=== PATIENT | male | born 1935 | race Caucasian/White ===

== ENCOUNTER → 2018-05-09 | Outpatient (CLI) | payer MEDICARE ==
--- NOTE | 2018-05-24 12:28 | P.ARTDOP ---
Arterial Doppler LOWER EXTREMITY ARTERIAL DOPPLER: DATE OF SERVICE: 05/09/2018 Reason for study: Assess previous bypass graft. Doppler waveforms: Multiphasic throughout on the right. Atypical throughout on the left.. Pulse volume recording: Mild blunting throughout bilaterally. More on the left than the right.. Pressure gradients: Below the knee on the right and above the thigh on the left.. Ankle-brachial indices: 0.86 on the right and 0.57 on the left.. Toe pressures: [] on the right, [] on the left Impression: Mild right fem-pop disease. Moderate left iliofemoral disease. Duplex of bypass graft needed to assess patency of fem-fem bypass.
== END | disposition home or self-care (01) ==
LOC: RADUSWWP 07:51
PROVIDERS: ATTEND Podiatrist Foot & Ankle Surgery
DX: I73.9 Peripheral vascular disease, unspecified (principal)
CPT/HCPCS: 93923

== ENCOUNTER → 2018-05-12 | Outpatient (CLI) | payer MEDICARE ==
--- NOTE | 2018-05-12 11:31 | CT ---
EXAMINATION TYPE: CT chest w con DATE OF EXAM: 05/12/2018 COMPARISON: NONE HISTORY: Cough and congestion per patient, acute bronchitis and COPD with acute exacerbation per orde r. CT DLP: 494.9 mGycm. Automated Exposure Control for Dose Reduction was Utilized. TECHNIQUE: CT scan of the thorax is performed following with IV Contrast, patient injected with 80 m L of Isovue 300. FINDINGS: LUNGS: There is patchy left basilar linear scarring and/or atelectasis seen best paracoronal image 43 . There is no suspicious parenchymal nodule or mass. No pleural effusion or pneumothorax is seen bila terally. Tracheobronchial tree is patent. No suspicious consolidation or groundglass opacity is evide nt. MEDIASTINUM: There are no greater than 1 cm hilar or mediastinal lymph nodes. No cardiomegaly or pe ricardial effusion is seen. There is fairly moderate to severe coronary artery calcification and/or stents. Correlate clinically. OTHER: Small hiatal hernia is present. Small dependent gallstones are seen in gallbladder. There is p artial visualization of renal cysts bilaterally, largest right kidney was inferior axial images. Ther e is partial visualization of surgical change of the infrarenal abdominal aorta. There is some cortic al atrophy anteriorly mid pole level left kidney. Bilateral gynecomastia is partially imaged. IMPRESSION: No significant acute or chronic pulmonary process.
== END | disposition home or self-care (01) ==
LOC: RADCTMAIN 10:12
PROVIDERS: ATTEND Physician Assistant Medical
DX: J44.1 Chronic obstructive pulmonary disease with (acute) exacerbation (principal)
CPT/HCPCS: 82565; 84520; 71260; 36415; Q9967

== ENCOUNTER 2018-06-08 19:51 | Inpatient (IN) | payer MEDICARE ==
[2018-06-08] MEDS ORDERED: IPRATROPIUM-ALBUTEROL 3 ML NEB INHALATION STA ×2 (20:17→23:23)
[2018-06-08] MEDS ORDERED: FUROSEMIDE 10 MG/ML 4 ML VIAL IV STA (20:20)
--- NOTE | 2018-06-08 20:20 | ED ---
SOB HPI - General Chief Complaint: Shortness of Breath Stated Complaint: SOB Time Seen by Provider: 06/08/18 20:05 Source: patient, RN notes reviewed Mode of arrival: ambulatory Limitations: no limitations - History of Present Illness Initial Comments: This 83-year-old male presents with complaints of cough since March of this year he's had increasing shortness breath and increasing peripheral edema he's had several various workups for this. Eating worse he states he's had cough with sometimes clear sometimes yellow phlegm he denies currently any fevers chills or sweats however. Some chest tightness because of the shortness of breath he states. He is having history of peripheral vascular disease with stents to his lower extremities. MD Complaint: shortness of breath, cough - Related Data Home Medications Medication Instructions Recorded Confirmed Atorvastatin [Lipitor] 40 mg PO HS 12/10/15 06/08/18 Cholecalciferol [Vitamin D3] 2,000 unit PO DAILY 12/10/15 06/08/18 Ranitidine HCl 150 mg PO BID 12/10/15 06/08/18 Sennosides [Senokot] 8.6 mg PO HS 12/10/15 06/08/18 Albuterol Inhaler [Ventolin Hfa 1 - 2 puff INHALATION RT-Q4H PRN 06/08/18 Inhaler] Cilostazol [Pletal] 100 mg PO PC-BID 06/08/18 06/08/18 Lactobacillus Acidophilus 1 tab PO DAILY 06/08/18 06/08/18 [Acidophilus] Nystatin 100,000Unit/gm Cream 1 applic TOPICAL BID 06/08/18 06/08/18 [Mycostatin Cream] Sildenafil Citrate [Viagra] 100 mg PO ONCE PRN 06/08/18 06/08/18 Allergies Allergy/AdvReac Type Severity Reaction Status Date / Time fluticasone propionate Allergy Unknown Verified 06/08/18 20:01 [From Advair Diskus] heparin Allergy "made Verified 06/08/18 20:01 blood too thin" Penicillins Allergy Anaphylaxis Verified 06/08/18 20:01 salmeterol xinafoate Allergy Unknown Verified 06/08/18 20:01 [From Advair Diskus] Tetanus Vaccines and Toxoid Allergy Unknown Verified 06/08/18 20:01 [Tetanus Vaccines & Toxoid] Childhood levetiracetam [From [facility]] AdvReac Hallucinati Verified 06/08/18 21:11 ons Review of Systems ROS Statement: Those systems with pertinent positive or pertinent negative responses have been documented in the HPI. ROS Other: All systems not noted in ROS Statement are negative. Past Medical History Past Medical History: Coronary Artery Disease (CAD), COPD, Hyperlipidemia History of Any Multi-Drug Resistant Organisms: MRSA Date of last positivie culture/infection: 2013 MDRO Source:: blood Additional Past Surgical History / Comment(s): Aortic triple femoral bypass, neck repair, stent in the right leg Past Psychological History: No Psychological Hx Reported Smoking Status: Former smoker Past Alcohol Use History: None Reported Past Drug Use History: None Reported General Exam - General Exam Comments Initial Comments: Is a well-developed well-nourished awake alert oriented 3 male Limitations: no limitations General appearance: alert, anxious Head exam: Present: atraumatic, normocephalic, normal inspection Eye exam: Present: normal appearance, PERRL, EOMI. Absent: scleral icterus, conjunctival injection, periorbital swelling ENT exam: Present: normal exam, mucous membranes moist Neck exam: Present: normal inspection. Absent: tenderness, meningismus, lymphadenopathy Respiratory exam: Present: wheezes, decreased breath sounds. Absent: respiratory distress, rales, rhonchi, stridor Cardiovascular Exam: Present: regular rate, normal rhythm, normal heart sounds. Absent: systolic murmur, diastolic murmur, rubs, gallop, clicks GI/Abdominal exam: Present: soft, normal bowel sounds. Absent: distended, tenderness, guarding, rebound, rigid Extremities exam: Present: normal inspection, full ROM, normal capillary refill , pedal edema. Absent: tenderness, joint swelling, calf tenderness Back exam: Present: normal inspection Neurological exam: Present: alert, oriented X3, CN II-XII intact Psychiatric exam: Present: normal affect, normal mood Skin exam: Present: warm, dry, intact, normal color. Absent: rash Course Vital Signs 06/08/18 06/08/18 06/08/18 19:54 20:23 20:25 Temperature 98.4 F Pulse Rate 80 92 Respiratory 28 H 24 Rate Blood Pressure 163/88 O2 Sat by Pulse 89 L Oximetry 06/08/18 06/08/18 06/08/18 20:39 22:05 23:28 Temperature Pulse Rate 95 94 96 Respiratory 24 Rate Blood Pressure 163/80 O2 Sat by Pulse 93 L Oximetry 06/08/18 06/08/18 23:36 23:45 Temperature Pulse Rate 96 103 H Respiratory 22 Rate Blood Pressure 141/80 O2 Sat by Pulse 95 Oximetry - Reevaluation(s) Reevaluation #1: 06/09/18 00:13 Reevaluation after initial treatment revealed the patient had minimal improvement. Medical Decision Making - Medical Decision Making I did discuss findings with the patient the presentation appears be consistent with a COPD exacerbation with hypoxemia. Patient will be admitted. I did reevaluate patient several occasions. Some relief after initial treatment. He states that treatments do not seem to last for a long however. - Lab Data Result diagrams: 06/08/18 20:18 06/08/18 20:18 Lab Results 06/08/18 06/08/18 06/08/18 Range/Units 20:18 20:18 20:18 WBC 8.0 (3.8-10.6) k/uL RBC 5.24 (4.30-5.90) m/uL Hgb 15.1 (13.0-17.5) gm/dL Hct 46.5 (39.0-53.0) % MCV 88.6 (80.0-100.0) fL MCH 28.7 (25.0-35.0) pg MCHC 32.4 (31.0-37.0) g/dL RDW 14.9 (11.5-15.5) % Plt Count 183 (150-450) k/uL Neutrophils % 67 % Lymphocytes % 16 % Monocytes % 8 % Eosinophils % 5 % Basophils % 1 % Neutrophils # 5.3 (1.3-7.7) k/uL Lymphocytes # 1.3 (1.0-4.8) k/uL Monocytes # 0.6 (0-1.0) k/uL Eosinophils # 0.4 (0-0.7) k/uL Basophils # 0.1 (0-0.2) k/uL PT (9.0-12.0) sec INR (<1.2) APTT (22.0-30.0) sec D-Dimer (<0.60) mg/L FEU Sodium 140 (137-145) mmol/L Potassium 5.0 (3.5-5.1) mmol/L Chloride 107 (98-107) mmol/L Carbon Dioxide 26 (22-30) mmol/L Anion Gap 7 mmol/L BUN 14 (9-20) mg/dL Creatinine 1.07 (0.66-1.25) mg/dL Est GFR (CKD-EPI)AfAm 74 (>60 ml/min/1.73 sqM) Est GFR (CKD-EPI)NonAf 64 (>60 ml/min/1.73 sqM) Glucose 78 (74-99) mg/dL Calcium 9.1 (8.4-10.2) mg/dL Magnesium 2.2 (1.6-2.3) mg/dL Total Bilirubin 0.8 (0.2-1.3) mg/dL AST 38 (17-59) U/L ALT 26 (21-72) U/L Alkaline Phosphatase 77 (38-126) U/L Total Creatine Kinase 118 (55-170) U/L CK-MB (CK-2) 2.1 (0.0-2.4) ng/mL CK-MB (CK-2) Rel Index 1.8 Troponin I 0.014 (0.000-0.034) ng/mL NT-Pro-B Natriuret Pep pg/mL Total Protein 6.8 (6.3-8.2) g/dL Albumin 4.1 (3.5-5.0) g/dL 06/08/18 06/08/18 Range/Units 20:18 21:19 WBC (3.8-10.6) k/uL RBC (4.30-5.90) m/uL Hgb (13.0-17.5) gm/dL Hct (39.0-53.0) % MCV (80.0-100.0) fL MCH (25.0-35.0) pg MCHC (31.0-37.0) g/dL RDW (11.5-15.5) % Plt Count (150-450) k/uL Neutrophils % % Lymphocytes % % Monocytes % % Eosinophils % % Basophils % % Neutrophils # (1.3-7.7) k/uL Lymphocytes # (1.0-4.8) k/uL Monocytes # (0-1.0) k/uL Eosinophils # (0-0.7) k/uL Basophils # (0-0.2) k/uL PT 10.4 (9.0-12.0) sec INR 1.1 (<1.2) APTT 20.2 L (22.0-30.0) sec D-Dimer 3.39 H (<0.60) mg/L FEU Sodium (137-145) mmol/L Potassium (3.5-5.1) mmol/L Chloride (98-107) mmol/L Carbon Dioxide (22-30) mmol/L Anion Gap mmol/L BUN (9-20) mg/dL Creatinine (0.66-1.25) mg/dL Est GFR (CKD-EPI)AfAm (>60 ml/min/1.73 sqM) Est GFR (CKD-EPI)NonAf (>60 ml/min/1.73 sqM) Glucose (74-99) mg/dL Calcium (8.4-10.2) mg/dL Magnesium (1.6-2.3) mg/dL Total Bilirubin (0.2-1.3) mg/dL AST (17-59) U/L ALT (21-72) U/L Alkaline Phosphatase (38-126) U/L Total Creatine Kinase (55-170) U/L CK-MB (CK-2) (0.0-2.4) ng/mL CK-MB (CK-2) Rel Index Troponin I (0.000-0.034) ng/mL NT-Pro-B Natriuret Pep 169 pg/mL Total Protein (6.3-8.2) g/dL Albumin (3.5-5.0) g/dL - EKG Data -: EKG Interpreted by Tn EKG shows normal: sinus rhythm (Sinus rhythm rate 94 WV interval 114 QRS 90 QT since QTC 358/[address] configuration artifact is present) - Radiology Data Radiology results: report reviewed (Review the imaging shows no definite acute findings. CAT scan was done showing no evidence of pulmonary embolism.), image reviewed Critical Care Time Critical Care Time: Yes Critical Care Time: 37 minutes of critical care time which includes monitoring the patient history physical labs x-rays multiple re-evaluations patient discussion the patient family regarding the findings review of old charting that was available documentation the above admission orders. Discussed with the admitting service. Disposition Clinical Impression: Acute exacerbation of chronic obstructive airways disease, Adult respiratory distress syndrome, Hypoxemia, Peripheral edema Disposition: ADMITTED IP TO THIS HOSP Condition: Stable Referrals: Junaid Helms III, MD [Primary Care Provider] - 1-2 days
[2018-06-08 20:35] LABS: Basophils # (A) 0.1 k/uL (0-0.2); Basophils % (A) 1 %; Eosinophils # (A) 0.4 k/uL (0-0.7); Eosinophils % (A) 5 %; HCT 46.5 % (39.0-53.0); HGB 15.1 gm/dL (13.0-17.5); Lymphocytes # (A) 1.3 k/uL (1.0-4.8); Lymphocytes % (A) 16 %; MCH 28.7 pg (25.0-35.0); MCHC 32.4 g/dL (31.0-37.0); MCV 88.6 fL (80.0-100.0); Mean Platelet Volume 7.2; Monocytes # (A) 0.6 k/uL (0-1.0); Monocytes % (A) 8 %; Neutrophils # (A) 5.3 k/uL (1.3-7.7); Neutrophils % (A) 67 %; Platelet Count 183 k/uL (150-450); RBC 5.24 m/uL (4.30-5.90); RDW 14.9 % (11.5-15.5)
[2018-06-08 20:41] LABS: Albumin 4.1 g/dL (3.5-5.0); Calcium 9.1 mg/dL (8.4-10.2); Magnesium 2.2 mg/dL (1.6-2.3); Total Bilirubin 0.8 mg/dL (0.2-1.3); Total Protein 6.8 g/dL (6.3-8.2)
[2018-06-08 20:54] LABS: Creatine Kinase MB 2.1 ng/mL (0.0-2.4)
[2018-06-08 20:55] LABS: Troponin I 0.014 ng/mL (0.000-0.034)
--- NOTE | 2018-06-08 21:37 | XR ---
EXAMINATION TYPE: XR chest 2V DATE OF EXAM: 06/08/2018 COMPARISON: NONE HISTORY: Short of breath TECHNIQUE: Frontal and lateral views of the chest are obtained. FINDINGS: Heart and mediastinum are normal. Lungs are clear. Diaphragm is normal. Bony thorax is int act. There are chest leads. IMPRESSION: Normal chest
[2018-06-08 21:48] LABS: INR 1.1 (<1.2); Prothrombin Time 10.4 sec (9.0-12.0)
[2018-06-08 22:12] LABS: D-Dimer 3.39 mg/L FEU (<0.60); Partial Thromboplastin Time 20.2 sec (22.0-30.0)
--- NOTE | 2018-06-08 23:07 | CT ---
EXAMINATION TYPE: CT angio chest DATE OF EXAM: 06/08/2018 11:00 PM COMPARISON: None HISTORY: sob CT DLP: 478.8 mGycm Automated exposure control for dose reduction was used. CONTRAST: CTA scan of the thorax is performed with IV Contrast, patient injected with 100 mL of Isovue 370, pul monary embolism protocol. There are 3-D post processed images.. FINDINGS: The lungs are clear of consolidation. There is no heart failure. Heart size is normal. There is no pe ricardial effusion. Thoracic aorta is atheromatous. There is no mediastinal adenopathy. There is no e vidence of aortic aneurysm or dissection. There is normal contrast opacification of the pulmonary arteries. There are no filling defects. There are small hiatal hernia. The bony thorax is intact. IMPRESSION: ATHEROMATOUS AORTA. NO ACTIVE CARDIOPULMONARY DISEASE. NO EVIDENCE OF PULMONARY EMBOLISM.
[2018-06-08] MEDS ORDERED: MAGNESIUM SULFATE-D5W PMX 1 GM in DEXTROSE/WATER 1 100ML.BAG IVPB ONE (23:23)
[2018-06-09] MEDS ORDERED: FUROSEMIDE 10 MG/ML 4 ML VIAL IV STA (00:20)
[2018-06-09] MEDS: SODIUM CHLORIDE 0.9% 1,000 ML IV SCH (00:44)
[2018-06-09 01:58] VITALS: BMI 31.6
[2018-06-09] MEDS: IPRATROPIUM-ALBUTEROL 3 ML NEB INHALATION SCH ×5 (03:33→20:13)
[2018-06-09] MEDS: methylPREDNISolone SOD SUCCI 125 MG/2 ML VIAL IV SCH ×4 (05:13→23:57)
[2018-06-09 06:30] LABS: Glucose,Whole Blood 102 mg/dL (75-99)
[2018-06-09] MEDS ORDERED: HEPARIN SODIUM,PORCINE 5,000 UNIT/ML 1 ML VIAL SQ SCH (09:00)
[2018-06-09] MEDS: CHOLECALCIFEROL 1,000 UNIT TAB PO SCH (09:13)
[2018-06-09] MEDS: FAMOTIDINE 20 MG TAB PO SCH ×2 (09:13→23:58)
[2018-06-09] MEDS: NYSTATIN 100,000UNIT/GM CREAM 30 GM TUBE TOPICAL SCH ×3 (09:14→21:07)
[2018-06-09] MEDS: LEVOFLOXACIN 500 MG TAB PO SCH (09:14)
[2018-06-09] MEDS: CILOSTAZOL 100 MG TAB PO SCH ×2 (09:14→17:30)
--- NOTE | 2018-06-09 11:51 | P.CNPUL ---
History of Present Illness Consult date: 06/09/18 Reason for consult: dyspnea, cough, COPD Chief complaint: Shortness of breath History of present illness: Pulmonary consult dated 06/09/2018 This is an 83-year-old male with a history of probable COPD. The patient comes into the emergency room complaining of shortness of breath or coughing. The patient also developed peripheral edema. He states that he's been having shortness of breath for some time. He apparently scheduled to see me in the office on June 15. He hasn't been seen by a lung doctor in the past. He does cough up some clear phlegm from time to time. Also chest tightness and wheezing. The shortness of breath breath has been present for sometime getting worse for the last couple months. The lower extremity edema is a relatively new symptom. The lower extremity edema could be secondary to chronic lung disease and/or chronic heart disease or both. The patient does have a history of coronary artery disease. The patient also has a history of hyperlipidemia. He has a previous history of MRSA infection. The patient is also a known heavy smoker in the past. Has not smoked recently. Review of Systems 12 point review of systems is positive for shortness of breath chest congestion tightness wheezing cough and some phlegm production. The symptoms have been present for a number of months getting worse over the last couple weeks or so. Past Medical History Past Medical History: Coronary Artery Disease (CAD), COPD, GERD/Reflux, Hyperlipidemia Additional Past Medical History / Comment(s): chronic kidney disease stage 3, erectile dysfunction History of Any Multi-Drug Resistant Organisms: MRSA Date of last positivie culture/infection: 2013 MDRO Source:: blood Additional Past Surgical History / Comment(s): Aortic triple femoral bypass, neck repair, stent in the right leg Past Psychological History: No Psychological Hx Reported Smoking Status: Former smoker Past Alcohol Use History: None Reported Past Drug Use History: None Reported - Past Family History Mother Family Medical History: Cancer, COPD Additional Family Medical History / Comment(s): lung cancer Father Family Medical History: Dementia Additional Family Medical History / Comment(s): heart disease Sister(s) Family Medical History: Cancer Additional Family Medical History / Comment(s): Breast Cancer Brother(s) Family Medical History: Diabetes Mellitus Additional Family Medical History / Comment(s): heart disease Medications and Allergies Home Medications Medication Instructions Recorded Confirmed Type Atorvastatin [Lipitor] 40 mg PO HS 12/10/15 06/08/18 History Cholecalciferol [Vitamin D3] 2,000 unit PO DAILY 12/10/15 06/08/18 History Ranitidine HCl 150 mg PO BID 12/10/15 06/08/18 History Sennosides [Senokot] 8.6 mg PO HS 12/10/15 06/08/18 History Albuterol Inhaler [Ventolin Hfa 1 - 2 puff INHALATION RT-Q4H PRN 06/08/18 History Inhaler] Cilostazol [Pletal] 100 mg PO PC-BID 06/08/18 06/08/18 History Lactobacillus Acidophilus 1 tab PO DAILY 06/08/18 06/08/18 History [Acidophilus] Nystatin 100,000Unit/gm Cream 1 applic TOPICAL BID 06/08/18 06/08/18 History [Mycostatin Cream] Sildenafil Citrate [Viagra] 100 mg PO ONCE PRN 06/08/18 06/08/18 History Allergies Allergy/AdvReac Type Severity Reaction Status Date / Time fluticasone propionate Allergy Unknown Verified 06/08/18 20:01 [From Advair Diskus] heparin Allergy "made Verified 06/08/18 20:01 blood too thin" Penicillins Allergy Anaphylaxis Verified 06/08/18 20:01 salmeterol xinafoate Allergy Unknown Verified 06/08/18 20:01 [From Advair Diskus] Tetanus Vaccines and Toxoid Allergy Unknown Verified 06/08/18 20:01 [Tetanus Vaccines & Toxoid] Childhood levetiracetam [From [facility]] AdvReac Hallucinati Verified 06/08/18 21:11 ons Physical Exam Osteopathic Statement: *. No significant issues noted on an osteopathic structural exam other than those noted in the History and Physical/Consult. Vitals: Vital Signs Temp Pulse Pulse Pulse Resp BP BP 06/09/18 09:45 98.8 F 88 97 20 122/59 06/09/18 09:21 20 06/09/18 09:10 86 16 06/09/18 09:00 85 16 06/09/18 03:45 88 06/09/18 03:36 84 06/09/18 01:22 97.6 F 72 28 H 06/09/18 00:44 97.8 F 98 24 163/70 06/08/18 23:45 103 H 22 141/80 06/08/18 23:36 96 06/08/18 23:28 96 06/08/18 22:05 94 24 163/80 06/08/18 20:39 95 06/08/18 20:25 24 06/08/18 20:23 92 06/08/18 19:54 98.4 F 80 28 H 163/88 Pulse Ox 06/09/18 09:45 06/09/18 09:21 06/09/18 09:10 06/09/18 09:00 95 06/09/18 03:45 06/09/18 03:36 06/09/18 01:22 92 L 06/09/18 00:44 94 L 06/08/18 23:45 95 06/08/18 23:36 06/08/18 23:28 06/08/18 22:05 93 L 06/08/18 20:39 06/08/18 20:25 06/08/18 20:23 06/08/18 19:54 89 L Intake and Output 06/08/18 06/09/18 06/09/18 22:59 06:59 14:59 Output Total 2295 200 Balance -2295 -200 Output: Urine 2295 200 Other: Weight 94.347 kg 91.989 kg No acute distress, oriented 3. HEENT examination is grossly unremarkable. Mucous membranes are moist. No oral lesions. Neck supple. Full range of motion. No adenopathy thyromegaly or neck vein distention. Cardiovascular examination reveals regular rhythm rate. S1-S2 normal. No S3 or S4. No discernible murmur noted. Lungs reveal some inspiratory and expiratory rhonchi and wheezes. Breath sounds are diminished. There is prolongation. Abdomen soft bowel sounds are heard. No masses or tenderness. Extremities reveal 1-2+ pitting edema. No cyanosis or clubbing. Skin is without rash or lesion. Neurologic examination is brief but nonfocal. Results - Laboratory Findings CBC and BMP: 06/08/18 20:18 06/08/18 20:18 PT/INR, D-dimer PT 10.4 sec (9.0-12.0) 06/08/18 21:19 INR 1.1 (<1.2) 06/08/18 21:19 D-Dimer 3.39 mg/L FEU (<0.60) H 06/08/18 21:19 Abnormal lab findings: Abnormal Labs 06/08/18 06/09/18 21:19 06:27 APTT 20.2 L D-Dimer 3.39 H POC Glucose (mg/dL) 102 H - Diagnostic Findings Chest x-ray: report reviewed, image reviewed CT scan - chest: report reviewed, image reviewed (Chest x-ray labs and medications are reviewed.) Assessment and Plan Assessment: Assessment COPD exacerbation complicated by tracheobronchitis History of hyperlipidemia History of vitamin D deficiency History of peripheral artery disease History of CAD History of heavy tobacco use Plan: Plan dated 06/09/2018 The patient should keep his appointment with me on June 15. On that visit, we' ll do a 6 minute walk distance and a complete pulmonary function test. This will tell us the physiology of his lung disease and also the severity of his lung disease. In addition, I'll review the labs x-rays and medications. We'll make sure he is on appropriate medications the current time which will include short acting beta agonist, I short acting muscarinic antagonist, a long-acting beta agonist, and a inhaled corticosteroid. We also recommend a systemic corticosteroids and a short course of oral antibiotics. Additional recommendations and suggestions are forthcoming. Time with Patient: Greater than 30
[2018-06-09 12:02] LABS: Glucose,Whole Blood 121 mg/dL (75-99)
[2018-06-09 12:14] LABS: Hemoglobin A1C 5.6 % (4.0-6.0)
--- NOTE | 2018-06-09 15:22 | HP ---
HISTORY AND PHYSICAL DATE OF SERVICE: 06/09/2018 CHIEF COMPLAINT: Shortness of breath. HISTORY OF PRESENT ILLNESS: This 83-year-old gentleman with a past history of CAD, COPD, GERD, hypertension, hyperlipidemia, history of MRSA being followed by Dr. Helms in the outpatient setting is complaining of shortness with cough for the last several weeks. Because of increased shortness of breath and peripheral leg edema, the patient came to [facility] and was admitted for further evaluation. Patient also had some near syncopal episode also previously. There is no history of fever, rigors. No headache, loss of consciousness, seizures. Patient also had history of peripheral vascular disease and stents in the lower leg. PAST MEDICAL HISTORY: CAD, COPD, GERD, hyperlipidemia, chronic kidney stage III, history of MRSA, history of aortic bypass and stent in the leg. MEDICATIONS: Prior to admission include home medications are: 1. Lactobacillus acidophilus 1 tab p.o. daily. 2. Pletal 100 mg p.o. b.i.d. 3. Viagra 100 mg p.r.n. 4. Mycostatin 1 p.o. b.i.d. 5. Ventolin HFA 1-2 puffs q.4h p.r.n. 6. Senokot 8.6 mg q.h.s. 7. Ranitidine 150 mg p.o. b.i.d. 8. Vitamin D3 2000 daily. 9. Lipitor 40 mg q.h.s. ALLERGIES: Are FLUTICASONE, HEPARIN, PENICILLIN, SALMETEROL, TETANUS TOXOID, KEPPRA. FAMILY HISTORY: History of COPD, lung cancer in the family. SOCIAL HISTORY: Previous history of smoking. No history of current smoking or alcohol intake. REVIEW OF SYSTEMS: ENT: No diminished hearing or vision. CARDIOVASCULAR: No angina. RESPIRATORY: As mentioned. GI: No nausea. : No dysuria. NERVOUS SYSTEM: No numbness or weakness. ALLERGY/IMMUNOLOGY: No history of asthma or hay fever. MUSCULOSKELETAL: As mentioned earlier. HEMATOLOGY/ONCOLOGY: No history of anemia. ENDOCRINE: No history of diabetes or hypothyroidism. CONSTITUTIONAL: As mentioned earlier. DERMATOLOGY: Negative. RHEUMATOLOGY: Negative. PSYCHIATRY: As mentioned earlier. PHYSICAL EXAMINATION: Alert and oriented x2. Pulse 88, blood pressure 120/59, respiration 20, temperature 98.8, pulse ox is 95% on 3 L. HEENT: Conjunctivae normal. Oral mucosa moist. NECK: No jugular venous distention. No carotid bruit. No lymph node enlargement. CARDIOVASCULAR: S1, S2. RESPIRATORY: Breath sounds diminished in the bases. Chest is emphysematous. Bilateral scattered rhonchi, expiratory wheezing and accessory muscles of respirations are acting. Otherwise the breathing efforts are markedly increased. Bilateral crackles also heard. ABDOMEN: Soft, nontender. No mass palpable. LEGS: Bilateral leg edema present. Pulses diminished bilaterally. NERVOUS SYSTEM: Higher functions as mentioned. Moves all four limbs. No focal motor deficits. LYMPHATICS: No lymphadenopathy in the neck, axillae, groin. SKIN: No ulcer, rash or bleeding. LABS: CBC within normal limits and D-dimer is 3.39. Glucose 102. ASSESSMENT: 1. Chronic obstructive pulmonary disease exacerbation with acute purulent tracheobronchitis. 2. Bilateral leg edema. 3. Elevated D-dimer. 4. Coronary artery disease. 5. Chronic obstructive pulmonary disease. 6. Gastroesophageal reflux disease. 7. Hyperlipidemia. 8. Chronic kidney disease stage III. 9. History of MRSA. 10.Aortic, bifemoral bypass. 11.Remote history of nicotine dependence. RECOMMENDATIONS AND DISCUSSION: This 83-year-old gentleman who presented with multiple complex medical issues, at this time I recommend to continue current management and symptomatic treatment. Otherwise at this time will optimize the bronchodilator treatment. Consult Dr. Estrada. Other than that, continue the rest of the medications. Lower extremity ultrasound Doppler was done last month. We will repeat the ultrasound. Further recommendations to follow. MMODL / IJN: [id number] /
--- NOTE | 2018-06-09 16:16 | US ---
EXAMINATION TYPE: US venous doppler duplex LE DATE OF EXAM: 06/09/2018 3:49 PM COMPARISON: None CLINICAL HISTORY: dvt. Patient states no pain. Not on blood thinners. Patient states having 2 tripl e aortic bypasses. SIDE PERFORMED: Bilateral TECHNIQUE: The lower extremity deep venous system is examined utilizing real time linear array sonog bart with graded compression, doppler sonography and color-flow sonography. VESSELS IMAGED: External Iliac Vein (EIV) Common Femoral Vein Deep Femoral Vein Greater Saphenous Vein * Femoral Vein Popliteal Vein Small Saphenous Vein * Proximal Calf Veins (* superficial vessels) Grayscale, color doppler, spectral doppler imaging performed of the deep veins of the lower extremiti es. There is normal flow, compressibility, vascular waveforms. Extremely limited visualization of both femoral veins and deep femoral veins due to arterial shad ow and previous surgery scaring. Portions not visualized due to above. Right Leg: Negative for acute DVT Left Leg: Appears POSITIVE for DVT in mid popliteal vein to proximal calf veins. Internal echoes se en. Thready flow visualized. IMPRESSION: 1. Positive deep venous thrombosis within the mid left popliteal vein extending into the proximal agustín f veins. Findings discussed with nurse Ailyn at 1614 on June 09, 2018. 2. No evidence of deep venous arthrosis within the right lower extremity.
[2018-06-09 16:39] LABS: Glucose,Whole Blood 136 mg/dL (75-99)
[2018-06-09] MEDS ORDERED: HEPARIN SODIUM,PORCINE 5,000 UNIT/ML 1 ML VIAL IV PRN (16:46)
--- NOTE | 2018-06-09 17:20 | ECHOF ---
Referral Reason:chf MEASUREMENTS -------- HEIGHT: 172.7 cm WEIGHT: 91.6 kg BP: RVIDd: 3.6 cm (< 3.3) IVSd: 1.2 cm (0.6 - 1.1) LVIDd: 3.5 cm (3.9 - 5.3) LVPWd: 1.4 cm (0.6 - 1.1) IVSs: 1.6 cm LVIDs: 2.5 cm LVPWs: 1.8 cm Ao Diam: 3.3 cm (2.0 - 3.7) LA Diam: 3.6 cm (2.7 - 3.8) MV E Bentley: 0.87 m/s MV DecT: 123 ms MV A Bentley: 0.19 m/s MV E/A Ratio: 4.70 FINDINGS -------- Undetermined rhythm. This was a techncally difficult study with suboptimal views, , Lumason utilized for enhancement of im ages. The left ventricular size is normal. There is mild concentric left ventricular hypertrophy. Overa ll left ventricular systolic function is low-normal with, an EF between 50 - 55 %. The right ventricle is mild to moderately enlarged. The left atrial size is normal. The right atrial size is normal. 5.0mg OF Lumason UTLIZED: 2 OR MORE WALL SEGMENTS NOT VISUALIZED. The aortic valve was not well visualized. Mild mitral regurgitation is present. Mild tricuspid regurgitation present. There is no evidence of pulmonary hypertension. The right v entricular systolic pressure, as measured by Doppler, is {RVSP}. The pulmonic valve was not well visualized. There is no pericardial effusion. CONCLUSIONS -------- 1. This was a techncally difficult study with suboptimal views, , Lumason utilized for enhancement of images. 2. The left ventricular size is normal. 3. There is mild concentric left ventricular hypertrophy. 4. Overall left ventricular systolic function is low-normal with, an EF between 50 - 55 %. 5. The right ventricle is mild to moderately enlarged. 6. The left atrial size is normal. 7. The right atrial size is normal. 8. 5.0mg OF Lumason UTLIZED: 2 OR MORE WALL SEGMENTS NOT VISUALIZED. 9. The aortic valve was not well visualized. 10. Mild mitral regurgitation is present. 11. Mild tricuspid regurgitation present. 12. There is no evidence of pulmonary hypertension. 13. T 14. The pulmonic valve was not well visualized. 15. There is no pericardial effusion. [facility] GUIDE: Ryann Stone RDCS
[2018-06-09] MEDS: INSULIN ASPART 100 UNIT/ML 1 ML 10 ML VIAL SQ SCH ×2 (17:25→21:05)
[2018-06-09 17:38] LABS: Basophils % (A) 0 %; Eosinophils % (A) 0 %; HCT 45.8 % (39.0-53.0); HGB 14.1 gm/dL (13.0-17.5); Lymphocytes # (A) 0.6 k/uL (1.0-4.8); Lymphocytes % (A) 6 %; MCH 27.3 pg (25.0-35.0); MCHC 30.8 g/dL (31.0-37.0); MCV 88.9 fL (80.0-100.0); Mean Platelet Volume 6.8; Monocytes # (A) 0.2 k/uL (0-1.0); Monocytes % (A) 2 %; Neutrophils # (A) 9.5 k/uL (1.3-7.7); Neutrophils % (A) 92 %; Platelet Count 256 k/uL (150-450); RBC 5.15 m/uL (4.30-5.90); RDW 14.7 % (11.5-15.5); WBC 10.4 k/uL (3.8-10.6)
[2018-06-09 17:47] LABS: INR 1.2 (<1.2); Partial Thromboplastin Time 22.8 sec (22.0-30.0); Prothrombin Time 11.4 sec (9.0-12.0)
[2018-06-09] MEDS: HEPARIN SOD,PORK IN 0.45% NACL 25,000 UNIT in 0.45% NACL 1 500ML.BAG IV SCH (18:19)
[2018-06-09 19:32] LABS: Glucose,Whole Blood 169 mg/dL (75-99)
[2018-06-09] MEDS: SYMBICORT 160-4.5 MCG INHALER INHALATION SCH ×2 (20:13→20:26)
[2018-06-09] MEDS: SENNOSIDES 8.6 MG TAB PO SCH (21:05)
[2018-06-09] MEDS: ATORVASTATIN 40 MG TAB PO SCH (21:05)
[2018-06-10] MEDS: IPRATROPIUM-ALBUTEROL 3 ML NEB INHALATION SCH ×6 (00:06→20:21)
[2018-06-10] MEDS: methylPREDNISolone SOD SUCCI 125 MG/2 ML VIAL IV SCH ×3 (05:57→17:37)
[2018-06-10 06:49] LABS: Glucose,Whole Blood 142 mg/dL (75-99)
[2018-06-10] MEDS: INSULIN ASPART 100 UNIT/ML 1 ML 10 ML VIAL SQ SCH ×4 (07:43→22:07)
[2018-06-10] MEDS: CILOSTAZOL 100 MG TAB PO SCH ×2 (07:44→17:39)
[2018-06-10 08:38] LABS: Basophils % (A) 0 %; Eosinophils % (A) 0 %; HCT 41.5 % (39.0-53.0); HGB 13.8 gm/dL (13.0-17.5); Lymphocytes # (A) 0.8 k/uL (1.0-4.8); Lymphocytes % (A) 5 %; MCH 29.2 pg (25.0-35.0); MCHC 33.2 g/dL (31.0-37.0); MCV 87.7 fL (80.0-100.0); Mean Platelet Volume 7.8; Monocytes # (A) 0.5 k/uL (0-1.0); Monocytes % (A) 3 %; Neutrophils % (A) 92 %; Platelet Count 251 k/uL (150-450); RBC 4.73 m/uL (4.30-5.90); WBC 17.5 k/uL (3.8-10.6)
[2018-06-10] MEDS: LACTOBACILLUS ACIDOPH & BULGAR 1 EACH PACKET PO SCH (09:14)
[2018-06-10] MEDS: FAMOTIDINE 20 MG TAB PO SCH ×2 (09:16→22:07)
[2018-06-10] MEDS: NYSTATIN 100,000UNIT/GM CREAM 30 GM TUBE TOPICAL SCH ×2 (09:16→22:07)
[2018-06-10] MEDS: CHOLECALCIFEROL 1,000 UNIT TAB PO SCH (09:16)
[2018-06-10] MEDS: LEVOFLOXACIN 500 MG TAB PO SCH (09:16)
[2018-06-10] MEDS: SYMBICORT 160-4.5 MCG INHALER INHALATION SCH ×2 (09:40→20:21)
[2018-06-10 10:04] LABS: Calcium 9.7 mg/dL (8.4-10.2); Potassium 4.2 mmol/L (3.5-5.1)
--- NOTE | 2018-06-10 11:25 | P.PN ---
Subjective Progress Note Date: 06/10/18 Principal diagnosis: Shortness of breath/COPD exacerbation Progress note dated 06/10/2018 83-year-old male who I saw yesterday in consultation. He was admitted with a diagnosis of COPD exacerbation, complicated by tracheobronchitis. He also was discovered to have a left popliteal DVT. He has a history of hyperlipidemia and vitamin D deficiency peripheral artery disease CAD and history of heavy tobacco use. The patient is scheduled to see me in the office on June 15. From the pulmonary standpoint, the patient is doing much better. Much less short of breath. He still has some swelling and edema of the left lower extremity. He is coughing a bit. Not producing much phlegm. No fever or chills. Not coughing up any blood. No nausea vomiting or diarrhea. No chest pain or chest discomfort. Objective - Vital Signs Vital signs: Vital Signs Temp 97.6 F 06/10/18 07:40 Pulse 112 H 06/10/18 07:40 Resp 20 06/10/18 07:40 BP 109/65 06/10/18 07:40 Pulse Ox 94 L 06/10/18 07:40 Intake & Output 06/09/18 06/10/18 06/10/18 18:59 06:59 18:59 Intake Total 120 1778.667 Output Total 400 Balance -280 1778.667 Weight 95.708 kg Intake: Intake, IV Titration 120 418.667 Amount Heparin Sod,Pork in 0.45% 98.667 NaCl 25,000 unit In 0.45 % NaCl 1 500ml.bag @ 10.9 UNITS/KG/HR 20.05 mls/hr IV .Q24H [facility] Rx#: [id number] Sodium Chloride 0.9% 1, 120 320 000 ml @ 20 mls/hr IV . Q24H [facility] Rx#:[id number] Oral 1360 Output: Urine 400 Other: Voiding Method Urinal # Voids 1 - Exam No acute distress, oriented 3. Nasal O2 in place. HEENT examination is grossly unremarkable. Mucous membranes are moist. No oral lesions. Neck supple. Full range of motion. No adenopathy thyromegaly or neck vein distention. Cardiovascular examination reveals regular rhythm rate. S1-S2 normal. No S3 or S4. No discernible murmur noted. Heart sounds are distant. Lungs reveal coarse expiratory rhonchi and wheezes. Breath sounds are diminished. There is prolongation on forced maneuver. Adventitious lung sounds are more prominent on forced maneuver. Abdomen soft bowel sounds are heard. No masses or tenderness. Extremities reveal 1+2+ pitting edema. It's noted bilaterally worse on the left than on the right. No cyanosis or clubbing noted. Skin is without rash or lesion. Neurologic examination is brief but nonfocal. - Labs CBC & Chem 7: 06/10/18 08:20 06/10/18 08:50 Labs: Abnormal Lab Results - Last 24 Hours (Table) 06/09/18 06/09/18 06/09/18 Range/Units 11:43 16:33 17:10 WBC (3.8-10.6) k/uL MCHC 30.8 L (31.0-37.0) g/dL Neutrophils # 9.5 H (1.3-7.7) k/uL Lymphocytes # 0.6 L (1.0-4.8) k/uL INR (<1.2) APTT (22.0-30.0) sec BUN (9-20) mg/dL Creatinine (0.66-1.25) mg/dL Glucose (74-99) mg/dL POC Glucose (mg/dL) 121 H 136 H (75-99) mg/dL 06/09/18 06/09/18 06/09/18 Range/Units 17:10 19:30 22:35 WBC (3.8-10.6) k/uL MCHC (31.0-37.0) g/dL Neutrophils # (1.3-7.7) k/uL Lymphocytes # (1.0-4.8) k/uL INR 1.2 H (<1.2) APTT 31.8 H (22.0-30.0) sec BUN (9-20) mg/dL Creatinine (0.66-1.25) mg/dL Glucose (74-99) mg/dL POC Glucose (mg/dL) 169 H (75-99) mg/dL 06/10/18 06/10/18 06/10/18 Range/Units 06:47 08:20 08:50 WBC 17.5 H (3.8-10.6) k/uL MCHC (31.0-37.0) g/dL Neutrophils # 16.0 H (1.3-7.7) k/uL Lymphocytes # 0.8 L (1.0-4.8) k/uL INR (<1.2) APTT (22.0-30.0) sec BUN 29 H (9-20) mg/dL Creatinine 1.39 H (0.66-1.25) mg/dL Glucose 129 H (74-99) mg/dL POC Glucose (mg/dL) 142 H (75-99) mg/dL Microbiology - Last 24 Hours (Table) 06/08/18 20:18 Blood Culture - Preliminary Blood No Growth after 24 hours Assessment and Plan Assessment: Assessment COPD exacerbation complicated by tracheobronchitis Left popliteal deep venous thrombosis No evidence of pulmonary embolism History of hyperlipidemia History of vitamin D deficiency History of peripheral artery disease History of CAD History of heavy tobacco use Plan: Plan dated 06/09/2018 The patient should keep his appointment with me on June 15. On that visit, we' ll do a 6 minute walk distance and a complete pulmonary function test. This will tell us the physiology of his lung disease and also the severity of his lung disease. In addition, I'll review the labs x-rays and medications. We'll make sure he is on appropriate medications the current time which will include short acting beta agonist, I short acting muscarinic antagonist, a long-acting beta agonist, and a inhaled corticosteroid. We also recommend a systemic corticosteroids and a short course of oral antibiotics. Additional recommendations and suggestions are forthcoming. Plan dated 06/10/2018 The patient was started on IV heparin for the left popliteal DVT. He could be transitioned over to a factor X a inhibitor. From the pulmonary standpoint, his breathing is improved. His medications are appropriate including Symbicort 160/4.5, 2 puffs twice a day, solumedrol 60 mg every 6 hours duo nebs 4 times a day and when necessary and an oral antibiotic. We will continue to follow this patient. Additional recommendations and suggestions are forthcoming. Time with Patient: Less than 30
[2018-06-10 11:31] LABS: Glucose,Whole Blood 120 mg/dL (75-99)
[2018-06-10] MEDS: SODIUM CHLORIDE 0.9% 1,000 ML IV SCH (12:33)
[2018-06-10] MEDS: HEPARIN SOD,PORK IN 0.45% NACL 25,000 UNIT in 0.45% NACL 1 500ML.BAG IV SCH (14:11)
--- NOTE | 2018-06-10 14:20 | PN ---
PROGRESS NOTE DATE OF SERVICE: 06/10/2018 This 83-year-old gentleman who was admitted with COPD acute exacerbation also had bilateral leg edema. Venous ultrasound showed positive DVT on the left mid left popliteal vein extending to the proximal calf veins. The patient is on IV heparin. Hematology-Oncology evaluated the patient. A 2D echo showed ejection fraction 50-55%. No chest pain. No palpitations. Patient is still short of breath. Dr. Estrada is following the patient closely also. Leg edema is improving at this time. PAST MEDICAL HISTORY: Reviewed. REVIEW OF SYSTEMS: CARDIOVASCULAR: No angina. RESPIRATORY: As mentioned earlier. GI: As mentioned earlier. : As mentioned earlier. MUSCULOSKELETAL: As mentioned earlier. HEMATOLOGY/ONCOLOGY: As mentioned earlier. CURRENT MEDICATIONS: 1. DuoNeb q.i.d. p.r.n. 2. Lipitor 40 mg q.h.s. 3. Symbicort 160/4.5 two puffs b.i.d. 4. Vitamin D3 2000 daily. 5. Pletal 100 mg b.i.d. 6. Pepcid 20 mg b.i.d. 7. Heparin drip. 8. NovoLog scale. 9. Lactinex 1 p.o. daily. 10.Levaquin 500 mg p.o. daily. 11.Solu-Medrol 60 IV q.6. 12.Mycostatin. 13.Senokot. PHYSICAL EXAM: Patient is alert, oriented x3. Pulse is 112, regular. Blood pressure is 109/65, respiratory 20, temperature 97.6, pulse ox 97% on 3 L. HEENT: Conjunctivae normal. NECK: No jugular venous distention. CARDIOVASCULAR: S1, S2 muffled. RESPIRATORY: Breath sounds diminished in the bases. A few scattered rhonchi and crackles. Expiratory wheezing also. ABDOMEN: Soft, nontender. LEGS: Bilateral leg edema improving. NERVOUS SYSTEM: No focal deficits. LABS: WBC 17.2, hemoglobin 13.2, sodium 139, potassium 4.2, creatinine 1.39. ASSESSMENT: 1. Chronic obstructive pulmonary disease acute exacerbation with acute purulent tracheobronchitis. 2. Bilateral leg edema. 3. Acute DVT of the left popliteal leg area, popliteal vein. 4. Elevated D-dimer. 5. Coronary artery disease. 6. Chronic obstructive pulmonary disease. 7. Gastroesophageal reflux disease. 8. Hyperlipidemia. 9. History of chronic kidney stage III. 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 12.Remote history of nicotine dependence. RECOMMENDATIONS AND DISCUSSION: I recommend to continue current management and symptomatic treatment. Continue with bronchodilators. Continue with antibiotics and steroids. Continue with IV heparin. Discussed with Dr. Ordonez. Will require long-term anticoagulation at least 3 months and if the patient has persistent findings probably more. Prognosis guarded. Further recommendations to follow. MMODL / IJN: [id number] /
[2018-06-10 16:56] LABS: Glucose,Whole Blood 138 mg/dL (75-99)
[2018-06-10 20:33] LABS: Glucose,Whole Blood 131 mg/dL (75-99)
--- NOTE | 2018-06-10 21:42 | P.CONS ---
History of Present Illness - Reason for Consult Consult date: 06/10/18 Left lower extremity DVT - History of Present Illness The patient is an 83-year-old gentleman with multiple medical problems, including long-standing history of COPD, as well as peripheral vascular disease. Since 03/31, the patient had been having increased shortness of breath. He was initially treated with steroids, inhalers and antibiotics with temporary improvement followed by worsening of symptoms. He was therefore evaluated by pulmonary medicine, and then sent in to the emergency room because of increasing shortness of breath, as well as some neck swelling. He had a CTA done which was negative for pulmonary embolus. He was admitted with a diagnosis of COPD exacerbation and CHF. Due to lower extremity swelling, bilateral venous Dopplers were performed which showed evidence of a popliteal DVT on the left. Femoral veins could not be imaged accurately because of prior vascular surgery. The patient was started on IV heparin. He denied any prior personal, or family history of venous thrombosis. There is no history of any surgery, hospitalization, or prolonged travel in the last 3-4 months. He has been on systemic steroids for a short course and 03/31, but not chronically. However he has been very sedentary, due to his COPD, claudication symptoms as well as other musculo skeletal problems. Review of Systems Constitutional: Reports fatigue, Reports weakness Eyes: denies blurred vision, denies pain Ears: deny: decreased hearing, ear discharge, earache, tinnitus Ears, nose, mouth and throat: Denies headache, Denies sore throat Cardiovascular: Reports claudication, Reports leg edema, Reports shortness of breath Respiratory: Reports dyspnea Gastrointestinal: Denies abdominal pain, Denies diarrhea, Denies nausea, Denies vomiting Genitourinary: Reports urinary frequency Musculoskeletal: Reports low back pain, Reports muscle weakness Musculoskeletal: left: knee pain Integumentary: Denies pruritus, Denies rash Neurological: Denies numbness, Denies weakness Psychiatric: Denies anxiety, Denies depression Endocrine: Reports fatigue, Denies weight change Hematologic/Lymphatic: Reports as per HPI, Reports easy bruising (Due to thin skin, and aspirin use) Past Medical History Past Medical History: Coronary Artery Disease (CAD), COPD, GERD/Reflux, Hyperlipidemia Additional Past Medical History / Comment(s): chronic kidney disease stage 3, erectile dysfunction History of Any Multi-Drug Resistant Organisms: MRSA Year Discovered:: 2013 MDRO Source:: blood Additional Past Surgical History / Comment(s): Aortic triple femoral bypass, neck repair, stent in the right leg Past Psychological History: No Psychological Hx Reported Smoking Status: Former smoker Past Alcohol Use History: None Reported Past Drug Use History: None Reported - Past Family History Mother Family Medical History: Cancer, COPD Additional Family Medical History / Comment(s): lung cancer Father Family Medical History: Dementia Additional Family Medical History / Comment(s): heart disease Sister(s) Family Medical History: Cancer Additional Family Medical History / Comment(s): Breast Cancer Brother(s) Family Medical History: Diabetes Mellitus Additional Family Medical History / Comment(s): heart disease Medications and Allergies Home Medications Medication Instructions Recorded Confirmed Type Atorvastatin [Lipitor] 40 mg PO HS 12/10/15 06/08/18 History Cholecalciferol [Vitamin D3] 2,000 unit PO DAILY 12/10/15 06/08/18 History Ranitidine HCl 150 mg PO BID 12/10/15 06/08/18 History Sennosides [Senokot] 8.6 mg PO HS 12/10/15 06/08/18 History Albuterol Inhaler [Ventolin Hfa 1 - 2 puff INHALATION RT-Q4H PRN 06/08/18 History Inhaler] Cilostazol [Pletal] 100 mg PO PC-BID 06/08/18 06/08/18 History Lactobacillus Acidophilus 1 tab PO DAILY 06/08/18 06/08/18 History [Acidophilus] Nystatin 100,000Unit/gm Cream 1 applic TOPICAL BID 06/08/18 06/08/18 History [Mycostatin Cream] Sildenafil Citrate [Viagra] 100 mg PO ONCE PRN 06/08/18 06/08/18 History Allergies Allergy/AdvReac Type Severity Reaction Status Date / Time fluticasone propionate Allergy Unknown Verified 06/08/18 20:01 [From Advair Diskus] heparin Allergy "made Verified 06/08/18 20:01 blood too thin" Penicillins Allergy Anaphylaxis Verified 06/08/18 20:01 salmeterol xinafoate Allergy Unknown Verified 06/08/18 20:01 [From Advair Diskus] Tetanus Vaccines and Toxoid Allergy Unknown Verified 06/08/18 20:01 [Tetanus Vaccines & Toxoid] Childhood levetiracetam [From [facility]] AdvReac Hallucinati Verified 06/08/18 21:11 ons Physical Exam Vitals: Vital Signs Temp Pulse Pulse Pulse Resp BP Pulse Ox 06/10/18 04:40 92 06/10/18 04:29 96 06/10/18 00:50 18 06/10/18 00:16 92 06/10/18 00:06 88 06/09/18 23:00 97.9 F 105 H 18 118/68 96 06/09/18 20:50 104 H 18 06/09/18 20:26 95 06/09/18 20:16 95 06/09/18 20:00 98.0 F 104 H 15 105/55 94 L 06/09/18 17:07 20 06/09/18 16:43 95 06/09/18 16:16 92 06/09/18 15:00 97.9 F 111 H 14 135/69 96 06/09/18 12:24 85 16 06/09/18 12:14 88 16 Intake and Output 06/09/18 06/10/18 06/10/18 22:59 06:59 14:59 Intake Total 1120 658.667 Output Total 200 Balance 920 658.667 Intake: Intake, IV Titration 160 258.667 Amount Heparin Sod,Pork in 0.45% 98.667 NaCl 25,000 unit In 0.45 % NaCl 1 500ml.bag @ 10.9 UNITS/KG/HR 20.05 mls/hr IV .Q24H [facility] Rx#: [id number] Sodium Chloride 0.9% 1, 160 160 000 ml @ 20 mls/hr IV . Q24H [facility] Rx#:[id number] Oral 960 400 Output: Urine 200 Other: # Voids 1 Weight 95.708 kg - Constitutional General appearance: mild distress - EENT Eyes: EOMI, PERRLA ENT: hearing grossly normal, normal oropharynx - Neck Neck: lymphadenopathy Thyroid: bilateral: normal size - Respiratory Respiratory: bilateral: diminished, prolonged expiration - Cardiovascular Rhythm: regular Heart sounds: normal: S1, S2 - Gastrointestinal General gastrointestinal: normal bowel sounds, soft - Integumentary Scattered, small bruises on upper extremities distally - Neurologic Neurologic: CNII-XII intact - Musculoskeletal Musculoskeletal: generalized weakness, strength equal bilaterally - Psychiatric Psychiatric: A&O x's 3, appropriate affect Results CBC & Chem 7: 06/10/18 08:20 06/10/18 08:50 Labs: Abnormal Lab Results - Last 24 Hours (Table) 06/09/18 06/09/18 06/09/18 Range/Units 11:43 16:33 17:10 WBC (3.8-10.6) k/uL MCHC 30.8 L (31.0-37.0) g/dL Neutrophils # 9.5 H (1.3-7.7) k/uL Lymphocytes # 0.6 L (1.0-4.8) k/uL INR (<1.2) APTT (22.0-30.0) sec POC Glucose (mg/dL) 121 H 136 H (75-99) mg/dL 06/09/18 06/09/18 06/09/18 Range/Units 17:10 19:30 22:35 WBC (3.8-10.6) k/uL MCHC (31.0-37.0) g/dL Neutrophils # (1.3-7.7) k/uL Lymphocytes # (1.0-4.8) k/uL INR 1.2 H (<1.2) APTT 31.8 H (22.0-30.0) sec POC Glucose (mg/dL) 169 H (75-99) mg/dL 06/10/18 06/10/18 Range/Units 06:47 08:20 WBC 17.5 H (3.8-10.6) k/uL MCHC (31.0-37.0) g/dL Neutrophils # 16.0 H (1.3-7.7) k/uL Lymphocytes # 0.8 L (1.0-4.8) k/uL INR (<1.2) APTT (22.0-30.0) sec POC Glucose (mg/dL) 142 H (75-99) mg/dL Microbiology - Last 24 Hours (Table) 06/08/18 20:18 Blood Culture - Preliminary Blood No Growth after 24 hours Comments: Report of echocardiogram reviewed Chest x-ray: report reviewed CT scan - chest: report reviewed Venous US: report reviewed Assessment and Plan (1) Deep vein thrombosis of popliteal vein of left lower extremity Narrative/Plan: The pt is being seen for this new diagnosis. The clot may be more proximal also , as the femoral vein could not be optimally imaged. His risk factors include significant inactivity and chronic venous insufficiency. - He was appropriately started on IV heparin. He can be transitioned to orals, either warfarin or one of the DFAs, depending on coverage. One of the DFAs would be quite appropriate, if covered. - Case d/w the admitting service. At least 3 mths of treatment was recommended, with f/u in the office at that time for risk assessment to see if treatment can be stopped, or more prolonged treatment is needed - As provoking factors are present, with no prior personal or family history, a hypercoagulable w/u was not indicated - He stated that he has had a colonoscopy within the last 10 yrs, and gets regular PSAs. CTA did not reveal any abnormal mass or adenopathy. He has no other suspicious s/s. Current Visit: Yes Status: Acute Code(s): I82.432 - ACUTE EMBOLISM AND THROMBOSIS OF LEFT POPLITEAL VEIN SNOMED Code(s): 928606823 Plan: Defer to the admitting service and other consultants for management of his other medical problems.
[2018-06-10] MEDS: ATORVASTATIN 40 MG TAB PO SCH (22:06)
[2018-06-10] MEDS: SENNOSIDES 8.6 MG TAB PO SCH (22:06)
[2018-06-11] MEDS: IPRATROPIUM-ALBUTEROL 3 ML NEB INHALATION SCH ×6 (01:00→20:30)
[2018-06-11] MEDS: methylPREDNISolone SOD SUCCI 125 MG/2 ML VIAL IV SCH ×2 (01:09→06:20)
[2018-06-11 06:56] LABS: Glucose,Whole Blood 128 mg/dL (75-99)
[2018-06-11] MEDS: INSULIN ASPART 100 UNIT/ML 1 ML 10 ML VIAL SQ SCH ×4 (07:25→21:21)
[2018-06-11 07:28] LABS: Basophils % (A) 0 %; Eosinophils % (A) 0 %; HCT 41.8 % (39.0-53.0); HGB 13.1 gm/dL (13.0-17.5); Lymphocytes # (A) 0.7 k/uL (1.0-4.8); Lymphocytes % (A) 3 %; MCH 28.1 pg (25.0-35.0); MCHC 31.4 g/dL (31.0-37.0); MCV 89.7 fL (80.0-100.0); Mean Platelet Volume 7.7; Monocytes # (A) 0.8 k/uL (0-1.0); Monocytes % (A) 4 %; Neutrophils # (A) 19.6 k/uL (1.3-7.7); Neutrophils % (A) 92 %; Platelet Count 267 k/uL (150-450); RBC 4.66 m/uL (4.30-5.90); RDW 14.8 % (11.5-15.5); WBC 21.4 k/uL (3.8-10.6)
[2018-06-11] MEDS: SODIUM CHLORIDE 0.9% 1,000 ML IV SCH (07:43)
[2018-06-11] MEDS: CILOSTAZOL 100 MG TAB PO SCH ×2 (07:44→17:52)
[2018-06-11 07:46] LABS: Calcium 9.5 mg/dL (8.4-10.2); Potassium 4.4 mmol/L (3.5-5.1)
[2018-06-11 08:05] LABS: Appearance,Urine Clear (Clear); Bilirubin,Urine Negative (Negative); Blood,Urine Negative (Negative); Color,Urine Light Yellow; Glucose,Urine (UA) Negative (Negative); Ketones,Urine Negative (Negative); Leukocyte Esterase,Urine Negative (Negative); Nitrite,Urine Negative (Negative); Protein,Urine Negative (Negative); Urobilinogen,Urine <2.0 mg/dL (<2.0)
[2018-06-11] MEDS: SYMBICORT 160-4.5 MCG INHALER INHALATION SCH ×2 (08:07→20:31)
[2018-06-11] MEDS: LEVOFLOXACIN 500 MG TAB PO SCH (09:26)
[2018-06-11] MEDS: FAMOTIDINE 20 MG TAB PO SCH ×2 (09:26→21:20)
[2018-06-11] MEDS: LACTOBACILLUS ACIDOPH & BULGAR 1 EACH PACKET PO SCH (09:26)
[2018-06-11] MEDS: CHOLECALCIFEROL 1,000 UNIT TAB PO SCH (09:26)
[2018-06-11] MEDS: NYSTATIN 100,000UNIT/GM CREAM 30 GM TUBE TOPICAL SCH ×2 (09:27→21:21)
[2018-06-11] MEDS: HEPARIN SOD,PORK IN 0.45% NACL 25,000 UNIT in 0.45% NACL 1 500ML.BAG IV SCH (09:43)
--- NOTE | 2018-06-11 10:48 | P.PN ---
Subjective Progress Note Date: 06/11/18 Principal diagnosis: Shortness of breath/COPD exacerbation Progress note dated 06/10/2018 83-year-old male who I saw yesterday in consultation. He was admitted with a diagnosis of COPD exacerbation, complicated by tracheobronchitis. He also was discovered to have a left popliteal DVT. He has a history of hyperlipidemia and vitamin D deficiency peripheral artery disease CAD and history of heavy tobacco use. The patient is scheduled to see me in the office on June 15. From the pulmonary standpoint, the patient is doing much better. Much less short of breath. He still has some swelling and edema of the left lower extremity. He is coughing a bit. Not producing much phlegm. No fever or chills. Not coughing up any blood. No nausea vomiting or diarrhea. No chest pain or chest discomfort. Progress note dated 06/11/2018 83-year-old male with a history of COPD exacerbation. His COPD exacerbation was complicated by tracheobronchitis. The patient is feeling a bit better. The patient feels like his shortness of breath has improved. He is still coughing. Still wheezing a bit. He was also found to have a left popliteal DVT. He has a history of hyperlipidemia vitamin D deficiency peripheral artery disease CAD history of heavy tobacco use. He does have an appointment to see me in the office a week from this upcoming Tuesday. At that time, the patient will have a 6 minute walk distance and a PFT. Objective - Vital Signs Vital signs: Vital Signs Temp 97.8 F 06/11/18 07:53 Pulse 102 H 06/11/18 08:22 Resp 20 06/11/18 08:35 BP 139/86 06/11/18 07:53 Pulse Ox 92 L 06/11/18 07:53 Intake & Output 06/10/18 06/11/18 06/11/18 18:59 06:59 18:59 Intake Total 580.040 6395 498.295 Output Total 350 Balance 437.304 4857 498.295 Intake: Intake, IV Titration 600.949 320 498.295 Amount Heparin Sod,Pork in 0.45% 380.949 498.295 NaCl 25,000 unit In 0.45 % NaCl 1 500ml.bag @ 10.9 UNITS/KG/HR 20.05 mls/hr IV .Q24H [facility] Rx#: [id number] Sodium Chloride 0.9% 1, 220 320 000 ml @ 20 mls/hr IV . Q24H [facility] Rx#:[id number] Oral 850 Output: Urine 350 Other: Voiding Method Urinal Urinal # Voids 4 - Exam No acute distress, oriented 3. Nasal O2 in place. HEENT examination is grossly unremarkable. Mucous membranes are moist. No oral lesions. Neck supple. Full range of motion. No adenopathy thyromegaly or neck vein distention. Cardiovascular examination reveals regular rhythm rate. S1-S2 normal. No S3 or S4. No discernible murmur noted. Heart sounds are distant. Lungs reveal coarse expiratory rhonchi and wheezes. Breath sounds are diminished. There is prolongation on forced maneuver. Adventitious lung sounds are more prominent on forced maneuver. Breath sounds as described are still present but improved. Adventitious lung sounds are more significant on forced maneuver. Abdomen soft bowel sounds are heard. No masses or tenderness. Extremities reveal 1+2+ pitting edema. It's noted bilaterally worse on the left than on the right. No cyanosis or clubbing noted. Skin is without rash or lesion. Neurologic examination is brief but nonfocal. - Labs CBC & Chem 7: 06/11/18 06:41 06/11/18 07:09 Labs: Abnormal Lab Results - Last 24 Hours (Table) 06/10/18 06/10/18 06/10/18 Range/Units 11:29 11:37 16:53 WBC (3.8-10.6) k/uL Neutrophils # (1.3-7.7) k/uL Lymphocytes # (1.0-4.8) k/uL APTT 53.6 H (22.0-30.0) sec BUN (9-20) mg/dL Creatinine (0.66-1.25) mg/dL Glucose (74-99) mg/dL POC Glucose (mg/dL) 120 H 138 H (75-99) mg/dL 06/10/18 06/11/18 06/11/18 Range/Units 20:30 06:41 06:53 WBC 21.4 H (3.8-10.6) k/uL Neutrophils # 19.6 H (1.3-7.7) k/uL Lymphocytes # 0.7 L (1.0-4.8) k/uL APTT (22.0-30.0) sec BUN (9-20) mg/dL Creatinine (0.66-1.25) mg/dL Glucose (74-99) mg/dL POC Glucose (mg/dL) 131 H 128 H (75-99) mg/dL 06/11/18 06/11/18 Range/Units 07:09 07:09 WBC (3.8-10.6) k/uL Neutrophils # (1.3-7.7) k/uL Lymphocytes # (1.0-4.8) k/uL APTT 73.0 H (22.0-30.0) sec BUN 33 H (9-20) mg/dL Creatinine 1.40 H (0.66-1.25) mg/dL Glucose 130 H (74-99) mg/dL POC Glucose (mg/dL) (75-99) mg/dL Microbiology - Last 24 Hours (Table) 06/08/18 20:18 Blood Culture - Preliminary Blood No Growth after 48 hours Assessment and Plan Assessment: Assessment COPD exacerbation complicated by tracheobronchitis Left popliteal deep venous thrombosis No evidence of pulmonary embolism History of hyperlipidemia History of vitamin D deficiency History of peripheral artery disease History of CAD History of heavy tobacco use Plan: Plan dated 06/09/2018 The patient should keep his appointment with me on June 15. On that visit, we' ll do a 6 minute walk distance and a complete pulmonary function test. This will tell us the physiology of his lung disease and also the severity of his lung disease. In addition, I'll review the labs x-rays and medications. We'll make sure he is on appropriate medications the current time which will include short acting beta agonist, I short acting muscarinic antagonist, a long-acting beta agonist, and a inhaled corticosteroid. We also recommend a systemic corticosteroids and a short course of oral antibiotics. Additional recommendations and suggestions are forthcoming. Plan dated 06/10/2018 The patient was started on IV heparin for the left popliteal DVT. He could be transitioned over to a factor X a inhibitor. From the pulmonary standpoint, his breathing is improved. His medications are appropriate including Symbicort 160/4.5, 2 puffs twice a day, solumedrol 60 mg every 6 hours duo nebs 4 times a day and when necessary and an oral antibiotic. We will continue to follow this patient. Additional recommendations and suggestions are forthcoming. Plan dated 06/11/2018 The patient is improving albeit slowly. He still very short of breath particularly with exertion. He is coughing still. Not producing much or any phlegm. Lots of chest tightness and wheezing. The patient's on appropriate medications. We'll let the primary decide about discharge. He should be transitioned over to a factor X a inhibitor for his left popliteal DVT. I'll look forward to evaluating him in the office. Additional recommendations and suggestions are forthcoming. Time with Patient: Less than 30
[2018-06-11 11:37] LABS: Glucose,Whole Blood 138 mg/dL (75-99)
--- NOTE | 2018-06-11 16:36 | PN ---
PROGRESS NOTE DATE OF SERVICE: 06/11/2018 This 83-year-old gentleman who was admitted with COPD exacerbation also had bilateral leg edema. Patient also had DVT also. No chest pain. No palpitations. The patient is on IV heparin. EXAM: Alert and oriented x3. Pulse is 102, blood pressure 130/88, respirations 16, temperature 97.8, pulse ox 90% on 3 L. HEENT: Conjunctivae normal. NECK: No jugular venous distention. CARDIOVASCULAR: S1, S2. RESPIRATORY: Breath sounds diminished in the bases. Bilateral scattered rhonchi and crackles. ABDOMEN: Soft, nontender. NERVOUS SYSTEM: No focal deficits. LABS: APTT 73 and WBC 21.4. Creatinine is 1.4. ASSESSMENT: 1. Chronic obstructive pulmonary disease exacerbation with acute purulent tracheobronchitis. 2. Bilateral leg edema. 3. Acute DVT of the left popliteal area with popliteal vein DVT. 4. Elevated D-dimer. 5. Coronary artery disease. 6. Chronic obstructive pulmonary disease. 7. Gastroesophageal reflux disease. 8. Hyperlipidemia. 9. History of chronic kidney stage III. 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 12.Remote history of nicotine dependence. RECOMMENDATIONS AND DISCUSSION: I recommend to continue current management, and monitoring, and symptomatic treatment. Continue with IV heparin. The patient may be candidate for Eliquis and Case Management to check for Eliquis coverage. Otherwise monitor creatinine closely. Further recommendations to follow. MMODL / IJN: [id number] /
[2018-06-11 17:04] LABS: Glucose,Whole Blood 128 mg/dL (75-99)
[2018-06-11] MEDS: methylPREDNISolone SOD SUCCI 40 MG/ML 1 ML VIAL IV SCH ×2 (17:06→23:11)
[2018-06-11 19:56] LABS: Glucose,Whole Blood 138 mg/dL (75-99)
[2018-06-11] MEDS: SENNOSIDES 8.6 MG TAB PO SCH (21:20)
[2018-06-11] MEDS: ATORVASTATIN 40 MG TAB PO SCH (21:21)
[2018-06-12] MEDS: IPRATROPIUM-ALBUTEROL 3 ML NEB INHALATION SCH ×6 (00:04→19:13)
[2018-06-12] MEDS: HEPARIN SOD,PORK IN 0.45% NACL 25,000 UNIT in 0.45% NACL 1 500ML.BAG IV SCH (04:51)
[2018-06-12 07:01] LABS: Glucose,Whole Blood 132 mg/dL (75-99)
[2018-06-12] MEDS: INSULIN ASPART 100 UNIT/ML 1 ML 10 ML VIAL SQ SCH ×4 (07:22→21:59)
[2018-06-12] MEDS: methylPREDNISolone SOD SUCCI 40 MG/ML 1 ML VIAL IV SCH ×2 (07:37→16:46)
[2018-06-12] MEDS: CILOSTAZOL 100 MG TAB PO SCH ×2 (07:37→18:04)
[2018-06-12] MEDS: SODIUM CHLORIDE 0.9% 1,000 ML IV SCH (07:39)
[2018-06-12] MEDS: SYMBICORT 160-4.5 MCG INHALER INHALATION SCH ×2 (08:13→19:13)
[2018-06-12] MEDS: LACTOBACILLUS ACIDOPH & BULGAR 1 EACH PACKET PO SCH (08:57)
[2018-06-12] MEDS: CHOLECALCIFEROL 1,000 UNIT TAB PO SCH (08:57)
[2018-06-12] MEDS: FAMOTIDINE 20 MG TAB PO SCH (08:57)
[2018-06-12] MEDS: LEVOFLOXACIN 500 MG TAB PO SCH (08:58)
[2018-06-12] MEDS: NYSTATIN 100,000UNIT/GM CREAM 30 GM TUBE TOPICAL SCH ×2 (08:58→21:59)
[2018-06-12 09:30] LABS: Basophils % (A) 0 %; Eosinophils # (A) 0.1 k/uL (0-0.7); Eosinophils % (A) 0 %; Lymphocytes # (A) 0.5 k/uL (1.0-4.8); Lymphocytes % (A) 2 %; MCH 28.2 pg (25.0-35.0); MCHC 31.6 g/dL (31.0-37.0); MCV 89.3 fL (80.0-100.0); Mean Platelet Volume 7.1; Monocytes # (A) 0.6 k/uL (0-1.0); Monocytes % (A) 3 %; Neutrophils # (A) 19.1 k/uL (1.3-7.7); Neutrophils % (A) 94 %; Platelet Count 269 k/uL (150-450); RBC 4.59 m/uL (4.30-5.90); RDW 14.9 % (11.5-15.5); WBC 20.3 k/uL (3.8-10.6)
[2018-06-12 11:41] LABS: Glucose,Whole Blood 119 mg/dL (75-99)
[2018-06-12 11:47] LABS: Calcium 9.4 mg/dL (8.4-10.2); Potassium 4.3 mmol/L (3.5-5.1)
--- NOTE | 2018-06-12 12:42 | P.PN ---
Subjective Progress Note Date: 06/12/18 Principal diagnosis: COPD exacerbation, and tracheobronchitis. Left popliteal DVT. Progress note dated 06/10/2018 83-year-old male who I saw yesterday in consultation. He was admitted with a diagnosis of COPD exacerbation, complicated by tracheobronchitis. He also was discovered to have a left popliteal DVT. He has a history of hyperlipidemia and vitamin D deficiency peripheral artery disease CAD and history of heavy tobacco use. The patient is scheduled to see me in the office on June 15. From the pulmonary standpoint, the patient is doing much better. Much less short of breath. He still has some swelling and edema of the left lower extremity. He is coughing a bit. Not producing much phlegm. No fever or chills. Not coughing up any blood. No nausea vomiting or diarrhea. No chest pain or chest discomfort. Progress note dated 06/11/2018 83-year-old male with a history of COPD exacerbation. His COPD exacerbation was complicated by tracheobronchitis. The patient is feeling a bit better. The patient feels like his shortness of breath has improved. He is still coughing. Still wheezing a bit. He was also found to have a left popliteal DVT. He has a history of hyperlipidemia vitamin D deficiency peripheral artery disease CAD history of heavy tobacco use. He does have an appointment to see me in the office a week from this upcoming Tuesday. At that time, the patient will have a 6 minute walk distance and a PFT. On 06/12/2018 patient seen again in follow-up on the surgical floor. Still quite dyspneic with exertion, overall is feeling better compared to admission. Occasional cough. Lung sounds are diminished, with scattered wheezes. Remains on heparin drip for evidence left popliteal DVT. CT angios did not show evidence of pulmonary was a. Pulse ox on 3 L per nasal cannula is 93%, he is afebrile, slightly tachycardic with a heart rate up to 116 BPM. Blood cultures show no growth, remains on IV Solu-Medrol, nebulized bronchodilators, Symbicort , patient's insurance coverage was checked, will be covered for [email or web address], with $ 40 a month co-pay, first month free. We will go ahead and switch IV heparin to Eliquis. Objective - Vital Signs Vital signs: Vital Signs Temp 97.5 F L 06/12/18 07:47 Pulse 104 H 06/12/18 11:17 Resp 18 06/12/18 07:49 BP 139/61 06/12/18 07:47 Pulse Ox 93 L 06/12/18 07:47 Intake & Output 06/11/18 06/12/18 06/12/18 18:59 06:59 18:59 Intake Total 527.761 9505.091 Output Total 300 100 Balance 728.841 2981.091 -100 Intake: Intake, IV Titration 718.295 648.091 Amount Heparin Sod,Pork in 0.45% 498.295 488.091 NaCl 25,000 unit In 0.45 % NaCl 1 500ml.bag @ 10.9 UNITS/KG/HR 20.05 mls/hr IV .Q24H [facility] Rx#: [id number] Sodium Chloride 0.9% 1, 220 160 000 ml @ 20 mls/hr IV . Q24H [facility] Rx#:[id number] Oral 1250 Output: Urine 300 100 Other: Voiding Method Urinal # Voids 3 1 # Bowel Movements 1 - Exam No acute distress, oriented 3. Nasal O2 in place. HEENT examination is grossly unremarkable. Mucous membranes are moist. No oral lesions. Neck supple. Full range of motion. No adenopathy thyromegaly or neck vein distention. Cardiovascular examination reveals regular rhythm rate. S1-S2 normal. No S3 or S4. No discernible murmur noted. Heart sounds are distant. Lungs reveal coarse expiratory wheezes. Breath sounds are diminished. There is prolongation on forced maneuver. Adventitious lung sounds are more prominent on forced maneuver. Breath sounds as described are still present but improved. Adventitious lung sounds are more significant on forced maneuver. Abdomen soft bowel sounds are heard. No masses or tenderness. Extremities reveal 1+2+ pitting edema. It's noted bilaterally worse on the left than on the right. No cyanosis or clubbing noted. Skin is without rash or lesion. Neurologic examination is brief but nonfocal. - Labs CBC & Chem 7: 06/12/18 09:08 06/12/18 09:08 Labs: Abnormal Lab Results - Last 24 Hours (Table) 06/11/18 06/11/18 06/12/18 Range/Units 17:03 19:55 06:59 WBC (3.8-10.6) k/uL Neutrophils # (1.3-7.7) k/uL Lymphocytes # (1.0-4.8) k/uL APTT (22.0-30.0) sec BUN (9-20) mg/dL Creatinine (0.66-1.25) mg/dL Glucose (74-99) mg/dL POC Glucose (mg/dL) 128 H 138 H 132 H (75-99) mg/dL 06/12/18 06/12/18 06/12/18 Range/Units 09:08 09:08 09:08 WBC 20.3 H (3.8-10.6) k/uL Neutrophils # 19.1 H (1.3-7.7) k/uL Lymphocytes # 0.5 L (1.0-4.8) k/uL APTT 70.2 H (22.0-30.0) sec BUN 32 H (9-20) mg/dL Creatinine 1.32 H (0.66-1.25) mg/dL Glucose 178 H (74-99) mg/dL POC Glucose (mg/dL) (75-99) mg/dL 06/12/18 Range/Units 11:38 WBC (3.8-10.6) k/uL Neutrophils # (1.3-7.7) k/uL Lymphocytes # (1.0-4.8) k/uL APTT (22.0-30.0) sec BUN (9-20) mg/dL Creatinine (0.66-1.25) mg/dL Glucose (74-99) mg/dL POC Glucose (mg/dL) 119 H (75-99) mg/dL Microbiology - Last 24 Hours (Table) 06/08/18 20:18 Blood Culture - Preliminary Blood No Growth after 72 hours Assessment and Plan Plan: Assessment: COPD exacerbation complicated by tracheobronchitis Left popliteal deep venous thrombosis No evidence of pulmonary embolism History of hyperlipidemia History of vitamin D deficiency History of peripheral artery disease History of CAD History of heavy tobacco use Plan: Start Eliquis 10 mg twice a day for 7 days, then 5 mg twice a day thereafter, stop IV heparin. Continue with current Solu-Medrol dose, continue nebulized bronchodilators, Symbicort. Patient will need another 24 hours of inpatient treatment. Still remains dyspneic, and wheezy. I performed a history & physical examination of the patient and discussed their management with my nurse practitioner, rAeli Goldberg. I reviewed the nurse practitioner's note and agree with the documented findings and plan of care. Lung sounds are positive for scattered wheezes. The findings and the impression was discussed with the patient. I attest to the documentation by the nurse practitioner. Time with Patient: Less than 30
[2018-06-12] MEDS: APIXABAN 5 MG TAB PO SCH ×2 (15:53→21:57)
[2018-06-12 16:35] LABS: Glucose,Whole Blood 168 mg/dL (75-99)
--- NOTE | 2018-06-12 18:13 | DS ---
DISCHARGE SUMMARY DATE OF SERVICE: 06/12/2018 FINAL DIAGNOSES: 1. Chronic obstructive pulmonary disease acute exacerbation with acute purulent tracheobronchitis. 2. Bilateral leg edema. 3. Acute deep vein thrombosis of the left popliteal vein deep vein thrombosis. 4. Elevated D-dimer. 5. Coronary artery disease. 6. Chronic obstructive pulmonary disease. 7. Gastroesophageal reflux disease. 8. Hyperlipidemia. 9. History of chronic kidney disease stage 3. 10.History of MRSA. 11.Aortobifemoral artery bypass history. 12.Remote history of nicotine dependence. DISCHARGE DISPOSITION: The patient will be discharged in stable condition with guarded prognosis. HISTORY OF PRESENT ILLNESS: This 83-year-old gentleman with past medical history of multiple medical problems admitted with COPD exacerbation, bilateral leg edema. Patient also had a DVT of the legs. On exam, vital signs are stable. Cardio system: S1, S2. Abdomen soft. Nervous system: No focal deficits. DISCHARGE ADVICE AND MEDICATIONS: 1. Diet is cardiac diet. 2. Activity limited until follow up. 3. Follow up with Dr. Helms in 2-3 days. 4. Follow up with Dr. Ordonez as advised. 5. Follow up with Dr. Estrada as advised. MEDICATIONS ARE: 1. Ventolin HFA 1-2 puffs p.r.n. 2. Lipitor 40 mg q.h.s. 3. Vitamin D3 2000 daily. 4. Pletal 100 mg daily. 5. Lactobacillus acidophilus 1 tab p.o. daily. 6. Nystatin 1 application daily. 7. Ranitidine 150 mg p.o. b.i.d. 8. Senokot 8.6 mg q.h.s. 9. Viagra p.r.n. 10.Symbicort 160/4.5 two puffs b.i.d. 11.DuoNeb q.i.d. and p.r.n. 12.Levaquin 500 mg p.o. daily for 5 days. 13.Prednisone taper 40 mg daily for 3 days, 30 for 3 days, 20 for 3 days, 10 for 3 days. MMODL / IJN: [id number] /
[2018-06-12 20:02] LABS: Glucose,Whole Blood 134 mg/dL (75-99)
[2018-06-12] MEDS: ATORVASTATIN 40 MG TAB PO SCH (21:57)
[2018-06-12] MEDS: SENNOSIDES 8.6 MG TAB PO SCH (21:58)
[2018-06-13] MEDS: methylPREDNISolone SOD SUCCI 40 MG/ML 1 ML VIAL IV SCH ×2 (00:30→09:37)
[2018-06-13] MEDS: IPRATROPIUM-ALBUTEROL 3 ML NEB INHALATION SCH ×4 (00:35→10:42)
[2018-06-13] MEDS: SODIUM CHLORIDE 0.9% 1,000 ML IV SCH (02:11)
[2018-06-13 06:58] LABS: Glucose,Whole Blood 152 mg/dL (75-99)
[2018-06-13] MEDS: SYMBICORT 160-4.5 MCG INHALER INHALATION SCH (07:18)
[2018-06-13 07:43] VITALS: BP 143/75; RESP 20; TEMP 97.8
[2018-06-13] MEDS: INSULIN ASPART 100 UNIT/ML 1 ML 10 ML VIAL SQ SCH (07:52)
[2018-06-13 08:17] LABS: Basophils % (A) 0 %; Eosinophils % (A) 0 %; HCT 40.4 % (39.0-53.0); HGB 12.8 gm/dL (13.0-17.5); Lymphocytes # (A) 0.6 k/uL (1.0-4.8); Lymphocytes % (A) 3 %; MCHC 31.6 g/dL (31.0-37.0); MCV 88.5 fL (80.0-100.0); Mean Platelet Volume 6.7; Monocytes # (A) 0.7 k/uL (0-1.0); Monocytes % (A) 4 %; Neutrophils # (A) 17.9 k/uL (1.3-7.7); Neutrophils % (A) 92 %; Platelet Count 273 k/uL (150-450); RBC 4.56 m/uL (4.30-5.90); RDW 14.7 % (11.5-15.5); WBC 19.4 k/uL (3.8-10.6)
[2018-06-13 08:37] LABS: Calcium 9.4 mg/dL (8.4-10.2); Potassium 4.4 mmol/L (3.5-5.1)
[2018-06-13] MEDS ORDERED: FAMOTIDINE 20 MG TAB PO SCH (09:00)
[2018-06-13] MEDS: LEVOFLOXACIN 500 MG TAB PO SCH (09:37)
[2018-06-13] MEDS: APIXABAN 5 MG TAB PO SCH (09:38)
[2018-06-13] MEDS: CILOSTAZOL 100 MG TAB PO SCH (09:38)
[2018-06-13] MEDS: CHOLECALCIFEROL 1,000 UNIT TAB PO SCH (09:38)
[2018-06-13] MEDS: LACTOBACILLUS ACIDOPH & BULGAR 1 EACH PACKET PO SCH (09:40)
[2018-06-13] MEDS: NYSTATIN 100,000UNIT/GM CREAM 30 GM TUBE TOPICAL SCH (09:49)
[2018-06-13 10:57] VITALS: PULSE 108
--- NOTE | 2018-06-13 11:00 | P.PN ---
Subjective Progress Note Date: 06/13/18 Principal diagnosis: COPD exacerbation, and tracheobronchitis. Left popliteal DVT. Progress note dated 06/10/2018 83-year-old male who I saw yesterday in consultation. He was admitted with a diagnosis of COPD exacerbation, complicated by tracheobronchitis. He also was discovered to have a left popliteal DVT. He has a history of hyperlipidemia and vitamin D deficiency peripheral artery disease CAD and history of heavy tobacco use. The patient is scheduled to see me in the office on June 15. From the pulmonary standpoint, the patient is doing much better. Much less short of breath. He still has some swelling and edema of the left lower extremity. He is coughing a bit. Not producing much phlegm. No fever or chills. Not coughing up any blood. No nausea vomiting or diarrhea. No chest pain or chest discomfort. Progress note dated 06/11/2018 83-year-old male with a history of COPD exacerbation. His COPD exacerbation was complicated by tracheobronchitis. The patient is feeling a bit better. The patient feels like his shortness of breath has improved. He is still coughing. Still wheezing a bit. He was also found to have a left popliteal DVT. He has a history of hyperlipidemia vitamin D deficiency peripheral artery disease CAD history of heavy tobacco use. He does have an appointment to see me in the office a week from this upcoming Tuesday. At that time, the patient will have a 6 minute walk distance and a PFT. On 06/12/2018 patient seen again in follow-up on the surgical floor. Still quite dyspneic with exertion, overall is feeling better compared to admission. Occasional cough. Lung sounds are diminished, with scattered wheezes. Remains on heparin drip for evidence left popliteal DVT. CT angios did not show evidence of pulmonary was a. Pulse ox on 3 L per nasal cannula is 93%, he is afebrile, slightly tachycardic with a heart rate up to 116 BPM. Blood cultures show no growth, remains on IV Solu-Medrol, nebulized bronchodilators, Symbicort , patient's insurance coverage was checked, will be covered for [employer], with $ 40 a month co-pay, first month free. We will go ahead and switch IV heparin to Eliquis. On 06/13/2018 seen in follow-up on surgical floor. He denies any worsening dyspnea, remains on 3 L per nasal cannula pulse ox is 94%. Afebrile, vital signs are stable. Patient does desaturate with ambulation, room air pulse ox was 84% last night, patient does qualify for home oxygen. Occasional cough, with production of yellow sputum. Lung sounds positive for a few faint wheezes. Overall patient is improved. He was started on Eliquis for the DVT in the left popliteal vein. Objective - Vital Signs Vital signs: Vital Signs Temp 97.8 F 06/13/18 07:41 Pulse 96 06/13/18 07:41 Resp 20 06/13/18 07:55 BP 143/75 06/13/18 07:41 Pulse Ox 94 L 06/13/18 00:11 Intake & Output 06/12/18 06/13/18 06/13/18 18:59 06:59 18:59 Intake Total 175 Output Total 100 600 Balance -100 -600 175 Weight 97.3 kg Intake: Oral 175 Output: Urine 100 600 Other: # Voids 3 - Exam No acute distress, oriented 3. Nasal O2 in place. HEENT examination is grossly unremarkable. Mucous membranes are moist. No oral lesions. Neck supple. Full range of motion. No adenopathy thyromegaly or neck vein distention. Cardiovascular examination reveals regular rhythm rate. S1-S2 normal. No S3 or S4. No discernible murmur noted. Heart sounds are distant. Lungs reveal coarse expiratory wheezes. Breath sounds are diminished. There is prolongation on forced maneuver. Adventitious lung sounds are more prominent on forced maneuver. Breath sounds as described are still present but improved. Adventitious lung sounds are more significant on forced maneuver. Abdomen soft bowel sounds are heard. No masses or tenderness. Extremities reveal 1+2+ pitting edema. It's noted bilaterally worse on the left than on the right. No cyanosis or clubbing noted. Skin is without rash or lesion. Neurologic examination is brief but nonfocal. - Labs CBC & Chem 7: 06/13/18 07:41 06/13/18 07:41 Labs: Abnormal Lab Results - Last 24 Hours (Table) 06/12/18 06/12/18 06/12/18 Range/Units 09:08 11:38 16:26 WBC (3.8-10.6) k/uL Hgb (13.0-17.5) gm/dL Neutrophils # (1.3-7.7) k/uL Lymphocytes # (1.0-4.8) k/uL BUN 32 H (9-20) mg/dL Creatinine 1.32 H (0.66-1.25) mg/dL Glucose 178 H (74-99) mg/dL POC Glucose (mg/dL) 119 H 168 H (75-99) mg/dL 06/12/18 06/13/18 06/13/18 Range/Units 20:01 06:50 07:41 WBC 19.4 H (3.8-10.6) k/uL Hgb 12.8 L (13.0-17.5) gm/dL Neutrophils # 17.9 H (1.3-7.7) k/uL Lymphocytes # 0.6 L (1.0-4.8) k/uL BUN (9-20) mg/dL Creatinine (0.66-1.25) mg/dL Glucose (74-99) mg/dL POC Glucose (mg/dL) 134 H 152 H (75-99) mg/dL 06/13/18 Range/Units 07:41 WBC (3.8-10.6) k/uL Hgb (13.0-17.5) gm/dL Neutrophils # (1.3-7.7) k/uL Lymphocytes # (1.0-4.8) k/uL BUN 29 H (9-20) mg/dL Creatinine (0.66-1.25) mg/dL Glucose 136 H (74-99) mg/dL POC Glucose (mg/dL) (75-99) mg/dL Microbiology - Last 24 Hours (Table) 06/08/18 20:18 Blood Culture - Preliminary Blood No Growth after 96 hours Assessment and Plan Plan: Assessment: COPD exacerbation complicated by tracheobronchitis Left popliteal deep venous thrombosis No evidence of pulmonary embolism History of hyperlipidemia History of vitamin D deficiency History of peripheral artery disease History of CAD History of heavy tobacco use Plan: Patient continues to improve, no acute complaints, vital signs are stable. From pulmonary standpoint patient is stable for discharge home today on outpatient course of antibiotics, prednisone taper, he has a nebulizer machine at home, and home oxygen has been arranged. Follow-up with Dr. Estrada in the office in 7- 10 days. I performed a history & physical examination of the patient and discussed their management with my nurse practitioner, Areli Goldberg. I reviewed the nurse practitioner's note and agree with the documented findings and plan of care. Lung sounds are positive for faint scattered wheezes. The findings and the impression was discussed with the patient. I attest to the documentation by the nurse practitioner. Time with Patient: Less than 30
--- NOTE | 2018-06-13 14:20 | PN ---
PROGRESS NOTE DATE OF SERVICE: 06/12/2018 This 83-year-old gentleman was admitted with COPD acute exacerbation, is being closely monitored. Patient also had severe hypoxia. The patient has bilateral leg edema, which is improving. No chest pain. No palpitations. No fever. PHYSICAL EXAM: Alert and oriented x3. The pulse is 124, blood pressure 145/76, respirations 18, temperature 98.4, pulse ox 94% on room air. HEENT: Conjunctivae normal. Oral mucosa moist. Neck is no jugular venous distention. No lymph node enlargement. CARDIOVASCULAR SYSTEM: S1, S2, muffled. RESPIRATORY: Breath sounds diminished at the bases, bilateral scattered rhonchi, no crackles. ABDOMEN: Soft, nontender. NERVOUS SYSTEM: No focal deficits. LABS: WBC is 20.3 and sodium 140, potassium 4.3. ASSESSMENT: 1. Chronic obstructive pulmonary disease exacerbation with acute purulent tracheobronchitis. 2. Bilateral leg edema, improved. 3. Acute deep venous thrombosis of the left popliteal vein DVT. 4. Elevated D-dimer. 5. Coronary artery disease. 6. Chronic obstructive pulmonary disease. 7. Gastroesophageal reflux disease. 8. Hyperlipidemia. 9. History of chronic kidney disease stage III. 10.History of Methicillin-resistant Staphylococcus aureus. 11.Aortobifemoral bypasses. 12.Remote history of nicotine dependence. RECOMMENDATION: Recommend to continue current management and symptomatic treatment. Eliquis is an outpatient option. Case Management to work toward the same. Otherwise, continue with the current medications and closely follow with Pulmonary. Further recommendations to follow. MMODL / IJN: [id number] /
--- NOTE | 2018-06-13 16:20 | DS ---
DISCHARGE SUMMARY ADDENDUM: DATE OF SERVICE: 06/13/2018 This 83-year-old gentleman was admitted with COPD acute exacerbation also had bilateral leg edema. The patient has improved significantly and the patient will be discharged in stable condition with guarded prognosis. Home O2 has been arranged. Please refer to my previous dictation for details of the discharge diagnosis as above as the discharge medications. Recommend close follow up with Dr. Helms in the outpatient setting. On exam, vitals are stable. Cardiovascular: S1, S2 Respiratory: Breath sounds diminished in the bases. A few scattered rhonchi. Abdomen: Soft. Nervous System: No focal deficit. MMODL / IJN: [id number] /
== END 2018-06-13 11:43 | disposition home or self-care (01) | DRG 191 ==
LOC: EC 19:51 → 3SUR 06-09 00:16
PROVIDERS: ADMIT Hospitalist; ATTEND Hospitalist
DX: J44.0 Chronic obstructive pulmonary disease with (acute) lower respiratory infection (principal); I13.0 Hypertensive heart and chronic kidney disease with heart failure and stage 1 through stage 4 chronic kidney disease, or unspecified chronic kidney disease; I82.432 Acute embolism and thrombosis of left popliteal vein; E78.5 Hyperlipidemia, unspecified; I25.10 Atherosclerotic heart disease of native coronary artery without angina pectoris; J44.1 Chronic obstructive pulmonary disease with (acute) exacerbation; I73.9 Peripheral vascular disease, unspecified; K21.9 Gastro-esophageal reflux disease without esophagitis; N18.3 Chronic kidney disease, stage 3 (moderate); R09.02 Hypoxemia; R79.1 Abnormal coagulation profile; Z79.899 Other long term (current) drug therapy; Z80.1 Family history of malignant neoplasm of trachea, bronchus and lung; Z80.3 Family history of malignant neoplasm of breast; Z82.5 Family history of asthma and other chronic lower respiratory diseases; Z83.3 Family history of diabetes mellitus; Z86.14 Personal history of Methicillin resistant Staphylococcus aureus infection; Z87.891 Personal history of nicotine dependence; Z95.820 Peripheral vascular angioplasty status with implants and grafts; Z88.0 Allergy status to penicillin; Z88.7 Allergy status to serum and vaccine; Z88.8 Allergy status to other drugs, medicaments and biological substances; J20.9 Acute bronchitis, unspecified
CPT/HCPCS: 36415; 71046; 71275; 80048; 80053; 81003; 82550; 82553; 83036; 83735; 83880; 84484; 85025; 85379; 85610; 85730; 87040; 93005; 93306; 93970; 94640; 94760; 96365; 96375; 96376; 99291

== ENCOUNTER 2018-06-15 15:14 | Inpatient (IN) | payer MEDICARE ==
[2018-06-15] MEDS ORDERED: SODIUM CHLORIDE 0.9% 1,000 ML IV STA (15:29)
[2018-06-15 16:39] LABS: Basophils % (A) 0 %; Eosinophils % (A) 0 %; HGB 13.9 gm/dL (13.0-17.5); Lymphocytes # (A) 0.6 k/uL (1.0-4.8); Lymphocytes % (A) 4 %; MCH 27.9 pg (25.0-35.0); MCHC 32.3 g/dL (31.0-37.0); MCV 86.5 fL (80.0-100.0); Mean Platelet Volume 6.8; Monocytes # (A) 0.6 k/uL (0-1.0); Monocytes % (A) 4 %; Neutrophils # (A) 13.2 k/uL (1.3-7.7); Neutrophils % (A) 90 %; Platelet Count 220 k/uL (150-450); RBC 4.97 m/uL (4.30-5.90); RDW 14.7 % (11.5-15.5); WBC 14.7 k/uL (3.8-10.6)
[2018-06-15 16:44] LABS: INR 1.4 (<1.2); Prothrombin Time 13.4 sec (9.0-12.0)
[2018-06-15 16:48] LABS: Calcium 8.9 mg/dL (8.4-10.2); Magnesium 2.2 mg/dL (1.6-2.3); Potassium 4.5 mmol/L (3.5-5.1)
--- NOTE | 2018-06-15 17:03 | XR ---
EXAMINATION TYPE: XR chest 2V DATE OF EXAM: 06/15/2018 COMPARISON: 06/08/2018 HISTORY: Low blood pressure TECHNIQUE: Frontal and lateral views of the chest are obtained. FINDINGS: Heart and mediastinum are normal. Lungs are clear of consolidation. There is small linear density in the right upper lobe. There is mild linear density at the left lung base. There is subopti mal inspiration. IMPRESSION: New minimal bilateral subsegmental atelectasis. Normal heart.
--- NOTE | 2018-06-15 17:26 | ED ---
General Adult HPI - General Chief complaint: Recheck/Abnormal Lab/Rx Stated complaint: Low BP Source: patient Mode of arrival: wheelchair Limitations: physical limitation - History of Present Illness Initial comments: Dictation was produced using [employer] dictation software. please excuse any grammatical, word or spelling errors. Chief Complaint: 83-year-old male who was recently diagnosed with popliteal DVT presents with low blood pressure. History of Present Illness: Patient is 83-year-old male who was recently diagnosed with popliteal DVT presents for low blood pressure. 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 He did go to his primary care physician's office were blood pressure was measured and found to be low. Patient was recently admitted and discharged from this severely. He was admitted for COPD exacerbation however it was found later that patient had a deep venous thrombosis of his left lower extremity. Patient was started on eliquis. Patient has no complaints at this time. The ROS documented in this emergency department record has been reviewed and confirmed by me. Those systems with pertinent positive or negative responses have been documented in the HPI. All other systems are other negative and/or noncontributory. - Related Data Home Medications Medication Instructions Recorded Confirmed Atorvastatin [Lipitor] 40 mg PO HS 12/10/15 06/15/18 Cholecalciferol [Vitamin D3] 2,000 unit PO DAILY 12/10/15 06/15/18 Ranitidine HCl 150 mg PO BID 12/10/15 06/15/18 Sennosides [Senokot] 8.6 mg PO HS 12/10/15 06/15/18 Albuterol Inhaler [Ventolin Hfa 1 - 2 puff INHALATION RT-Q4H PRN 06/08/18 Inhaler] Cilostazol [Pletal] 100 mg PO PC-BID 06/08/18 06/15/18 Nystatin 100,000Unit/gm Cream 1 applic TOPICAL BID 06/08/18 06/15/18 [Mycostatin Cream] Apixaban [Eliquis] See Taper PO DIRECTED 06/15/18 06/15/18 Fluticasone Nasal [place] [Flonase 1 spray EA NOSTRIL DAILY 06/15/18 06/15/18 Nasal [place]] Furosemide [Lasix] 20 mg PO DAILY 06/15/18 06/15/18 Lactobacillus Acidophilus 460 mg PO DAILY 06/15/18 06/15/18 [Florajen] Montelukast [Singulair] 10 mg PO HS 06/15/18 06/15/18 predniSONE See Taper PO DIRECTED 06/15/18 06/15/18 Previous Rx's Medication Instructions Recorded Ipratropium-Albuterol Nebulize 3 ml INHALATION QID #120 ampul.neb 06/12/18 [Duoneb 0.5 mg-3 mg/3 ml Soln] Levofloxacin [Levaquin] 500 mg PO DAILY #5 tab 06/12/18 Allergies Allergy/AdvReac Type Severity Reaction Status Date / Time fluticasone propionate Allergy Unknown Verified 06/15/18 15:43 [From Advair Diskus] heparin Allergy "made Verified 06/15/18 15:43 blood too thin" Penicillins Allergy Anaphylaxis Verified 06/15/18 15:43 salmeterol xinafoate Allergy Unknown Verified 06/15/18 15:43 [From Advair Diskus] Tetanus Vaccines and Toxoid Allergy Unknown Verified 06/15/18 15:43 [Tetanus Vaccines & Toxoid] Childhood levetiracetam [From Keppra] AdvReac Hallucinati Verified 06/15/18 15:43 ons Review of Systems ROS Statement: Those systems with pertinent positive or pertinent negative responses have been documented in the HPI. ROS Other: All systems not noted in ROS Statement are negative. Past Medical History Past Medical History: Coronary Artery Disease (CAD), COPD, GERD/Reflux, Hyperlipidemia Additional Past Medical History / Comment(s): chronic kidney disease stage 3, erectile dysfunction History of Any Multi-Drug Resistant Organisms: None Reported, MRSA Date of last positivie culture/infection: 2013 MDRO Source:: blood Additional Past Surgical History / Comment(s): Aortic triple femoral bypass, neck repair, stent in the right leg Past Psychological History: No Psychological Hx Reported Smoking Status: Former smoker Past Alcohol Use History: None Reported Past Drug Use History: None Reported - Past Family History Mother Family Medical History: Cancer, COPD Additional Family Medical History / Comment(s): lung cancer Father Family Medical History: Dementia Additional Family Medical History / Comment(s): heart disease Sister(s) Family Medical History: Cancer Additional Family Medical History / Comment(s): Breast Cancer Brother(s) Family Medical History: Diabetes Mellitus Additional Family Medical History / Comment(s): heart disease General Exam - General Exam Comments Initial Comments: PHYSICAL EXAM: General Impression: Alert and oriented x3, not in acute distress HEENT: Normocephalic atraumatic, extra-ocular movements intact, pupils equal and reactive to light bilaterally, mucous membranes moist. Cardiovascular: Tachycardic Chest: Lungs clear to auscultation bilaterally, no rhonchi, no wheeze, no rales Abdomen: Bowel sounds present, abdomen soft, non-tender, non-distended, no organomegaly Musculoskeletal: Pulses present and equal in all extremities, no peripheral edema Motor: Power 5/5 bilaterally, no focal deficits noted Neurological: CN II-XII grossly intact, no focal motor or sensory deficits noted Skin: Intact with no visualized rashes Psych: Normal affect and mood Limitations: physical limitation Course Vital Signs 06/15/18 06/15/18 15:16 17:05 Temperature 97.9 F Pulse Rate 127 H 122 H Respiratory 20 20 Rate Blood Pressure 97/62 115/64 O2 Sat by Pulse 93 L 91 L Oximetry Medical Decision Making - Medical Decision Making ED course: 83-year-old male with recently diagnosed DVT presents with low blood pressure. Vital signs upon arrival shows blood pressure 97/62. Patient is mildly hypoxic 93 on room air. Tachycardic to 127. Patient is not tachypneic. He denies any pain at this time. Medications are reviewed. Patient not on any antihypertensives at this time. Laboratory evaluation obtained. Leukocytosis of 14.7 however this is much lower than when he was initially admitted. Rest of CBC is unremarkable. Coag panel shows I no 1.4, PT 13.4. Metabolic panel shows elevated renal markers which appear to above patient's baseline. Glucose is 122. Magnesium 2.2. X-ray was obtained showing no minimal bilateral subsegmental atelectasis. Patient denies any symptoms of pneumonia. Denies any cough, chest pain or constitutional symptoms. No indication for initiating antibiotics at this time. Patient given 1 L of normal saline. EKG shows sinus tachycardia. Chart review was performed. Vitals from the last 30 days were reviewed. Patient has baseline tachycardia between 110 and 130. Patient reevaluated after fluids with improvement of blood pressure.Troponin level is 0.043. [facility] bedside ultrasound was performed showing no cardiac Amount, free fluid in Morison's pouch, no splenorenal fluid or fluid in the cul-de-sac. There is reasonably that patient's DVT is now converted to a pulmonary emboli given that patient showing signs of hypoxia, low blood pressure and elevated troponin. Patient's PE is submassive at this point. He is on appropriate medication at this time. At this point there is no clear indication to repeat CT angios the chest given that he just had a CT and has documented DVT seen on venous duplex. Patient currently is hemodynamically stable status post intravenous fluids. Patient to be put on 10 mg eliquis twice a day. Discussed patient case with automobile mechanic helper was willing to accept admission. Cardiology on consult. EKG Interpretation: A 12 lead EKG was obtained. It was interpreted by myself and attending physician. There is a P wave before every QRS complex. Rate is 125. Rhythm is tachycardia, KS interval 160, QRS 84, QTC 484. QT is not prolonged. No signs to suggest right heart strain.. Overall, this EKG is unremarkable - Lab Data Result diagrams: 06/15/18 16:20 06/15/18 16:20 Lab Results 06/15/18 06/15/18 06/15/18 Range/Units 16:20 16:20 16:20 WBC 14.7 H (3.8-10.6) k/uL RBC 4.97 (4.30-5.90) m/uL Hgb 13.9 (13.0-17.5) gm/dL Hct 43.0 (39.0-53.0) % MCV 86.5 (80.0-100.0) fL MCH 27.9 (25.0-35.0) pg MCHC 32.3 (31.0-37.0) g/dL RDW 14.7 (11.5-15.5) % Plt Count 220 (150-450) k/uL Neutrophils % 90 % Lymphocytes % 4 % Monocytes % 4 % Eosinophils % 0 % Basophils % 0 % Neutrophils # 13.2 H (1.3-7.7) k/uL Lymphocytes # 0.6 L (1.0-4.8) k/uL Monocytes # 0.6 (0-1.0) k/uL Eosinophils # 0.0 (0-0.7) k/uL Basophils # 0.0 (0-0.2) k/uL PT 13.4 H (9.0-12.0) sec INR 1.4 H (<1.2) Sodium 137 (137-145) mmol/L Potassium 4.5 (3.5-5.1) mmol/L Chloride 105 (98-107) mmol/L Carbon Dioxide 26 (22-30) mmol/L Anion Gap 6 mmol/L BUN 43 H (9-20) mg/dL Creatinine 1.40 H (0.66-1.25) mg/dL Est GFR (CKD-EPI)AfAm 54 (>60 ml/min/1.73 sqM) Est GFR (CKD-EPI)NonAf 46 (>60 ml/min/1.73 sqM) Glucose 122 H (74-99) mg/dL Calcium 8.9 (8.4-10.2) mg/dL Magnesium 2.2 (1.6-2.3) mg/dL Troponin I (0.000-0.034) ng/mL 06/15/18 Range/Units 16:20 WBC (3.8-10.6) k/uL RBC (4.30-5.90) m/uL Hgb (13.0-17.5) gm/dL Hct (39.0-53.0) % MCV (80.0-100.0) fL MCH (25.0-35.0) pg MCHC (31.0-37.0) g/dL RDW (11.5-15.5) % Plt Count (150-450) k/uL Neutrophils % % Lymphocytes % % Monocytes % % Eosinophils % % Basophils % % Neutrophils # (1.3-7.7) k/uL Lymphocytes # (1.0-4.8) k/uL Monocytes # (0-1.0) k/uL Eosinophils # (0-0.7) k/uL Basophils # (0-0.2) k/uL PT (9.0-12.0) sec INR (<1.2) Sodium (137-145) mmol/L Potassium (3.5-5.1) mmol/L Chloride (98-107) mmol/L Carbon Dioxide (22-30) mmol/L Anion Gap mmol/L BUN (9-20) mg/dL Creatinine (0.66-1.25) mg/dL Est GFR (CKD-EPI)AfAm (>60 ml/min/1.73 sqM) Est GFR (CKD-EPI)NonAf (>60 ml/min/1.73 sqM) Glucose (74-99) mg/dL Calcium (8.4-10.2) mg/dL Magnesium (1.6-2.3) mg/dL Troponin I 0.043 H* (0.000-0.034) ng/mL Disposition Clinical Impression: Pulmonary embolus Disposition: ADMITTED IP TO THIS HOSP Condition: Fair Referrals: Junaid Helms III, MD [Primary Care Provider] - 1-2 days Time of Disposition: 17:50
[2018-06-15] MEDS ORDERED: NALOXONE 0.4 MG/ML 1 ML VIAL IV PRN (17:43)
[2018-06-15] MEDS ORDERED: SODIUM CHLORIDE 0.9% 1,000 ML IV ONE (18:52)
[2018-06-15] MEDS ORDERED: FAMOTIDINE 20 MG TAB PO STA (18:59)
[2018-06-15] MEDS ORDERED: SODIUM CHLORIDE 0.9% 250 ML IV ONE (19:00)
[2018-06-15] MEDS: CILOSTAZOL 100 MG TAB PO SCH (19:34)
[2018-06-15] MEDS ORDERED: LABETALOL 5 MG/ML VIAL MDV IVP STA (19:37)
[2018-06-15] MEDS: IPRATROPIUM-ALBUTEROL 3 ML NEB INHALATION SCH (20:36)
[2018-06-15] MEDS: APIXABAN 5 MG TAB PO SCH (21:11)
[2018-06-15] MEDS: ATORVASTATIN 40 MG TAB PO SCH (21:11)
[2018-06-15 22:18] VITALS: BMI 35.6
[2018-06-16] MEDS: IPRATROPIUM-ALBUTEROL 3 ML NEB INHALATION SCH ×4 (07:37→19:14)
[2018-06-16] MEDS: CILOSTAZOL 100 MG TAB PO SCH ×2 (08:24→16:46)
[2018-06-16] MEDS: FAMOTIDINE 20 MG TAB PO SCH (08:24)
[2018-06-16] MEDS: LEVOFLOXACIN 500 MG TAB PO SCH (08:25)
[2018-06-16] MEDS: APIXABAN 5 MG TAB PO SCH ×2 (08:25→21:08)
--- NOTE | 2018-06-16 12:14 | P.CRDCN ---
History of Present Illness Consult date: 06/16/18 Requesting physician: Mark Anthony Charles Consult reason: hypotension Chief complaint: Tachycardia and hypotension History of present illness: This is an 83-year-old gentleman who follows with Dr. Dick in the office. Patient has a known history of hyperlipidemia, hypertension, chronic kidney disease stage III, prior nicotine dependence, PAD and PVD with prior peripheral stenting. He was recently in the hospital on the end of May with symptoms of shortness of breath and associated cough. Patient was given the diagnosis of COPD and chronic bronchitis. Patient also had a venous duplex study performed during that admission which revealed a positive DVT within the mid left popliteal vein extending in the proximal calf veins. He was initiated on Eliquis. A CT of the chest was also performed on that admission which was negative for a pulmonary embolism. Echocardiogram with Doppler study was also performed at the end of May which revealed a normal left ventricular systolic function. Mild concentric LVH noted. Patient re-presents to the hospital on this occasion with feeling his heart racing and associated hypotension. Chest x -ray on admission shows a sinus tachycardia with nonspecific ST-T wave changes. Chest x-ray showed new minimal bilateral subsegmental atelectasis. Blood pressure on arrival 97/62, blood pressure this morning 110/60 with a heart rate in the 90s. White blood cell count 14.7, hemoglobin 13.9, platelet count 220. INR 1.4. Sodium 137, potassium 4.5, BUN 43, creatinine 1.4. Troponin 0.043. BNP level 1450. At the time of my examination this morning, patient is mildly short of breath, he is coughing up clear sputum. He does have 1-2+ bilateral peripheral edema. Past Medical History Past Medical History: Coronary Artery Disease (CAD), COPD, GERD/Reflux, Hyperlipidemia Additional Past Medical History / Comment(s): chronic kidney disease stage 3, erectile dysfunction History of Any Multi-Drug Resistant Organisms: None Reported, MRSA Date of last positivie culture/infection: 2013 MDRO Source:: blood Additional Past Surgical History / Comment(s): Aortic triple femoral bypass, neck repair, stent in the right leg Past Psychological History: No Psychological Hx Reported Smoking Status: Former smoker Past Alcohol Use History: None Reported Past Drug Use History: None Reported - Past Family History Mother Family Medical History: Cancer, COPD Additional Family Medical History / Comment(s): lung cancer Father Family Medical History: Dementia Additional Family Medical History / Comment(s): heart disease Sister(s) Family Medical History: Cancer Additional Family Medical History / Comment(s): Breast Cancer Brother(s) Family Medical History: Diabetes Mellitus Additional Family Medical History / Comment(s): heart disease Medications and Allergies Home Medications Medication Instructions Recorded Confirmed Type Atorvastatin [Lipitor] 40 mg PO HS 12/10/15 06/15/18 History Cholecalciferol [Vitamin D3] 2,000 unit PO DAILY 12/10/15 06/15/18 History Ranitidine HCl 150 mg PO BID 12/10/15 06/15/18 History Sennosides [Senokot] 8.6 mg PO HS 12/10/15 06/15/18 History Albuterol Inhaler [Ventolin Hfa 1 - 2 puff INHALATION RT-Q4H PRN 06/08/18 History Inhaler] Cilostazol [Pletal] 100 mg PO PC-BID 06/08/18 06/15/18 History Nystatin 100,000Unit/gm Cream 1 applic TOPICAL BID 06/08/18 06/15/18 History [Mycostatin Cream] Ipratropium-Albuterol Nebulize 3 ml INHALATION QID #120 ampul.neb 06/12/1806/15 Rx [Duoneb 0.5 mg-3 mg/3 ml Soln] Levofloxacin [Levaquin] 500 mg PO DAILY #5 tab 06/12/18 06/15/18 Rx Apixaban [Eliquis] See Taper PO DIRECTED 06/15/18 06/15/18 History Fluticasone Nasal [place] [Flonase 1 spray EA NOSTRIL DAILY 06/15/18 06/15/18 History Nasal [place]] Furosemide [Lasix] 20 mg PO DAILY 06/15/18 06/15/18 History Lactobacillus Acidophilus 460 mg PO DAILY 06/15/18 06/15/18 History [Florajen] Montelukast [Singulair] 10 mg PO HS 06/15/18 06/15/18 History predniSONE See Taper PO DIRECTED 06/15/18 06/15/18 History Allergies Allergy/AdvReac Type Severity Reaction Status Date / Time fluticasone propionate Allergy Unknown Verified 06/15/18 15:43 [From [employer] Diskus] heparin Allergy "made Verified 06/15/18 15:43 blood too thin" Penicillins Allergy Anaphylaxis Verified 06/15/18 15:43 salmeterol xinafoate Allergy Unknown Verified 06/15/18 15:43 [From [employer] Diskus] Tetanus Vaccines and Toxoid Allergy Unknown Verified 06/15/18 15:43 [Tetanus Vaccines & Toxoid] Childhood levetiracetam [From [facility]] AdvReac Hallucinati Verified 06/15/18 15:43 ons Physical Exam Vitals: Vital Signs Temp Pulse Pulse Resp BP BP BP 06/16/18 11:27 92 06/16/18 11:12 90 06/16/18 08:00 96.8 F L 98 14 111/67 06/16/18 07:55 86 06/16/18 07:38 84 06/16/18 04:00 97 F L 102 H 18 159/82 06/16/18 00:00 96.9 F L 98 18 150/79 06/15/18 21:44 98.4 F 95 18 144/81 06/15/18 21:11 98 22 149/75 06/15/18 20:48 102 H 06/15/18 20:37 102 H 06/15/18 19:59 102 H 22 190/86 06/15/18 18:40 20 06/15/18 18:39 112 H 18 155/79 06/15/18 17:05 122 H 20 115/64 06/15/18 15:16 97.9 F 127 H 20 97/62 Pulse Ox 06/16/18 11:27 06/16/18 11:12 06/16/18 08:00 98 06/16/18 07:55 06/16/18 07:38 06/16/18 04:00 95 06/16/18 00:00 96 06/15/18 21:44 92 L 06/15/18 21:11 93 L 06/15/18 20:48 06/15/18 20:37 06/15/18 19:59 93 L 06/15/18 18:40 06/15/18 18:39 92 L 06/15/18 17:05 91 L 06/15/18 15:16 93 L Intake and Output 06/15/18 06/16/18 06/16/18 22:59 06:59 14:59 Output Total 150 Balance -150 Output: Urine 150 Other: Voiding Method Urinal Urinal # Voids 2 # Bowel Movements 1 Weight 97.069 kg 97.3 kg PHYSICAL EXAMINATION: GENERAL: 83-year-old gentleman in no acute distress at the time of my examination HEENT: Head is atraumatic, normocephalic. Pupils equal, round. Sclera anicteric. Conjunctiva are clear. Mucous membranes of the mouth are moist. Neck is supple. There is no elevated jugular venous pressure. No carotid bruit is heard. HEART EXAMINATION: Heart S1, S2 normal. No murmur or gallop heard. CHEST EXAMINATION: Lungs reveal inspiratory and expiratory rhonchi and wheezing throughout. ABDOMEN: Soft, nontender. Bowel sounds are heard. No organomegaly noted. EXTREMITIES: 2+ peripheral pulses with 2+ evidence of peripheral edema and no calf tenderness noted. NEUROLOGIC patient is awake, alert and oriented X3. . Results 06/15/18 16:20 06/15/18 16:20 Cardiac Enzymes 06/15/18 Range/Units 16:20 Troponin I 0.043 H* (0.000-0.034) ng/mL Coagulation 06/15/18 Range/Units 16:20 PT 13.4 H (9.0-12.0) sec CBC 06/15/18 Range/Units 16:20 WBC 14.7 H (3.8-10.6) k/uL RBC 4.97 (4.30-5.90) m/uL Hgb 13.9 (13.0-17.5) gm/dL Hct 43.0 (39.0-53.0) % Plt Count 220 (150-450) k/uL Comprehensive Metabolic Panel 06/15/18 Range/Units 16:20 Sodium 137 (137-145) mmol/L Potassium 4.5 (3.5-5.1) mmol/L Chloride 105 (98-107) mmol/L Carbon Dioxide 26 (22-30) mmol/L BUN 43 H (9-20) mg/dL Creatinine 1.40 H (0.66-1.25) mg/dL Glucose 122 H (74-99) mg/dL Calcium 8.9 (8.4-10.2) mg/dL Current Medications Generic Name Dose Route Start Last Admin Trade Name Freq PRN Reason Stop Dose Admin Albuterol/Ipratropium 3 ml 06/15/18 20:00 06/16/18 11:12 Duoneb 0.5 Mg-3 Mg/3 Ml Soln INHALATION 3 ml RT-QID ALMA Administration Apixaban 10 mg 06/15/18 21:00 06/16/18 08:25 Eliquis PO 06/20/18 21:01 10 mg BID ALMA Administration Apixaban 5 mg 06/21/18 09:00 Eliquis PO 07/11/18 21:01 BID ALMA Atorvastatin Calcium 40 mg 06/15/18 21:00 06/15/18 21:11 Lipitor PO 40 mg HS ALMA Administration Cilostazol 100 mg 06/15/18 18:30 06/16/18 08:24 Pletal PO 100 mg PC-BID ALMA Administration Famotidine 20 mg 06/16/18 09:00 06/16/18 08:24 Pepcid PO 20 mg DAILY ALMA Administration Levofloxacin 500 mg 06/16/18 09:00 06/16/18 08:25 Levaquin PO 500 mg DAILY ALMA Administration Naloxone HCl 0.2 mg 06/15/18 17:43 Narcan IV Q2M PRN Opioid Reversal Intake and Output 06/15/18 06/16/18 06/16/18 22:59 06:59 14:59 Output Total 150 Balance -150 Output: Urine 150 Other: Voiding Method Urinal Urinal # Voids 2 # Bowel Movements 1 Weight 97.069 kg 97.3 kg 06/15/18 16:20 06/15/18 16:20 EKG Interpretations (text) EKG shows a sinus tachycardia with nonspecific ST-T wave changes. Assessment and Plan Plan: Assessment and plan #1 sinus tachycardia with associated hypotension, could be secondary to acute COPD exacerbation, could also be secondary to recent diagnosis of blood clot. #2 diastolic congestive heart failure acute on chronic #3 recent admission was COPD exacerbation and bronchitis #4 left leg DVT, on Eliquis #5 hyperlipidemia #6 PVD and PAD with previous aortofemoral and left fem-pop bypass #7 family history of premature coronary artery disease #8 abnormal troponin, could be secondary to oxygen supply and demand mismatch Plan Echocardiogram with Doppler study was performed at the end of May which revealed a normal left ventricular systolic function. Patient has abnormal BNP , elevated troponin, tachycardia, hypotension, CONSISTENT with possible pulmonary embolism, patient did have a CAT scan of the chest performed last month negative for pulmonary embolism, currently on Eliquis per DVT protocol. We will continue the Eliquis, we will also put the patient on some IV Lasix. Further recommendations to follow. DNP note has been reviewed, I agree with a documented findings and plan of care. Patient was seen and examined.
--- NOTE | 2018-06-16 12:28 | P.HPIM ---
History of Present Illness This is a pleasant 83 years old male with past medical history of coronary artery disease, COPD, GERD, hyperlipidemia, CKD stage III, who presents with low blood pressure. Patient was recently discharged on 05/26/2018 for acute COPD exacerbation and left popliteal DVT. He was discharged on tapered dose of steroids, and a liquids treatment for his DVT. Patient was not sure if he missed a few doses. But however he was doing follow-up with his PCP with a noticed his blood pressure on the low side as per patient 80s over 60s. With tachycardia and they sent him to the hospital. However patient denied any symptoms. As per records, she should take a liquids 10 mg twice a day for 7 day till 06/20/2017 included. And he supposed to take tapering dose of prednisone 40 mg X3 days starting on 06/14/2018, we'll continue the prednisone taper In the ED is patient was noticed to have low blood pressure of 97/62, tachycardic up to 125 and 130s. He has leukocytosis trending down from 20 K on 06/12/2018 to 14.7 K on admission at 06/15/18, also patient and his steroids and Levaquin. His creatinine is close to his baseline at 1.4 [baseline 1.2-1.4], his troponins were slightly elevated at 0.043. With EKG showing sinus tachycardia and [address]-T changes and QTC 484. Chest x-ray was unremarkable. Patient has been evaluated by addiction medicine physician for positive troponins and abnormal vitals. Patient himself said he feels fine this morning with no chest pain, dyspnea, or dizziness Review of Systems CONSTITUTIONAL: No fever, no malaise, no fatigue. HEENT: No recent visual problems or hearing problems. Denied any sore throat. CARDIOVASCULAR: No orthopnea, PND, no palpitations, no syncope. PULMONARY: No shortness of breath, no cough, no hemoptysis. GASTROINTESTINAL: No diarrhea, no nausea, no vomiting, no abdominal pain. Normoactive bowel sounds. NEUROLOGICAL: No headaches, no weakness, no numbness. HEMATOLOGICAL: Denies any bleeding or petechiae. GENITOURINARY: Denies any burning micturition, frequency, or urgency. MUSCULOSKELETAL/RHEUMATOLOGICAL: Denies any joint pain, swelling, or any muscle pain. ENDOCRINE: Denies any polyuria or polydipsia. Past Medical History Past Medical History: Coronary Artery Disease (CAD), COPD, GERD/Reflux, Hyperlipidemia Additional Past Medical History / Comment(s): chronic kidney disease stage 3, erectile dysfunction History of Any Multi-Drug Resistant Organisms: None Reported, MRSA Date of last positivie culture/infection: 2013 MDRO Source:: blood Additional Past Surgical History / Comment(s): Aortic triple femoral bypass, neck repair, stent in the right leg Past Psychological History: No Psychological Hx Reported Smoking Status: Former smoker Past Alcohol Use History: None Reported Past Drug Use History: None Reported - Past Family History Mother Family Medical History: Cancer, COPD Additional Family Medical History / Comment(s): lung cancer Father Family Medical History: Dementia Additional Family Medical History / Comment(s): heart disease Sister(s) Family Medical History: Cancer Additional Family Medical History / Comment(s): Breast Cancer Brother(s) Family Medical History: Diabetes Mellitus Additional Family Medical History / Comment(s): heart disease Medications and Allergies Home Medications Medication Instructions Recorded Confirmed Type Atorvastatin [Lipitor] 40 mg PO HS 12/10/15 06/15/18 History Cholecalciferol [Vitamin D3] 2,000 unit PO DAILY 12/10/15 06/15/18 History Ranitidine HCl 150 mg PO BID 12/10/15 06/15/18 History Sennosides [Senokot] 8.6 mg PO HS 12/10/15 06/15/18 History Albuterol Inhaler [Ventolin Hfa 1 - 2 puff INHALATION RT-Q4H PRN 06/08/18 History Inhaler] Cilostazol [Pletal] 100 mg PO PC-BID 06/08/18 06/15/18 History Nystatin 100,000Unit/gm Cream 1 applic TOPICAL BID 06/08/18 06/15/18 History [Mycostatin Cream] Ipratropium-Albuterol Nebulize 3 ml INHALATION QID #120 ampul.neb 06/12/1806/15 Rx [Duoneb 0.5 mg-3 mg/3 ml Soln] Levofloxacin [Levaquin] 500 mg PO DAILY #5 tab 06/12/18 06/15/18 Rx Apixaban [Eliquis] See Taper PO DIRECTED 06/15/18 06/15/18 History Fluticasone Nasal [place] [Flonase 1 spray EA NOSTRIL DAILY 06/15/18 06/15/18 History Nasal [place]] Furosemide [Lasix] 20 mg PO DAILY 06/15/18 06/15/18 History Lactobacillus Acidophilus 460 mg PO DAILY 06/15/18 06/15/18 History [Florajen] Montelukast [Singulair] 10 mg PO HS 06/15/18 06/15/18 History predniSONE See Taper PO DIRECTED 06/15/18 06/15/18 History Allergies Allergy/AdvReac Type Severity Reaction Status Date / Time fluticasone propionate Allergy Unknown Verified 06/15/18 15:43 [From Advair Diskus] heparin Allergy "made Verified 06/15/18 15:43 blood too thin" Penicillins Allergy Anaphylaxis Verified 06/15/18 15:43 salmeterol xinafoate Allergy Unknown Verified 06/15/18 15:43 [From Advair Diskus] Tetanus Vaccines and Toxoid Allergy Unknown Verified 06/15/18 15:43 [Tetanus Vaccines & Toxoid] Childhood levetiracetam [From [facility]] AdvReac Hallucinati Verified 06/15/18 15:43 ons Physical Exam Vitals: Vital Signs Temp Pulse Pulse Resp BP BP BP 06/16/18 11:27 92 06/16/18 11:12 90 06/16/18 08:00 96.8 F L 98 14 111/67 06/16/18 07:55 86 06/16/18 07:38 84 06/16/18 04:00 97 F L 102 H 18 159/82 06/16/18 00:00 96.9 F L 98 18 150/79 06/15/18 21:44 98.4 F 95 18 144/81 06/15/18 21:11 98 22 149/75 06/15/18 20:48 102 H 06/15/18 20:37 102 H 06/15/18 19:59 102 H 22 190/86 06/15/18 18:40 20 06/15/18 18:39 112 H 18 155/79 06/15/18 17:05 122 H 20 115/64 06/15/18 15:16 97.9 F 127 H 20 97/62 Pulse Ox 06/16/18 11:27 06/16/18 11:12 06/16/18 08:00 98 06/16/18 07:55 06/16/18 07:38 06/16/18 04:00 95 06/16/18 00:00 96 06/15/18 21:44 92 L 06/15/18 21:11 93 L 06/15/18 20:48 06/15/18 20:37 06/15/18 19:59 93 L 06/15/18 18:40 06/15/18 18:39 92 L 06/15/18 17:05 91 L 06/15/18 15:16 93 L Intake and Output 06/15/18 06/16/18 06/16/18 22:59 06:59 14:59 Output Total 150 Balance -150 Output: Urine 150 Other: Voiding Method Urinal Urinal # Voids 2 # Bowel Movements 1 Weight 97.069 kg 97.3 kg GENERAL: The patient is alert and oriented x3, not in any acute distress. Well developed, well nourished. HEENT: Pupils are round and equally reacting to light. EOMI. No scleral icterus. No conjunctival pallor. Normocephalic, atraumatic. No pharyngeal erythema. No thyromegaly. CARDIOVASCULAR: S1 and S2 present. No murmurs, rubs, or gallops. PULMONARY: Chest is clear to auscultation, no wheezing or crackles. ABDOMEN: Soft, nontender, nondistended, normoactive bowel sounds. No palpable organomegaly. MUSCULOSKELETAL: No joint swelling or deformity. EXTREMITIES: No cyanosis, clubbing, or pedal edema. NEUROLOGICAL: Gross neurological examination did not reveal any focal deficits. SKIN: No rashes. Results CBC & Chem 7: 06/15/18 16:20 06/15/18 16:20 Labs: Abnormal Lab Results - Last 24 Hours (Table) 06/15/18 06/15/18 06/15/18 Range/Units 16:20 16:20 16:20 WBC 14.7 H (3.8-10.6) k/uL Neutrophils # 13.2 H (1.3-7.7) k/uL Lymphocytes # 0.6 L (1.0-4.8) k/uL PT 13.4 H (9.0-12.0) sec INR 1.4 H (<1.2) BUN 43 H (9-20) mg/dL Creatinine 1.40 H (0.66-1.25) mg/dL Glucose 122 H (74-99) mg/dL Troponin I (0.000-0.034) ng/mL 06/15/18 Range/Units 16:20 WBC (3.8-10.6) k/uL Neutrophils # (1.3-7.7) k/uL Lymphocytes # (1.0-4.8) k/uL PT (9.0-12.0) sec INR (<1.2) BUN (9-20) mg/dL Creatinine (0.66-1.25) mg/dL Glucose (74-99) mg/dL Troponin I 0.043 H* (0.000-0.034) ng/mL Microbiology - Last 24 Hours (Table) 06/15/18 20:21 Urine Culture - Preliminary Urine,Voided Thrombosis Risk Factor Assmnt - Choose All That Apply Any of the Below Risk Factors Present?: Yes Each Factor Represents 1 point: Abnormal pulmonary function (COPD), Obesity ( BMI >25), Swollen legs (current) Other Risk Factors: Yes Each Risk Factor Represents 3 Points: Age 75 years or older Other congenital or acquired thrombophilia - If yes, enter type in comment: No Thrombosis Risk Factor Assessment Total Risk Factor Score: 6 Thrombosis Risk Factor Assessment Level: High Risk Assessment and Plan Plan: -Recent acute left DVT, continue with ELIQUIS -Positive troponins, IN THE view of hypotension and tachycardia. Cardiology is evaluating his appreciated. Keep monitoring for now -Episodic hypotension and tachycardia. Secondary to above. Blood pressure is better controlled currently. Keep monitoring. Patient is not on any blood pressure medication -History of recent COPD with exacerbation. Continue with steroid taper. Check for home oxygen: Pending -History of PVD, continue with Pletal. Not active tissue DVT prophylaxis: Already on ELIQUIS GI prophylaxis on Pepcid PT/OT: Pending Prognosis is guarded As per patient has already has an appointment with pulmonary on July 14, 2018 at 8:30. And with the Dr. Marx from cardiology on 07/31/2018. And with Dr. Ordonez from hematology on August. She wasn't sure if she has an appointment with Dr. Helms on 06/30 at 1:30 PM, instructed to call and confirm and she agrees
[2018-06-16 12:43] LABS: Calcium 8.4 mg/dL (8.4-10.2); Potassium 3.7 mmol/L (3.5-5.1)
[2018-06-16 12:46] LABS: Basophils % (A) 0 %; Eosinophils # (A) 0.3 k/uL (0-0.7); Eosinophils % (A) 3 %; HCT 39.9 % (39.0-53.0); HGB 12.8 gm/dL (13.0-17.5); Lymphocytes # (A) 1.5 k/uL (1.0-4.8); Lymphocytes % (A) 13 %; MCH 28.1 pg (25.0-35.0); MCV 87.9 fL (80.0-100.0); Mean Platelet Volume 7.4; Monocytes # (A) 0.8 k/uL (0-1.0); Monocytes % (A) 7 %; Neutrophils % (A) 76 %; Platelet Count 193 k/uL (150-450); RBC 4.54 m/uL (4.30-5.90); RDW 14.8 % (11.5-15.5); WBC 11.8 k/uL (3.8-10.6)
[2018-06-16] MEDS: FUROSEMIDE 10 MG/ML 4 ML VIAL IV SCH ×2 (16:42→21:08)
[2018-06-16] MEDS: ATORVASTATIN 40 MG TAB PO SCH (21:08)
[2018-06-17 06:45] LABS: Basophils % (A) 0 %; Eosinophils # (A) 0.7 k/uL (0-0.7); Eosinophils % (A) 5 %; HGB 14.3 gm/dL (13.0-17.5); Lymphocytes # (A) 1.8 k/uL (1.0-4.8); Lymphocytes % (A) 14 %; MCH 28.3 pg (25.0-35.0); MCHC 32.4 g/dL (31.0-37.0); MCV 87.2 fL (80.0-100.0); Mean Platelet Volume 6.7; Monocytes # (A) 0.9 k/uL (0-1.0); Monocytes % (A) 7 %; Neutrophils # (A) 9.5 k/uL (1.3-7.7); Neutrophils % (A) 72 %; Platelet Count 202 k/uL (150-450); RBC 5.05 m/uL (4.30-5.90); RDW 14.6 % (11.5-15.5); WBC 13.2 k/uL (3.8-10.6)
[2018-06-17 07:03] LABS: Calcium 8.8 mg/dL (8.4-10.2)
[2018-06-17] MEDS: IPRATROPIUM-ALBUTEROL 3 ML NEB INHALATION SCH ×4 (08:16→19:31)
[2018-06-17] MEDS: CILOSTAZOL 100 MG TAB PO SCH ×2 (10:01→18:14)
[2018-06-17] MEDS: predniSONE 10 MG TAB PO SCH (10:01)
[2018-06-17] MEDS: FUROSEMIDE 10 MG/ML 4 ML VIAL IV SCH (10:02)
[2018-06-17] MEDS: FAMOTIDINE 20 MG TAB PO SCH ×2 (10:04→10:05)
[2018-06-17] MEDS: LEVOFLOXACIN 500 MG TAB PO SCH (10:04)
[2018-06-17] MEDS: APIXABAN 5 MG TAB PO SCH ×2 (10:04→21:12)
--- NOTE | 2018-06-17 10:45 | P.PN ---
Subjective This is a pleasant 83 years old male with past medical history of coronary artery disease, COPD, GERD, hyperlipidemia, CKD stage III, who presents with low blood pressure. Patient was recently discharged on 05/26/2018 for acute COPD exacerbation and left popliteal DVT. He was discharged on tapered dose of steroids, and a liquids treatment for his DVT. Patient was not sure if he missed a few doses. But however he was doing follow-up with his PCP with a noticed his blood pressure on the low side as per patient 80s over 60s. With tachycardia and they sent him to the hospital. However patient denied any symptoms. As per records, she should take a liquids 10 mg twice a day for 7 day till 06/20/2017 included. And he supposed to take tapering dose of prednisone 40 mg X3 days starting on 06/14/2018, we'll continue the prednisone taper In the ED is patient was noticed to have low blood pressure of 97/62, tachycardic up to 125 and 130s. He has leukocytosis trending down from 20 K on 06/12/2018 to 14.7 K on admission at 06/15/18, also patient and his steroids and Levaquin. His creatinine is close to his baseline at 1.4 [baseline 1.2-1.4], his troponins were slightly elevated at 0.043. With EKG showing sinus tachycardia and [address]-T changes and QTC 484. Chest x-ray was unremarkable. Patient has been evaluated by shift supervisor melting for positive troponins and abnormal vitals. and he was placed on lasix Patient himself said he feels fine this morning with no chest pain, dyspnea, or dizziness 06/17/2018 pt feels better , . His blood pressure is improved however his total mildly tachycardic. He still liquids 10 mg twice a day and tapered dose of prednisone patient was instructed about this. He still have leukocytosis from 11 to 13 K, but he still on steroids. His creatinine still within baseline at 1.3 [ baseline 1.2-1.4]. Patient has been evaluated by cardiology team for positive troponins. Lasix 40 mg IV twice a day was started Objective - Vital Signs Vital signs: Vital Signs Temp 97 F L 06/17/18 04:00 Pulse 108 H 06/17/18 08:29 Resp 17 08/04/18 04:00 BP 123/70 06/17/18 04:00 Pulse Ox 97 06/17/18 04:00 Intake & Output 06/16/18 06/17/18 06/17/18 18:59 06:59 18:59 Intake Total 1160 100 Output Total 2825 Balance 1160 -2725 Weight 97 kg Intake: Oral 1160 100 Output: Urine 2825 Other: Voiding Method Urinal Urinal - Exam GENERAL: The patient is alert and oriented x3, not in any acute distress. Well developed, well nourished. HEENT: Pupils are round and equally reacting to light. EOMI. No scleral icterus. No conjunctival pallor. Normocephalic, atraumatic. No pharyngeal erythema. No thyromegaly. CARDIOVASCULAR: S1 and S2 present. No murmurs, rubs, or gallops. PULMONARY: Chest is clear to auscultation, no wheezing or crackles. ABDOMEN: Soft, nontender, nondistended, normoactive bowel sounds. No palpable organomegaly. MUSCULOSKELETAL: No joint swelling or deformity. EXTREMITIES: No cyanosis, clubbing, or pedal edema. NEUROLOGICAL: Gross neurological examination did not reveal any focal deficits. SKIN: No rashes. - Labs CBC & Chem 7: 06/17/18 06:31 06/17/18 06:31 Labs: Abnormal Lab Results - Last 24 Hours (Table) 06/16/18 06/16/18 06/17/18 Range/Units 12:16 12:16 06:31 WBC 11.8 H (3.8-10.6) k/uL Hgb 12.8 L (13.0-17.5) gm/dL Neutrophils # 9.0 H (1.3-7.7) k/uL Carbon Dioxide 33 H (22-30) mmol/L BUN 33 H 30 H (9-20) mg/dL Creatinine 1.35 H (0.66-1.25) mg/dL 06/17/18 Range/Units 06:31 WBC 13.2 H (3.8-10.6) k/uL Hgb (13.0-17.5) gm/dL Neutrophils # 9.5 H (1.3-7.7) k/uL Carbon Dioxide (22-30) mmol/L BUN (9-20) mg/dL Creatinine (0.66-1.25) mg/dL Microbiology - Last 24 Hours (Table) 06/15/18 20:21 Urine Culture - Final Urine,Voided 06/15/18 16:20 Blood Culture - Preliminary Blood No Growth after 24 hours Assessment and Plan Plan: -Recent acute left DVT, continue with ELIQUIS -Positive troponins, IN THE view of hypotension and tachycardia. Cardiology is evaluating his appreciated. Started on Lasix 40 mg IV twice a day -Episodic hypotension and tachycardia. Secondary to above. Blood pressure is better controlled currently. Keep monitoring. Patient is not on any blood pressure medication. Improving -History of recent COPD with exacerbation. Continue with steroid taper. Check for home oxygen: Pending -History of PVD, continue with Pletal. Not active tissue DVT prophylaxis: Already on ELIQUIS GI prophylaxis on Pepcid PT/OT: Home with home care Prognosis is guarded As per patient has already has an appointment with pulmonary on July 14, 2018 at 8:30. And with the Dr. Marx from cardiology on 07/31/2018. And with Dr. Ordonez from hematology on August. She wasn't sure if she has an appointment with Dr. Helms on 06/30 at 1:30 PM, instructed to call and confirm and she agrees
--- NOTE | 2018-06-17 20:42 | PN ---
PROGRESS NOTE Mr. Stafford is an 83-year-old gentleman who is seen for cardiac evaluation. Patient is feeling better. No respiratory distress or dizziness is noted. This patient was admitted with palpitations and the low blood pressure. Patient has been recently treated for deep vein thrombosis. Patient denies any chest pain. On admission, patient's oxygen saturation was borderline low. Patient's heart rate is still about 108. Blood pressure is 126/79 mmHg. First and second heart sounds are normal. Lungs are fairly clear to auscultation and percussion. Patient's electrolytes are normal. Creatinine is 1.3. Chest x-ray does not show any significant failure. The patient's proBNP level was 1450. Patient's initial troponin was 0.04. No repeat troponins are available. FINAL IMPRESSION: This patient who has a history of recent deep vein thrombosis presented with palpitations, sinus tachycardia and mild hypotension. Though the patient's previous CT scan was negative, a pulmonary embolism cannot be entirely excluded. We would discontinue the IV Lasix and hydrate the patient overnight and consider a CT scan of the chest as well as a repeat echocardiogram. MMODL / IJN: [id number] /
[2018-06-17] MEDS: ATORVASTATIN 40 MG TAB PO SCH (21:11)
[2018-06-17] MEDS: SODIUM CHLORIDE 0.9% 1,000 ML IV SCH (23:47)
[2018-06-18 06:42] LABS: Basophils % (A) 0 %; Eosinophils # (A) 0.3 k/uL (0-0.7); Eosinophils % (A) 2 %; HCT 42.4 % (39.0-53.0); Lymphocytes # (A) 1.7 k/uL (1.0-4.8); Lymphocytes % (A) 11 %; MCH 27.1 pg (25.0-35.0); MCHC 30.8 g/dL (31.0-37.0); Mean Platelet Volume 6.9; Monocytes % (A) 7 %; Neutrophils # (A) 12.2 k/uL (1.3-7.7); Neutrophils % (A) 78 %; Platelet Count 191 k/uL (150-450); RBC 4.82 m/uL (4.30-5.90); RDW 14.6 % (11.5-15.5); WBC 15.7 k/uL (3.8-10.6)
[2018-06-18 06:55] LABS: Calcium 8.4 mg/dL (8.4-10.2); Potassium 4.2 mmol/L (3.5-5.1)
[2018-06-18] MEDS: IPRATROPIUM-ALBUTEROL 3 ML NEB INHALATION SCH ×4 (08:10→20:52)
[2018-06-18] MEDS: CILOSTAZOL 100 MG TAB PO SCH ×2 (09:29→17:57)
[2018-06-18] MEDS: predniSONE 10 MG TAB PO SCH (09:29)
[2018-06-18] MEDS: APIXABAN 5 MG TAB PO SCH ×2 (09:29→20:00)
[2018-06-18] MEDS: LEVOFLOXACIN 500 MG TAB PO SCH (09:29)
[2018-06-18] MEDS: FUROSEMIDE 40 MG TAB PO SCH (09:30)
--- NOTE | 2018-06-18 11:13 | CT ---
EXAMINATION TYPE: CT angio chest DATE OF EXAM: 06/18/2018 11:05 AM COMPARISON: Previous study dated 06/08/2018 HISTORY: Chest pain. CT DLP: 439 mGycm Automated exposure control for dose reduction was used. CONTRAST: CTA scan of the thorax is performed with IV Contrast, patient injected with 80 mL of Isovue 370, pulm onary embolism protocol. . FINDINGS: There is mild dependent atelectasis in the dependent portions of the lungs. The lungs are o therwise clear. There is no significant axillary, mediastinal or hilar adenopathy. There is no evidence of pulmonary embolus. The aorta is normal in caliber without evidence of dissection. There is no pleural or pericardial fluid. The heart is not enlarged. Visualized portions of the upper abdomen are unremarkable. There is degenerative disc disease and mild hypertrophic spondylosis involving the dorsal spine. IMPRESSION: 1. THIS EXAMINATION IS NEGATIVE FOR PULMONARY EMBOLUS. 2. MILD DEGENERATIVE CHANGE WITHIN THE SPINE.
--- NOTE | 2018-06-18 12:02 | P.PN ---
Subjective This is a pleasant 83 years old male with past medical history of coronary artery disease, COPD, GERD, hyperlipidemia, CKD stage III, who presents with low blood pressure. Patient was recently discharged on 05/26/2018 for acute COPD exacerbation and left popliteal DVT. He was discharged on tapered dose of steroids, and a liquids treatment for his DVT. Patient was not sure if he missed a few doses. But however he was doing follow-up with his PCP with a noticed his blood pressure on the low side as per patient 80s over 60s. With tachycardia and they sent him to the hospital. However patient denied any symptoms. As per records, she should take a liquids 10 mg twice a day for 7 day till 06/20/2017 included. And he supposed to take tapering dose of prednisone 40 mg X3 days starting on 06/14/2018, we'll continue the prednisone taper In the ED is patient was noticed to have low blood pressure of 97/62, tachycardic up to 125 and 130s. He has leukocytosis trending down from 20 K on 06/12/2018 to 14.7 K on admission at 06/15/18, also patient and his steroids and Levaquin. His creatinine is close to his baseline at 1.4 [baseline 1.2-1.4], his troponins were slightly elevated at 0.043. With EKG showing sinus tachycardia and [address]-T changes and QTC 484. Chest x-ray was unremarkable. Patient has been evaluated by facility designer for positive troponins and abnormal vitals. and he was placed on lasix Patient himself said he feels fine this morning with no chest pain, dyspnea, or dizziness 06/17/2018 pt feels better , . His blood pressure is improved however his total mildly tachycardic. He still liquids 10 mg twice a day and tapered dose of prednisone patient was instructed about this. He still have leukocytosis from 11 to 13 K, but he still on steroids. His creatinine still within baseline at 1.3 [ baseline 1.2-1.4]. Patient has been evaluated by cardiology team for positive troponins. Lasix 40 mg IV twice a day was started 06/18/2018 Patient stable. No chest pain or dyspnea, he has chronic cough. His blood pressure is a stable however on the night of 8 for he has another dip in his blood pressure down to 87/51 on the left arm. He still have leukocytosis at 15.7 K, he still on steroids. Creatinine is 1.2 [baseline 1.2-1.4]. He is still on IV fluids, and Lasix. His proBNP is coming down from 1400 TO 250. Patient family are requesting pulmonary consult since they sent the patient to the hospital. Physical therapy recommended home with home health care Objective - Vital Signs Vital signs: Vital Signs Temp 97.0 F L 06/18/18 08:00 Pulse 92 06/18/18 11:54 Resp 18 06/18/18 08:00 BP 150/90 06/18/18 08:00 Pulse Ox 98 06/18/18 08:00 Intake & Output 06/17/18 06/18/18 06/18/18 18:59 06:59 18:59 Intake Total 400 240 240 Output Total 700 750 Balance -300 -510 240 Weight 92.5 kg Intake: Oral 400 240 240 Output: Urine 700 750 Other: Voiding Method Urinal Urinal - Exam GENERAL: The patient is alert and oriented x3, not in any acute distress. Well developed, well nourished. HEENT: Pupils are round and equally reacting to light. EOMI. No scleral icterus. No conjunctival pallor. Normocephalic, atraumatic. No pharyngeal erythema. No thyromegaly. CARDIOVASCULAR: S1 and S2 present. No murmurs, rubs, or gallops. PULMONARY: Chest is clear to auscultation, no wheezing or crackles. ABDOMEN: Soft, nontender, nondistended, normoactive bowel sounds. No palpable organomegaly. MUSCULOSKELETAL: No joint swelling or deformity. EXTREMITIES: No cyanosis, clubbing, or pedal edema. NEUROLOGICAL: Gross neurological examination did not reveal any focal deficits. SKIN: No rashes. - Labs CBC & Chem 7: 06/18/18 06:06 06/18/18 06:06 Labs: Abnormal Lab Results - Last 24 Hours (Table) 06/18/18 06/18/18 Range/Units 06:06 06:06 WBC 15.7 H (3.8-10.6) k/uL MCHC 30.8 L (31.0-37.0) g/dL Neutrophils # 12.2 H (1.3-7.7) k/uL BUN 27 H (9-20) mg/dL Microbiology - Last 24 Hours (Table) 06/15/18 16:20 Blood Culture - Preliminary Blood No Growth after 48 hours Assessment and Plan Plan: -Recent acute left DVT, continue with ELIQUIS -Positive troponins, IN THE view of hypotension and tachycardia. Cardiology is evaluating his appreciated. Started on Lasix 40 mg IV twice a day and then changed to by mouth -Episodic hypotension and tachycardia. Secondary to above. Blood pressure is better controlled currently. Keep monitoring. Patient is not on any blood pressure medication. Improving -History of recent COPD with exacerbation. Continue with steroid taper. Check for home oxygen: Pending -Leukocytosis, mostly reactive secondary to steroids. Keep following up -History of PVD, continue with Pletal. Not active tissue DVT prophylaxis: Already on ELIQUIS GI prophylaxis on Pepcid PT/OT: Home with home care Prognosis is guarded As per patient has already has an appointment with pulmonary on July 14, 2018 at 8:30. And with the Dr. Marx from cardiology on 07/31/2018. And with Dr. Ordonez from hematology on August. She wasn't sure if she has an appointment with Dr. Helms on 06/30 at 1:30 PM, instructed to call and confirm and she agrees
[2018-06-18] MEDS: SODIUM CHLORIDE 0.9% 1,000 ML IV SCH (12:39)
[2018-06-18] MEDS: ATORVASTATIN 40 MG TAB PO SCH (20:00)
[2018-06-19 01:45] VITALS: RESP 18
[2018-06-19] MEDS: SODIUM CHLORIDE 0.9% 1,000 ML IV SCH (05:52)
[2018-06-19 06:23] LABS: Basophils # (A) 0.1 k/uL (0-0.2); Basophils % (A) 0 %; Eosinophils # (A) 0.3 k/uL (0-0.7); Eosinophils % (A) 2 %; HCT 40.5 % (39.0-53.0); Lymphocytes # (A) 1.9 k/uL (1.0-4.8); Lymphocytes % (A) 12 %; MCH 28.1 pg (25.0-35.0); MCHC 32.1 g/dL (31.0-37.0); MCV 87.4 fL (80.0-100.0); Mean Platelet Volume 6.7; Monocytes % (A) 6 %; Neutrophils # (A) 12.4 k/uL (1.3-7.7); Neutrophils % (A) 78 %; Platelet Count 203 k/uL (150-450); RBC 4.63 m/uL (4.30-5.90); RDW 14.6 % (11.5-15.5); WBC 15.9 k/uL (3.8-10.6)
[2018-06-19 06:36] LABS: Calcium 8.6 mg/dL (8.4-10.2); Potassium 3.7 mmol/L (3.5-5.1)
[2018-06-19] MEDS: IPRATROPIUM-ALBUTEROL 3 ML NEB INHALATION SCH ×2 (08:18→11:44)
[2018-06-19] MEDS: FAMOTIDINE 20 MG TAB PO SCH (08:26)
[2018-06-19] MEDS: APIXABAN 5 MG TAB PO SCH (08:26)
[2018-06-19] MEDS: FUROSEMIDE 40 MG TAB PO SCH (08:26)
[2018-06-19] MEDS: predniSONE 10 MG TAB PO SCH (08:26)
[2018-06-19] MEDS: CILOSTAZOL 100 MG TAB PO SCH (08:26)
--- NOTE | 2018-06-19 11:16 | ECHOF ---
Referral Reason:EF MEASUREMENTS -------- HEIGHT: 165.1 cm WEIGHT: 92.1 kg BP: 138/69 RVIDd: 3.1 cm (< 3.3) IVSd: 1.3 cm (0.6 - 1.1) LVIDd: 3.8 cm (3.9 - 5.3) LVPWd: 1.4 cm (0.6 - 1.1) IVSs: 1.9 cm LVIDs: 2.1 cm LVPWs: 1.8 cm Ao Diam: 3.3 cm (2.0 - 3.7) AV Cusp: 1.4 cm (1.5 - 2.6) LA Diam: 3.4 cm (2.7 - 3.8) AV maxP.66 mmHg AV meanP.56 mmHg RAP: 5.00 mmHg RVSP: 20.31 mmHg FINDINGS -------- Sinus rhythm. Limited Study LV function There is moderate concentric left ventricular hypertrophy. Overall left ventricular systolic functi on is normal with, an EF between 65 - 70 %. The right ventricle is normal in size. Aortic valve is trileaflet and is mildly thickened. There is mild aortic stenosis present. Peak/m valerie gradient across the Aortic Valve is 17.66mmHg / 10.56mmHg. There is a trivial pericardial effusion present. CONCLUSIONS -------- 1. Sinus rhythm. 2. Limited Study for LV function 3. There is moderate concentric left ventricular hypertrophy. 4. Overall left ventricular systolic function is normal with, an EF between 65 - 70 %. 5. The right ventricle is normal in size. 6. Aortic valve is trileaflet and is mildly thickened. 7. There is mild aortic stenosis present. 8. Peak/mean gradient across the Aortic Valve is 17.66mmHg / 10.56mmHg. 9. There is a trivial pericardial effusion present. SUPERVISOR PAPER TESTING: Lyla Lau RDCS
[2018-06-19 11:50] VITALS: BP 125/77; TEMP 97.6
[2018-06-19 11:57] VITALS: PULSE 96
--- NOTE | 2018-06-19 14:12 | P.PN ---
Subjective Progress Note Date: 06/19/18 This is an 83-year-old gentleman who follows with Dr. Dick in the office. Patient has a known history of hyperlipidemia, hypertension, chronic kidney disease stage III, prior nicotine dependence, PAD and PVD with prior peripheral stenting. He was recently in the hospital on the end of May with symptoms of shortness of breath and associated cough. Patient was given the diagnosis of COPD and chronic bronchitis. Patient also had a venous duplex study performed during that admission which revealed a positive DVT within the mid left popliteal vein extending in the proximal calf veins. He was initiated on Eliquis. A CT of the chest was also performed on that admission which was negative for a pulmonary embolism. Echocardiogram with Doppler study was also performed at the end of May which revealed a normal left ventricular systolic function. Mild concentric LVH noted. Patient re-presents to the hospital on this occasion with feeling his heart racing and associated hypotension. Chest x -ray on admission shows a sinus tachycardia with nonspecific ST-T wave changes. Chest x-ray showed new minimal bilateral subsegmental atelectasis. Blood pressure on arrival 97/62, blood pressure this morning 110/60 with a heart rate in the 90s. White blood cell count 14.7, hemoglobin 13.9, platelet count 220. INR 1.4. Sodium 137, potassium 4.5, BUN 43, creatinine 1.4. Troponin 0.043. BNP level 1450. At the time of my examination this morning, patient is mildly short of breath, he is coughing up clear sputum. He does have 1-2+ bilateral peripheral edema. 06/19/2018 Patient seen and examined today, overall he is feeling much better today. Hemodynamically stable. Echocardiogram with Doppler study was performed which revealed a normal left ventricular systolic function. Objective - Vital Signs Vital signs: Vital Signs Temp 97.6 F 06/19/18 11:47 Pulse 96 06/19/18 11:56 Resp 18 06/19/18 11:47 BP 125/77 06/19/18 11:47 Pulse Ox 92 L 06/19/18 11:47 Intake & Output 06/18/18 06/19/18 06/19/18 18:59 06:59 18:59 Intake Total 960 360 560 Output Total 500 300 Balance 460 60 560 Weight 92 kg Intake: IV 360 320 Sodium Chloride 0.9% 1, 360 320 000 ml @ 75 mls/hr IV . [id number] [facility] Rx#:[id number] Intake, IV Titration 240 Amount Sodium Chloride 0.9% 1, 240 000 ml @ 75 mls/hr IV . [id number] [facility] Rx#:[id number] Oral 720 240 Output: Urine 500 300 - Exam PHYSICAL EXAMINATION: GENERAL: 83-year-old gentleman in no acute distress at the time of my examination HEENT: Head is atraumatic, normocephalic. Pupils equal, round. Sclera anicteric. Conjunctiva are clear. Mucous membranes of the mouth are moist. Neck is supple. There is no elevated jugular venous pressure. No carotid bruit is heard. HEART EXAMINATION: Heart S1, S2 normal. No murmur or gallop heard. CHEST EXAMINATION: Lungs reveal inspiratory and expiratory wheezing throughout. ABDOMEN: Soft, nontender. Bowel sounds are heard. No organomegaly noted. EXTREMITIES: 2+ peripheral pulses with 1+ evidence of peripheral edema and no calf tenderness noted. NEUROLOGIC patient is awake, alert and oriented X3. - Labs CBC & Chem 7: 06/19/18 06:05 06/19/18 06:05 Labs: Abnormal Lab Results - Last 24 Hours (Table) 06/19/18 06/19/18 Range/Units 06:05 06:05 WBC 15.9 H (3.8-10.6) k/uL Neutrophils # 12.4 H (1.3-7.7) k/uL BUN 25 H (9-20) mg/dL Microbiology - Last 24 Hours (Table) 06/15/18 16:20 Blood Culture - Preliminary Blood No Growth after 72 hours Assessment and Plan Plan: Assessment and plan #1 sinus tachycardia with associated hypotension, could be secondary to acute COPD exacerbation, could also be secondary to recent diagnosis of blood clot. #2 diastolic congestive heart failure acute on chronic #3 recent admission was COPD exacerbation and bronchitis #4 left leg DVT, on Eliquis #5 hyperlipidemia #6 PVD and PAD with previous aortofemoral and left fem-pop bypass #7 family history of premature coronary artery disease #8 abnormal troponin, could be secondary to oxygen supply and demand mismatch Plan Cardiology's perspective, patient may be able to be discharged home today. We will make him a follow-up appointment in the office post discharge. ESL TUTOR note has been reviewed, I agree with a documented findings and plan of care. Patient was seen and examined.
--- NOTE | 2018-06-20 06:55 | P.DS ---
Providers Date of admission: 06/15/18 17:43 Attending physician: Mark Anthony Charles Consults: 06/15/18 17:41 Consult Physician Routine Consulting Provider: Kateryna Castillo Consult Reason/Comments: elevated troponin Do you want consulting provider notified?: Yes Primary care physician: Junaid Bethea [facility] Course: This is a pleasant 83 years old male with past medical history of coronary artery disease, COPD, GERD, hyperlipidemia, CKD stage III, who presents with low blood pressure. Patient was recently discharged on 05/26/2018 for acute COPD exacerbation and left popliteal DVT. He was discharged on tapered dose of steroids, and Eliquis treatment for his DVT. Patient was not sure if he missed a few doses. But however he was doing follow-up with his PCP when he noticed his blood pressure on the low side as per patient 80s over 60s. With tachycardia and they sent him to the hospital. However patient denied any symptoms. As per records, she should take eliquis 10 mg twice a day for 7 day till included. And he supposed to take tapering dose of prednisone 40 mg X3 days starting on 06/14/2018,pt was continued the prednisone taper as well as eliquis , pt looked dehydrated and he was treated with iv fluid , his bp is improved and stabilized ,he underwent CTPA for suspected PE as the cause of his bp problems, however it was negative for PE. his cr improved on the day of discharged to 1.1 [baseline 1.2-1.4],his troponins were slightly elevated at 0.043. With EKG showing sinus tachycardia and [address]-T changes and QTC 484. Chest x-ray was unremarkable. Patient has been evaluated by clinic business manager for positive troponins and abnormal vitals. and he was placed on lasix , His proBNP is coming down from 1400 TO 250.pt was cleared by cardiology team for discharge. Physical therapy recommended home with home health care problem lists and management plan was discussed with pt an he verbalized understanding and acceptance pt is found stable and can be discharged home however he needs f/u as outpt i had long discussion with pt and and daughter at bed side upon pt request , prescription is provided with detail instruction how to use them especially the eliquis and predniosne. written instruction is provided for wbc f/u, pt discharge exam GENERAL: The patient is alert and oriented x3, not in any acute distress. Well developed, well nourished. HEENT: Pupils are round and equally reacting to light. EOMI. No scleral icterus. No conjunctival pallor. Normocephalic, atraumatic. No pharyngeal erythema. No thyromegaly. CARDIOVASCULAR: S1 and S2 present. No murmurs, rubs, or gallops. PULMONARY: Chest is clear to auscultation, no wheezing or crackles. ABDOMEN: Soft, nontender, nondistended, normoactive bowel sounds. No palpable organomegaly. MUSCULOSKELETAL: No joint swelling or deformity. EXTREMITIES: No cyanosis, clubbing, or pedal edema. NEUROLOGICAL: Gross neurological examination did not reveal any focal deficits. SKIN: No rashes. time spent more than 35 min Patient Condition at Discharge: Fair Plan - Discharge Summary Discharge Rx Participant: No New Discharge Prescriptions: New Apixaban [Eliquis] 10 mg PO BID 2 Days #6 tab Apixaban [Eliquis] 5 mg PO BID 30 Days #60 tab.ds.pk predniSONE See Taper PO DAILY #11 tab Continue Sennosides [Senokot] 8.6 mg PO HS Ranitidine HCl 150 mg PO BID Cholecalciferol [Vitamin D3] 2,000 unit PO DAILY Atorvastatin [Lipitor] 40 mg PO HS Cilostazol [Pletal] 100 mg PO PC-BID Albuterol Inhaler [Ventolin Hfa Inhaler] 1 - 2 puff INHALATION RT-Q4H PRN PRN Reason: Shortness Of Breath Ipratropium-Albuterol Nebulize [Duoneb 0.5 mg-3 mg/3 ml Soln] 3 ml INHALATION QID #120 ampul.neb Montelukast [Singulair] 10 mg PO HS Fluticasone Nasal [place] [Flonase Nasal [place]] 1 spray EA NOSTRIL DAILY Lactobacillus Acidophilus [Florajen] 460 mg PO DAILY Furosemide [Lasix] 20 mg PO DAILY predniSONE See Taper PO DIRECTED Discontinued Nystatin 100,000Unit/gm Cream [Mycostatin Cream] 1 applic TOPICAL BID Levofloxacin [Levaquin] 500 mg PO DAILY #5 tab Apixaban [Eliquis] See Taper PO DIRECTED Discharge Medication List Atorvastatin [Lipitor] 40 mg PO HS 12/10/15 [History] Cholecalciferol [Vitamin D3] 2,000 unit PO DAILY 12/10/15 [History] Ranitidine HCl 150 mg PO BID 12/10/15 [History] Sennosides [Senokot] 8.6 mg PO HS 12/10/15 [History] Albuterol Inhaler [Ventolin Hfa Inhaler] 1 - 2 puff INHALATION RT-Q4H PRN [History] Cilostazol [Pletal] 100 mg PO PC-BID 06/08/18 [History] Ipratropium-Albuterol Nebulize [Duoneb 0.5 mg-3 mg/3 ml Soln] 3 ml INHALATION QID #120 ampul.neb 06/12/18 [Rx] Fluticasone Nasal [place] [Flonase Nasal [place]] 1 spray EA NOSTRIL DAILY 06/15/18 [History] Furosemide [Lasix] 20 mg PO DAILY 06/15/18 [History] Lactobacillus Acidophilus [Florajen] 460 mg PO DAILY 06/15/18 [History] Montelukast [Singulair] 10 mg PO HS 06/15/18 [History] predniSONE See Taper PO DIRECTED 06/15/18 [History] Apixaban [Eliquis] 5 mg PO BID 30 Days #60 tab.ds.pk 06/19/18 [Rx] Apixaban [Eliquis] 10 mg PO BID 2 Days #6 tab 06/19/18 [Rx] predniSONE See Taper PO DAILY #11 tab 06/19/18 [Rx] Follow up Appointment(s)/Referral(s): Je Marx MD [STAFF PHYSICIAN] - 07/31/18 9:30 am ([place] -previously scheduled appointment) Junaid Helms III, MD [Primary Care Provider] - 06/23/18 1:30 pm (Tuesday with BRENDA Delarosa) Patient Instructions/Handouts: Heart Healthy Diet (DC), Safe Use of Anticoagulants (DC) Activity/Diet/Wound Care/Special Instructions: Diet: Cardiac diet Activity is limited till you see your doctor You have the appointments contact information and dates with cardiology, pulmonary, and oncology/hematology clinical offices, please follow-up with the appointments as recommended Discharge Disposition: HOME WITH HOME HEALTH SERVICES
[2018-06-21] MEDS ORDERED: APIXABAN 5 MG TAB PO SCH (09:00)
== END 2018-06-19 15:11 | disposition home or self-care (01) | DRG 314 ==
LOC: EC 15:14 → 6SEL 17:43
PROVIDERS: ADMIT Internal Medicine; ATTEND Internal Medicine
DX: I95.9 Hypotension, unspecified (principal); I50.33 Acute on chronic diastolic (congestive) heart failure; I82.432 Acute embolism and thrombosis of left popliteal vein; I13.0 Hypertensive heart and chronic kidney disease with heart failure and stage 1 through stage 4 chronic kidney disease, or unspecified chronic kidney disease; J44.1 Chronic obstructive pulmonary disease with (acute) exacerbation; E86.0 Dehydration; N18.3 Chronic kidney disease, stage 3 (moderate); I25.10 Atherosclerotic heart disease of native coronary artery without angina pectoris; K21.9 Gastro-esophageal reflux disease without esophagitis; N52.9 Male erectile dysfunction, unspecified; E78.5 Hyperlipidemia, unspecified; D72.829 Elevated white blood cell count, unspecified; T38.0X5A Adverse effect of glucocorticoids and synthetic analogues, initial encounter; R77.9 Abnormality of plasma protein, unspecified; Z79.2 Long term (current) use of antibiotics; Z79.01 Long term (current) use of anticoagulants; Z79.51 Long term (current) use of inhaled steroids; Z79.899 Other long term (current) drug therapy; Z86.14 Personal history of Methicillin resistant Staphylococcus aureus infection; Z95.828 Presence of other vascular implants and grafts; Z86.79 Personal history of other diseases of the circulatory system; Z88.0 Allergy status to penicillin; Z88.7 Allergy status to serum and vaccine; Z88.8 Allergy status to other drugs, medicaments and biological substances; Z87.891 Personal history of nicotine dependence; Z82.5 Family history of asthma and other chronic lower respiratory diseases; Z80.1 Family history of malignant neoplasm of trachea, bronchus and lung; Z82.49 Family history of ischemic heart disease and other diseases of the circulatory system; Z80.3 Family history of malignant neoplasm of breast; Z81.8 Family history of other mental and behavioral disorders; Z83.3 Family history of diabetes mellitus
CPT/HCPCS: 36415; 71046; 71275; 80048; 83735; 83880; 84443; 84484; 85025; 85610; 87040; 87086; 93005; 93308; 94640; 94760; 96361; 96374; 99285

== ENCOUNTER → 2018-07-14 | Outpatient (CLI) | payer MEDICARE ==
[2018-07-14 09:30] LABS: Potassium 4.5 mmol/L (3.5-5.1)
[2018-07-14 09:33] LABS: Calcium 9.6 mg/dL (8.4-10.2); Phosphorus 3.4 mg/dL (2.5-4.5)
== END | disposition home or self-care (01) ==
LOC: LABWHC1 09:01
PROVIDERS: ATTEND Internal Medicine Critical Care Medicine
DX: N18.9 Chronic kidney disease, unspecified (principal); J44.9 Chronic obstructive pulmonary disease, unspecified; R60.9 Edema, unspecified
CPT/HCPCS: 36415; 80048; 83735; 84100

== ENCOUNTER → 2018-08-21 | Outpatient (CLI) | payer MEDICARE ==
[2018-08-21 12:00] LABS: Calcium 9.3 mg/dL (8.4-10.2); Potassium 4.2 mmol/L (3.5-5.1)
== END | disposition home or self-care (01) ==
LOC: LABWHC1 10:15
PROVIDERS: ATTEND Nurse Practitioner Adult Health
DX: I10 Essential (primary) hypertension (principal)
CPT/HCPCS: 36415; 80048

== ENCOUNTER → 2018-09-18 | Outpatient (CLI) | payer MEDICARE ==
--- NOTE | 2018-09-18 13:13 | US ---
EXAMINATION TYPE: US venous doppler duplex LE DATE OF EXAM: 09/18/2018 12:48 PM COMPARISON: NONE CLINICAL HISTORY: I82.492 DVT'S. SIDE PERFORMED: Bilateral TECHNIQUE: The lower extremity deep venous system is examined utilizing real time linear array sonog bart with graded compression, doppler sonography and color-flow sonography. VESSELS IMAGED: External Iliac Vein (EIV) Common Femoral Vein Deep Femoral Vein Greater Saphenous Vein * Femoral Vein Popliteal Vein Small Saphenous Vein * Proximal Calf Veins (* superficial vessels) Extremely limited visualization of both femoral veins and deep femoral veins due to arterial shad ow and previous surgery scaring. Technically difficult. Right Leg: Negative for DVT Left Leg: Negative for DVT IMPRESSION: No definite DVT on this limited study.
== END | disposition home or self-care (01) ==
LOC: RADUSWWP 12:00
PROVIDERS: ATTEND Internal Medicine Hematology & Oncology
DX: I82.492 Acute embolism and thrombosis of other specified deep vein of left lower extremity (principal)
CPT/HCPCS: 93970

== ENCOUNTER 2018-12-28 08:11 | Inpatient (IN) | payer MEDICARE ==
--- NOTE | 2018-12-28 08:41 | ED ---
General Adult HPI - General Chief complaint: Dizziness Stated complaint: Dizzy Time Seen by Provider: 12/28/18 08:29 Source: patient, family, RN notes reviewed, old records reviewed Mode of arrival: ambulatory Limitations: no limitations - History of Present Illness Initial comments: 83-year-old male presents for evaluation of lightheadedness, dizziness. Symptoms have been ongoing for at least 2 years. He has been seen by his primary care physician and shipping and receiving specialist with similar complaints. He states he gets a warm feeling that progresses over his head and face. He feels lightheaded like he may pass out. He does not lose consciousness. Denies chest pain or palpitations. No history of coronary artery disease, no history of arrhythmia. Denies vomiting. Denies focal numbness or weakness. Denies headache. Denies vision changes. Denies abdominal pain, no vomiting or diarrhea. No history of fever. - Related Data Home Medications Medication Instructions Recorded Confirmed Atorvastatin [Lipitor] 40 mg PO HS 12/10/15 12/28/18 Cholecalciferol [Vitamin D3] 2,000 unit PO DAILY 12/10/15 12/28/18 Ranitidine HCl 150 mg PO BID 12/10/15 12/28/18 Sennosides [Senokot] 8.6 mg PO HS 12/10/15 12/28/18 Albuterol Inhaler [Ventolin Hfa 1 - 2 puff INHALATION RT-Q6H PRN 06/08/18 Inhaler] Cilostazol [Pletal] 100 mg PO PC-BID 06/08/18 12/28/18 Lactobacillus Acidophilus 460 mg PO DAILY 06/15/18 12/28/18 [Florajen] Aspirin EC [Ecotrin Low Dose] 81 mg PO DAILY 12/28/18 12/28/18 Ipratropium-Albuterol Nebulize 3 ml INHALATION RT-QID PRN 12/28/18 12/28/18 [Duoneb 0.5 mg-3 mg/3 ml Soln] Nystatin 100,000 Unit/gm Powd 1 applic TOPICAL BID 12/28/18 12/28/18 [Mycostatin Powder] Allergies Allergy/AdvReac Type Severity Reaction Status Date / Time fluticasone propionate Allergy Unknown Verified 12/28/18 09:04 [From Advair Diskus] heparin Allergy "made Verified 12/28/18 09:04 blood too thin" Penicillins Allergy Anaphylaxis Verified 12/28/18 09:04 salmeterol xinafoate Allergy Unknown Verified 12/28/18 09:04 [From Advair Diskus] Tetanus Vaccines and Toxoid Allergy Unknown Verified 12/28/18 09:04 [Tetanus Vaccines & Toxoid] Childhood levetiracetam [From Keppra] AdvReac Hallucinati Verified 12/28/18 09:04 ons Review of Systems ROS Statement: Those systems with pertinent positive or pertinent negative responses have been documented in the HPI. ROS Other: All systems not noted in ROS Statement are negative. Past Medical History Past Medical History: Coronary Artery Disease (CAD), COPD, GERD/Reflux, Hyperlipidemia Additional Past Medical History / Comment(s): chronic kidney disease stage 3, erectile dysfunction History of Any Multi-Drug Resistant Organisms: None Reported, MRSA Date of last positivie culture/infection: 2013 MDRO Source:: blood Additional Past Surgical History / Comment(s): Aortic triple femoral bypass, neck repair, stent in the right leg Past Psychological History: No Psychological Hx Reported Smoking Status: Former smoker Past Alcohol Use History: None Reported Past Drug Use History: None Reported - Past Family History Mother Family Medical History: Cancer, COPD Additional Family Medical History / Comment(s): lung cancer Father Family Medical History: Dementia Additional Family Medical History / Comment(s): heart disease Sister(s) Family Medical History: Cancer Additional Family Medical History / Comment(s): Breast Cancer Brother(s) Family Medical History: Diabetes Mellitus Additional Family Medical History / Comment(s): heart disease General Exam Limitations: no limitations General appearance: alert, in no apparent distress Head exam: Present: atraumatic, normocephalic Eye exam: Present: normal appearance, EOMI ENT exam: Present: mucous membranes dry Neck exam: Present: normal inspection. Absent: tenderness, meningismus Respiratory exam: Present: normal lung sounds bilaterally. Absent: respiratory distress, wheezes Cardiovascular Exam: Present: normal rhythm, tachycardia GI/Abdominal exam: Present: soft. Absent: distended, tenderness, guarding Extremities exam: Present: normal inspection. Absent: normal capillary refill ( Blood Results to bilateral hands, 2+ radial pulse), pedal edema Neurological exam: Present: alert, oriented X3, CN II-XII intact. Absent: motor sensory deficit Psychiatric exam: Present: normal affect, normal mood Skin exam: Present: warm, dry, intact. Absent: cyanosis, diaphoretic Course Vital Signs 12/28/18 12/28/18 12/28/18 08:20 08:33 08:45 Temperature 97.7 F Pulse Rate 90 108 H Respiratory 18 18 Rate Blood Pressure 55/43 159/100 124/75 O2 Sat by Pulse 90 L 98 Oximetry 12/28/18 12/28/18 12/28/18 09:00 09:15 09:25 Temperature Pulse Rate 106 H 102 H 95 Respiratory 18 18 18 Rate Blood Pressure 138/76 155/81 152/92 O2 Sat by Pulse 98 96 Oximetry - Reevaluation(s) Reevaluation #1: 12/28/18 08:40 Patient presenting with dizziness, found to be hypotensive in triage, taken immediately to resuscitation room, placed on monitor, noted to be in SVT, patient does take a deep breath and hold it, he converts without medication to sinus rhythm, this is observed on the monitor but not captured on EKG. Reevaluation #2: 12/28/18 08:47 Shortly after the patient's spontaneously converted from SVT to normal sinus rhythm, he developed some mild confusion and expressive aphasia. No dysarthria , no facial droop, no extremity weakness. He is taken immediately to CAT scan, code stroke is activated. Reevaluation #3: 12/28/18 0925 Patient's symptoms resolved, no aphasia. EKG Findings - EKG Comments: EKG Findings:: EKG: Normal sinus rhythm, possible left atrial enlargement, rate of 90, [place] interval 134, QRS duration 86, QTC [address] segment elevation Medical Decision Making - Medical Decision Making 83 -year-old male presenting with lightheadedness, dizziness. Patient is hypotensive, and SVT on initial presentation. This is not captured on EKG but visualized by myself on telemetry. He converts with one deep breath. Normal sinus rhythm with no definitive signs of ischemia on EKG after conversion. Patient's blood pressure normalizes without any additional treatment. He does have an episode in the emergency department of expressive aphasia which lasts approximately 30-40 minutes. He was evaluated as a code stroke in the emergency department after symptom onset. CT which is negative for intracranial hemorrhage or mass effect as well as CT angiography which showed significant stenosis of the bilateral internal carotid arteries, as well as chronic occlusion of the right vertebral artery. The intracranial portions of his vessels are patent with no occlusion. I discussed the case with the stroke neurologist Dr. Chen, recommend aspirin, statin, no TPA, I agree with this, completely resolved symptoms. Patient started on metoprolol. Patient remains symptomatic in the emergency department, will be kept for telemetry, cardiology consultation. Case discussed with Dr. Charles, will accept admission. - Lab Data Result diagrams: 12/28/18 08:38 12/28/18 08:38 Lab Results 12/28/18 12/28/18 12/28/18 Range/Units 08:38 08:38 08:38 WBC 7.6 (3.8-10.6) k/uL RBC 4.98 (4.30-5.90) m/uL Hgb 14.9 (13.0-17.5) gm/dL Hct 45.4 (39.0-53.0) % MCV 91.2 (80.0-100.0) fL MCH 29.9 (25.0-35.0) pg MCHC 32.8 (31.0-37.0) g/dL RDW 14.4 (11.5-15.5) % Plt Count 193 (150-450) k/uL Neutrophils % 73 % Lymphocytes % 14 % Monocytes % 7 % Eosinophils % 3 % Basophils % 0 % Neutrophils # 5.5 (1.3-7.7) k/uL Lymphocytes # 1.1 (1.0-4.8) k/uL Monocytes # 0.5 (0-1.0) k/uL Eosinophils # 0.2 (0-0.7) k/uL Basophils # 0.0 (0-0.2) k/uL PT (9.0-12.0) sec INR (<1.2) APTT (22.0-30.0) sec Sodium 138 (137-145) mmol/L Potassium 4.8 (3.5-5.1) mmol/L Chloride 105 (98-107) mmol/L Carbon Dioxide 25 (22-30) mmol/L Anion Gap 8 mmol/L BUN 15 (9-20) mg/dL Creatinine 1.26 H (0.66-1.25) mg/dL Est GFR (CKD-EPI)AfAm 61 (>60 ml/min/1.73 sqM) Est GFR (CKD-EPI)NonAf 52 (>60 ml/min/1.73 sqM) Glucose 113 H (74-99) mg/dL POC Glucose (mg/dL) (75-99) mg/dL POC Glu Can Line Operator ID Calcium 9.8 (8.4-10.2) mg/dL Magnesium 1.9 (1.6-2.3) mg/dL Total Bilirubin 1.1 (0.2-1.3) mg/dL AST 26 (17-59) U/L ALT 43 (21-72) U/L Alkaline Phosphatase 85 (38-126) U/L Total Creatine Kinase 143 (55-170) U/L CK-MB (CK-2) 2.9 H (0.0-2.4) ng/mL CK-MB (CK-2) Rel Index 2.0 Troponin I 0.027 (0.000-0.034) ng/mL NT-Pro-B Natriuret Pep pg/mL Total Protein 6.1 L (6.3-8.2) g/dL Albumin 3.9 (3.5-5.0) g/dL 12/28/18 12/28/18 12/28/18 Range/Units 08:38 08:38 09:00 WBC (3.8-10.6) k/uL RBC (4.30-5.90) m/uL Hgb (13.0-17.5) gm/dL Hct (39.0-53.0) % MCV (80.0-100.0) fL MCH (25.0-35.0) pg MCHC (31.0-37.0) g/dL RDW (11.5-15.5) % Plt Count (150-450) k/uL Neutrophils % % Lymphocytes % % Monocytes % % Eosinophils % % Basophils % % Neutrophils # (1.3-7.7) k/uL Lymphocytes # (1.0-4.8) k/uL Monocytes # (0-1.0) k/uL Eosinophils # (0-0.7) k/uL Basophils # (0-0.2) k/uL PT 10.2 (9.0-12.0) sec INR 0.9 (<1.2) APTT 21.0 L (22.0-30.0) sec Sodium (137-145) mmol/L Potassium (3.5-5.1) mmol/L Chloride (98-107) mmol/L Carbon Dioxide (22-30) mmol/L Anion Gap mmol/L BUN (9-20) mg/dL Creatinine (0.66-1.25) mg/dL Est GFR (CKD-EPI)AfAm (>60 ml/min/1.73 sqM) Est GFR (CKD-EPI)NonAf (>60 ml/min/1.73 sqM) Glucose (74-99) mg/dL POC Glucose (mg/dL) 96 (75-99) mg/dL POC Glu Can Line Operator ID Arleth Patrick Calcium (8.4-10.2) mg/dL Magnesium (1.6-2.3) mg/dL Total Bilirubin (0.2-1.3) mg/dL AST (17-59) U/L ALT (21-72) U/L Alkaline Phosphatase (38-126) U/L Total Creatine Kinase (55-170) U/L CK-MB (CK-2) (0.0-2.4) ng/mL CK-MB (CK-2) Rel Index Troponin I (0.000-0.034) ng/mL NT-Pro-B Natriuret Pep 202 pg/mL Total Protein (6.3-8.2) g/dL Albumin (3.5-5.0) g/dL Critical Care Time Critical Care Time: Yes Total Critical Care Time: 35 Disposition Clinical Impression: SVT (supraventricular tachycardia), TIA (transient ischemic attack) Disposition: ADMITTED IP TO THIS [facility] Condition: Stable Is patient prescribed a controlled substance at d/c from ED?: No Referrals: Junaid Helms III, MD [Primary Care Provider] - 1-2 days Time of Disposition: 10:42
[2018-12-28] MEDS ORDERED: SODIUM CHLORIDE 0.9% 500 ML 500 ML IV ONE (08:49)
[2018-12-28 09:02] LABS: Glucose,Whole Blood 96 mg/dL (75-99)
[2018-12-28 09:05] LABS: Basophils % (A) 0 %; Eosinophils # (A) 0.2 k/uL (0-0.7); Eosinophils % (A) 3 %; HCT 45.4 % (39.0-53.0); HGB 14.9 gm/dL (13.0-17.5); Lymphocytes # (A) 1.1 k/uL (1.0-4.8); Lymphocytes % (A) 14 %; MCH 29.9 pg (25.0-35.0); MCHC 32.8 g/dL (31.0-37.0); MCV 91.2 fL (80.0-100.0); Mean Platelet Volume 6.8; Monocytes # (A) 0.5 k/uL (0-1.0); Monocytes % (A) 7 %; Neutrophils # (A) 5.5 k/uL (1.3-7.7); Neutrophils % (A) 73 %; Platelet Count 193 k/uL (150-450); RBC 4.98 m/uL (4.30-5.90); RDW 14.4 % (11.5-15.5); WBC 7.6 k/uL (3.8-10.6)
--- NOTE | 2018-12-28 09:15 | CT ---
EXAMINATION TYPE: CT brain wo con DATE OF EXAM: 12/28/2018 COMPARISON: 12/04/2015 INDICATION: Difficulty with speech DLP: 1082.4 mGycm, Automated exposure control for dose reduction was used. CONTRAST: None CT of the brain is performed utilizing 3 mm thick sections through the posterior fossa and 3 mm thick sections through the remaining calvarium. Study is performed within 24 hours of arrival to the hosp ital. No abnormal hyperdensity is present to suggest an acute intracranial hemorrhage. No mass lesion is evident. No acute infarcts are evident. There is mild periventricular white matter hypodensity, likely on the basis of chronic white matter ischemic changes. Ventricles and sulci are appropriate for the patient age. Paranasal sinuses and mastoid air cells within the [id number] are clear. IMPRESSIONS: 1. Minimal chronic appearing periventricular white matter ischemic type changes. 2. No acute intracranial process.
[2018-12-28 09:24] LABS: Albumin 3.9 g/dL (3.5-5.0); Calcium 9.8 mg/dL (8.4-10.2); Magnesium 1.9 mg/dL (1.6-2.3); Potassium 4.8 mmol/L (3.5-5.1); Total Bilirubin 1.1 mg/dL (0.2-1.3); Total Protein 6.1 g/dL (6.3-8.2)
[2018-12-28] MEDS ORDERED: ASPIRIN 325 MG TAB PO STA (09:39)
[2018-12-28 09:45] LABS: INR 0.9 (<1.2); Prothrombin Time 10.2 sec (9.0-12.0)
[2018-12-28 09:54] LABS: Creatine Kinase MB 2.9 ng/mL (0.0-2.4); Troponin I 0.027 ng/mL (0.000-0.034)
--- NOTE | 2018-12-28 10:01 | CT ---
EXAMINATION TYPE: CT angio head neck DATE OF EXAM: 12/28/2018 HISTORY: difficulty with speech COMPARISON: NONE CT DLP: 401.3 mGycm. Automated Exposure Control for Dose Reduction was Utilized. TECHNIQUE: CTA scan of the neck is performed with IV Contrast, patient injected with 65 mL of Isovue 370, axial images are obtained, coronal and sagittal reformatted images are reviewed. Three-D recons tructed images of the vasculature of the head and neck are created on an independent workstation and reviewed. FINDINGS: Carotid/Vascular Structures: Moderate atherosclerosis is seen of the aortic arch and ostia of the lef t subclavian artery. Noncalcific eccentric plaque is seen of the right brachiocephalic artery ostia. Conventional) of the aortic arch is seen with patency of the great vessels. Common carotid arteries d emonstrate minimal noncalcific atheromatous plaquing. Within the right proximal internal carotid artery just distal to its origin from the carotid bulb the re is a focal short segment stenosis of 80% measuring a distance of 6 mm. This is seen on coronal ser ies 401 image 48 and 49. Just distal to this there is only minimal nonhemodynamically significant deven nosis of the cervical portion of the internal carotid artery. Within the intracranial portion of the right internal carotid artery there is mild atherosclerosis of the cavernous and supraclinoid portion s. Within the left carotid bulb there is approximately 75-80% stenosis secondary to both calcific and no ncalcific atheromatous plaquing measuring a distance of 1.6 cm with extent into the proximal internal carotid artery origin measuring 3 mm in length. Within the remainder of the cervical portion of the left internal carotid artery there is no hemodynamically significant stenosis. Minimal atherosclerosi s is seen of the cavernous and supraclinoid portions of the left internal carotid artery. The vertebral arteries are patent in their cervical portions, however in the foramen magnum there aung ears to be occlusion of the right vertebral artery with diminutive collaterals. Note is made of origin of the right posterior cerebral artery. Major arterial intracranial vasc ulature appears patent without hemodynamically significant stenosis, focal occlusion or aneurysmal ou tpouching other than the previously mentioned right vertebral artery occlusion. Other: Severe multilevel degenerative changes of the spine are noted. Lung apices appear well aerated . IMPRESSION: 1. Severe stenosis of approximately 80% within the right proximal internal carotid artery just distal to its origin from the carotid bulb measuring a distance of 6 mm. 2. Severe stenosis within the left carotid bulb measuring 75-80% over distance of 1.6 cm extending in to the left internal carotid artery measuring distance of 3 mm. 3. 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 4. No vascular occlusion, aneurysmal outpouching or hemodynamically significant stenosis seen in the intracranial major arterial vasculature.
--- NOTE | 2018-12-28 10:02 | XR ---
EXAMINATION TYPE: XR chest 2V DATE OF EXAM: 12/28/2018 COMPARISON: 06/15/2018 INDICATION: Chest pain TECHNIQUE: Frontal and lateral views of the chest are obtained. FINDINGS: The heart size is normal. The pulmonary vasculature is normal. The lungs are clear. IMPRESSION: 1. No acute pulmonary process.
[2018-12-28] MEDS ORDERED: NALOXONE 0.4 MG/ML 1 ML VIAL IV PRN (10:43)
[2018-12-28] MEDS: SODIUM CHLORIDE 0.9% 1,000 ML IV SCH (10:55)
[2018-12-28 11:42] LABS: Glucose,Whole Blood 61 mg/dL (75-99)
[2018-12-28 11:54] VITALS: BMI 28.0
[2018-12-28 12:15] LABS: Glucose,Whole Blood 88 mg/dL (75-99)
--- NOTE | 2018-12-28 14:26 | CONS ---
CONSULTATION Mr. Stafford is an 83-year-old male, followed on a regular basis by Dr. Marx, history of severe peripheral vascular disease, who presented with symptoms of not feeling well. According to him, he had episode when he feels a nichols in his head and feels very fatigued. He came in with those symptoms to the emergency room and according to the nursing staff, he was noted to have a rapid heart rate but subsequently did Valsalva maneuver with a resolute. He became hypotensive and he had expressive aphasia for about 30-40 minutes and subsequently it resolved. Patient denies any documented history of arrhythmia. He has a history of severe PAD, status post AAA repair and femoral bypass. He has no history of myocardial infarction. No congestive heart failure. His left ventricular systolic function by angiography in the past has been stable. He has chronic dyspnea on exertion, chronic obstructive lung disease, although he stopped smoking 10 years ago. He denies any palpitation. He has occasional peripheral edema, no clear PND nor orthopnea. He did not feel the palpitations. Those symptoms have been going on for a while, but much worse and much more frequent recently. There was no documentation of an arrhythmia. He was scheduled to see Dr. Fabian ray. His coronary risk factors include a prior history of smoking and hyperlipidemia, he is nondiabetic, no documented hypertension. MEDICATION: Include Nystatin, Ventolin, Senokot, DuoNeb, Pletal, Florajen, vitamin D, Lipitor and aspirin 81 mg daily. REVIEW OF SYSTEMS: RESPIRATORY SYSTEM: He has chronic dyspnea on exertion with chronic obstructive lung disease. GI SYSTEM: No recent GI bleed. No peptic ulcer disease. SYSTEM: No dysuria or hematuria. NERVOUS SYSTEM: No history of stroke or seizure. PHYSICAL EXAMINATION: He is an 83-year-old male, alert, oriented, in no apparent distress. Blood pressure 130/70 with a heart rate in the 70s. HEAD: Normocephalic. EYES: Sclerae nonicteric. NECK: Good upstroke with bruit noted bilaterally. LUNGS: No wheezes or rales. HEART: Regular rate and rhythm, S1, S2. No S3 with systolic ejection murmur heard at the base. No diastolic murmur, no rub. ABDOMEN: Soft, nontender, positive bowel sounds, no organomegaly. EXTREMITIES: No edema with decreased distal pulses. In the emergency room, apparently when his SVT was terminated, his blood pressure dropped to 55. Subsequently it recover back. LAB DATA: Revealed a troponin 0.027. NT proBNP 202. BUN and creatinine 15 and 1.26, potassium 4.8, hemoglobin of 14.9. EKG revealed a sinus mechanism, normal axis and intervals with nonspecific ST-T wave changes. CT angiogram off the carotid revealed severe stenosis of 80% right proximal internal carotid artery and 75%-80% in left internal carotid artery with complete occlusion of the right vertebral. His chest x-ray shows no acute infiltrate and his brain CT shows no acute bleeding. IMPRESSION: 1. Symptoms of lightheaded and dizziness with arrhythmia on presentation with tachycardia, probable SVT, although no documentation is available to me. Subsequently, when he converted to sinus mechanism, patient had an episode of hypotension with a TIA, could be related to hypoperfusion worsened by the carotid disease. It is possible that the patient is having episode of AV pratibha reentry tachycardia. 2. Transient ischemic attack, resolved. 3. History of severe peripheral vascular disease. 4. History of severe carotid disease. 5. Remote history of smoking and chronic obstructive lung disease. 6. Hyperlipidemia. RECOMMENDATION: From the cardiac standpoint, I will start the patient on beta aleksander. Will obtain echocardiogram with Doppler. He will be seen by the vascular surgeon in regard to his carotid disease. If no further documentation of the arrhythmia is available, then the patient should undergo either an event monitor or loop recorder to document the arrhythmia and if documented AV pratibha reentry tachycardia, then he may be a candidate for ablation. I have discussed those finding with the patient his family. Thank you for this consult. Will follow with you. MMODL / IJN: [id number] /
[2018-12-28] MEDS: CILOSTAZOL 100 MG TAB PO SCH (18:48)
[2018-12-28] MEDS: ATORVASTATIN 40 MG TAB PO SCH (20:44)
[2018-12-28] MEDS: FAMOTIDINE 20 MG TAB PO SCH (20:44)
[2018-12-28] MEDS: METOPROLOL TARTRATE 25 MG TAB PO SCH (20:45)
[2018-12-28] MEDS: SENNOSIDES 8.6 MG TAB PO SCH (20:45)
[2018-12-28] MEDS ORDERED: METOPROLOL TARTRATE 12.5 MG TAB PO SCH (21:00)
--- NOTE | 2018-12-28 23:31 | P.HPIM ---
History of Present Illness H&P Date: 12/28/18 Chief Complaint: Near syncope Patient is a 83-year-old male with a known history of COPD, history of smoking, GERD, hyperlipidemia and severe peripheral vascular disease with history of aortofemoral bypass surgery initially presented to ER with complaints of dizziness, lightheadedness and almost passed out. Patient also felt aphasic for about few minutes. Patient has been having symptoms for the past 1 year. Patient usually has these symptoms with funny feeling the chest and flushing of the face and also sometimes numbness in the back of the head. Usually these symptoms lasted around half an hour and resolves by itself. Patient says that he was having symptoms almost 40 minutes this time which made him to come to ER. Patient is following with Dr. Dick as an outpatient. Patient is also supposed to follow with Dr. Peralta, neurology next week. Otherwise denied any fever or chills. No chest pain. No palpitations. No nausea vomiting or abdominal pain. Patient was found to be in rapid ventricular rate when he was in the ER and had Valsalva maneuver with resolution of symptoms. Otherwise denied any numbness or tingling or focal weakness. Patient also has history of aortic abdominal aneurysm, AAA repair. CT head showed mild chronic appearing periventricular white matter ischemic changes no acute intracranial process CT angiogram of the neck showed severe stenosis approximately 80% within the right internal carotid artery distal to its origin from the carotid bulb measuring a distance of 6mm. Severe stenosis of left carotid artery 75-80%. Complete occlusion of vertebral artery No vascular occlusion or aneurysms. Chest x-ray showed no acute cardiopulmonary process EKG showed sinus rhythm Review of Systems Constitutional: Patient denies any fever or chills . No generalized weakness or weight loss. Abdomen: Patient denied nausea vomiting and diarrhea and abdominal pain. Cardiovascular: Patient denies any chest pain or short of breath no palpitations. Respiratory: patient denied any cough is from production. No shortness of breath Neurologic: Patient denied any numbness or tingling headache. Musculoskeletal: Patient denies any complaints of joint swelling or deformity. Skin: Negative Psychiatric: Negative Endocrine: No heat or cold intolerance. No recent weight gain. Genitourinary: No dysuria or hematuria. 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 History of Any Multi-Drug Resistant Organisms: None Reported, MRSA Date of last positivie culture/infection: 2013 MDRO Source:: blood Additional Past Surgical History / Comment(s): Aortic surgery with wrapping of aorta then aortobifem bypass/lysis of adhesions, R leg stent, angiograms, cervical stabilization, colonoscopy, bilateral cataract removal/lens implants Smoking Status: Former smoker - Past Family History Mother Family Medical History: Cancer, COPD Additional Family Medical History / Comment(s): lung cancer Father Family Medical History: Dementia Additional Family Medical History / Comment(s): heart disease Sister(s) Family Medical History: Cancer Additional Family Medical History / Comment(s): Breast Cancer Brother(s) Family Medical History: Diabetes Mellitus Additional Family Medical History / Comment(s): heart disease Medications and Allergies Home Medications Medication Instructions Recorded Confirmed Type Atorvastatin [Lipitor] 40 mg PO HS 12/10/15 12/28/18 History Cholecalciferol [Vitamin D3] 2,000 unit PO DAILY 12/10/15 12/28/18 History Ranitidine HCl 150 mg PO BID 12/10/15 12/28/18 History Sennosides [Senokot] 8.6 mg PO HS 12/10/15 12/28/18 History Albuterol Inhaler [Ventolin Hfa 1 - 2 puff INHALATION RT-Q6H PRN 06/08/18 History Inhaler] Cilostazol [Pletal] 100 mg PO PC-BID 06/08/18 12/28/18 History Lactobacillus Acidophilus 460 mg PO DAILY 06/15/18 12/28/18 History [Florajen] Aspirin EC [Ecotrin Low Dose] 81 mg PO DAILY 12/28/18 12/28/18 History Ipratropium-Albuterol Nebulize 3 ml INHALATION RT-QID PRN 12/28/18 12/28/18 History [Duoneb 0.5 mg-3 mg/3 ml Soln] Nystatin 100,000 Unit/gm Powd 1 applic TOPICAL BID 12/28/18 12/28/18 History [Mycostatin Powder] Allergies Allergy/AdvReac Type Severity Reaction Status Date / Time fluticasone propionate Allergy Unknown Verified 12/28/18 09:04 [From Advair Diskus] heparin Allergy "made Verified 12/28/18 09:04 blood too thin" Penicillins Allergy Anaphylaxis Verified 12/28/18 09:04 salmeterol xinafoate Allergy Unknown Verified 12/28/18 09:04 [From Advair Diskus] Tetanus Vaccines and Toxoid Allergy Unknown Verified 12/28/18 09:04 [Tetanus Vaccines & Toxoid] Childhood levetiracetam [From [facility]] AdvReac Hallucinati Verified 12/28/18 09:04 ons Physical Exam Vitals: Vital Signs Temp Pulse Resp BP Pulse Ox 12/28/18 13:00 75 16 130/72 98 12/28/18 12:50 77 16 130/72 95 12/28/18 12:40 82 22 155/78 95 12/28/18 12:30 30 H 145/73 96 12/28/18 12:20 82 18 145/73 95 12/28/18 12:10 81 19 150/84 95 12/28/18 12:00 97.8 F 85 18 157/77 96 12/28/18 11:50 84 15 157/77 98 12/28/18 11:40 96 24 121/77 96 12/28/18 11:38 97.8 F 12/28/18 11:33 92 13 12/28/18 11:10 113 H 29 H 153/102 99 12/28/18 11:00 89 13 161/86 100 12/28/18 10:50 78 13 161/86 100 12/28/18 10:45 91 18 161/86 100 12/28/18 10:40 90 11 L 137/86 100 12/28/18 10:30 91 18 126/79 99 12/28/18 10:20 90 15 126/79 100 12/28/18 10:10 85 13 139/83 99 12/28/18 10:00 10 L 141/85 99 12/28/18 09:50 141/85 99 12/28/18 09:40 149/93 12/28/18 09:30 94 17 152/92 100 12/28/18 09:25 95 18 152/92 96 12/28/18 09:20 138/76 12/28/18 09:15 102 H 18 155/81 12/28/18 09:10 138/76 12/28/18 09:00 105 H 19 138/76 98 12/28/18 08:45 108 H 18 124/75 98 12/28/18 08:33 159/100 12/28/18 08:20 97.7 F 90 18 55/43 90 L Intake and Output 12/27/18 12/28/18 12/28/18 22:59 06:59 14:59 Intake Total 150 Output Total 10 Balance 140 Intake: Intake, IV Titration 150 Amount Sodium Chloride 0.9% 1, 150 000 ml @ 75 mls/hr IV . [id number] [facility] Rx#:[id number] Output: Urine 10 Other: Voiding Method Urinal # Voids 1 Weight 76.385 kg PHYSICAL EXAMINATION: Patient is lying in the bed comfortably, no acute distress, awake alert and oriented.. HEENT: Normocephalic. Neck is supple. Pupils reactive. Nostrils clear. Oral cavity is moist. Ears reveal no drainage. Neck reveals no JVD, carotid bruits, or thyromegaly. CHEST EXAMINATION: Trachea is central. Symmetrical expansion. Lung kaminski clear to auscultation and percussion. CARDIAC: Normal S1, S2 with no gallops. No murmurs ABDOMEN: Soft. Bowel sounds normal. No organomegaly. No abdominal bruits. Extremities: reveal no edema. No clubbing or cyanosis Neurologically awake, alert, oriented x3 with well-coordinated movements. Right -sided weakness with motor 4/5. No other focal deficits noted Skin: No rash or skin lesions. Psychiatric: Coperative. Nonsuicidal Musculoskeletal: No joint swelling or deformity. Normal range of motion. Results CBC & Chem 7: 12/28/18 08:38 12/28/18 08:38 Labs: Abnormal Lab Results - Last 24 Hours (Table) 12/28/18 12/28/18 12/28/18 Range/Units 08:38 08:38 08:38 APTT 21.0 L (22.0-30.0) sec Creatinine 1.26 H (0.66-1.25) mg/dL Glucose 113 H (74-99) mg/dL POC Glucose (mg/dL) (75-99) mg/dL CK-MB (CK-2) 2.9 H (0.0-2.4) ng/mL Total Protein 6.1 L (6.3-8.2) g/dL 12/28/18 Range/Units 11:30 APTT (22.0-30.0) sec Creatinine (0.66-1.25) mg/dL Glucose (74-99) mg/dL POC Glucose (mg/dL) 61 L (75-99) mg/dL CK-MB (CK-2) (0.0-2.4) ng/mL Total Protein (6.3-8.2) g/dL Thrombosis Risk Factor Assmnt - DVT/VTE Prophylaxis DVT/VTE Prophylaxis: Pharmacologic Prophylaxis ordered - Choose All That Apply Any of the Below Risk Factors Present?: Yes Each Factor Represents 1 point: Abnormal pulmonary function (COPD), Obesity ( BMI >25) Other Risk Factors: Yes Each Risk Factor Represents 3 Points: Age 75 years or older, History of DVT/PE Other congenital or acquired thrombophilia - If yes, enter type in comment: No Thrombosis Risk Factor Assessment Total Risk Factor Score: 8 Thrombosis Risk Factor Assessment Level: High Risk Assessment and Plan Assessment: Dizziness, lightheadedness and near syncope likely secondary to SVT. Improved now Expressive dysphagia possible TIA second 2 hypertension Severe bilateral carotid artery stenosis Complete occlusion of vertebral artery Severe peripheral vascular disease with history of aortofemoral bypass History of AAA repair Hyperlipidemia GERD History of spinal cord injury at age 18 with right-sided paralysis/right foot drop Chronic kidney disease stage III COPD on home oxygen at night Previous history of smoking History of DVT DVT prophylaxis Plan: Patient be continued on telemetry monitoring. Was started on beta blockers by cardiology. Continue to follow closely and continue with aspirin and statins. Vascular surgery will be consulted. Further recommendations based on the clinical course. Causes is guarded. Time with Patient: Greater than 30
[2018-12-29] MEDS: SODIUM CHLORIDE 0.9% 1,000 ML IV SCH ×3 (00:05→20:14)
[2018-12-29] MEDS: IPRATROPIUM-ALBUTEROL 3 ML NEB INHALATION PRN ×4 (05:21→19:47)
[2018-12-29 06:30] LABS: Calcium 8.7 mg/dL (8.4-10.2); Potassium 4.4 mmol/L (3.5-5.1)
[2018-12-29] MEDS: CILOSTAZOL 100 MG TAB PO SCH ×2 (08:34→17:35)
[2018-12-29] MEDS: ASPIRIN 81 MG PO SCH (08:34)
[2018-12-29] MEDS: METOPROLOL TARTRATE 25 MG TAB PO SCH ×2 (08:34→20:13)
[2018-12-29] MEDS: FAMOTIDINE 20 MG TAB PO SCH (08:35)
[2018-12-29] MEDS ORDERED: ADENOSINE 3 MG/ML 2 ML VIAL IVP STA (08:53)
[2018-12-29] MEDS: AMIODARONE 200 MG TAB PO SCH ×2 (09:59→20:13)
--- NOTE | 2018-12-29 10:51 | P.GSCN ---
History of Present Illness Consult date: 12/29/18 Reason for Consult: Bilateral carotid stenosis Requesting physician: Nathaniel Tripathi History of present illness: Patient is a 83-year-old male with a known history of COPD, history of smoking, GERD, hyperlipidemia and severe peripheral vascular disease with history of aortofemoral bypass surgery initially presented to ER with complaints of dizziness, lightheadedness and almost passed out. Patient states he was having difficulty finding the appropriate words for a few minutes which he states completely resolved. Patient usually has these symptoms with funny feeling the chest and flushing of the face and also sometimes numbness in the back of the head. Usually these symptoms lasted around half an hour and resolves by itself. Patient says that he was having symptoms almost 40 minutes this time which made him to come to ER. Patient denies any fever or chills. No chest pain. No palpitations. No nausea vomiting or abdominal pain. Patient was found to be in rapid ventricular rate when he was in the ER and had Valsalva maneuver with resolution of symptoms. Since that time he has had one new episode this morning of flushing as well as increased heart rate. Currently he states he has no complaints of chest pain or flushing. He also denies any lateralizing symptoms such as weakness, vision changes or speech issues. Review of Systems All systems: negative (for what is mentioned in the HPI or past medical history) Past Medical History Past Medical History: COPD, Deep Vein Thrombosis (DVT), GERD/Reflux, Hyperlipidemia, Renal Disease, Vascular Disorder Additional Past Medical History / Comment(s): Spinal cord injury at age 18 yrs with R sided paralysis/R dropfoot, L leg DVT, CKD stage III, PVD, uses home oxygen at . History of Any Multi-Drug Resistant Organisms: None Reported, MRSA Year Discovered:: 2013 MDRO Source:: blood Additional Past Surgical History / Comment(s): Aortic surgery with wrapping of aorta then aortobifem bypass/lysis of adhesions, R leg stent, angiograms, cervical stabilization, colonoscopy, bilateral cataract removal/lens implants Smoking Status: Former smoker - Past Family History Mother Family Medical History: Cancer, COPD Additional Family Medical History / Comment(s): lung cancer Father Family Medical History: Dementia Additional Family Medical History / Comment(s): heart disease Sister(s) Family Medical History: Cancer Additional Family Medical History / Comment(s): Breast Cancer Brother(s) Family Medical History: Diabetes Mellitus Additional Family Medical History / Comment(s): heart disease Medications and Allergies Home Medications Medication Instructions Recorded Confirmed Type Atorvastatin [Lipitor] 40 mg PO HS 12/10/15 12/28/18 History Cholecalciferol [Vitamin D3] 2,000 unit PO DAILY 12/10/15 12/28/18 History Ranitidine HCl 150 mg PO BID 12/10/15 12/28/18 History Sennosides [Senokot] 8.6 mg PO HS 12/10/15 12/28/18 History Albuterol Inhaler [Ventolin Hfa 1 - 2 puff INHALATION RT-Q6H PRN 06/08/18 History Inhaler] Cilostazol [Pletal] 100 mg PO PC-BID 06/08/18 12/28/18 History Lactobacillus Acidophilus 460 mg PO DAILY 06/15/18 12/28/18 History [Florajen] Aspirin EC [Ecotrin Low Dose] 81 mg PO DAILY 12/28/18 12/28/18 History Ipratropium-Albuterol Nebulize 3 ml INHALATION RT-QID PRN 12/28/18 12/28/18 History [Duoneb 0.5 mg-3 mg/3 ml Soln] Nystatin 100,000 Unit/gm Powd 1 applic TOPICAL BID 12/28/18 12/28/18 History [Mycostatin Powder] Furosemide [Lasix] 20 mg PO DAILY 12/29/18 12/29/18 History Allergies Allergy/AdvReac Type Severity Reaction Status Date / Time fluticasone propionate Allergy Unknown Verified 12/28/18 09:04 [From Advair Diskus] heparin Allergy "made Verified 12/28/18 09:04 blood too thin" Penicillins Allergy Anaphylaxis Verified 12/28/18 09:04 salmeterol xinafoate Allergy Unknown Verified 12/28/18 09:04 [From Advair Diskus] Tetanus Vaccines and Toxoid Allergy Unknown Verified 12/28/18 09:04 [Tetanus Vaccines & Toxoid] Childhood levetiracetam [From [facility]] AdvReac Hallucinati Verified 12/28/18 09:04 ons Surgical - Exam Vital Signs Temp Pulse Resp BP Pulse Ox 97.7 F 90 18 55/43 90 L 12/28/18 08:20 12/28/18 08:20 12/28/18 08:20 12/28/18 08:20 12/28/18 08:20 - General well developed, well nourished, no distress - Eyes PERRL, normal ocular movement - ENT normal pinna, normal nares - Neck no masses, trachea midline - Respiratory normal expansion - Cardiovascular Rhythm: irregularly irregular - Abdomen Abdomen: soft, non tender - Integumentary no rash - Neurologic Right-sided weakness lower extremity. As well as right hand deformity and weakness. - Psychiatric oriented to time, oriented to person, oriented to place, speech is normal Results - Labs 12/28/18 08:38 12/29/18 05:57 Abnormal Lab Results - Last 24 Hours (Table) 12/28/18 12/29/18 Range/Units 11:30 05:57 Chloride 112 H (98-107) mmol/L POC Glucose (mg/dL) 61 L (75-99) mg/dL Diabetes panel 12/29/18 Range/Units 05:57 Sodium 138 (137-145) mmol/L Potassium 4.4 (3.5-5.1) mmol/L Chloride 112 H (98-107) mmol/L Carbon Dioxide 23 (22-30) mmol/L BUN 19 (9-20) mg/dL Creatinine 1.02 (0.66-1.25) mg/dL Glucose 93 (74-99) mg/dL Calcium 8.7 (8.4-10.2) mg/dL Thyroid panel 12/28/18 Range/Units 08:38 TSH 2.570 (0.465-4.680) mIU/L Calcium panel 12/29/18 Range/Units 05:57 Calcium 8.7 (8.4-10.2) mg/dL Pituitary panel 12/28/18 12/29/18 Range/Units 08:38 05:57 Sodium 138 (137-145) mmol/L Potassium 4.4 (3.5-5.1) mmol/L Chloride 112 H (98-107) mmol/L Carbon Dioxide 23 (22-30) mmol/L BUN 19 (9-20) mg/dL Creatinine 1.02 (0.66-1.25) mg/dL Glucose 93 (74-99) mg/dL Calcium 8.7 (8.4-10.2) mg/dL TSH 2.570 (0.465-4.680) mIU/L Adrenal panel 12/29/18 Range/Units 05:57 Sodium 138 (137-145) mmol/L Potassium 4.4 (3.5-5.1) mmol/L Chloride 112 H (98-107) mmol/L Carbon Dioxide 23 (22-30) mmol/L BUN 19 (9-20) mg/dL Creatinine 1.02 (0.66-1.25) mg/dL Glucose 93 (74-99) mg/dL Calcium 8.7 (8.4-10.2) mg/dL Assessment and Plan (1) Carotid stenosis, bilateral Current Visit: Yes Status: Acute Priority: High Code(s): I65.23 - OCCLUSION AND STENOSIS OF BILATERAL CAROTID ARTERIES SNOMED Code(s): 08328879 (2) TIA (transient ischemic attack) Current Visit: Yes Status: Acute Priority: High Code(s): G45.9 - TRANSIENT CEREBRAL ISCHEMIC ATTACK, UNSPECIFIED SNOMED Code(s): 961804251 (3) Acute exacerbation of chronic obstructive airways disease Current Visit: No Status: Acute Code(s): J44.1 - CHRONIC OBSTRUCTIVE PULMONARY DISEASE W (ACUTE) EXACERBATION SNOMED Code(s): 550114585 Plan: Reviewed CTA of the neck and brain with the patient and his in full detail. There is dense calcification noted throughout the bifurcation of bilateral carotid arteries which may overestimate the amount of stenosis. I do agree with obtaining a carotid Doppler to further visualize the stenosis. If there is significant narrowing and high velocities I did discuss options including open carotid endarterectomy versus TCAR procedure and stenting. Due to his multiple comorbidities and his issues with his heart at this time we did discuss ability to perform that TCAR under local anesthesia which he and his are agreeable if any procedure needs to be done. I would hold off on any surgical intervention at this time until his cardiac status and medical status is stabilized. Thank you for consultation and if there are any questions please feel free to call.
--- NOTE | 2018-12-29 10:54 | PN ---
PROGRESS NOTE Mr. Stafford is an 83-year-old male with a history of peripheral vascular disease and carotid disease who presented with palpitation and dizziness, was noted to be in SVT converted back to sinus mechanism. He had an episode of TIA. This subsequently resolved. Today, he had an episode of SVT, resolved with IV adenosine. He is feeling well otherwise. He is denying any chest pain. No dizziness. No palpitation. No nausea. He continues to be on Lopressor 25 mg twice a day, cilostazol 100 mg twice a day, Lipitor 40 mg daily, aspirin once a day. PHYSICAL EXAMINATION: Blood pressure 107/60 with the heart rate in the 80s. LUNGS: With no wheezes or rales. HEART: Regular rate and rhythm. S1, S2. No S3 with systolic murmur. No diastolic murmur. ABDOMEN: Soft, nontender. EXTREMITIES: No edema. LAB DATA: Lab data revealed a BUN and creatinine 19 and 1.02. Potassium 4.4. IMPRESSION: 1. Paroxysmal AV pratibha reentry tachycardia, symptomatic. 2. History of severe peripheral vascular disease. 3. Prior history of smoking. 4. Hyperlipidemia. RECOMMENDATION: I will add amiodarone to his regimen at this time to stabilize his rhythm. The patient will require AV pratibha reentry tachycardia ablation. I have discussed with him those findings. In the meantime, we will continue present therapy. I will review the results of his echocardiogram and depending on his progress, further recommendation will be made. MMODL / IJN: [id number] /
--- NOTE | 2018-12-29 11:42 | ECHOF ---
Referral Reason:palpitations MEASUREMENTS -------- HEIGHT: 165.1 cm WEIGHT: 76.2 kg BP: 192/88 RVIDd: 2.9 cm (< 3.3) IVSd: 1.4 cm (0.6 - 1.1) LVIDd: 3.3 cm (3.9 - 5.3) LVPWd: 1.2 cm (0.6 - 1.1) IVSs: 1.8 cm LVIDs: 2.6 cm LVPWs: 1.6 cm LA Diam: 3.2 cm (2.7 - 3.8) LAESV Index (A-L): 21.46 ml/m Ao Diam: 3.4 cm (2.0 - 3.7) AV Cusp: 1.7 cm (1.5 - 2.6) MV EXCURSION: 16.095 mm (> 18.000) MV EF SLOPE: 43 mm/s (70 - 150) EPSS: 0.5 cm MV E Bentley: 0.71 m/s MV DecT: 314 ms MV A Bentley: 1.01 m/s MV E/A Ratio: 0.71 AV maxP.77 mmHg AV meanP.77 mmHg RAP: 5.00 mmHg RVSP: 22.41 mmHg FINDINGS -------- Sinus rhythm. This was a technically adequate study. The left ventricular size is normal. There is moderate concentric left ventricular hypertrophy. O verall left ventricular systolic function is normal with, an EF between 60 - 65 %. The right ventricle is normal in size. Normal LA size by volume 22+/-6 ml/m2. The right atrium is normal in size. There is mild aortic valve sclerosis. Trace amount of aortic regurgitation. Mild mitral annular calcification present. Mild tricuspid regurgitation present. Right ventricular systolic pressure is normal at < 35 mmHg. Trace/mild (physiologic) pulmonic regurgitation. The aortic root size is normal. Normal inferior vena cava with normal inspiratory collapse consistent with estimated right atrial pre ssure of 5 mmHg. There is no pericardial effusion. CONCLUSIONS -------- 1. Sinus rhythm. 2. This was a technically adequate study. 3. The left ventricular size is normal. 4. There is moderate concentric left ventricular hypertrophy. 5. Overall left ventricular systolic function is normal with, an EF between 60 - 65 %. 6. The right ventricle is normal in size. 7. Normal LA size by volume 22+/-6 ml/m2. 8. The right atrium is normal in size. 9. There is mild aortic valve sclerosis. 10. Trace amount of aortic regurgitation. 11. Mild mitral annular calcification present. 12. Mild tricuspid regurgitation present. 13. Right ventricular systolic pressure is normal at < 35 mmHg. 14. Trace/mild (physiologic) pulmonic regurgitation. 15. The aortic root size is normal. 16. Normal inferior vena cava with normal inspiratory collapse consistent with estimated right atrial pressure of 5 mmHg. 17. There is no pericardial effusion. SOFTWARE QUALITY ASSURANCE ENGINEER: Sheryl Tariq RDCS
--- NOTE | 2018-12-29 12:49 | US ---
EXAMINATION TYPE: US carotid duplex BILAT DATE OF EXAM: 12/29/2018 COMPARISON: CT 2019 CLINICAL HISTORY: possible carotid stenosis. Stenosis EXAM MEASUREMENTS: RIGHT: Peak Systolic Velocity (PSV) cm/sec ----- Right CCA: 76.5 ----- Right ICA: 147.0 ----- Right ECA: 222.8 ICA/CCA ratio: 1.9 RIGHT: End Diastole cm/sec ----- Right CCA: 11.7 ----- Right ICA: 32.7 ----- Right ECA: 0.0 LEFT: Peak Systolic Velocity (PSV) cm/sec ----- Left CCA: 113.5 ----- Left ICA: 159.7 ----- Left ECA: 235.4 ICA/CCA ratio: 1.4 LEFT: End Diastole cm/sec ----- Left CCA: 15.3 ----- Left ICA: 31.0 ----- Left ECA: 0.0 VERTEBRALS (direction of flow): Right Vertebral: Antegrade Left Vertebral: Antegrade Rhythm: Normal Elevated velocities: proximal and mid right ICA, proximal right ECA, proximal left ICA and proximal l eft ECA. IMPRESSION: Elevated velocities are seen within the bilateral internal carotid arteries and external carotid arteries. These correspond to stenosis of 50-69% within the bilateral internal carotid arteri es and right external carotid artery and stenosis of greater than 70% within the left external caroti d artery. However these are more accurately evaluated on CTA and were measured at 70% stenosis of the bilateral internal carotid arteries on the exam of 12/28/2018. Criteria for Assigning % of Stenosis / Diameter reduction (Estimation based on the indirect measurements of the internal carotid artery velocities (ICA PSV). 1. Normal (no stenosis)=ICA PSV < 125 cm/s: ratio < 2.0: ICA EDV<40 cm/s. 2. Less than 50% stenosis=ICA PSV < 125 cm/s: ratio < 2.0: ICA EDV<40 cm/s. 3. 50 to 69% stenosis=ICA PSV of 125 to 230 cm/s: ration 2.0 ? 4.0: ICA EDV 40-100 cm/s. 4. Greater than 70% stenosis to near occlusion= ICA PSV > 230 cm/s: ratio > 4.0: ICA EDV > 100 cm/s. 5. Near occlusion= ICA PSV velocities may be low or undetectable: variable ratio and ICA EDV. 6. Total occlusion=unable to detect flow.
[2018-12-29] MEDS: ATORVASTATIN 40 MG TAB PO SCH (20:13)
[2018-12-29] MEDS: SENNOSIDES 8.6 MG TAB PO SCH (20:13)
--- NOTE | 2018-12-29 22:55 | P.PN ---
Subjective Progress Note Date: 12/29/18 Principal diagnosis: Paroxysmal AVRT TIA Severe carotid artery stenosis Patient is a 83-year-old male with a known history of COPD, history of smoking, GERD, hyperlipidemia and severe peripheral vascular disease with history of aortofemoral bypass surgery initially presented to ER with complaints of dizziness, lightheadedness and almost passed out. Patient also felt aphasic for about few minutes. Patient has been having symptoms for the past 1 year. Patient usually has these symptoms with funny feeling the chest and flushing of the face and also sometimes numbness in the back of the head. Usually these symptoms lasted around half an hour and resolves by itself. Patient says that he was having symptoms almost 40 minutes this time which made him to come to ER. Patient is following with Dr. Dick as an outpatient. Patient is also supposed to follow with Dr. Peralta, neurology next week. Otherwise denied any fever or chills. No chest pain. No palpitations. No nausea vomiting or abdominal pain. Patient was found to be in rapid ventricular rate when he was in the ER and had Valsalva maneuver with resolution of symptoms. Otherwise denied any numbness or tingling or focal weakness. Patient also has history of aortic abdominal aneurysm, AAA repair. CT head showed mild chronic appearing periventricular white matter ischemic changes no acute intracranial process CT angiogram of the neck showed severe stenosis approximately 80% within the right internal carotid artery distal to its origin from the carotid bulb measuring a distance of 6mm. Severe stenosis of left carotid artery 75-80%. Complete occlusion of vertebral artery No vascular occlusion or aneurysms. Chest x-ray showed no acute cardiopulmonary process EKG showed sinus rhythm 12/29/2018 Patient did have rapid ventricular rate this morning. Patient felt dizzy and lightheaded which happened when he came to the hospital. Was given adenosine IV 1. 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 Patient was started on amiodarone. Currently patient is asymptomatic otherwise. Patient was seen by vascular surgery. Recommends carotid endarterectomy was cardiac status is stabilized. Bilateral carotid ultrasound was done. No complaints of chest pain or shortness of breath. No fever no chills. No nausea vomiting or abdominal pain. Current medications reviewed. Objective - Vital Signs Vital signs: Vital Signs Temp 97.8 F 12/29/18 20:00 Pulse 76 12/29/18 20:00 Resp 18 12/29/18 20:00 BP 120/64 12/29/18 20:00 Pulse Ox 97 12/29/18 20:00 Intake & Output 12/29/18 12/29/18 12/30/18 06:59 18:59 06:59 Intake Total 375 150 Output Total 1600 Balance 375 -1450 Weight 77.9 kg Intake: IV 150 Invasive Line 1 150 Intake, IV Titration 375 Amount Sodium Chloride 0.9% 1, 375 000 ml @ 75 mls/hr IV . [id number] [facility] Rx#:[id number] Output: Urine 1600 Other: Voiding Method Toilet Urinal Urinal # Voids 2 1 - Exam PHYSICAL EXAMINATION: Patient is lying in the bed comfortably, no acute distress, awake alert and oriented.. HEENT: Normocephalic. Neck is supple. Pupils reactive. Nostrils clear. Oral cavity is moist. Ears reveal no drainage. Neck reveals no JVD, carotid bruits, or thyromegaly. CHEST EXAMINATION: Trachea is central. Symmetrical expansion. Lung kaminski clear to auscultation and percussion. CARDIAC: Normal S1, S2 with no gallops. No murmurs ABDOMEN: Soft. Bowel sounds normal. No organomegaly. No abdominal bruits. Extremities: reveal no edema. No clubbing or cyanosis Neurologically awake, alert, oriented x3 with well-coordinated movements. Right -sided weakness with motor 4/5. No other focal deficits noted Skin: No rash or skin lesions. Psychiatric: Coperative. Nonsuicidal Musculoskeletal: No joint swelling or deformity. Normal range of motion. - Labs CBC & Chem 7: 12/28/18 08:38 12/29/18 05:57 Labs: Abnormal Lab Results - Last 24 Hours (Table) 12/29/18 Range/Units 05:57 Chloride 112 H (98-107) mmol/L Assessment and Plan Assessment: Dizziness, lightheadedness and near syncope likely AV pratibha reentry tachycardia. Improved now Expressive dysphagia possible TIA secondary to hypoperfusion. 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 Was started on beta blockers by cardiology. Added amiodarone today. Continue to follow closely and continue with aspirin and statins. Vascular surgery is following.. Further recommendations based on the clinical course. Prognosis is guarded. Time with Patient: Greater than 30
[2018-12-30 06:58] LABS: Calcium 8.6 mg/dL (8.4-10.2)
[2018-12-30 07:20] LABS: Potassium 4.9 mmol/L (3.5-5.1)
[2018-12-30] MEDS: IPRATROPIUM-ALBUTEROL 3 ML NEB INHALATION PRN ×3 (08:14→19:24)
[2018-12-30] MEDS: ASPIRIN 81 MG PO SCH (09:05)
[2018-12-30] MEDS: CILOSTAZOL 100 MG TAB PO SCH ×2 (09:05→17:35)
[2018-12-30] MEDS: FAMOTIDINE 20 MG TAB PO SCH (09:05)
[2018-12-30] MEDS: SODIUM CHLORIDE 0.9% 1,000 ML IV SCH ×2 (09:05→20:24)
[2018-12-30] MEDS: METOPROLOL TARTRATE 25 MG TAB PO SCH ×2 (09:05→20:22)
[2018-12-30] MEDS: AMIODARONE 200 MG TAB PO SCH (09:05)
[2018-12-30] MEDS: FLECAINIDE 50 MG TAB PO SCH ×2 (10:49→20:22)
--- NOTE | 2018-12-30 13:11 | P.PN ---
Subjective Progress Note Date: 12/30/18 Is is an 83-year-old gentleman who follows with Dr. Dick in the office. He has a known history of severe peripheral vascular disease, status post triple a repair, nicotine dependence femoral bypass, hyperlipidemia, COPD, presented to the hospital with symptoms of generally not feeling well. He was noted in the emergency room to have a rapid heartbeat, also maneuver was performed he became hypotensive and had expressive aphasia for about 30-40 minutes with which spontaneously resolved. Initial rhythm strip suggested a possible AVNRT . Today the patient is remaining in a normal sinus rhythm. Blood pressure 104/60 with a heart rate in the 60s, 97% on room air. Sodium 141, potassium 4.9, BUN 17 and creatinine 1.0. Objective - Vital Signs Vital signs: Vital Signs Temp 97.7 F 12/30/18 08:30 Pulse 60 12/30/18 12:17 Resp 16 12/30/18 12:17 BP 105/63 12/30/18 12:15 Pulse Ox 97 12/30/18 12:15 Intake & Output 12/29/18 12/30/18 12/30/18 18:59 06:59 18:59 Intake Total 150 Output Total 1600 1 Balance -1450 -1 Weight 79.5 kg Intake: IV 150 Invasive Line 1 150 Output: Urine 1600 Stool 1 Other: Voiding Method Urinal Urinal Urinal # Voids 1 1 1 - Exam PHYSICAL EXAMINATION: GENERAL: 83-year-old gentleman in no acute distress at the time of my examination HEENT: Head is atraumatic, normocephalic. Pupils equal, round. Sclera anicteric. Conjunctiva are clear. Mucous membranes of the mouth are moist. Neck is supple. There is no elevated jugular venous pressure.] bruit is heard. HEART EXAMINATION: Heart S1 S2 1 systolic murmur is heard. CHEST EXAMINATION: Lungs are clear to auscultation and precussion. No chest wall tenderness is noted on palpation or with deep breathing. ABDOMEN: Soft, nontender. Bowel sounds are heard. No organomegaly noted. EXTREMITIES: 2+ peripheral pulses with no evidence of peripheral edema and no calf tenderness noted. NEUROLOGIC patient is awake, alert and oriented 3 . . - Labs CBC & Chem 7: 12/28/18 08:38 12/30/18 06:24 Labs: Abnormal Lab Results - Last 24 Hours (Table) 12/30/18 Range/Units 06:24 Chloride 114 H (98-107) mmol/L Assessment and Plan Plan: Assessment and plan #1 paroxysmal AVNRT, symptomatic #2 history of severe peripheral vascular disease #3 prior history of smoking #4 hyperlipidemia Plan We will discontinue the amiodarone and start the patient on flecainide, continue with the rest of his medications. DNP note has been reviewed, I agree with a documented findings and plan of care. Patient was seen and examined.
--- NOTE | 2018-12-30 19:03 | P.PN ---
Subjective Patient is a 83-year-old male with a known history of COPD, history of smoking, GERD, hyperlipidemia and severe peripheral vascular disease with history of aortofemoral bypass surgery initially presented to ER with complaints of dizziness, lightheadedness and almost passed out. Patient also felt aphasic for about few minutes. Patient has been having symptoms for the past 1 year. Patient usually has these symptoms with funny feeling the chest and flushing of the face and also sometimes numbness in the back of the head. Usually these symptoms lasted around half an hour and resolves by itself. Patient says that he was having symptoms almost 40 minutes this time which made him to come to ER. Patient is following with Dr. Dick as an outpatient. Patient is also supposed to follow with Dr. Peralta, neurology next week. Otherwise denied any fever or chills. No chest pain. No palpitations. No nausea vomiting or abdominal pain. Patient was found to be in rapid ventricular rate when he was in the ER and had Valsalva maneuver with resolution of symptoms. Otherwise denied any numbness or tingling or focal weakness. Patient also has history of aortic abdominal aneurysm, AAA repair. CT head showed mild chronic appearing periventricular white matter ischemic changes no acute intracranial process CT angiogram of the neck showed severe stenosis approximately 80% within the right internal carotid artery distal to its origin from the carotid bulb measuring a distance of 6mm. Severe stenosis of left carotid artery 75-80%. Complete occlusion of vertebral artery No vascular occlusion or aneurysms. Chest x-ray showed no acute cardiopulmonary process EKG showed sinus rhythm 12/29/2018 Patient did have rapid ventricular rate this morning. Patient felt dizzy and lightheaded which happened when he came to the hospital. Was given adenosine IV 1. 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 Patient was started on amiodarone. Currently patient is asymptomatic otherwise. Patient was seen by vascular surgery. Recommends carotid endarterectomy was cardiac status is stabilized. Bilateral carotid ultrasound was done. No complaints of chest pain or shortness of breath. No fever no chills. No nausea vomiting or abdominal pain. 12/30/2018 Patient was lying in bed comfortable not in distress, he presents initially because of presyncope with no headache, his symptoms improved no weakness or abnormal sensation in the extremities. No slurred speech or blurred vision. No abnormal sensation or numbness. Vitas is stable. BMP and CBC was unremarkable. He has evidence of carotid artery stenosis. Vascular Surgical team was consulted for, and did surgical repair which was held no total his cardiac status stabilizes. Cardiology team evaluated the patient for possible AV pratibha reentry tachycardia and they adjusted his medication, amiodarone was added, however later was replaced by flecainide. Objective - Vital Signs Vital signs: Vital Signs Temp 97.6 F 12/30/18 16:40 Pulse 63 12/30/18 16:40 Resp 16 12/30/18 16:40 BP 107/60 12/30/18 16:40 Pulse Ox 96 12/30/18 16:40 Intake & Output 12/29/18 12/30/18 12/30/18 18:59 06:59 18:59 Intake Total 150 780 Output Total 1600 652 Balance -1450 128 Weight 79.5 kg Intake: IV 150 Invasive Line 1 150 Intake, IV Titration 600 Amount Sodium Chloride 0.9% 1, 600 000 ml @ 75 mls/hr IV . [id number] [facility] Rx#:[id number] Oral 180 Output: Urine 1600 650 Stool 2 Other: Voiding Method Urinal Urinal Urinal # Voids 1 1 1 - Exam Patient is lying in the bed comfortably, no acute distress, awake alert and oriented.. HEENT: Normocephalic. Neck is supple. Pupils reactive. Nostrils clear. Oral cavity is moist. Ears reveal no drainage. Neck reveals no JVD, carotid bruits, or thyromegaly. CHEST EXAMINATION: Trachea is central. Symmetrical expansion. Lung kaminski clear to auscultation and percussion. CARDIAC: Normal S1, S2 with no gallops. No murmurs ABDOMEN: Soft. Bowel sounds normal. No organomegaly. No abdominal bruits. Extremities: reveal no edema. No clubbing or cyanosis Neurologically awake, alert, oriented x3 with well-coordinated movements. Right -sided weakness with motor 4/5. No other focal deficits noted Skin: No rash or skin lesions. Psychiatric: Coperative. Nonsuicidal Musculoskeletal: No joint swelling or deformity. Normal range of motion. 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 Improved now Expressive dysphagia possible TIA secondary to hypoperfusion. 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 Was started on beta blockers by cardiology. Added amiodarone today. Continue to follow closely and continue with aspirin and statins. Vascular surgery is following.. Further recommendations based on the clinical course. Prognosis is guarded.
[2018-12-30] MEDS: SYMBICORT 80-4.5 MCG INHALER INHALATION SCH (19:24)
[2018-12-30] MEDS: ATORVASTATIN 40 MG TAB PO SCH (20:22)
[2018-12-30] MEDS: SENNOSIDES 8.6 MG TAB PO SCH (20:22)
[2018-12-31] MEDS ORDERED: SYMBICORT 80-4.5 MCG INHALER INHALATION ONE (05:11)
[2018-12-31] MEDS: SYMBICORT 80-4.5 MCG INHALER INHALATION SCH (05:21)
[2018-12-31] MEDS: IPRATROPIUM-ALBUTEROL 3 ML NEB INHALATION PRN ×2 (05:21→10:26)
--- NOTE | 2018-12-31 07:42 | P.PN ---
Progress Note - Text Progress Note Date: 12/31/18 Reviewed carotid doppler. Velocities on doppler signify less than 70% stenosis. At this time there is no urgent need for surgical intervention. Will see in the office in 1-2 weeks and discuss further management.
[2018-12-31 08:59] VITALS: RESP 16; TEMP 96.4
[2018-12-31] MEDS: FLECAINIDE 50 MG TAB PO SCH (09:00)
[2018-12-31] MEDS: METOPROLOL TARTRATE 25 MG TAB PO SCH (09:00)
[2018-12-31] MEDS: CILOSTAZOL 100 MG TAB PO SCH (09:00)
[2018-12-31] MEDS: ASPIRIN 81 MG PO SCH (09:00)
[2018-12-31] MEDS: FAMOTIDINE 20 MG TAB PO SCH (09:00)
[2018-12-31 11:22] VITALS: BP 124/76; PULSE 76
--- NOTE | 2018-12-31 14:39 | P.PN ---
Subjective Progress Note Date: 12/31/18 Is is an 83-year-old gentleman who follows with Dr. Dick in the office. He has a known history of severe peripheral vascular disease, status post triple a repair, nicotine dependence femoral bypass, hyperlipidemia, COPD, presented to the hospital with symptoms of generally not feeling well. He was noted in the emergency room to have a rapid heartbeat, also maneuver was performed he became hypotensive and had expressive aphasia for about 30-40 minutes with which spontaneously resolved. Initial rhythm strip suggested a possible AVNRT . Today the patient is remaining in a normal sinus rhythm. Blood pressure 104/60 with a heart rate in the 60s, 97% on room air. Sodium 141, potassium 4.9, BUN 17 and creatinine 1.0. 12/31/2018 Patient was seen and examined this morning, overall doing significantly better. He's been up ambulating in the hallway with his most of the day, breathing is stable, no further arrhythmias have been noted on the monitor. Anticipating discharge home today. Objective - Vital Signs Vital signs: Vital Signs Temp 96.4 F L 12/31/18 08:05 Pulse 76 12/31/18 11:10 Resp 16 12/31/18 11:10 BP 124/76 12/31/18 11:10 Pulse Ox 95 12/31/18 11:10 Intake & Output 12/30/18 12/31/18 12/31/18 18:59 06:59 18:59 Intake Total 780 Output Total 652 3 Balance 128 -3 Weight 80 kg Intake: Intake, IV Titration 600 Amount Sodium Chloride 0.9% 1, 600 000 ml @ 75 mls/hr IV . [id number] [facility] Rx#:[id number] Oral 180 Output: Urine 650 Stool 2 3 Other: Voiding Method Urinal Urinal Urinal # Voids 1 1 1 - Exam PHYSICAL EXAMINATION: GENERAL: 83-year-old gentleman in no acute distress at the time of my examination HEENT: Head is atraumatic, normocephalic. Pupils equal, round. Sclera anicteric. Conjunctiva are clear. Mucous membranes of the mouth are moist. Neck is supple. There is no elevated jugular venous pressure.] bruit is heard. HEART EXAMINATION: Heart S1 S2 1 systolic murmur is heard. CHEST EXAMINATION: Lungs are clear to auscultation and precussion. No chest wall tenderness is noted on palpation or with deep breathing. ABDOMEN: Soft, nontender. Bowel sounds are heard. No organomegaly noted. EXTREMITIES: 2+ peripheral pulses with no evidence of peripheral edema and no calf tenderness noted. NEUROLOGIC patient is awake, alert and oriented 3 . . - Labs CBC & Chem 7: 12/28/18 08:38 12/30/18 06:24 Assessment and Plan Plan: Assessment and plan #1 paroxysmal AVNRT, symptomatic #2 history of severe peripheral vascular disease #3 prior history of smoking #4 hyperlipidemia Plan Cardiology's perspective, patient may be able to be discharged home today. We will make him a follow-up appointment in the office with Dr. Dick post discharge. Continue flecainide. DNP note has been reviewed, I agree with a documented findings and plan of care. Patient was seen and examined.
== END 2018-12-31 15:57 | disposition home or self-care (01) | DRG 309 ==
LOC: EC 08:11 → 2SICU 10:43 → 3SCARD 16:09
PROVIDERS: ADMIT Internal Medicine; ATTEND Internal Medicine
DX: I47.1 Supraventricular tachycardia (principal); G81.91 Hemiplegia, unspecified affecting right dominant side; J44.1 Chronic obstructive pulmonary disease with (acute) exacerbation; R47.01 Aphasia; E78.5 Hyperlipidemia, unspecified; I25.10 Atherosclerotic heart disease of native coronary artery without angina pectoris; I65.01 Occlusion and stenosis of right vertebral artery; Z87.891 Personal history of nicotine dependence; I65.23 Occlusion and stenosis of bilateral carotid arteries; I73.9 Peripheral vascular disease, unspecified; K21.9 Gastro-esophageal reflux disease without esophagitis; N18.3 Chronic kidney disease, stage 3 (moderate); R13.10 Dysphagia, unspecified; Z79.82 Long term (current) use of aspirin; Z79.899 Other long term (current) drug therapy; Z80.1 Family history of malignant neoplasm of trachea, bronchus and lung; Z80.3 Family history of malignant neoplasm of breast; Z82.5 Family history of asthma and other chronic lower respiratory diseases; Z83.3 Family history of diabetes mellitus; Z86.718 Personal history of other venous thrombosis and embolism; Z86.79 Personal history of other diseases of the circulatory system; Z98.42 Cataract extraction status, left eye; Z98.41 Cataract extraction status, right eye; Z96.1 Presence of intraocular lens; Z99.81 Dependence on supplemental oxygen; M21.371 Foot drop, right foot; T14.90XS Injury, unspecified, sequela; Z88.0 Allergy status to penicillin; Z88.7 Allergy status to serum and vaccine; Z88.8 Allergy status to other drugs, medicaments and biological substances; Z86.14 Personal history of Methicillin resistant Staphylococcus aureus infection
CPT/HCPCS: 36415; 70450; 70496; 70498; 71046; 80048; 80053; 82550; 82553; 83735; 83880; 84443; 84484; 85025; 85610; 85730; 93005; 93306; 93880; 94640; 94760; 96360; 99291

== ENCOUNTER 2019-01-03 11:21 | Inpatient (IN) | payer MEDICARE ==
[2019-01-03] MEDS ORDERED: SODIUM CHLORIDE 0.9% 1,000 ML IV STA (12:22)
--- NOTE | 2019-01-03 12:45 | ED ---
Arrhythmia/Palpitations HPI - General Chief Complaint: Arrhythmia/Palpitations Stated Complaint: cardiac issues Time Seen by Provider: 01/03/19 11:38 Source: patient, RN notes reviewed Mode of arrival: wheelchair Limitations: no limitations - History of Present Illness Initial Comments: This is a 83-year-old male with a Holter monitor on at this time who presents with complaints of feeling tired and a heart rate in the 40s. States was 49 and down the 45. Normally he states in the low 80s about 81. Has some shortness of breath with this. No fevers chills nausea vomiting sweats or other symptoms at this time no chest pain reported. - Related Data Home Medications Medication Instructions Recorded Confirmed Atorvastatin [Lipitor] 40 mg PO HS 12/10/15 01/03/19 Cholecalciferol [Vitamin D3] 2,000 unit PO DAILY 12/10/15 01/03/19 Ranitidine HCl 150 mg PO BID 12/10/15 01/03/19 Sennosides [Senokot] 8.6 mg PO HS 12/10/15 01/03/19 Albuterol Inhaler [Ventolin Hfa 1 - 2 puff INHALATION RT-Q6H PRN 06/08/18 Inhaler] Lactobacillus Acidophilus 460 mg PO DAILY 06/15/18 01/03/19 [Florajen] Aspirin EC [Ecotrin Low Dose] 81 mg PO DAILY 12/28/18 01/03/19 Ipratropium-Albuterol Nebulize 3 ml INHALATION RT-QID PRN 12/28/18 01/03/19 [Duoneb 0.5 mg-3 mg/3 ml Soln] Nystatin 100,000 Unit/gm Powd 1 applic TOPICAL BID 12/28/18 01/03/19 [Mycostatin Powder] Furosemide [Lasix] 20 mg PO DAILY 12/29/18 01/03/19 Previous Rx's Medication Instructions Recorded Flecainide [Tambocor] 50 mg PO Q12HR #60 tab 12/31/18 Metoprolol Tartrate [Lopressor] 25 mg PO BID #60 tab 12/31/18 Allergies Allergy/AdvReac Type Severity Reaction Status Date / Time fluticasone propionate Allergy Unknown Verified 01/03/19 11:46 [From Advair Diskus] heparin Allergy "made Verified 01/03/19 11:46 blood too thin" Penicillins Allergy Anaphylaxis Verified 01/03/19 11:46 salmeterol xinafoate Allergy Unknown Verified 01/03/19 11:46 [From Advair Diskus] Tetanus Vaccines and Toxoid Allergy Unknown Verified 01/03/19 11:46 [Tetanus Vaccines & Toxoid] Childhood levetiracetam [From Keppra] AdvReac Hallucinati Verified 01/03/19 11:46 ons Review of Systems ROS Statement: Those systems with pertinent positive or pertinent negative responses have been documented in the HPI. ROS Other: All systems not noted in ROS Statement are negative. Past Medical History Past Medical History: COPD, Deep Vein Thrombosis (DVT), GERD/Reflux, Hyperlipidemia, Renal Disease, Vascular Disorder Additional Past Medical History / Comment(s): Spinal cord injury at age 18 yrs with R sided paralysis/R dropfoot, L leg DVT, CKD stage III, PVD, uses home oxygen at HS. History of Any Multi-Drug Resistant Organisms: None Reported, MRSA Date of last positivie culture/infection: 2013 MDRO Source:: blood Additional Past Surgical History / Comment(s): Aortic surgery with wrapping of aorta then aortobifem bypass/lysis of adhesions, R leg stent, angiograms, cervical stabilization, colonoscopy, bilateral cataract removal/lens implants Past Psychological History: No Psychological Hx Reported Smoking Status: Former smoker Past Alcohol Use History: None Reported Past Drug Use History: None Reported - Past Family History Mother Family Medical History: Cancer, COPD Additional Family Medical History / Comment(s): lung cancer Father Family Medical History: Dementia Additional Family Medical History / Comment(s): heart disease Sister(s) Family Medical History: Cancer Additional Family Medical History / Comment(s): Breast Cancer Brother(s) Family Medical History: Diabetes Mellitus Additional Family Medical History / Comment(s): heart disease General Exam - General Exam Comments Initial Comments: Is a well-developed well-nourished awake alert oriented 3 male Limitations: no limitations General appearance: alert, in no apparent distress Head exam: Present: atraumatic, normocephalic, normal inspection Eye exam: Present: normal appearance, PERRL, EOMI. Absent: scleral icterus, conjunctival injection, periorbital swelling ENT exam: Present: mucous membranes dry Neck exam: Present: normal inspection. Absent: tenderness, meningismus, lymphadenopathy Respiratory exam: Present: normal lung sounds bilaterally. Absent: respiratory distress, wheezes, rales, rhonchi, stridor Cardiovascular Exam: Present: normal rhythm, bradycardia, normal heart sounds. Absent: systolic murmur, diastolic murmur, rubs, gallop, clicks GI/Abdominal exam: Present: soft, normal bowel sounds. Absent: distended, tenderness, guarding, rebound, rigid Extremities exam: Present: normal inspection, full ROM, normal capillary refill. Absent: tenderness, pedal edema, joint swelling, calf tenderness Back exam: Present: normal inspection Neurological exam: Present: alert, oriented X3, CN II-XII intact Psychiatric exam: Present: normal affect, normal mood Skin exam: Present: warm, dry, intact, normal color. Absent: rash Course Vital Signs 01/03/19 01/03/19 01/03/19 11:33 13:09 13:10 Temperature 97.5 F L Pulse Rate 45 L Respiratory 18 16 Rate Blood Pressure 150/87 142/70 O2 Sat by Pulse 100 99 100 Oximetry 01/03/19 01/03/19 01/03/19 13:20 13:30 13:40 Temperature Pulse Rate 56 L 58 L Respiratory 13 16 Rate Blood Pressure 142/70 142/70 146/63 O2 Sat by Pulse 98 100 Oximetry 01/03/19 01/03/19 01/03/19 13:50 14:00 14:20 Temperature Pulse Rate 58 L 61 66 Respiratory 12 21 22 Rate Blood Pressure 146/63 146/63 157/71 O2 Sat by Pulse 100 99 Oximetry 01/03/19 01/03/19 01/03/19 14:30 15:00 15:20 Temperature Pulse Rate 60 63 Respiratory 9 L 14 Rate Blood Pressure 157/71 149/77 184/87 O2 Sat by Pulse 99 Oximetry EKG Findings - EKG Results: EKG: interpreted by ERMD, sinus rhythm [place] [address] QRS duration 90 QT since QTC 44/418 st-t wave changes) Medical Decision Making - Medical Decision Making I did reevaluate patient several occasions heart rate has come up somewhat. I did discuss the case with patient family members as well as with Dr. Dick. The patient will be admitted for further evaluation and possible pacemaker placement. He is demonstrating symptomatic bradycardia. Additionally I did discuss the case with Dr. Hernandez. - Lab Data Result diagrams: 01/03/19 14:14 01/03/19 14:14 Lab Results 01/03/19 01/03/19 01/03/19 Range/Units 13:50 14:14 14:14 WBC 7.5 (3.8-10.6) k/uL RBC 5.00 (4.30-5.90) m/uL Hgb 15.0 (13.0-17.5) gm/dL Hct 46.7 (39.0-53.0) % MCV 93.4 (80.0-100.0) fL MCH 30.0 (25.0-35.0) pg MCHC 32.1 (31.0-37.0) g/dL RDW 14.4 (11.5-15.5) % Plt Count 225 (150-450) k/uL Neutrophils % 80 % Lymphocytes % 11 % Monocytes % 4 % Eosinophils % 2 % Basophils % 1 % Neutrophils # 6.0 (1.3-7.7) k/uL Lymphocytes # 0.8 L (1.0-4.8) k/uL Monocytes # 0.3 (0-1.0) k/uL Eosinophils # 0.2 (0-0.7) k/uL Basophils # 0.1 (0-0.2) k/uL PT 10.9 (9.0-12.0) sec INR 1.0 (<1.2) APTT 22.6 (22.0-30.0) sec Sodium (137-145) mmol/L Potassium (3.5-5.1) mmol/L Chloride (98-107) mmol/L Carbon Dioxide (22-30) mmol/L Anion Gap mmol/L BUN (9-20) mg/dL Creatinine (0.66-1.25) mg/dL Est GFR (CKD-EPI)AfAm (>60 ml/min/1.73 sqM) Est GFR (CKD-EPI)NonAf (>60 ml/min/1.73 sqM) Glucose (74-99) mg/dL Calcium (8.4-10.2) mg/dL Magnesium (1.6-2.3) mg/dL Total Bilirubin (0.2-1.3) mg/dL AST (17-59) U/L ALT (21-72) U/L Alkaline Phosphatase (38-126) U/L Total Creatine Kinase 80 (55-170) U/L CK-MB (CK-2) 2.7 H (0.0-2.4) ng/mL CK-MB (CK-2) Rel Index 3.4 Troponin I 0.012 (0.000-0.034) ng/mL Total Protein (6.3-8.2) g/dL Albumin (3.5-5.0) g/dL 01/03/19 Range/Units 14:14 WBC (3.8-10.6) k/uL RBC (4.30-5.90) m/uL Hgb (13.0-17.5) gm/dL Hct (39.0-53.0) % MCV (80.0-100.0) fL MCH (25.0-35.0) pg MCHC (31.0-37.0) g/dL RDW (11.5-15.5) % Plt Count (150-450) k/uL Neutrophils % % Lymphocytes % % Monocytes % % Eosinophils % % Basophils % % Neutrophils # (1.3-7.7) k/uL Lymphocytes # (1.0-4.8) k/uL Monocytes # (0-1.0) k/uL Eosinophils # (0-0.7) k/uL Basophils # (0-0.2) k/uL PT (9.0-12.0) sec INR (<1.2) APTT (22.0-30.0) sec Sodium 139 (137-145) mmol/L Potassium 4.8 (3.5-5.1) mmol/L Chloride 105 (98-107) mmol/L Carbon Dioxide 25 (22-30) mmol/L Anion Gap 9 mmol/L BUN 18 (9-20) mg/dL Creatinine 1.09 (0.66-1.25) mg/dL Est GFR (CKD-EPI)AfAm 72 (>60 ml/min/1.73 sqM) Est GFR (CKD-EPI)NonAf 63 (>60 ml/min/1.73 sqM) Glucose 79 (74-99) mg/dL Calcium 9.6 (8.4-10.2) mg/dL Magnesium 2.0 (1.6-2.3) mg/dL Total Bilirubin 1.0 (0.2-1.3) mg/dL AST 28 (17-59) U/L ALT 51 (21-72) U/L Alkaline Phosphatase 79 (38-126) U/L Total Creatine Kinase (55-170) U/L CK-MB (CK-2) (0.0-2.4) ng/mL CK-MB (CK-2) Rel Index Troponin I (0.000-0.034) ng/mL Total Protein 6.2 L (6.3-8.2) g/dL Albumin 3.9 (3.5-5.0) g/dL - Radiology Data Radiology results: report reviewed (Imaging reveals no acute findings), image reviewed Disposition Clinical Impression: Symptomatic bradycardia, Dyspnea, Tired Disposition: ADMITTED IP TO THIS [facility] Condition: Stable Referrals: Junaid Helms III, MD [Primary Care Provider] - 1-2 days
--- NOTE | 2019-01-03 13:53 | XR ---
EXAMINATION TYPE: XR chest 2V DATE OF EXAM: 01/03/2019 COMPARISON: 12/28/2018 INDICATION: Dysrhythmia fatigue bradycardia TECHNIQUE: Frontal and lateral views of the chest are obtained. Patient is rotated towards the right . FINDINGS: The heart size is normal. The pulmonary vasculature is normal. The lungs are clear. IMPRESSION: 1. No acute pulmonary process.
[2019-01-03 14:26] LABS: Basophils # (A) 0.1 k/uL (0-0.2); Basophils % (A) 1 %; Eosinophils # (A) 0.2 k/uL (0-0.7); Eosinophils % (A) 2 %; HCT 46.7 % (39.0-53.0); Lymphocytes # (A) 0.8 k/uL (1.0-4.8); Lymphocytes % (A) 11 %; MCHC 32.1 g/dL (31.0-37.0); MCV 93.4 fL (80.0-100.0); Mean Platelet Volume 7.1; Monocytes # (A) 0.3 k/uL (0-1.0); Monocytes % (A) 4 %; Neutrophils % (A) 80 %; Platelet Count 225 k/uL (150-450); RDW 14.4 % (11.5-15.5); WBC 7.5 k/uL (3.8-10.6)
[2019-01-03 14:36] LABS: Partial Thromboplastin Time 22.6 sec (22.0-30.0); Prothrombin Time 10.9 sec (9.0-12.0)
[2019-01-03 14:39] LABS: Albumin 3.9 g/dL (3.5-5.0); Calcium 9.6 mg/dL (8.4-10.2); Total Protein 6.2 g/dL (6.3-8.2)
[2019-01-03 14:49] LABS: Potassium 4.8 mmol/L (3.5-5.1)
[2019-01-03 14:57] LABS: Creatine Kinase MB 2.7 ng/mL (0.0-2.4); Troponin I 0.012 ng/mL (0.000-0.034)
[2019-01-03] MEDS ORDERED: NALOXONE 0.4 MG/ML 1 ML VIAL IV PRN (16:23)
[2019-01-03 18:24] VITALS: BMI 28.1
[2019-01-03] MEDS: SODIUM CHLORIDE 0.9% 1,000 ML IV SCH (19:01)
[2019-01-03] MEDS: FAMOTIDINE 20 MG TAB PO SCH (19:52)
[2019-01-03] MEDS: SENNOSIDES 8.6 MG TAB PO SCH (19:52)
[2019-01-03] MEDS: ATORVASTATIN 40 MG TAB PO SCH (19:52)
[2019-01-03] MEDS: NYSTATIN 100,000 UNIT/GM POWD 15 GM TOPICAL SCH (19:52)
[2019-01-03] MEDS: IPRATROPIUM-ALBUTEROL 3 ML NEB INHALATION PRN (20:20)
[2019-01-03] MEDS ORDERED: FLECAINIDE 50 MG TAB PO SCH (21:00)
[2019-01-03] MEDS ORDERED: METOPROLOL TARTRATE 25 MG TAB PO SCH (21:00)
[2019-01-03] MEDS ORDERED: ACETAMINOPHEN TAB 500 MG TAB PO PRN (22:01)
[2019-01-03] MEDS ORDERED: ALPRAZolam 0.25 MG TAB PO PRN (22:01)
[2019-01-04 06:09] LABS: Basophils % (A) 1 %; Eosinophils # (A) 0.2 k/uL (0-0.7); Eosinophils % (A) 3 %; HCT 41.9 % (39.0-53.0); HGB 12.9 gm/dL (13.0-17.5); Lymphocytes # (A) 1.1 k/uL (1.0-4.8); Lymphocytes % (A) 17 %; MCH 28.5 pg (25.0-35.0); MCHC 30.8 g/dL (31.0-37.0); MCV 92.5 fL (80.0-100.0); Mean Platelet Volume 6.5; Monocytes # (A) 0.4 k/uL (0-1.0); Monocytes % (A) 6 %; Neutrophils # (A) 4.5 k/uL (1.3-7.7); Neutrophils % (A) 69 %; Platelet Count 269 k/uL (150-450); RBC 4.53 m/uL (4.30-5.90); RDW 14.5 % (11.5-15.5); WBC 6.5 k/uL (3.8-10.6)
[2019-01-04 06:14] LABS: Calcium 8.8 mg/dL (8.4-10.2); Potassium 4.2 mmol/L (3.5-5.1)
[2019-01-04] MEDS: PANTOPRAZOLE 40 MG TABLET PO SCH (06:23)
--- NOTE | 2019-01-04 07:06 | HP ---
HISTORY AND PHYSICAL DATE OF SERVICE: 01/03/2019 CHIEF COMPLAINTS: Presyncope and weakness. HISTORY OF PRESENT ILLNESS: This 83-year-old gentleman with a past medical history of multiple medical problems including history of COPD, history of DVT, GERD, hyperlipidemia, history of vascular disease, spinal cord injury, history of MRSA being followed by Dr. Helms in the outpatient setting, was recently admitted to [facility] with dizziness and lightheadedness. Patient had paroxysmal supraventricular tachycardia with AV pratibha reentrant tachycardia. The patient was started on beta blockers. The patient also had Holter monitoring. Apparently the patient is complaining of weakness and tiredness and patient was shopping in [place] and almost passed out, but was able to support himself with a shopping cart and the patient taken to [facility]. Heart rate was found to be 45 in the EKG. The patient admitted for further evaluation and treatment. Sinus rhythm was noted. There is no history of any fever or rigors. No history of headache, loss of consciousness, seizures. PAST MEDICAL HISTORY: History of COPD, DVT, GERD, hyperlipidemia, history of recent supraventricular tachycardia, spinal cord injury, history of aortic surgery. MEDICATIONS: Medication prior home medications include: 1. Senokot 8.6 q.h.s. 2. Ranitidine 150 mg p.o. b.i.d. 3. Mycostatin 1 application b.i.d. 4. Lopressor 25 mg b.i.d. 5. Florajen 460 mg p.o. daily. 6. DuoNeb q.i.d. and p.r.n. 7. Lasix 20 mg daily. 8. Tambocor 50 mg p.o. b.i.d. 9. Vitamin D3, 2000. 10.Lipitor 40 mg q.h.s. 11.Ecotrin 81 mg p.o. daily. 12.Ventolin HFA 1 to 2 puffs q.6 p.r.n. ALLERGIES: FLUTICASONE, HEPARIN, PENICILLIN, SALMETEROL, TETANUS and KEPPRA. FAMILY HISTORY: History of cancer, COPD, lung cancer. SOCIAL HISTORY: Previous history of smoking. No history of current smoking or alcohol intake. REVIEW OF SYSTEMS: ENT: Diminished hearing and diminished vision. CARDIOVASCULAR SYSTEM: As mentioned earlier. RESPIRATORY SYSTEM: As mentioned earlier. GI: No nausea. : No dysuria. NERVOUS SYSTEM: No numbness or weakness. ALLERGY/IMMUNOLOGY: No asthma. MUSCULOSKELETAL: As mentioned earlier. HEMATOLOGY/ONCOLOGY: No history of anemia. ENDOCRINE: No history of diabetes or hypothyroidism. CONSTITUTIONAL: As mentioned earlier. DERMATOLOGY: Negative. RHEUMATOLOGY: Negative. PSYCHIATRY: As mentioned earlier. PHYSICAL EXAMINATION: The patient is alert and oriented x3. Pulse 61 blood pressure 116/55, respiration 18, temperature 98 degrees pulse ox 100% on room air. HEENT: Conjunctivae normal. NECK: No jugular venous distention. CARDIOVASCULAR: S1, S2 muffled. No S3, no S4. RESPIRATORY: Breath sounds diminished at the bases. No rhonchi. No crackles. ABDOMEN: Soft, nontender. No mass palpable. LEGS: No edema, no swelling. NERVOUS SYSTEM: Higher function as mentioned. Moves all 4 limbs. No focal deficits. LYMPHATICS: No lymphadenopathy of the neck, axillae or groin. SKIN: No ulcer, rash or bleeding. LABS: EKG noted. Chest x-ray no acute abnormality. ASSESSMENT: 1. Symptomatic bradycardia with history of recent supraventricular tachycardia, possible sick sinus syndrome. 2. History of chronic obstructive pulmonary disease. 3. History of deep vein thrombosis. 4. Hyperlipidemia. 5. History of spinal cord injury. 6. History of peripheral vascular disease. 7. History of methicillin-resistant Staphylococcus aureus. 8. History of aortic surgery. 9. Remote history of nicotine dependence. RECOMMENDATIONS AND DISCUSSION: In this 83-year-old gentleman who presented with multiple complex medical issues, we will monitor the patient closely. Continue the current medication and symptomatic treatment. Telemetry, possible pacemaker. We will check the Holter monitoring per Cardiology. Otherwise hold beta blockers and further recommendation to follow. The patient is also on Tambocor at this time and beta blockers as well. The heart rate is maintained around 60 at this time. Hold the beta blockers when heart rate is less than 60. Otherwise resume the rest of the medications. DVT prophylaxis. Prognosis guarded because of multiple complex medical issues. Further recommendations to follow. A copy of dictation forwarded to Dr. Helms who is the primary physician. MMKRYSTIN / LISSN: [id number] /
[2019-01-04 07:57] VITALS: RESP 16
[2019-01-04] MEDS: IPRATROPIUM-ALBUTEROL 3 ML NEB INHALATION PRN ×3 (09:34→19:44)
[2019-01-04 10:58] LABS: Appearance,Urine Clear (Clear); Bilirubin,Urine Negative (Negative); Blood,Urine Negative (Negative); Color,Urine Light Yellow; Glucose,Urine (UA) Negative (Negative); Ketones,Urine Negative (Negative); Leukocyte Esterase,Urine Negative (Negative); Nitrite,Urine Negative (Negative); PH, Urine 6.5 (5.0-8.0); Protein,Urine Negative (Negative); Specific Gravity,Urine 1.008 (1.001-1.035); Urobilinogen,Urine <2.0 mg/dL (<2.0)
--- NOTE | 2019-01-04 10:59 | P.CRDCN ---
History of Present Illness Consult date: 01/04/19 Requesting physician: Jerry E Sheet Reason for Consult (text): Bradycardia Chief complaint: Weakness and lightheadedness History of present illness: This is a pleasant 83-year-old gentleman who follows regularly with Dr. Dick in the office. He has a history of severe peripheral vascular disease , status post triple a repair, prior film oral bypass, COPD, hypertension, hyperlipidemia, prior history of smoking. He was just recently in the hospital earlier this month with symptoms of lightheadedness and dizziness, he was found to be in a supraventricular tachycardia which was felt to be possible AVNRT. Patient was discharged from the hospital on beta aleksander and initiated on flecainide. He read presented to the hospital on this occasion with symptoms of dizziness and lightheadedness. According to the patient of feeling comes over him, where he just doesn't feel right, he becomes lightheaded and feels as though he may pass out. Patient gets the sensation several times, according to him at the same feeling he got prior to coming to the hospital this last time when he was admitted with AVNRT. On admission here, the patient's heart rate was noted to be in the 40s, so cardiology was actually consulted because of bradycardia. The patient does have a 24-hour Holter monitor in place. EKG on admission showed a sinus bradycardia with a heart rate in the 40s, no acute changes noted. Chest x-ray did not reveal any acute pulmonary process. Blood pressure 162/70 with a heart rate in the 60s this morning. White blood cell count 6.5, hemoglobin 12.9, platelet count 269. Sodium 141, potassium 4.2, BUN 18 and creatinine 1.0. Troponin 0.012. 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 History of Any Multi-Drug Resistant Organisms: None Reported, MRSA Date of last positivie culture/infection: 2013 MDRO Source:: blood Additional Past Surgical History / Comment(s): Aortic surgery with wrapping of aorta then aortobifem bypass/lysis of adhesions, R leg stent, angiograms, cervical stabilization, colonoscopy, bilateral cataract removal/lens implants Smoking Status: Former smoker - Past Family History Mother Family Medical History: Cancer, COPD Additional Family Medical History / Comment(s): lung cancer Father Family Medical History: Dementia Additional Family Medical History / Comment(s): heart disease Sister(s) Family Medical History: Cancer Additional Family Medical History / Comment(s): Breast Cancer Brother(s) Family Medical History: Diabetes Mellitus Additional Family Medical History / Comment(s): heart disease Medications and Allergies Home Medications Medication Instructions Recorded Confirmed Type Atorvastatin [Lipitor] 40 mg PO HS 12/10/15 01/03/19 History Cholecalciferol [Vitamin D3] 2,000 unit PO DAILY 12/10/15 01/03/19 History Ranitidine HCl 150 mg PO BID 12/10/15 01/03/19 History Sennosides [Senokot] 8.6 mg PO HS 12/10/15 01/03/19 History Albuterol Inhaler [Ventolin Hfa 1 - 2 puff INHALATION RT-Q6H PRN 06/08/18 History Inhaler] Lactobacillus Acidophilus 460 mg PO DAILY 06/15/18 01/03/19 History [Florajen] Aspirin EC [Ecotrin Low Dose] 81 mg PO DAILY 12/28/18 01/03/19 History Ipratropium-Albuterol Nebulize 3 ml INHALATION RT-QID PRN 12/28/18 01/03/19 History [Duoneb 0.5 mg-3 mg/3 ml Soln] Nystatin 100,000 Unit/gm Powd 1 applic TOPICAL BID 12/28/18 01/03/19 History [Mycostatin Powder] Furosemide [Lasix] 20 mg PO DAILY 12/29/18 01/03/19 History Flecainide [Tambocor] 50 mg PO Q12HR #60 tab 12/31/18 01/03/19 Rx Metoprolol Tartrate [Lopressor] 25 mg PO BID #60 tab 12/31/18 01/03/19 Rx Allergies Allergy/AdvReac Type Severity Reaction Status Date / Time fluticasone propionate Allergy Unknown Verified 01/03/19 11:46 [From Advair Diskus] heparin Allergy "made Verified 01/03/19 11:46 blood too thin" Penicillins Allergy Anaphylaxis Verified 01/03/19 11:46 salmeterol xinafoate Allergy Unknown Verified 01/03/19 11:46 [From Advair Diskus] Tetanus Vaccines and Toxoid Allergy Unknown Verified 01/03/19 11:46 [Tetanus Vaccines & Toxoid] Childhood levetiracetam [From Kera] AdvReac Hallucinati Verified 01/03/19 11:46 ons Physical Exam Vitals: Vital Signs Temp Pulse Pulse Resp BP BP BP 01/04/19 09:43 68 01/04/19 09:35 68 01/04/19 07:54 97 F L 59 L 16 01/04/19 03:13 97.9 F 61 18 113/57 01/03/19 23:20 57 L 18 111/55 01/03/19 20:30 64 01/03/19 20:22 64 01/03/19 20:00 98 F 61 18 116/55 01/03/19 18:05 66 18 129/55 115/58 01/03/19 17:51 97.5 F L 62 18 108/55 01/03/19 16:30 63 18 145/75 01/03/19 16:00 62 14 117/69 01/03/19 15:40 61 16 117/69 01/03/19 15:30 61 13 184/87 01/03/19 15:20 184/87 01/03/19 15:00 63 14 149/77 01/03/19 14:30 60 9 L 157/71 01/03/19 14:20 66 22 157/71 01/03/19 14:00 61 21 146/63 01/03/19 13:50 58 L 12 146/63 01/03/19 13:40 58 L 16 146/63 01/03/19 13:30 142/70 01/03/19 13:20 56 L 13 142/70 01/03/19 13:10 16 142/70 01/03/19 13:09 01/03/19 11:33 97.5 F L 45 L 18 150/87 BP Pulse Ox 01/04/19 09:43 01/04/19 09:35 01/04/19 07:54 162/72 99 01/04/19 03:13 97 01/03/19 23:20 98 01/03/19 20:30 01/03/19 20:22 01/03/19 20:00 100 01/03/19 18:05 96 01/03/19 17:51 100 01/03/19 16:30 97 01/03/19 16:00 96 01/03/19 15:40 99 01/03/19 15:30 98 01/03/19 15:20 01/03/19 15:00 99 01/03/19 14:30 01/03/19 14:20 01/03/19 14:00 99 01/03/19 13:50 100 01/03/19 13:40 100 01/03/19 13:30 01/03/19 13:20 98 01/03/19 13:10 100 01/03/19 13:09 99 01/03/19 11:33 100 Intake and Output 01/03/19 01/04/19 01/04/19 22:59 06:59 14:59 Intake Total 180 480 Balance 180 480 Intake: Oral 180 480 Other: # Voids 1 Weight 77.3 kg PHYSICAL EXAMINATION: GENERAL: 83-year-old gentleman in no acute distress at the time of my examination HEENT: Head is atraumatic, normocephalic. Pupils equal, round. Sclera anicteric. Conjunctiva are clear. Mucous membranes of the mouth are moist. Neck is supple. There is no elevated jugular venous pressure.] bruit is heard. HEART EXAMINATION: Heart S1 S2 1 systolic murmur is heard. CHEST EXAMINATION: Lungs are clear to auscultation and precussion. No chest wall tenderness is noted on palpation or with deep breathing. ABDOMEN: Soft, nontender. Bowel sounds are heard. No organomegaly noted. EXTREMITIES: 2+ peripheral pulses with no evidence of peripheral edema and no calf tenderness noted. NEUROLOGIC patient is awake, alert and oriented 3 . Results 01/04/19 05:49 01/04/19 05:49 Cardiac Enzymes 01/03/19 01/03/19 Range/Units 13:50 14:14 AST 28 (17-59) U/L CK-MB (CK-2) 2.7 H (0.0-2.4) ng/mL Troponin I 0.012 (0.000-0.034) ng/mL Coagulation 01/03/19 Range/Units 14:14 PT 10.9 (9.0-12.0) sec APTT 22.6 (22.0-30.0) sec CBC 01/03/19 01/04/19 Range/Units 14:14 05:49 WBC 7.5 6.5 (3.8-10.6) k/uL RBC 5.00 4.53 (4.30-5.90) m/uL Hgb 15.0 12.9 L (13.0-17.5) gm/dL Hct 46.7 41.9 (39.0-53.0) % Plt Count 225 269 (150-450) k/uL Comprehensive Metabolic Panel 01/03/19 01/04/19 Range/Units 14:14 05:49 Sodium 139 141 (137-145) mmol/L Potassium 4.8 4.2 (3.5-5.1) mmol/L Chloride 105 109 H (98-107) mmol/L Carbon Dioxide 25 28 (22-30) mmol/L BUN 18 18 (9-20) mg/dL Creatinine 1.09 1.03 (0.66-1.25) mg/dL Glucose 79 89 (74-99) mg/dL Calcium 9.6 8.8 (8.4-10.2) mg/dL AST 28 (17-59) U/L ALT 51 (21-72) U/L Alkaline Phosphatase 79 (38-126) U/L Total Protein 6.2 L (6.3-8.2) g/dL Albumin 3.9 (3.5-5.0) g/dL Current Medications Generic Name Dose Route Start Last Admin Trade Name Freq PRN Reason Stop Dose Admin Acetaminophen 500 mg 01/03/19 22:01 Tylenol Tab PO Q6HR PRN Fever and/ or Pain Albuterol Sulfate 2.5 mg 01/03/19 22:01 Ventolin Nebulized INHALATION RT-Q6H PRN Shortness Of Breath Albuterol/Ipratropium 3 ml 01/03/19 16:25 01/04/19 09:34 Duoneb 0.5 Mg-3 Mg/3 Ml Soln INHALATION 3 ml RT-QID PRN Administration Shortness Of Breath Alprazolam 0.25 mg 01/03/19 22:01 Xanax PO TID PRN Anxiety Aspirin 81 mg 01/04/19 09:00 Aspirin PO DAILY ALMA Atorvastatin Calcium 40 mg 01/03/19 21:00 01/03/19 19:52 Lipitor PO 40 mg HS ALMA Administration Cholecalciferol 2,000 unit 01/04/19 12:00 Vitamin D3 PO 1200 ALMA Famotidine 20 mg 01/03/19 21:00 01/03/19 19:52 Pepcid PO 20 mg BID ALMA Administration Furosemide 20 mg 01/04/19 09:00 Lasix PO DAILY ALMA Sodium Chloride 1,000 mls @ 20 mls/hr 01/03/19 16:30 01/03/19 19:01 Saline 0.9% IV 20 mls/hr .Q24H ALMA Administration Lactobacillus Acidoph/Bulgaricus 1 each 01/04/19 09:00 Lactinex PO DAILY ALMA Naloxone HCl 0.2 mg 01/03/19 16:23 Narcan IV Q2M PRN Opioid Reversal Nystatin 1 applic 01/03/19 21:00 01/03/19 19:52 Mycostatin Powder TOPICAL 1 applic BID ALMA Administration Pantoprazole Sodium 40 mg 01/04/19 07:30 01/04/19 06:23 Protonix PO 40 mg [id number] ALMA Administration Senna 8.6 mg 01/03/19 21:00 01/03/19 19:52 Senokot PO 8.6 mg HS ALMA Administration Intake and Output 01/03/19 01/04/19 01/04/19 22:59 06:59 14:59 Intake Total 180 480 Balance 180 480 Intake: Oral 180 480 Other: # Voids 1 Weight 77.3 kg 01/04/19 05:49 01/04/19 05:49 EKG Interpretations (text) EKG shows a sinus bradycardia with no acute changes. Assessment and Plan Plan: Assessment and plan #1 Symptoms of lightheadedness and near syncopal feeling. 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 EKG on admission here showed a sinus bradycardia with a heart rate in the 40s. #2 severe peripheral vascular disease #3 prior history of smoking #4 hyperlipidemia #5 COPD Plan Patient had an echocardiogram with Doppler study performed on the of this month, revealed an ejection fraction of 60-65%. We will not repeat an echo. We will hold the beta aleksander, review the tracings on the 24-hour DCG. Continue with flecainide at this time. If the patient has noted episodes of AVNRT, he may require an ablation. This was explained to the patient and his in detail. DNP note has been reviewed, I agree with a documented findings and plan of care. Patient was seen and examined.
[2019-01-04] MEDS: FLECAINIDE 50 MG TAB PO SCH ×2 (11:23→20:02)
[2019-01-04] MEDS: NYSTATIN 100,000 UNIT/GM POWD 15 GM TOPICAL SCH ×2 (11:24→20:02)
[2019-01-04] MEDS: ASPIRIN 81 MG PO SCH (14:44)
[2019-01-04] MEDS: FUROSEMIDE 20 MG TAB PO SCH (14:44)
[2019-01-04] MEDS: LACTOBACILLUS ACIDOPH & BULGAR 1 EACH PACKET PO SCH (14:44)
[2019-01-04] MEDS: FAMOTIDINE 20 MG TAB PO SCH (14:44)
[2019-01-04] MEDS: CHOLECALCIFEROL 1,000 UNIT TAB PO SCH (14:45)
[2019-01-04] MEDS: ATORVASTATIN 40 MG TAB PO SCH (20:02)
[2019-01-04] MEDS: SENNOSIDES 8.6 MG TAB PO SCH (20:02)
[2019-01-04] MEDS: SODIUM CHLORIDE 0.9% 1,000 ML IV SCH (20:03)
--- NOTE | 2019-01-04 20:57 | PN ---
PROGRESS NOTE DATE OF SERVICE: 01/04/2018 This 83-year-old gentleman who was admitted with presyncope, also had previous cardiac arrhythmias also. The patient has bradycardia, weakness, lightheadedness. The patient recently admitted to the hospital with proximal AVNRT and was admitted on flecainide and beta blockers. Beta-blockers have been held at this time. No chest pain. No palpitations. No fever. EXAM: Alert and oriented x3. Pulse 64, blood pressure 107/50, respirations 16, temperature 98.1, pulse ox 98% on room air. HEENT: Conjunctivae normal. NECK: No jugular venous distention. CARDIOVASCULAR: S1, S2 muffled. RESPIRATORY: Breath sounds diminished in the bases. No rhonchi, no crackles. ABDOMEN: Soft, nontender. LEGS: No edema, no swelling. NERVOUS SYSTEM: No focal deficits. LAB STUDIES: WBC 6.2, hemoglobin 12.9. ASSESSMENT: 1. Presyncope, weakness, possible symptomatic bradycardia. 2. History of supraventricular, proximal AV pratibha reentrant tachycardia. 3. Possible sick sinus syndrome. 4. History of chronic obstructive pulmonary disease. 5. History of deep vein thrombosis. 6. Hyperlipidemia. 7. History of spinal cord injury. 8. History of peripheral vascular disease. 9. History of MRSA. 10.History of surgery. 11.Remote history of nicotine dependence. RECOMMENDATIONS AND DISCUSSION: I recommend to continue current management, monitoring and symptomatic treatment. Repeat labs. Otherwise, closely follow. Patient had a Holter monitoring done at home. Results are not available. Cardiology following the patient closely. Further recommendations to follow. MMODL / IJN: [id number] / MTDD
[2019-01-05 07:58] LABS: Basophils # (A) 0.1 k/uL (0-0.2); Basophils % (A) 1 %; Eosinophils # (A) 0.2 k/uL (0-0.7); Eosinophils % (A) 3 %; HCT 45.1 % (39.0-53.0); HGB 13.8 gm/dL (13.0-17.5); Hypochromasia Slight; Lymphocytes % (A) 16 %; MCH 29.1 pg (25.0-35.0); MCHC 30.6 g/dL (31.0-37.0); MCV 95.1 fL (80.0-100.0); Mean Platelet Volume 7.2; Monocytes # (A) 0.4 k/uL (0-1.0); Monocytes % (A) 6 %; Neutrophils # (A) 4.4 k/uL (1.3-7.7); Neutrophils % (A) 72 %; Platelet Count 242 k/uL (150-450); RBC 4.75 m/uL (4.30-5.90); RDW 14.5 % (11.5-15.5); WBC 6.2 k/uL (3.8-10.6)
[2019-01-05 08:11] LABS: Calcium 9.4 mg/dL (8.4-10.2); Potassium 4.3 mmol/L (3.5-5.1)
[2019-01-05] MEDS: PANTOPRAZOLE 40 MG TABLET PO SCH (08:24)
[2019-01-05] MEDS: FLECAINIDE 50 MG TAB PO SCH (08:24)
[2019-01-05] MEDS: ASPIRIN 81 MG PO SCH (08:24)
[2019-01-05] MEDS: LACTOBACILLUS ACIDOPH & BULGAR 1 EACH PACKET PO SCH (08:24)
[2019-01-05] MEDS: FUROSEMIDE 20 MG TAB PO SCH (08:25)
[2019-01-05] MEDS: ALBUTEROL NEBULIZED 2.5 MG/3 ML INHALATION PRN ×2 (08:58→13:39)
[2019-01-05] MEDS ORDERED: SYMBICORT 160-4.5 MCG INHALER INHALATION SCH (09:00)
[2019-01-05] MEDS ORDERED: FAMOTIDINE 20 MG TAB PO SCH (09:00)
[2019-01-05] MEDS: NYSTATIN 100,000 UNIT/GM POWD 15 GM TOPICAL SCH (10:07)
[2019-01-05 11:06] VITALS: BP 130/60; TEMP 98.2
[2019-01-05] MEDS: CHOLECALCIFEROL 1,000 UNIT TAB PO SCH (12:17)
--- NOTE | 2019-01-05 13:39 | P.PN ---
Subjective Progress Note Date: 01/05/19 This is a pleasant 83-year-old gentleman who follows regularly with Dr. Dick in the office. He has a history of severe peripheral vascular disease , status post triple a repair, prior film oral bypass, COPD, hypertension, hyperlipidemia, prior history of smoking. He was just recently in the hospital earlier this month with symptoms of lightheadedness and dizziness, he was found to be in a supraventricular tachycardia which was felt to be possible AVNRT. Patient was discharged from the hospital on beta aleksander and initiated on flecainide. He read presented to the hospital on this occasion with symptoms of dizziness and lightheadedness. According to the patient of feeling comes over him, where he just doesn't feel right, he becomes lightheaded and feels as though he may pass out. Patient gets the sensation several times, according to him at the same feeling he got prior to coming to the hospital this last time when he was admitted with AVNRT. On admission here, the patient's heart rate was noted to be in the 40s, so cardiology was actually consulted because of bradycardia. The patient does have a 24-hour Holter monitor in place. EKG on admission showed a sinus bradycardia with a heart rate in the 40s, no acute changes noted. Chest x-ray did not reveal any acute pulmonary process. Blood pressure 162/70 with a heart rate in the 60s this morning. White blood cell count 6.5, hemoglobin 12.9, platelet count 269. Sodium 141, potassium 4.2, BUN 18 and creatinine 1.0. Troponin 0.012. 01/05/2019 Patient seen and examined this morning, no arrhythmias noted on the monitor. Heart rate in the 70s. Blood pressure 130/60 with a 97% saturation on room air. Patient feels well, he has had no further spells of near syncope. His 24- hour Holter was reviewed, which did not reveal any further episodes of AVNRT. Cardiology's recommendation is that the patient be discharged home today, we will make him a follow-up appointment to see Dr. Ayala in the office regarding his AVNRT and then to continue with following with Dr. Marx. Objective - Vital Signs Vital signs: Vital Signs Temp 98.2 F 01/05/19 11:04 Pulse 70 01/05/19 11:04 Resp 16 01/05/19 11:04 BP 130/60 01/05/19 11:04 Pulse Ox 97 01/05/19 11:04 Intake & Output 01/04/19 01/05/19 01/05/19 18:59 06:59 18:59 Intake Total 880 360 Balance 880 360 Weight 77.2 kg Intake: Intake, IV Titration 160 Amount Sodium Chloride 0.9% 1, 160 000 ml @ 20 mls/hr IV . Q24H ALMA Rx#:[id number] Oral 720 360 Other: # Voids 1 2 2 - Exam PHYSICAL EXAMINATION: GENERAL: 83-year-old gentleman in no acute distress at the time of my examination HEENT: Head is atraumatic, normocephalic. Pupils equal, round. Sclera anicteric. Conjunctiva are clear. Mucous membranes of the mouth are moist. Neck is supple. There is no elevated jugular venous pressure.] bruit is heard. HEART EXAMINATION: Heart S1 S2 1 systolic murmur is heard. CHEST EXAMINATION: Lungs are clear to auscultation and precussion. No chest wall tenderness is noted on palpation or with deep breathing. ABDOMEN: Soft, nontender. Bowel sounds are heard. No organomegaly noted. EXTREMITIES: 2+ peripheral pulses with no evidence of peripheral edema and no calf tenderness noted. NEUROLOGIC patient is awake, alert and oriented 3 . - Labs CBC & Chem 7: 01/05/19 07:22 01/05/19 07:22 Labs: Abnormal Lab Results - Last 24 Hours (Table) 01/05/19 01/05/19 Range/Units 07:22 07:22 MCHC 30.6 L (31.0-37.0) g/dL Chloride 109 H (98-107) mmol/L Assessment and Plan Plan: Assessment and plan #1 Symptoms of lightheadedness and near syncopal feeling. 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 EKG on admission here showed a sinus bradycardia with a heart rate in the 40s. #2 severe peripheral vascular disease #3 prior history of smoking #4 hyperlipidemia #5 COPD Plan Patient had an echocardiogram with Doppler study performed on the of this month, revealed an ejection fraction of 60-65%. We will not repeat an echo. From cardiology's perspective, patient may be able to be discharged home today. We would recommend he have an office visit with Dr. Ayala regarding his AVNRT for possible EPS and ablation. Follow-up with Dr. Dick who is his primary spare person. Continue to hold the beta aleksander, continue to give the patient flecainide. DNP note has been reviewed, I agree with a documented findings and plan of care. Patient was seen and examined.
[2019-01-05 13:42] VITALS: PULSE 80
--- NOTE | 2019-01-06 07:02 | DS ---
DISCHARGE SUMMARY FINAL DIAGNOSES: 1. Presyncope, weakness, possible symptomatic bradycardia. 2. 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 3. Possible sick sinus syndrome. 4. History of chronic obstructive pulmonary disease. 5. Deep vein thrombosis. 6. Hyperlipidemia. 7. History of spinal cord injury. 8. History of peripheral vascular disease. 9. History of MRSA. 10.Remote history of nicotine dependence. The patient is being discharged in stable condition with guarded prognosis. HISTORY OF PRESENT ILLNESS: This 83-year-old gentleman with a past medical history of multiple medical problems was admitted with presyncope. Patient also had previous cardiac arrhythmia. The previous admission was for AV pratibha reentrant tachycardia. The patient was treated symptomatically. Bradycardia was noted and Cardiology recommended outpatient followup evaluation and EP evaluation outpatient. Cardiology recommended to stop the metoprolol, but however continue with flecainide. The patient is followed by Dr. Helms in the outpatient setting. On exam, vital signs stable. Cardiovascular: S1, S2. Abdomen soft. Central nervous system: No focal deficits. DISCHARGE ADVICE AND MEDICATIONS: 1. Discharge diet is cardiac diet. 2. Activity limited until followup. MEDICATIONS ARE: 1. Albuterol p.r.n. 2. Ecotrin 81 mg daily. 3. Lipitor 40 mg q.h.s. 4. Vitamin D3 2000 daily. 5. Lasix 20 mg daily. 6. DuoNeb q.i.d. p.r.n. 7. Florajen 460 mg p.o. daily. 8. Mycostatin 1 application b.i.d. 9. Ranitidine 150 mg b.i.d. 10.Senokot 8.6 q.h.s. 11.Tambocor 50 mg p.o. b.i.d. Follow up with Dr. Helms in 2-3 days, follow up with Dr. Marx and Dr. Ramirez as recommended. The patient will be discharged in stable condition with guarded prognosis. MMODL / IJN: [id number] /
== END 2019-01-05 15:56 | disposition home or self-care (01) | DRG 309 ==
LOC: EC 11:21 → 3SCARD 16:23
PROVIDERS: ADMIT Hospitalist; ATTEND Hospitalist
DX: R00.1 Bradycardia, unspecified (principal); G81.91 Hemiplegia, unspecified affecting right dominant side; J44.9 Chronic obstructive pulmonary disease, unspecified; M21.371 Foot drop, right foot; N18.3 Chronic kidney disease, stage 3 (moderate); I12.9 Hypertensive chronic kidney disease with stage 1 through stage 4 chronic kidney disease, or unspecified chronic kidney disease; K21.9 Gastro-esophageal reflux disease without esophagitis; T14.90XS Injury, unspecified, sequela; E78.5 Hyperlipidemia, unspecified; Z99.81 Dependence on supplemental oxygen; Z86.14 Personal history of Methicillin resistant Staphylococcus aureus infection; Z87.891 Personal history of nicotine dependence; Z86.718 Personal history of other venous thrombosis and embolism; Z79.82 Long term (current) use of aspirin; Z79.899 Other long term (current) drug therapy; Z86.79 Personal history of other diseases of the circulatory system; Z95.828 Presence of other vascular implants and grafts; Z98.42 Cataract extraction status, left eye; Z98.41 Cataract extraction status, right eye; Z96.1 Presence of intraocular lens; Z88.0 Allergy status to penicillin; Z88.7 Allergy status to serum and vaccine; Z88.8 Allergy status to other drugs, medicaments and biological substances; Z80.1 Family history of malignant neoplasm of trachea, bronchus and lung; Z80.3 Family history of malignant neoplasm of breast; Z82.49 Family history of ischemic heart disease and other diseases of the circulatory system; Z82.5 Family history of asthma and other chronic lower respiratory diseases; Z83.3 Family history of diabetes mellitus; Z81.8 Family history of other mental and behavioral disorders
CPT/HCPCS: 36415; 71046; 80048; 80053; 81003; 82550; 82553; 83735; 84484; 85025; 85379; 85610; 85730; 93005; 94640; 94760; 96360; 96361; 99285

== ENCOUNTER 2019-01-16 10:46 | Day surgery (SDC) | payer MEDICARE ==
[~2019-01-16 10:46] MED LIST: CLINDAMYCIN 900 MG in DEXTROSE 5% IN WATER 50 ML IVPB ONE; SODIUM CHLORIDE 0.9% 1,000 ML IV SCH
[2019-01-16 12:19] VITALS: BP 125/78; PULSE 75; RESP 14; TEMP 97.6
[2019-01-16] MEDS ORDERED: IV FLUID CONTINUATION 450 ML IV ONE (12:21)
[2019-01-16] MEDS ORDERED: LIDOCAINE 1% INJ 10MG/ML (20 ML MDV) ONE (12:25)
--- NOTE | 2019-01-16 12:52 | P.PCN ---
Preoperative Diagnosis: Loop monitor implant Primary physicians: Nikkie Colon M.D. Patient Case Coordinator: Dr. Dick Indication: Recurrent syncope, sick sinus syndrome, SVT, on medical treatment Patient was brought to the EP lab in a fasting state. Written informed consent was obtained prior to the procedure. The left pectoral area was prepped and draped per protocol. Intravenous antibiotic was administered preoperatively. A subcutaneous Loop monitor was implanted successfully and the wound was closed per protocol. The device was programmed to detect significant jamaal- arrhythmic and tachy-arrhythmic events, per protocol. Device and programming details: Syncope protocol Patient has a tendency for bradycardia. He was on metoprolol at that time. He has documented SVT which was thought to be AV pratibha reentry He's had recurrent syncopal spells He is currently on flecainide 50 mg twice daily He has severe peripheral vascular disease and has had fem-pop bypass surgery bilaterally with significant scarring bilaterally in both groins, right greater than left The plan is to watch for 1. Sudden / significant bradycardia 2. Breakthrough SVT Venous Dopplers were performed in the EP lab to check both his groins and both his femoral veins are well visualized and therefore should be accessible. In the future if an EP study is planned, venous access will be obtained in the left axillary and possibly in the right internal jugular as well as single sheaths in both groins. If we find any significant bradycardia that is symptomatic then permanent pacemaker implantation will be advised Condition: stable
[2019-01-16] MEDS ORDERED: IV FLUID CONTINUATION 1,000 ML IV ONE (12:57)
--- NOTE | 2019-01-16 12:58 | P.PRLE ---
RE: Chapincito Stafford Dear Nikkie I saw Chapincito in left of his ALLERGY follow-up. Chapincito has had recurrent episodes of syncope and we have 1 documentation of an SVT when he was recently admitted to the hospital. However he also has a tendency for sick sinus syndrome and therefore metoprolol was discontinued. Currently is on low-dose flecainide that was prescribed upon discharge I did recommend a diagnostic EP study and likely SVT ablation but the patient was concerned about access from both groins, since he is has significant scarring on both groins secondary to peripheral arterial bypass surgery. He requested that an attempt be made to try medical treatment first. Hence I recommended that I would pursue an observation strategy only if he had a loop monitor implanted. I would like to see if his syncope is due to Sick Sinus Syndrome or due to SVT or perhaps even both. Today he underwent implantation of a loop monitor but I also took the liberty of performing a venous Doppler off his groins groins Although he has significant scarring , the femoral veins are well visualized and access can be obtained from his groins, in the future, for an SVT ablation If he has any breakthrough episodes or has an episode of near syncope I will proceed with the appropriate procedure without hesitation. I conveyed this to the patient too. Thank you for entrusting me with the care of the patient Warm regards Sincerely Len Ayala
== END 2019-01-16 13:31 | disposition home or self-care (01) ==
LOC: CATHEP 10:46
PROVIDERS: ATTEND Internal Medicine Clinical Cardiac Electrophysiology
DX: I47.1 Supraventricular tachycardia (principal); I49.5 Sick sinus syndrome; I73.9 Peripheral vascular disease, unspecified; I10 Essential (primary) hypertension; E78.5 Hyperlipidemia, unspecified; Z79.899 Other long term (current) drug therapy; Z82.49 Family history of ischemic heart disease and other diseases of the circulatory system; Z72.0 Tobacco use; Z79.82 Long term (current) use of aspirin; Z88.8 Allergy status to other drugs, medicaments and biological substances; Z86.718 Personal history of other venous thrombosis and embolism; Z88.0 Allergy status to penicillin; Z88.7 Allergy status to serum and vaccine
CPT/HCPCS: 33285; C1764; J2001

== ENCOUNTER → 2020-12-15 | Outpatient (CLI) | payer MEDICARE | END | disposition home or self-care (01) | LOC: LABWHC1 09:49 | PROVIDERS: ATTEND Urology | DX: R97.20 Elevated prostate specific antigen [PSA] (principal) | CPT/HCPCS: 36415; 84153 ==

== ENCOUNTER → 2020-12-16 | Outpatient (CLI) | payer MEDICARE | END | disposition home or self-care (01) | LOC: CPPFTMAIN 15:48 | PROVIDERS: ATTEND Internal Medicine Critical Care Medicine | DX: J45.909 Unspecified asthma, uncomplicated (principal) | CPT/HCPCS: 94060; 94726; 94729 ==

== ENCOUNTER 2020-12-24 11:58 | Day surgery (SDC) | payer MEDICARE ==
[2020-12-23 08:29] VITALS: BMI 29.1
[~2020-12-24 11:58] MED LIST changes: +ALBUTEROL NEB (CONC) 2.5 MG/0.5 ML INHALATION ONE; +ATROPINE SULFATE 0.4 MG/ML 1 ML VIAL IM ONE; -CLINDAMYCIN 900 MG in DEXTROSE 5% IN WATER 50 ML IVPB ONE; +LACTATED RINGERS 1,000 ML IV SCH; +LIDOCAINE 2% (PF) 20 MG/ML 5 ML VIAL INHALATION ONE; +LIDOCAINE VISCOUS 300 MG/15 ML CUP MUCOUS MEM ONE
[2020-12-24 12:45] VITALS: TEMP 96.8
[2020-12-24] MEDS ORDERED: PROPOFOL 10 MG/ML 20 ML VIAL IV ONE (12:55)
[2020-12-24] MEDS ORDERED: LIDOCAINE 2% INJ 20 MG/ML INTRATRACH ONE (13:03)
[2020-12-24 14:10] VITALS: BP 144/73; PULSE 80; RESP 20
--- NOTE | 2020-12-24 18:23 | PCN ---
PROCEDURE NOTE PROCEDURE: Bronchoscopy, airway examination, therapeutic lavage, BAL, right middle lobe. PREOPERATIVE DIAGNOSIS: Chronic obstructive pulmonary disease and retained secretions. POSTOPERATIVE DIAGNOSIS: Chronic obstructive pulmonary disease and retained secretions. There was informed consent and universal timeout. The patient's procedure took place in room #1. ANESTHESIA PROVIDED: General anesthesia. PROCEDURE DESCRIPTION: After the patient was adequately sedated and being fully monitored, the bronchoscope was inserted through the right nostril. It passed through the right nasopharynx into the oropharynx. The hypopharynx was identified and topicalized. The glottic structures appeared normal, including the anterior commissure, true cords, false cords, arytenoids, piriform sinuses, right and left valleculae and epiglottis. After topicalization, the bronchoscope was pushed through the glottic opening into the trachea. 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 Tracheal ralph was sharp. The right mainstem and left mainstem were topicalized. The right upper lobe and its 3 segments, right middle lobe and its 2 segments, right lower lobe and its 5 segments, the left upper lobe proper and its 2 segments, the lingula and its 2 segments, and the left lower lobe and its 4 segments all had similar findings of moderate bronchitis. There was moderate hyperemia and erythema of the airways. There was some mucosal vascular engorgement. There was no dominant mass or tumor. There was a fair amount of secretions noted throughout. They were purulent. They were suctioned with the aid of saline lavage. Next the bronchoscope was wedged into the right middle lobe. We did a formal BAL. Thirty mL was recovered. The patient tolerated the procedure well. There was no immediate complication. The fluid was sent to the laboratory for analysis. MMODL / IJN: [id number] /
[2020-12-24 19:52] LABS: Appearance,BF Hazy; Color,BF Colorless; Nucleated Cells, Body Fluid 6 /uL; RBC, Body Fluid 983 /uL
== END 2020-12-24 14:18 | disposition home or self-care (01) ==
LOC: ORWHC2ENDO 11:58
PROVIDERS: ATTEND Internal Medicine Critical Care Medicine
DX: J44.9 Chronic obstructive pulmonary disease, unspecified (principal); I27.81 Cor pulmonale (chronic); I73.9 Peripheral vascular disease, unspecified; I25.10 Atherosclerotic heart disease of native coronary artery without angina pectoris; N18.30 Chronic kidney disease, stage 3 unspecified; E78.5 Hyperlipidemia, unspecified; E55.9 Vitamin D deficiency, unspecified; G43.909 Migraine, unspecified, not intractable, without status migrainosus; I48.91 Unspecified atrial fibrillation; K21.9 Gastro-esophageal reflux disease without esophagitis; Z99.81 Dependence on supplemental oxygen; Z87.891 Personal history of nicotine dependence; Z98.1 Arthrodesis status; Z79.01 Long term (current) use of anticoagulants; Z79.51 Long term (current) use of inhaled steroids; Z79.899 Other long term (current) drug therapy; Z88.0 Allergy status to penicillin; Z88.7 Allergy status to serum and vaccine; Z88.8 Allergy status to other drugs, medicaments and biological substances; Z80.1 Family history of malignant neoplasm of trachea, bronchus and lung; Z81.8 Family history of other mental and behavioral disorders; Z82.49 Family history of ischemic heart disease and other diseases of the circulatory system; Z90.89 Acquired absence of other organs; Z98.890 Other specified postprocedural states
CPT/HCPCS: 88108; 88305; 89050; 87252; 87070; 87205; 87116; 87102; 87206; 31624; J2001; J0461; J2704

== ENCOUNTER 2021-01-15 08:40 | Emergency (ER) | payer MEDICARE ==
[2021-01-15 08:51] VITALS: TEMP 97.8
[2021-01-15] MEDS ORDERED: methylPREDNISolone SOD SUCCI 125 MG/2 ML VIAL IV STA (09:03)
[2021-01-15] MEDS ORDERED: SODIUM CHLORIDE 0.9% 1,000 ML IV STA (09:03)
[2021-01-15] MEDS ORDERED: IPRATROPIUM-ALBUTEROL 3 ML NEB INHALATION STA ×2 (09:03→10:53)
--- NOTE | 2021-01-15 09:10 | ED ---
SOB HPI - General Chief Complaint: Shortness of Breath Stated Complaint: SOB Time Seen by Provider: 01/15/21 08:48 Source: patient, RN notes reviewed, old records reviewed Mode of arrival: ambulatory Limitations: no limitations - History of Present Illness Initial Comments: This is a 85-year-old male with a history of COPD and bronchitis who presents to day with complaints of worsening shortness of breath. He states he does have a cough with yellow type phlegm sometimes in chunks. No fevers chills or sweats no overt chest pain he does have exertional dyspnea. He states he's only beginning about an hour sleep at night she is asleep in a chair. He has orthopnea. No other complaints or modifying factors at this time. He did take a breathing treatment just prior to coming in this morning without much relief MD Complaint: shortness of breath, cough - Related Data Home Medications Medication Instructions Recorded Confirmed Atorvastatin [Lipitor] 40 mg PO HS 12/10/15 01/15/21 Cholecalciferol [Vitamin D3 (25 50 mcg PO DAILY 12/10/15 01/15/21 Mcg = 1000 Iu)] Sennosides [Senokot] 8.6 mg PO HS 12/10/15 01/15/21 Lactobacillus Acidophilus 460 mg PO DAILY 06/15/18 01/15/21 [Florajen] Albuterol Nebulized [Ventolin 2.5 mg INHALATION RT-QID 12/23/20 01/15/21 Nebulized] Apixaban [Eliquis] 2.5 mg PO BID 12/23/20 01/15/21 Famotidine [Pepcid] 40 mg PO HS 12/23/20 01/15/21 Furosemide [Lasix] 40 mg PO DAILY 12/23/20 01/15/21 Albuterol Inhaler [Ventolin Hfa 2 puff INHALATION RT-QID PRN 01/15/21 01/15/21 Inhaler] Budesonide/Formoterol Fumarate 2 puff INHALATION RT-BID 01/15/21 01/15/21 [Symbicort 160-4.5 Mcg Inhaler] Flecainide [Tambocor] 50 mg PO Q12H 01/15/21 01/15/21 Ketoconazole [Ketoconazole 2% 1 applic TOPICAL DAILY 01/15/21 01/15/21 Shampoo] Potassium Chloride ER [K-Dur 10] 10 meq PO DAILY 01/15/21 01/15/21 Previous Rx's Medication Instructions Recorded predniSONE [Deltasone] 20 mg PO BID #10 tab 01/15/21 Allergies Allergy/AdvReac Type Severity Reaction Status Date / Time fluticasone propionate Allergy Unknown Verified 01/15/21 11:00 [From Advair Diskus] heparin Allergy "made Verified 01/15/21 11:00 blood too thin" Penicillins Allergy Anaphylaxis Verified 01/15/21 11:00 salmeterol xinafoate Allergy Unknown Verified 01/15/21 11:00 [From Advair Diskus] Tetanus Vaccines and Toxoid Allergy Unknown Verified 01/15/21 11:00 [Tetanus Vaccines & Toxoid] Childhood levetiracetam [From Keppra] AdvReac Hallucinati Verified 01/15/21 11:00 ons Review of Systems ROS Statement: Those systems with pertinent positive or pertinent negative responses have been documented in the HPI. ROS Other: All systems not noted in ROS Statement are negative. 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 loop monitor-2019 Past Anesthesia/Blood Transfusion Reactions: No Reported Reaction Type of Cardiac Device: Loop Past Psychological History: Depression Smoking Status: Former smoker Past Alcohol Use History: None Reported Past Drug Use History: None Reported - Past Family History Mother Family Medical History: Cancer Additional Family Medical History / Comment(s): lung cancer Father Family Medical History: Dementia Additional Family Medical History / Comment(s): heart disease Sister(s) Family Medical History: Cancer Additional Family Medical History / Comment(s): Breast Cancer Brother(s) Family Medical History: Diabetes Mellitus Additional Family Medical History / Comment(s): heart disease General Exam - General Exam Comments Initial Comments: This is a well-developed well-nourished awake alert oriented times 3 male Limitations: no limitations General appearance: alert, anxious Head exam: Present: atraumatic, normocephalic, normal inspection Eye exam: Present: normal appearance, PERRL, EOMI. Absent: scleral icterus, conjunctival injection, periorbital swelling ENT exam: Present: mucous membranes dry Neck exam: Present: normal inspection, full ROM, other (No stridor JVD or bruits). Absent: tenderness, meningismus, lymphadenopathy Respiratory exam: Present: wheezes, accessory muscle use, decreased breath sounds. Absent: respiratory distress, rales, rhonchi, stridor Cardiovascular Exam: Present: regular rate, normal rhythm, normal heart sounds. Absent: systolic murmur, diastolic murmur, rubs, gallop, clicks GI/Abdominal exam: Present: soft, normal bowel sounds. Absent: distended, tenderness, guarding, rebound, rigid Extremities exam: Present: full ROM, normal capillary refill, other (Brace on the patient's right foot). Absent: tenderness, pedal edema, joint swelling, calf tenderness Back exam: Present: normal inspection Neurological exam: Present: alert, oriented X3, CN II-XII intact Psychiatric exam: Present: normal affect, normal mood Skin exam: Present: warm, dry, intact, normal color. Absent: rash Course Vital Signs 01/15/21 01/15/21 01/15/21 08:47 10:00 10:09 Temperature 97.8 F Pulse Rate 85 76 79 Respiratory 16 18 18 Rate Blood Pressure 121/58 O2 Sat by Pulse 97 Oximetry 01/15/21 01/15/21 01/15/21 11:44 11:54 12:00 Temperature Pulse Rate 79 82 Respiratory 18 18 Rate Blood Pressure O2 Sat by Pulse 92 L Oximetry Medical Decision Making - Medical Decision Making Patient is feeling much improved he did require second treatment is able ambulate without difficulty or desaturation he'll be discharged he will be placed on oral steroids she is follow-up with his doctor and return when necessary - Lab Data Result diagrams: 01/15/21 09:25 01/15/21 09:25 Lab Results 01/15/21 01/15/21 01/15/21 Range/Units 09:25 09:25 09:25 WBC 9.9 (3.8-10.6) k/uL RBC 5.13 (4.30-5.90) m/uL Hgb 14.9 (13.0-17.5) gm/dL Hct 45.6 (39.0-53.0) % MCV 88.9 (80.0-100.0) fL MCH 29.0 (25.0-35.0) pg MCHC 32.6 (31.0-37.0) g/dL RDW 13.1 (11.5-15.5) % Plt Count 205 (150-450) k/uL MPV 8.0 Neutrophils % 66 % Lymphocytes % 12 % Monocytes % 5 % Eosinophils % 14 % Basophils % 1 % Neutrophils # 6.5 (1.3-7.7) k/uL Lymphocytes # 1.2 (1.0-4.8) k/uL Monocytes # 0.5 (0-1.0) k/uL Eosinophils # 1.4 H (0-0.7) k/uL Basophils # 0.1 (0-0.2) k/uL PT 11.6 (9.0-12.0) sec INR 1.1 (<1.2) APTT 22.3 (22.0-30.0) sec D-Dimer 0.47 (<0.60) mg/L FEU Sodium 140 (137-145) mmol/L Potassium 4.5 (3.5-5.1) mmol/L Chloride 103 (98-107) mmol/L Carbon Dioxide 27 (22-30) mmol/L Anion Gap 10 mmol/L BUN 19 (9-20) mg/dL Creatinine 1.23 (0.66-1.25) mg/dL Est GFR (CKD-EPI)AfAm 62 (>60 ml/min/1.73 sqM) Est GFR (CKD-EPI)NonAf 54 (>60 ml/min/1.73 sqM) Glucose 83 (74-99) mg/dL Plasma Lactic Acid Favio (0.7-2.0) mmol/L Calcium 9.6 (8.4-10.2) mg/dL Magnesium 2.1 (1.6-2.3) mg/dL Total Bilirubin 1.0 (0.2-1.3) mg/dL AST 27 (17-59) U/L ALT 19 (4-49) U/L Alkaline Phosphatase 74 (38-126) U/L Creatine Kinase 212 H (55-170) U/L Troponin I (0.000-0.034) ng/mL NT-Pro-B Natriuret Pep pg/mL Total Protein 6.3 (6.3-8.2) g/dL Albumin 4.1 (3.5-5.0) g/dL 01/15/21 01/15/21 01/15/21 Range/Units 09:25 09:25 09:25 WBC (3.8-10.6) k/uL RBC (4.30-5.90) m/uL Hgb (13.0-17.5) gm/dL Hct (39.0-53.0) % MCV (80.0-100.0) fL MCH (25.0-35.0) pg MCHC (31.0-37.0) g/dL RDW (11.5-15.5) % Plt Count (150-450) k/uL MPV Neutrophils % % Lymphocytes % % Monocytes % % Eosinophils % % Basophils % % Neutrophils # (1.3-7.7) k/uL Lymphocytes # (1.0-4.8) k/uL Monocytes # (0-1.0) k/uL Eosinophils # (0-0.7) k/uL Basophils # (0-0.2) k/uL PT (9.0-12.0) sec INR (<1.2) APTT (22.0-30.0) sec D-Dimer (<0.60) mg/L FEU Sodium (137-145) mmol/L Potassium (3.5-5.1) mmol/L Chloride (98-107) mmol/L Carbon Dioxide (22-30) mmol/L Anion Gap mmol/L BUN (9-20) mg/dL Creatinine (0.66-1.25) mg/dL Est GFR (CKD-EPI)AfAm (>60 ml/min/1.73 sqM) Est GFR (CKD-EPI)NonAf (>60 ml/min/1.73 sqM) Glucose (74-99) mg/dL Plasma Lactic Acid Favio 1.8 (0.7-2.0) mmol/L Calcium (8.4-10.2) mg/dL Magnesium (1.6-2.3) mg/dL Total Bilirubin (0.2-1.3) mg/dL AST (17-59) U/L ALT (4-49) U/L Alkaline Phosphatase (38-126) U/L Creatine Kinase (55-170) U/L Troponin I <0.012 (0.000-0.034) ng/mL NT-Pro-B Natriuret Pep 161 pg/mL Total Protein (6.3-8.2) g/dL Albumin (3.5-5.0) g/dL - Radiology Data Radiology results: report reviewed (Review the imaging and report no acute findings.), image reviewed Disposition Clinical Impression: Acute exacerbation of chronic obstructive pulmonary disease Disposition: HOME SELF-CARE Condition: Good Instructions (If sedation given, give patient instructions): COPD (Chronic Obstructive Pulmonary Disease) (ED) Prescriptions: predniSONE [Deltasone] 20 mg PO BID #10 tab Is patient prescribed a controlled substance at d/c from ED?: No Referrals: Nikkie Colon MD [Primary Care Provider] - 1-2 days
[2021-01-15 09:48] LABS: Basophils # (A) 0.1 k/uL (0-0.2); Basophils % (A) 1 %; Eosinophils # (A) 1.4 k/uL (0-0.7); Eosinophils % (A) 14 %; HCT 45.6 % (39.0-53.0); HGB 14.9 gm/dL (13.0-17.5); Lymphocytes # (A) 1.2 k/uL (1.0-4.8); Lymphocytes % (A) 12 %; MCHC 32.6 g/dL (31.0-37.0); MCV 88.9 fL (80.0-100.0); Monocytes # (A) 0.5 k/uL (0-1.0); Monocytes % (A) 5 %; Neutrophils # (A) 6.5 k/uL (1.3-7.7); Neutrophils % (A) 66 %; Platelet Count 205 k/uL (150-450); RBC 5.13 m/uL (4.30-5.90); RDW 13.1 % (11.5-15.5); WBC 9.9 k/uL (3.8-10.6)
[2021-01-15 09:58] LABS: Albumin 4.1 g/dL (3.5-5.0); Calcium 9.6 mg/dL (8.4-10.2); Total Protein 6.3 g/dL (6.3-8.2)
[2021-01-15 10:02] VITALS: RESP 18
--- NOTE | 2021-01-15 10:06 | XR ---
EXAMINATION TYPE: XR chest 2V DATE OF EXAM: 01/15/2021 COMPARISON: Chest x-ray January 03, 2019 HISTORY: Chest pain and persistent cough. TECHNIQUE: Frontal and lateral views of the chest are obtained. FINDINGS: Overlying EKG leads. Somewhat low lung volumes redemonstrated. There is no new suspicious focal air space opacity, pleural effusion, or pneumothorax seen. The cardiac silhouette size is stab le and upper limits of normal with overlying loop recorder seen on current study. The osseous struc tures are intact. IMPRESSION: No acute cardiopulmonary process. No significant change from prior.
[2021-01-15 10:13] LABS: D-Dimer 0.47 mg/L FEU (<0.60); INR 1.1 (<1.2); Partial Thromboplastin Time 22.3 sec (22.0-30.0); Prothrombin Time 11.6 sec (9.0-12.0)
[2021-01-15 10:14] LABS: Magnesium 2.1 mg/dL (1.6-2.3); Potassium 4.5 mmol/L (3.5-5.1)
[2021-01-15 11:56] VITALS: PULSE 82
[2021-01-15 12:32] VITALS: BP 107/70
== END 2021-01-15 12:32 | disposition home or self-care (01) ==
LOC: EC 08:40
DX: J44.1 Chronic obstructive pulmonary disease with (acute) exacerbation (principal); E78.5 Hyperlipidemia, unspecified; I25.10 Atherosclerotic heart disease of native coronary artery without angina pectoris; K21.9 Gastro-esophageal reflux disease without esophagitis; F32.9 Major depressive disorder, single episode, unspecified; Z79.51 Long term (current) use of inhaled steroids; Z79.52 Long term (current) use of systemic steroids; Z79.899 Other long term (current) drug therapy
CPT/HCPCS: 36415; 94640 ×2; 93005; 85379; 83880; 80053; 82550; 83605; 83735; 84484; 85025; 85610; 85730; 87040; 71046; 99285; 96374; 96361; J2930

== ENCOUNTER 2021-02-16 15:31 | Emergency (ER) | payer MEDICARE ==
[2021-02-16 16:32] VITALS: BP 96/49; PULSE 71; RESP 18; TEMP 99.4
--- NOTE | 2021-02-16 16:33 | ED ---
General Adult HPI - General Stated complaint: Fall - History of Present Illness Initial comments: Medical screening note: 85-year-old male presents to the emergency department for the chief complaint of increased falls. The son states the patient has been falling more frequently than usual over the last week. Patient states there was no loss of consciousness but a questionable head injury. Patient states his "whole body hurts". He denies any chest pain, shortness of breath, eadaches or blurred vision. - Related Data Home Medications Medication Instructions Recorded Confirmed Atorvastatin [Lipitor] 40 mg PO HS 12/10/15 01/15/21 Cholecalciferol [Vitamin D3 (25 50 mcg PO DAILY 12/10/15 01/15/21 Mcg = 1000 Iu)] Sennosides [Senokot] 8.6 mg PO HS 12/10/15 01/15/21 Lactobacillus Acidophilus 460 mg PO DAILY 06/15/18 01/15/21 [Florajen Acidophilus] Albuterol Nebulized [Ventolin 2.5 mg INHALATION RT-QID 12/23/20 01/15/21 Nebulized] Apixaban [Eliquis] 2.5 mg PO BID 12/23/20 01/15/21 Famotidine [Pepcid] 40 mg PO HS 12/23/20 01/15/21 Furosemide [Lasix] 40 mg PO DAILY 12/23/20 01/15/21 Albuterol Inhaler [Ventolin Hfa 2 puff INHALATION RT-QID PRN 01/15/21 01/15/21 Inhaler] Budesonide/Formoterol Fumarate 2 puff INHALATION RT-BID 01/15/21 01/15/21 [Symbicort 160-4.5 Mcg Inhaler] Flecainide [Tambocor] 50 mg PO Q12H 01/15/21 01/15/21 Ketoconazole [Ketoconazole 2% 1 applic TOPICAL DAILY 01/15/21 01/15/21 Shampoo] Potassium Chloride ER [K-Dur 10] 10 meq PO DAILY 01/15/21 01/15/21 Previous Rx's Medication Instructions Recorded predniSONE [Deltasone] 20 mg PO BID #10 tab 01/15/21 Allergies Allergy/AdvReac Type Severity Reaction Status Date / Time fluticasone propionate Allergy Unknown Verified 02/16/21 16:32 [From Advair Diskus] heparin Allergy "made Verified 02/16/21 16:32 blood too thin" Penicillins Allergy Anaphylaxis Verified 02/16/21 16:32 salmeterol xinafoate Allergy Unknown Verified 02/16/21 16:32 [From Advair Diskus] Tetanus Vaccines and Toxoid Allergy Unknown Verified 02/16/21 16:32 [Tetanus Vaccines & Toxoid] Childhood levetiracetam [From [facility]] AdvReac Hallucinati Verified 02/16/21 16:32 ons Review of Systems ROS Statement: Those systems with pertinent positive or pertinent negative responses have been documented in the HPI. ROS Other: All systems not noted in ROS Statement are negative. 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 loop monitor-2019 Past Anesthesia/Blood Transfusion Reactions: No Reported Reaction Type of Cardiac Device: Loop Past Psychological History: Depression Smoking Status: Former smoker Past Alcohol Use History: None Reported Past Drug Use History: None Reported - Past Family History Mother Family Medical History: Cancer Additional Family Medical History / Comment(s): lung cancer Father Family Medical History: Dementia Additional Family Medical History / Comment(s): heart disease Sister(s) Family Medical History: Cancer Additional Family Medical History / Comment(s): Breast Cancer Brother(s) Family Medical History: Diabetes Mellitus Additional Family Medical History / Comment(s): heart disease Course Vital Signs 02/16/21 16:26 Temperature 99.4 F Pulse Rate 71 Respiratory 18 Rate Blood Pressure 96/49 O2 Sat by Pulse 91 L Oximetry Medical Decision Making - Lab Data Result diagrams: 02/16/21 17:52 02/16/21 17:52 Lab Results 02/16/21 02/16/21 02/16/21 Range/Units 17:52 17:52 17:52 WBC 4.3 (3.8-10.6) k/uL RBC 4.85 (4.30-5.90) m/uL Hgb 14.4 (13.0-17.5) gm/dL Hct 41.2 (39.0-53.0) % MCV 85.1 (80.0-100.0) fL MCH 29.7 (25.0-35.0) pg MCHC 34.9 (31.0-37.0) g/dL RDW 13.0 (11.5-15.5) % Plt Count 184 (150-450) k/uL MPV 9.2 Neutrophils % 79 % Lymphocytes % 13 % Monocytes % 7 % Eosinophils % 0 % Basophils % 0 % Neutrophils # 3.4 (1.3-7.7) k/uL Lymphocytes # 0.5 L (1.0-4.8) k/uL Monocytes # 0.3 (0-1.0) k/uL Eosinophils # 0.0 (0-0.7) k/uL Basophils # 0.0 (0-0.2) k/uL PT 11.8 (9.0-12.0) sec INR 1.1 (<1.2) APTT 28.1 (22.0-30.0) sec Sodium 135 L (137-145) mmol/L Potassium 4.4 (3.5-5.1) mmol/L Chloride 100 (98-107) mmol/L Carbon Dioxide 25 (22-30) mmol/L Anion Gap 10 mmol/L BUN 37 H (9-20) mg/dL Creatinine 1.68 H (0.66-1.25) mg/dL Est GFR (CKD-EPI)AfAm 42 (>60 ml/min/1.73 sqM) Est GFR (CKD-EPI)NonAf 37 (>60 ml/min/1.73 sqM) Glucose 95 (74-99) mg/dL Calcium 8.7 (8.4-10.2) mg/dL Total Bilirubin 1.0 (0.2-1.3) mg/dL AST 84 H (17-59) U/L ALT 38 (4-49) U/L Alkaline Phosphatase 67 (38-126) U/L Total Protein 6.0 L (6.3-8.2) g/dL Albumin 3.6 (3.5-5.0) g/dL Disposition Clinical Impression: Fall Disposition: Left Against Medical Advice Condition: Undetermined Is patient prescribed a controlled substance at d/c from ED?: No Referrals: Nikkie Colon MD [Primary Care Provider] - 1-2 days Time of Disposition: 16:35
--- NOTE | 2021-02-16 17:16 | CT ---
EXAMINATION TYPE: CT brain nickolas robles con DATE OF EXAM: 02/16/2021 COMPARISON: 12/28/2018. HISTORY: repeated recent falls CT DLP: 1333.9 mGycm Automated exposure control for dose reduction was used. TECHNIQUE: CT scan of the head and cervical spine are performed without contrast. FINDINGS: There is no acute intracranial hemorrhage, mass effect, or midline shift identified. The ventricles and sulci are within normal limits in size. The globes are intact and the visualized sin uses are clear. There is mild parenchymal volume loss. Otherwise the white matter is grossly preserve d. Cervical spine is visualized in its entirety from C1 through upper thoracic levels and demonstrates s atisfactory alignment without evidence of acute fracture or dislocation. Prevertebral soft tissue ap pears within normal limits. The C1-C2 articulation is unremarkable. There is multilevel moderate to severe cervical spondylosis with bridging syndesmophytes at C3-C6 IMPRESSION:. 1. There is no acute fracture or dislocation evident in the cervical spine. 2. No acute intracranial hemorrhage, mass effect, or midline shift is seen.
[2021-02-16 18:20] LABS: Basophils % (A) 0 %; Eosinophils % (A) 0 %; HCT 41.2 % (39.0-53.0); HGB 14.4 gm/dL (13.0-17.5); Lymphocytes # (A) 0.5 k/uL (1.0-4.8); Lymphocytes % (A) 13 %; MCH 29.7 pg (25.0-35.0); MCHC 34.9 g/dL (31.0-37.0); MCV 85.1 fL (80.0-100.0); Mean Platelet Volume 9.2; Monocytes # (A) 0.3 k/uL (0-1.0); Monocytes % (A) 7 %; Neutrophils # (A) 3.4 k/uL (1.3-7.7); Neutrophils % (A) 79 %; Platelet Count 184 k/uL (150-450); RBC 4.85 m/uL (4.30-5.90); WBC 4.3 k/uL (3.8-10.6)
[2021-02-16 18:29] LABS: Albumin 3.6 g/dL (3.5-5.0); Calcium 8.7 mg/dL (8.4-10.2); INR 1.1 (<1.2); Partial Thromboplastin Time 28.1 sec (22.0-30.0); Potassium 4.4 mmol/L (3.5-5.1); Prothrombin Time 11.8 sec (9.0-12.0)
== END 2021-02-16 20:03 | disposition left against medical advice (07) ==
LOC: EC 15:31
DX: R29.6 Repeated falls (principal); J44.9 Chronic obstructive pulmonary disease, unspecified; K21.9 Gastro-esophageal reflux disease without esophagitis; F32.9 Major depressive disorder, single episode, unspecified; E78.5 Hyperlipidemia, unspecified; I25.10 Atherosclerotic heart disease of native coronary artery without angina pectoris; Z86.718 Personal history of other venous thrombosis and embolism; Z87.891 Personal history of nicotine dependence
CPT/HCPCS: 36415; 70450; 72125; 80053; 85025; 85610; 85730; 99284

== ENCOUNTER → 2021-12-24 | Outpatient (CLI) | payer MEDICARE | END | disposition home or self-care (01) | LOC: LABWHC1 14:41 | PROVIDERS: ATTEND Urology | DX: R97.20 Elevated prostate specific antigen [PSA] (principal) | CPT/HCPCS: 36415; 84153 ==

== ENCOUNTER → 2022-01-07 | Outpatient (CLI) | payer MEDICARE ==
--- NOTE | 2022-01-07 13:01 | CT ---
EXAMINATION TYPE: CT brain wo con, CT angio head neck DATE OF EXAM: 01/07/2022 HISTORY: CHOWDHURY, hears noises in his head COMPARISON: CT dated 02/16/2021 CT DLP: 1047.1 (accession [id number]), 338.5 (accession [id number]) mGy.cm. Automated Exposure Control f or Dose Reduction was Utilized. TECHNIQUE: Multiplanar nonenhanced CT scan of the brain followed by CTA scan of the head and neck wit h IV Contrast, patient injected with 65 mL of Isovue 370, axial images are obtained, coronal and sagi ttal reformatted images are reviewed. 3D/MIP reconstructed images are created and reviewed. FINDINGS: Generalized brain volume loss changes, likely age-related. Scattered arterial atherosclerotic calcifi cations. Partial empty sella. Bilateral cerebral white matter hypodensities likely representing chron ic microvascular ischemic changes. No acute intracranial hemorrhage or gross acute cortical infarct. No midline shift or herniation. Unr emarkable basal cisterns, and CP angles. No gross space-occupying lesion, vasogenic edema or mass eff ect. No area of abnormal enhancement, meningeal thickening or hyperenhancement. Extensive arterial atherosclerotic calcifications and tortuosity. Small yet well-opacified right vert ebral artery. Partially calcified atheromatous plaque is seen at the origin of the left internal k[place] artery causing about 60% stenosis and extending for about 13 mm yet patent distally. Thick densel y calcified atheromatous plaque is seen at the origin of the right internal carotid artery causing ab out 90% stenosis and extending for about 8mm yet patent distally. Otherwise normal caliber and enhancement of the remainder of the major neck and intracranial arteries without other significant stenosis, occlusion, dissection, aneurysm or AV malformation. Patent major intracranial venous sinuses. No gross orbital abnormality. Mild mucosal thickening of the maxillary sinuses and sphenoid sinus. Hypopneumatized right mastoid air cells. Osteopenia. Postoperative change s are seen in the cervical spine with anterolisthesis of C6 over C7 and fused C3 down to C6 vertebrae . IMPRESSION: 1. No acute intracranial abnormality or gross space-occupying lesion. 2. Brain volume loss changes and chronic microvascular ischemic changes as described above. 3. 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 Other incidental findings a s described above.
== END | disposition home or self-care (01) ==
LOC: RADCTMAIN 10:23
PROVIDERS: ATTEND Psychiatry & Neurology Neurology
DX: Z51.81 Encounter for therapeutic drug level monitoring (principal); I67.82 Cerebral ischemia; I65.23 Occlusion and stenosis of bilateral carotid arteries
CPT/HCPCS: 82565; 84520; 70496; 70450; 70498; 36415; Q9967

== ENCOUNTER 2022-10-12 10:02 | Emergency (ER) | payer MEDICARE ==
[2022-10-12 10:09] VITALS: BP 100/46; PULSE 74; RESP 18; TEMP 97.2
[2022-10-12] MEDS ORDERED: SODIUM CHLORIDE 0.9% 500 ML 500 ML IV ONE (10:31)
--- NOTE | 2022-10-12 10:36 | ED ---
General Adult HPI - General Chief complaint: Dizziness Stated complaint: syncope, double vision, hypotension Time Seen by Provider: 10/12/22 10:15 Source: patient, family, RN notes reviewed, old records reviewed Mode of arrival: ambulatory Limitations: no limitations - History of Present Illness Initial comments: This is an 87-year-old male presents emergency department stating that this morning he got up and a double vision everything was double in his vision with all objects being on top of the other object. Patient denies headache patient denies numbness or weakness. Patient states this has never happened before. Patient states it lasts about 10 minutes and then went away. Patient states the last couple days he's been having vertigo symptoms but today he did not have any feeling that things were moving and the last couple episodes of vertigo he never had double vision. Patient states currently has no symptoms. Nursing notes mention syncope he absolutely denies any syncopal episode. Patient denies chest pain or difficulty breathing shortness of breath per patient denies any fever chills or cough per patient denies abdominal pain patient denies nausea vomiting diarrhea. - Related Data Home Medications Medication Instructions Recorded Confirmed Atorvastatin [Lipitor] 40 mg PO DAILY 12/10/15 10/12/22 Cholecalciferol [Vitamin D3 (25 50 mcg PO HS 12/10/15 10/12/22 Mcg = 1000 Iu)] Sennosides [Senokot] 8.6 mg PO HS 12/10/15 10/12/22 Albuterol Nebulized [Ventolin 2.5 mg INHALATION RT-QID PRN 12/23/20 10/12/22 Nebulized] Famotidine [Pepcid] 40 mg PO HS 12/23/20 10/12/22 Furosemide [Lasix] 40 mg PO DAILY 12/23/20 10/12/22 Albuterol Inhaler [Ventolin Hfa 2 puff INHALATION RT-QID PRN 01/15/21 10/12/22 Inhaler] Budesonide/Formoterol Fumarate 2 puff INHALATION RT-BID 01/15/21 10/12/22 [Symbicort 160-4.5 Mcg Inhaler] Flecainide [Tambocor] 50 mg PO Q12H 01/15/21 10/12/22 Potassium Chloride ER [K-Dur 10] 10 meq PO DAILY 01/15/21 10/12/22 Apixaban [Eliquis] 5 mg PO BID 10/12/22 10/12/22 Nystatin 100,000Unit/gm Cream 1 gm TOPICAL BID PRN 10/12/22 10/12/22 [Mycostatin Cream] Tamsulosin [Flomax] 0.4 mg PO HS 10/12/22 10/12/22 Allergies Allergy/AdvReac Type Severity Reaction Status Date / Time fluticasone propionate Allergy Unknown Verified 10/12/22 12:37 [From Advair Diskus] heparin Allergy "made Verified 10/12/22 12:37 blood too thin" Penicillins Allergy Anaphylaxis Verified 10/12/22 12:37 salmeterol xinafoate Allergy Unknown Verified 10/12/22 12:37 [From Advair Diskus] Tetanus Vaccines and Toxoid Allergy Unknown Verified 10/12/22 12:37 [Tetanus Vaccines & Toxoid] Childhood levetiracetam [From Keppra] AdvReac Hallucinati Verified 10/12/22 12:37 ons Review of Systems ROS Statement: Those systems with pertinent positive or pertinent negative responses have been documented in the HPI. ROS Other: All systems not noted in ROS Statement are negative. 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 loop monitor-2019 Past Anesthesia/Blood Transfusion Reactions: No Reported Reaction Type of Cardiac Device: Loop Past Psychological History: Depression Smoking Status: Former smoker Past Alcohol Use History: None Reported Past Drug Use History: None Reported - Past Family History Mother Family Medical History: Cancer Additional Family Medical History / Comment(s): lung cancer Father Family Medical History: Dementia Additional Family Medical History / Comment(s): heart disease Sister(s) Family Medical History: Cancer Additional Family Medical History / Comment(s): Breast Cancer Brother(s) Family Medical History: Diabetes Mellitus Additional Family Medical History / Comment(s): heart disease General Exam - General Exam Comments Initial Comments: GENERAL: Patient is well-developed and well-nourished. Patient is nontoxic and well- hydrated and is in no acute distress. ENT: Neck is soft and supple. No significant lymphadenopathy is noted. Oropharynx is clear. Moist mucous membranes. Neck has full range of motion without eliciting any pain. There is no thyroid enlargement and no masses were felt. EYES: The sclera were anicteric and conjunctiva were pink and moist. Extraocular movements were intact and pupils were equal round and reactive to light. E yelids were unremarkable. Patient has some very mild nystagmus looking to the right horizontally PULMONARY: Unlabored respirations. Good breath sounds bilaterally. No audible rales rhonchi or wheezing was noted. CARDIOVASCULAR: There is a regular rate and rhythm without any murmurs gallops or rubs. ABDOMEN: Soft and nontender with normal bowel sounds. SKIN: Skin is clear with no lesions or rashes and otherwise unremarkable. NEUROLOGIC: Patient is alert and oriented x3. Cranial nerves II through XII are grossly intact. Motor and sensory are also intact. Normal speech, volume and content. Symmetrical smile. MUSCULOSKELETAL: Normal extremities with adequate strength and full range of motion. LYMPHATICS: No significant lymphadenopathy is noted PSYCHIATRIC: Normal psychiatric evaluation. Limitations: no limitations Course Vital Signs 10/12/22 10:06 Temperature 97.2 F L Pulse Rate 74 Respiratory 18 Rate Blood Pressure 100/46 O2 Sat by Pulse 97 Oximetry Medical Decision Making - Medical Decision Making I interpret EKG EKG shows sinus rhythm at 67 bpm TX interval 188 QRSs 102 QT interval 414 QTC is 429. Patient's EKG shows no ST segment elevation or depression I interpret the CT of the brain. CT of the brain shows no acute abnormalities. 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 Patient states he started followed up with the vascular surgeon viscus surgeon thinks it's about 70% and therefore does not want to intervene. Patient has been a symptomatically since he arrived. Patient was offered admission patient refused he stated he has neurologist on-call today in follow- up and he states that he'll be back to the emergency department if symptoms return. Patient states he's had vertigo-like symptoms twice earlier in the week and he thinks this is an extension of that possibly but he didn't keep his eyes open long enough to get the spinning sensation because in the past keep his eye shut his made him feel better and this time when he opened up after about 10 minutes the symptoms had resolved. - Lab Data Result diagrams: 10/12/22 10:50 10/12/22 10:50 Lab Results 10/12/22 10/12/22 10/12/22 Range/Units 10:50 10:50 10:50 WBC 7.1 (3.8-10.6) k/uL RBC 4.78 (4.30-5.90) m/uL Hgb 14.0 (13.0-17.5) gm/dL Hct 42.4 (39.0-53.0) % MCV 88.7 (80.0-100.0) fL MCH 29.3 (25.0-35.0) pg MCHC 33.1 (31.0-37.0) g/dL RDW 13.3 (11.5-15.5) % Plt Count 153 (150-450) k/uL MPV 8.7 Neutrophils % 78 % Lymphocytes % 12 % Monocytes % 5 % Eosinophils % 2 % Basophils % 1 % Neutrophils # 5.5 (1.3-7.7) k/uL Lymphocytes # 0.9 L (1.0-4.8) k/uL Monocytes # 0.4 (0-1.0) k/uL Eosinophils # 0.2 (0-0.7) k/uL Basophils # 0.0 (0-0.2) k/uL PT 11.9 (9.0-12.0) sec INR 1.2 H (<1.2) APTT 27.1 (22.0-30.0) sec Sodium 140 (137-145) mmol/L Potassium 4.6 (3.5-5.1) mmol/L Chloride 105 (98-107) mmol/L Carbon Dioxide 29 (22-30) mmol/L Anion Gap 6 mmol/L BUN 25 H (9-20) mg/dL Creatinine 1.36 H (0.66-1.25) mg/dL Est GFR (CKD-EPI)AfAm 54 (>60 ml/min/1.73 sqM) Est GFR (CKD-EPI)NonAf 46 (>60 ml/min/1.73 sqM) Glucose 92 (74-99) mg/dL Calcium 9.0 (8.4-10.2) mg/dL Total Bilirubin 1.0 (0.2-1.3) mg/dL AST 28 (17-59) U/L ALT 30 (4-49) U/L Alkaline Phosphatase 191 H (38-126) U/L Troponin I (0.000-0.034) ng/mL Total Protein 5.9 L (6.3-8.2) g/dL Albumin 3.9 (3.5-5.0) g/dL 10/12/22 Range/Units 10:50 WBC (3.8-10.6) k/uL RBC (4.30-5.90) m/uL Hgb (13.0-17.5) gm/dL Hct (39.0-53.0) % MCV (80.0-100.0) fL MCH (25.0-35.0) pg MCHC (31.0-37.0) g/dL RDW (11.5-15.5) % Plt Count (150-450) k/uL MPV Neutrophils % % Lymphocytes % % Monocytes % % Eosinophils % % Basophils % % Neutrophils # (1.3-7.7) k/uL Lymphocytes # (1.0-4.8) k/uL Monocytes # (0-1.0) k/uL Eosinophils # (0-0.7) k/uL Basophils # (0-0.2) k/uL PT (9.0-12.0) sec INR (<1.2) APTT (22.0-30.0) sec Sodium (137-145) mmol/L Potassium (3.5-5.1) mmol/L Chloride (98-107) mmol/L Carbon Dioxide (22-30) mmol/L Anion Gap mmol/L BUN (9-20) mg/dL Creatinine (0.66-1.25) mg/dL Est GFR (CKD-EPI)AfAm (>60 ml/min/1.73 sqM) Est GFR (CKD-EPI)NonAf (>60 ml/min/1.73 sqM) Glucose (74-99) mg/dL Calcium (8.4-10.2) mg/dL Total Bilirubin (0.2-1.3) mg/dL AST (17-59) U/L ALT (4-49) U/L Alkaline Phosphatase (38-126) U/L Troponin I <0.012 (0.000-0.034) ng/mL Total Protein (6.3-8.2) g/dL Albumin (3.5-5.0) g/dL Disposition Clinical Impression: Diplopia, Vertigo Disposition: HOME SELF-CARE Condition: Good Instructions (If sedation given, give patient instructions): Vertigo (ED), Diplopia (ED) Is patient prescribed a controlled substance at d/c from ED?: No Referrals: Nikkie Colon MD [Primary Care Provider] - 1-2 days Time of Disposition: 13:47
[2022-10-12 11:01] LABS: Basophils % (A) 1 %; Eosinophils # (A) 0.2 k/uL (0-0.7); Eosinophils % (A) 2 %; HCT 42.4 % (39.0-53.0); Lymphocytes # (A) 0.9 k/uL (1.0-4.8); Lymphocytes % (A) 12 %; MCH 29.3 pg (25.0-35.0); MCHC 33.1 g/dL (31.0-37.0); MCV 88.7 fL (80.0-100.0); Mean Platelet Volume 8.7; Monocytes # (A) 0.4 k/uL (0-1.0); Monocytes % (A) 5 %; Neutrophils # (A) 5.5 k/uL (1.3-7.7); Neutrophils % (A) 78 %; Platelet Count 153 k/uL (150-450); RBC 4.78 m/uL (4.30-5.90); RDW 13.3 % (11.5-15.5); WBC 7.1 k/uL (3.8-10.6)
[2022-10-12 11:18] LABS: Albumin 3.9 g/dL (3.5-5.0); INR 1.2 (<1.2); Partial Thromboplastin Time 27.1 sec (22.0-30.0); Potassium 4.6 mmol/L (3.5-5.1); Prothrombin Time 11.9 sec (9.0-12.0); Total Protein 5.9 g/dL (6.3-8.2)
--- NOTE | 2022-10-12 11:58 | XR ---
EXAMINATION TYPE: XR chest 2V DATE OF EXAM: 10/12/2022 COMPARISON: Chest x-ray January 15, 2021 HISTORY: History of COPD with weakness. TECHNIQUE: Frontal and lateral views of the chest are obtained. FINDINGS: Background chronic emphysematous change with some right midlung parenchymal scarring. Ther e is no suspicious new focal air space opacity, pleural effusion, or pneumothorax seen. The cardiac silhouette size is more prominent and enlarged with overlying loop recorder. The osseous structures are demineralized with underlying scoliosis. IMPRESSION: Cardiomegaly and chronic changes without new suspicious acute pulmonary process.
--- NOTE | 2022-10-12 12:21 | CT ---
EXAMINATION TYPE: CT brain wo con DATE OF EXAM: 10/12/2022 HISTORY: Dizziness, double vision. Acute onset neuro deficit. CT DLP: 1084.6 mGycm. Automated Exposure Control for Dose Reduction was Utilized. TECHNIQUE: CT scan of the head is performed without contrast. COMPARISON: CT brain January 07, 2022. FINDINGS: There is no acute intracranial hemorrhage or midline shift identified. There is mild to m oderate diffuse ventricular and sulcal prominence consistent with diffuse age-related cerebral atroph y. There is mild low-attenuation in the periventricular white matter consistent with chronic small v essel ischemic change. The globes are intact and the visualized sinuses are clear. IMPRESSION: No acute intracranial hemorrhage or midline shift. There is [id number] diffuse ag e-related cerebral atrophy and mild chronic small vessel ischemic change redemonstrated. No signific ant change from prior.
--- NOTE | 2022-10-12 12:39 | CT ---
EXAMINATION TYPE: CT angio head neck DATE OF EXAM: 10/12/2022 HISTORY: Dizziness, double vision COMPARISON: CTA head and neck January 07, [address] DLP: 524.5 mGycm. Automated Exposure Control for Dose Reduction was Utilized. TECHNIQUE: CTA scan of the head and neck is performed with IV Contrast, patient injected with 65 mL of Isovue 370, axial images are obtained, coronal and sagittal reformatted images are reviewed. 3D re constructed images are created on an independent workstation and reviewed. FINDINGS: Carotid/Vascular Structures: Bovine-type aortic arch redemonstrated moderate peripheral calcified mitch que in the arch extends into the vessels without significant stenosis similar to prior. Mild calcifie d plaque along the course of common carotid arteries redemonstrated without significant stenosis. Per sistent moderate calcified plaque right carotid bulb with more severe calcified plaque extending into proximal internal carotid artery causing significant stenosis difficult to actually measure due to p rominent calcified plaque but estimated at greater than 90% similar to prior. Moderate to severe mixe d plaque left carotid bulb extends into proximal internal carotid artery causing stenosis measuring a round 60% unchanged from prior. Patent external carotid arteries bilaterally without significant sten osis. Slightly dominant left vertebral artery. Vertebral arteries are patent to basilar junction. Pat ent bilateral posterior communicating arteries. No significant focal stenosis or aneurysm in the post erior circulation. Mild calcified plaque distal internal carotid arteries without significant stenosi s. Patent anterior to indicating artery redemonstrated. No new significant focal stenosis or aneurysm in the anterior circulation. Other: Mild to moderate multilevel disc space narrowing the cervical spine. Grade 1 retrolisthesis C6 on C7 is redemonstrated. Anterior bridging osteophytes C3-C6 level redemonstrated. Hypopneumatized p artially opacified right mastoid air cells again seen. 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 NASCET criteria was used in interpretation of this exam?
== END 2022-10-12 14:30 | disposition home or self-care (01) ==
LOC: EC 10:02
DX: H53.2 Diplopia (principal); R42 Dizziness and giddiness; I25.10 Atherosclerotic heart disease of native coronary artery without angina pectoris; J44.9 Chronic obstructive pulmonary disease, unspecified; K21.9 Gastro-esophageal reflux disease without esophagitis; E78.5 Hyperlipidemia, unspecified; N18.30 Chronic kidney disease, stage 3 unspecified; F32.A Depression, unspecified; Z88.0 Allergy status to penicillin; Z88.8 Allergy status to other drugs, medicaments and biological substances; Z86.718 Personal history of other venous thrombosis and embolism; Z87.891 Personal history of nicotine dependence; Z88.7 Allergy status to serum and vaccine; Z88.1 Allergy status to other antibiotic agents; Z79.899 Other long term (current) drug therapy; Z79.01 Long term (current) use of anticoagulants
CPT/HCPCS: 36415; 93005; 80053; 84484; 85025; 85610; 85730; 71046; 70496; 70450; 70498; 99284; Q9967

== ENCOUNTER → 2023-02-14 | Outpatient (CLI) | payer MEDICARE ==
--- NOTE | 2023-02-14 13:13 | US ---
EXAMINATION TYPE: US kidneys/renal and bladder DATE OF EXAM: 02/14/2023 COMPARISON: NONE CLINICAL HISTORY: N18.32 CKD STAGE 3. CKD EXAM MEASUREMENTS: Right Kidney: 9.1 x 4.9 x 5.4 cm Left Kidney: 9.2 x 5.7 x 5.0 cm Post Void Residual Volume: 47.8 mL Right Kidney: Multicystic, largest cyst upper pole= 5.7 x 6.2 x 7.2 cm Left Kidney: Multicystic, largest cyst mid= 4.3 x 2.9 x 3.5 cm Bladder: wnl Bilateral Jets seen: No Normal Post Void Residual: Yes IMPRESSION: 1. Bilateral renal cysts
== END | disposition home or self-care (01) ==
LOC: RADUSWWP 11:42
PROVIDERS: ATTEND Internal Medicine Nephrology
DX: N18.32 Chronic kidney disease, stage 3b (principal); N28.1 Cyst of kidney, acquired
CPT/HCPCS: 76770

== ENCOUNTER 2023-08-24 15:09 | Emergency (ER) | payer MEDICARE ==
[2023-08-24 15:29] VITALS: TEMP 97.8
--- NOTE | 2023-08-24 16:03 | XR ---
EXAMINATION TYPE: XR chest 2V DATE OF EXAM: 08/24/2023 COMPARISON: 10/12/2022 HISTORY: 88 year-old male shortness of breath, difficulty breathing TECHNIQUE: AP and lateral views FINDINGS: Low lung volumes and cardiovascular markings. Patient rotation ultrasonography mediastinal contours. Heart is enlarged. Interstitial density. No pleural effusion. Loop recorder device projects over the left side of the heart. IMPRESSION: Prominent hypoventilatory changes. There is underlying cardiomegaly. Correlate to exclude mild pulmon greg vascular congestion.
--- NOTE | 2023-08-24 16:08 | ED ---
General Adult HPI - General Chief complaint: Shortness of Breath Stated complaint: PLEON Time Seen by Provider: 08/24/23 15:26 Source: patient, EMS, RN notes reviewed, old records reviewed Mode of arrival: EMS Limitations: no limitations - History of Present Illness Initial comments: 88-year-old male with 2 weeks of worsening dyspnea. Patient denies significant cough. Denies chest pain. Denies fever. He is currently on Eliquis. He was found to be hypoxic at home at 78. He does wear oxygen but states he typically only wears 3 L at night. - Related Data Home Medications Medication Instructions Recorded Confirmed Atorvastatin [Lipitor] 40 mg PO DAILY 12/10/15 08/24/23 Sennosides [Senokot] 8.6 mg PO HS 12/10/15 08/24/23 Albuterol Nebulized [Ventolin 2.5 mg INHALATION RT-QID PRN 12/23/20 08/24/23 Nebulized] Famotidine [Pepcid] 40 mg PO HS 12/23/20 08/24/23 Furosemide [Lasix] 40 mg PO DAILY 12/23/20 08/24/23 Albuterol Inhaler [Ventolin Hfa 2 puff INHALATION RT-QID PRN 01/15/21 08/24/23 Inhaler] Budesonide/Formoterol Fumarate 2 puff INHALATION RT-DAILY 01/15/21 08/24/23 [Symbicort 160-4.5 Mcg Inhaler] Flecainide [Tambocor] 50 mg PO BID 01/15/21 08/24/23 Potassium Chloride ER [K-Dur 10] 10 meq PO DAILY 01/15/21 08/24/23 Apixaban [Eliquis] 2.5 mg PO BID 10/12/22 08/24/23 Tamsulosin [Flomax] 0.4 mg PO HS 10/12/22 08/24/23 Cholecalciferol (Vitamin D3) 100 mcg PO DAILY 08/24/23 08/24/23 [Vitamin D3 (50 Mcg = 2000 Iu) Chew Tab] Allergies Allergy/AdvReac Type Severity Reaction Status Date / Time fluticasone propionate Allergy Unknown Verified 08/24/23 16:47 [From Advair Diskus] Penicillins Allergy Anaphylaxis Verified 08/24/23 16:47 salmeterol xinafoate Allergy Unknown Verified 08/24/23 16:47 [From Advair Diskus] Tetanus Vaccines and Toxoid Allergy Unknown Verified 08/24/23 16:47 [Tetanus Vaccines & Toxoid] Childhood heparin AdvReac "made Verified 08/24/23 16:47 blood too thin" levetiracetam [From Keppra] AdvReac Hallucinati Verified 08/24/23 16:47 ons Review of Systems ROS Statement: Those systems with pertinent positive or pertinent negative responses have been documented in the HPI. ROS Other: All systems not noted in ROS Statement are negative. 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 loop monitor-2019 Past Anesthesia/Blood Transfusion Reactions: No Reported Reaction Type of Cardiac Device: Loop Past Psychological History: Depression Smoking Status: Former smoker Past Alcohol Use History: None Reported Past Drug Use History: None Reported - Past Family History Mother Family Medical History: Cancer Additional Family Medical History / Comment(s): lung cancer Father Family Medical History: Dementia Additional Family Medical History / Comment(s): heart disease Sister(s) Family Medical History: Cancer Additional Family Medical History / Comment(s): Breast Cancer Brother(s) Family Medical History: Diabetes Mellitus Additional Family Medical History / Comment(s): heart disease General Exam Limitations: no limitations General appearance: alert, in no apparent distress Head exam: Present: atraumatic, normocephalic Eye exam: Present: normal appearance, PERRL ENT exam: Present: normal exam Neck exam: Present: normal inspection. Absent: tenderness, meningismus Respiratory exam: Present: rhonchi, decreased breath sounds. Absent: respira tory distress Cardiovascular Exam: Present: regular rate, normal rhythm GI/Abdominal exam: Present: soft. Absent: distended, tenderness, guarding Extremities exam: Present: normal inspection, normal capillary refill. Absent: pedal edema Neurological exam: Present: alert, oriented X3, CN II-XII intact. Absent: motor sensory deficit Psychiatric exam: Present: normal affect, normal mood Skin exam: Present: warm, dry, intact. Absent: cyanosis, diaphoretic Course Vital Signs 08/24/23 08/24/23 08/24/23 15:16 15:24 15:31 Temperature 97.8 F Pulse Rate 70 70 Respiratory 22 20 18 Rate Blood Pressure 162/75 141/68 O2 Sat by Pulse 100 99 Oximetry 08/24/23 08/24/23 16:07 17:02 Temperature Pulse Rate 73 75 Respiratory 18 19 Rate Blood Pressure 156/88 173/82 O2 Sat by Pulse 97 97 Oximetry Medical Decision Making - Medical Decision Making Was pt. sent in by a medical professional or institution (TRUONG Cazares, SHOPPER INSIGHTS MANAGER, urgent care, hospital, or custodial...) When possible be specific @ -[No] Did you speak to anyone other than the patient for history (EMS, parent, family, police, friend...)? What history was obtained from this source @ -[No] Did you review nursing and triage notes (agree or disagree)? Why? @ -[I reviewed and agree with nursing and triage notes] Were old charts reviewed (outside hosp., previous admission, EMS record, old EKG, old radiological studies, urgent care reports/EKG's, custodial records)? Report findings @ -[No old charts were reviewed] Differential Diagnosis (chest pain, altered mental status, abdominal pain women, abdominal pain men, vaginal bleeding, weakness, fever, dyspnea, syncope, headache, dizziness, GI bleed, back pain, seizure, CVA, palpatations, mental health, musculoskeletal)? @ -Differential Dyspnea: Coronary syndrome, arrhythmia, tamponade, asthma, COPD, pulmonary embolism, pneumonia, pneumothorax, pulmonary effusion, anaphylaxis, diabetic ketoacidosis, flailed chest, pulmonary contusion, diaphragmatic rupture, anemia, neuromuscular, this is not meant to be an all-inclusive list. EKG interpreted by me (3pts min.). @ -Sinus rhythm rate of 69, FL interval 183, QRS duration 113, QTC 421, no ST segment elevation. X-rays interpreted by me (1pt min.). @Chest x-ray negative for focal pneumonia, no pneumothorax, no acute findings. CT interpreted by me (1pt min.). @ -[None done] U/S interpreted by me (1pt. min.). @ -[None done] What testing was considered but not performed or refused? (CT, X-rays, U/S, labs)? Why? @ -[None] What meds were considered but not given or refused? Why? @ -[None] Did you discuss the management of the patient with other professionals (professionals i.e. , PA, SHOPPER INSIGHTS MANAGER, lab, RT, psych nurse, social worker masters, staff assistant, teacher, chief creative officer, employment evaluator/case manager)? Give summary @ -[No] Was smoking cessation discussed for >3mins.? @ -[No] Was critical care preformed (if so, how long)? @ -[No] Were there social determinants of health that impacted care today? How? (H omelessness, low income, unemployed, alcoholism, drug addiction, transportation, low edu. Level, literacy, decrease access to med. care, [facility], rehab)? @ -[No] Was there de-escalation of care discussed even if they declined (Discuss DNR or withdrawal of care, Hospice)? DNR status @ -[No] What co-morbidities impacted this encounter? (DM, HTN, Smoking, COPD, CAD, Cancer, CVA, ARF, Chemo, Hep., AIDS, mental health diagnosis, sleep apnea, morbid obesity)? @ -History of COPD, wears oxygen at night.] Was patient admitted / discharged? Hospital course, mention meds given and route, prescriptions, significant lab abnormalities, going to OR and other pertinent info. @88-year-old male with an episode of dyspnea and reported hypoxia. His symptoms are resolved at the time of arrival. His chest x-ray is clear. He has a normal CBC, normal CMP, negative troponin, negative BNP. He is on our requests reducing the risk of PE.. He has good air entry. He's taken off oxygen while in the emergency department and does not desaturate. He remains at 98 on room air without respiratory issues. He is eager for discharge. I did offer observation for further evaluation and treatment. Patient declines. He is instructed to return with any worsening or changing symptoms. He states he has an appointment with his aboriginal education worker coordinator on Tuesday which is 2 days from now. Undiagnosed new problem with uncertain prognosis? @ -[No] Drug Therapy requiring intensive monitoring for toxicity (Heparin, Nitro, Insulin, Cardizem)? @ -[No] Were any procedures done? @ -[No] Diagnosis/symptom? @Dyspnea, resolved Acute, or Chronic, or Acute on Chronic? @ -[Acute Uncomplicated (without systemic symptoms) or Complicated (systemic symptoms)? @ -[default] Side effects of treatment? @ -[No] Exacerbation, Progression, or Severe Exacerbation? @ -[No] Poses a threat to life or bodily function? How? (Chest pain, USA, [place], pneumonia, PE, COPD, DKA, ARF, appy, cholecystitis, CVA, Diverticulitis, Homicidal, Suicidal, threat to staff... and all critical care pts) @ -[Moderate risk. - Lab Data Result diagrams: 08/24/23 15:43 08/24/23 15:43 Lab Results 08/24/23 08/24/23 08/24/23 Range/Units 15:43 15:43 15:43 WBC 9.0 (3.8-10.6) k/uL RBC 5.14 (4.30-5.90) m/uL Hgb 15.3 (13.0-17.5) gm/dL Hct 45.8 (39.0-53.0) % MCV 89.1 (80.0-100.0) fL MCH 29.8 (25.0-35.0) pg MCHC 33.5 (31.0-37.0) g/dL RDW 13.3 (11.5-15.5) % Plt Count 188 (150-450) k/uL MPV 7.9 Neutrophils % 74 % Lymphocytes % 15 % Monocytes % 6 % Eosinophils % 2 % Basophils % 0 % Neutrophils # 6.7 (1.3-7.7) k/uL Lymphocytes # 1.3 (1.0-4.8) k/uL Monocytes # 0.5 (0-1.0) k/uL Eosinophils # 0.2 (0-0.7) k/uL Basophils # 0.0 (0-0.2) k/uL PT 11.0 (9.0-12.0) sec INR 1.0 (<1.2) APTT 24.2 (22.0-30.0) sec Sodium 140 (137-145) mmol/L Potassium 4.4 (3.5-5.1) mmol/L Chloride 104 (98-107) mmol/L Carbon Dioxide 25 (22-30) mmol/L Anion Gap 11 mmol/L BUN 26 H (9-20) mg/dL Creatinine 1.34 H (0.66-1.25) mg/dL Est GFR (CKD-EPI)AfAm 55 (>60 ml/min/1.73 sqM) Est GFR (CKD-EPI)NonAf 47 (>60 ml/min/1.73 sqM) Glucose 105 H (74-99) mg/dL Plasma Lactic Acid Favio (0.7-2.0) mmol/L Calcium 9.6 (8.4-10.2) mg/dL Magnesium 2.2 (1.6-2.3) mg/dL Total Bilirubin 0.8 (0.2-1.3) mg/dL AST 37 (17-59) U/L ALT 46 (4-49) U/L Alkaline Phosphatase 183 H (38-126) U/L Troponin I (0.000-0.034) ng/mL NT-Pro-B Natriuret Pep 264 pg/mL Total Protein 7.0 (6.3-8.2) g/dL Albumin 4.3 (3.5-5.0) g/dL 08/24/23 08/24/23 Range/Units 15:43 15:43 WBC (3.8-10.6) k/uL RBC (4.30-5.90) m/uL Hgb (13.0-17.5) gm/dL Hct (39.0-53.0) % MCV (80.0-100.0) fL MCH (25.0-35.0) pg MCHC (31.0-37.0) g/dL RDW (11.5-15.5) % Plt Count (150-450) k/uL MPV Neutrophils % % Lymphocytes % % Monocytes % % Eosinophils % % Basophils % % Neutrophils # (1.3-7.7) k/uL Lymphocytes # (1.0-4.8) k/uL Monocytes # (0-1.0) k/uL Eosinophils # (0-0.7) k/uL Basophils # (0-0.2) k/uL PT (9.0-12.0) sec INR (<1.2) APTT (22.0-30.0) sec Sodium (137-145) mmol/L Potassium (3.5-5.1) mmol/L Chloride (98-107) mmol/L Carbon Dioxide (22-30) mmol/L Anion Gap mmol/L BUN (9-20) mg/dL Creatinine (0.66-1.25) mg/dL Est GFR (CKD-EPI)AfAm (>60 ml/min/1.73 sqM) Est GFR (CKD-EPI)NonAf (>60 ml/min/1.73 sqM) Glucose (74-99) mg/dL Plasma Lactic Acid Favio 1.8 (0.7-2.0) mmol/L Calcium (8.4-10.2) mg/dL Magnesium (1.6-2.3) mg/dL Total Bilirubin (0.2-1.3) mg/dL AST (17-59) U/L ALT (4-49) U/L Alkaline Phosphatase (38-126) U/L Troponin I <0.012 (0.000-0.034) ng/mL NT-Pro-B Natriuret Pep pg/mL Total Protein (6.3-8.2) g/dL Albumin (3.5-5.0) g/dL Disposition Clinical Impression: Dyspnea Disposition: HOME SELF-CARE Condition: Fair Instructions (If sedation given, give patient instructions): Dyspnea (ED) Is patient prescribed a controlled substance at d/c from ED?: No Referrals: Nikkie Colon MD [Primary Care Provider] - 1-2 days Time of Disposition: 17:36
[2023-08-24 16:11] LABS: Basophils % (A) 0 %; Eosinophils # (A) 0.2 k/uL (0-0.7); Eosinophils % (A) 2 %; HCT 45.8 % (39.0-53.0); HGB 15.3 gm/dL (13.0-17.5); Lymphocytes # (A) 1.3 k/uL (1.0-4.8); Lymphocytes % (A) 15 %; MCH 29.8 pg (25.0-35.0); MCHC 33.5 g/dL (31.0-37.0); MCV 89.1 fL (80.0-100.0); Mean Platelet Volume 7.9; Monocytes # (A) 0.5 k/uL (0-1.0); Monocytes % (A) 6 %; Neutrophils # (A) 6.7 k/uL (1.3-7.7); Neutrophils % (A) 74 %; Platelet Count 188 k/uL (150-450); RBC 5.14 m/uL (4.30-5.90); RDW 13.3 % (11.5-15.5)
[2023-08-24 16:20] LABS: Partial Thromboplastin Time 24.2 sec (22.0-30.0)
[2023-08-24 16:22] LABS: ALT 46 U/L (4-49); AST 37 U/L (17-59); African American GFR (CKD) 55 (>60 ml/min/1.73 sqM); Albumin 4.3 g/dL (3.5-5.0); Alkaline Phosphatase 183 U/L (38-126); Anion Gap 11 mmol/L; Blood Urea Nitrogen 26 mg/dL (9-20); Calcium 9.6 mg/dL (8.4-10.2); Carbon Dioxide 25 mmol/L (22-30); Chloride 104 mmol/L (98-107); Glucose 105 mg/dL (74-99); Magnesium 2.2 mg/dL (1.6-2.3); Non-African American GFR(CKD) 47 (>60 ml/min/1.73 sqM); Potassium 4.4 mmol/L (3.5-5.1); Sodium 140 mmol/L (137-145); Total Bilirubin 0.8 mg/dL (0.2-1.3)
[2023-08-24 16:30] LABS: NT-Pro-B-Type Natriuretic Pept 264 pg/mL
[2023-08-24 17:05] VITALS: BP 173/82; PULSE 75; RESP 19
== END 2023-08-24 17:56 | disposition home or self-care (01) ==
LOC: EC 15:09
DX: R06.00 Dyspnea, unspecified (principal); I25.10 Atherosclerotic heart disease of native coronary artery without angina pectoris; E78.5 Hyperlipidemia, unspecified; J44.9 Chronic obstructive pulmonary disease, unspecified; K21.9 Gastro-esophageal reflux disease without esophagitis; Z86.718 Personal history of other venous thrombosis and embolism; F32.A Depression, unspecified; Z87.891 Personal history of nicotine dependence; Z88.7 Allergy status to serum and vaccine; Z88.0 Allergy status to penicillin; Z88.8 Allergy status to other drugs, medicaments and biological substances; Z79.01 Long term (current) use of anticoagulants; Z79.51 Long term (current) use of inhaled steroids; Z79.899 Other long term (current) drug therapy
CPT/HCPCS: 36415; 71046; 80053; 83605; 83735; 83880; 84484; 85025; 85610; 85730; 93005; 99285

== ENCOUNTER 2023-08-26 11:17 | Observation (INO) | payer MEDICARE ==
--- NOTE | 2023-08-26 11:46 | ED ---
General Adult HPI - General Chief complaint: Neuro Symptoms/Deficit Stated complaint: STROKE Time Seen by Provider: 08/26/23 11:19 Source: patient, EMS Mode of arrival: EMS Limitations: no limitations - History of Present Illness Initial comments: Dictation was produced using [employer] dictation software. please excuse any grammatical, word or spelling errors. Chief Complaint: 88-year-old male presents to the ER for episode of TIA History of Present Illness: Is an 80-year-old male provides history of present illness states that he was at breakfast table today when he had 20 minute episode of transient ischemic attack. Family members at bedside states that patient had slurred speech and was significantly aphasic. They also thought that he had a left-sided facial droop. Symptoms lasted for several minutes however resolved. Patient otherwise has no complaints at this time. The ROS documented in this emergency department record has been reviewed and confirmed by me. Those systems with pertinent positive or negative responses have been documented in the HPI. All other systems are other negative and/or noncontributory. - Related Data Home Medications Medication Instructions Recorded Confirmed Atorvastatin [Lipitor] 40 mg PO DAILY 12/10/15 08/26/23 Sennosides [Senokot] 8.6 mg PO HS 12/10/15 08/26/23 Albuterol Nebulized [Ventolin 2.5 mg INHALATION RT-QID PRN 12/23/20 08/26/23 Nebulized] Famotidine [Pepcid] 40 mg PO HS 12/23/20 08/26/23 Furosemide [Lasix] 40 mg PO DAILY 12/23/20 08/26/23 Albuterol Inhaler [Ventolin Hfa 2 puff INHALATION RT-QID PRN 01/15/21 08/26/23 Inhaler] Budesonide/Formoterol Fumarate 2 puff INHALATION RT-DAILY 01/15/21 08/26/23 [Symbicort 160-4.5 Mcg Inhaler] Flecainide [Tambocor] 50 mg PO BID 01/15/21 08/26/23 Potassium Chloride ER [K-Dur 10] 10 meq PO DAILY 01/15/21 08/26/23 Apixaban [Eliquis] 2.5 mg PO BID 10/12/22 08/26/23 Tamsulosin [Flomax] 0.4 mg PO HS 10/12/22 08/26/23 Cholecalciferol (Vitamin D3) 100 mcg PO DAILY 08/24/23 08/26/23 [Vitamin D3 (50 Mcg = 2000 Iu) Chew Tab] Nystatin 100,000Unit/gm Cream 1 applic TOPICAL BID 08/26/23 08/26/23 [Mycostatin Cream] Allergies Allergy/AdvReac Type Severity Reaction Status Date / Time fluticasone propionate Allergy Unknown Verified 08/26/23 12:45 [From Advair Diskus] Penicillins Allergy Anaphylaxis Verified 08/26/23 12:45 salmeterol xinafoate Allergy Unknown Verified 08/26/23 12:45 [From Advair Diskus] Tetanus Vaccines and Toxoid Allergy Unknown Verified 08/26/23 12:45 [Tetanus Vaccines & Toxoid] Childhood heparin AdvReac "made Verified 08/26/23 12:45 blood too thin" levetiracetam [From [facility]] AdvReac Hallucinati Verified 08/26/23 12:45 ons Review of Systems ROS Statement: Those systems with pertinent positive or pertinent negative responses have been documented in the HPI. ROS Other: All systems not noted in ROS Statement are negative. 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 loop monitor-2019 Past Anesthesia/Blood Transfusion Reactions: No Reported Reaction Type of Cardiac Device: Loop Past Psychological History: Depression Smoking Status: Former smoker Past Alcohol Use History: None Reported Past Drug Use History: None Reported - Past Family History Mother Family Medical History: Cancer Additional Family Medical History / Comment(s): lung cancer Father Family Medical History: Dementia Additional Family Medical History / Comment(s): heart disease Sister(s) Family Medical History: Cancer Additional Family Medical History / Comment(s): Breast Cancer Brother(s) Family Medical History: Diabetes Mellitus Additional Family Medical History / Comment(s): heart disease General Exam - General Exam Comments Initial Comments: PHYSICAL EXAM: General Impression: Alert and oriented x3, not in acute distress HEENT: Normocephalic atraumatic, extra-ocular movements intact, pupils equal and reactive to light bilaterally, mucous membranes moist. Cardiovascular: Heart regular rate and rhythm Chest: Able to complete full sentences, no retractions, no tachypnea Abdomen: abdomen soft, non-tender, non-distended, no organomegaly Musculoskeletal: Pulses present and equal in all extremities, no peripheral edema Motor: no focal deficits noted Neurological: CN II-XII grossly intact, no focal motor or sensory deficits noted, NIH 0 Skin: Intact with no visualized rashes Psych: Normal affect and mood Limitations: no limitations Course Vital Signs 08/26/23 08/26/23 11:19 13:08 Temperature 97.2 F L 97.6 F Pulse Rate 93 80 Respiratory 18 18 Rate Blood Pressure 136/74 118/70 O2 Sat by Pulse 100 98 Oximetry Medical Decision Making - Medical Decision Making Was pt. sent in by a medical professional or institution (TRUONG Cazares, ENGINEER SECOND ASSISTANT, urgent care, hospital, or group home...) When possible be specific @ -No Did you speak to anyone other than the patient for history (EMS, parent, family, police, friend...)? What history was obtained from this source @ -No Did you review nursing and triage notes (agree or disagree)? Why? @ -I reviewed and agree with nursing and triage notes Were old charts reviewed (outside hosp., previous admission, EMS record, old EKG, old radiological studies, urgent care reports/EKG's, group home records)? Report findings @ -No old charts were reviewed Differential Diagnosis (chest pain, altered mental status, abdominal pain women, abdominal pain men, vaginal bleeding, musculoskeletal, weakness, fever, dyspnea, syncope, headache, dizziness, GI bleed, back pain, seizure, CVA, palpatations, mental health)? @ - Differential CVA: Ischemic stroke, hemorrhagic stroke, brain tumor, atypical migraine, Wernicke's encephalopathy, seizure, multiple sclerosis, meningitis, encephalitis, hypoglycemia, Guillain-Barragan, electrolytes disturbance, myasthenia gravis.... This is not meant to be an all-inclusive list EKG interpreted by me (3pts min.). @ -My EKG interpretation: Ventricular rate 84, sinus rhythm,. Interval to 5, QRS 12/03/2017, QTC 422. No SC prolongation, no QTC prolongation, no ST or T- wave changes noted. Overall, this EKG is unremarkable X-rays interpreted by me (1pt min.). @ -None done CT interpreted by me (1pt min.). @ -CT brain and C-spine shows no acute processes U/S interpreted by me (1pt. min.). @ -None done What testing was considered but not performed or refused? (CT, X-rays, U/S, labs)? Why? @ -None What meds were considered but not given or refused? Why? @ -None Did you discuss the management of the patient with other professionals (professionals i.e. , PA, ENGINEER SECOND ASSISTANT, lab, RT, psych nurse, social science analyst, regulator mechanic, teacher, peace officer, case management director)? Give summary @ -Discussed with hospitalist for admission Was smoking cessation discussed for >3mins.? @ -No Was critical care preformed (if so, how long)? @ -No Were there social determinants of health that impacted care today? How? (Homelessness, low income, unemployed, alcoholism, drug addiction, transportation, low edu. Level, literacy, decrease access to med. care, longterm, rehab)? @ -No Was there de-escalation of care discussed even if they declined (Discuss DNR or withdrawal of care, Hospice)? DNR status @ -No What co-morbidities impacted this encounter? (DM, HTN, Smoking, COPD, CAD, Cancer, CVA, ARF, Chemo, Hep., AIDS, mental health diagnosis, sleep apnea, morbid obesity)? @ -None Was patient admitted / discharged? Hospital course, mention meds given and route, prescriptions, significant lab abnormalities, going to OR and other pertinent info. @ -8-year-old male presents emergency by with TIA symptoms that lasted for approximately 20 minutes. He is asymptomatic at the bedside. Vital signs stable. He allegedly has a history of CVA. Chart does not show any in-depth workup for stroke or transient ischemic attack. Patient states he does have a neurologist and has had a workup in the past. Physical examination is benign. Laboratory evaluation unremarkable. Imaging test negative. This physician options were discussed. He is agreeable for observation admission with consultation to neurology and neurologic monitoring. Patient given aspirin. Undiagnosed new problem with uncertain prognosis? @ -No Drug Therapy requiring intensive monitoring for toxicity (Heparin, Nitro, Insulin, Cardizem)? @ -No Were any procedures done? @ -No Diagnosis/symptom? Acute, or Chronic, or Acute on Chronic? Uncomplicated (without systemic symptoms) or Complicated (systemic symptoms)? @ -TIA Side effects of treatment? @ -No Exacerbation, Progression, or Severe Exacerbation? @ -No Poses a threat to life or bodily function? How? (Chest pain, USA, [place], pneumonia, PE, COPD, DKA, ARF, appy, cholecystitis, CVA, Diverticulitis, Homicidal, Suicidal, threat to staff... and all critical care pts) @ -yes - Lab Data Result diagrams: 08/26/23 11:46 08/26/23 11:46 Lab Results 08/26/23 08/26/23 08/26/23 Range/Units 11:46 11:46 11:46 WBC 9.1 (3.8-10.6) k/uL RBC 5.27 (4.30-5.90) m/uL Hgb 15.3 (13.0-17.5) gm/dL Hct 47.2 (39.0-53.0) % MCV 89.4 (80.0-100.0) fL MCH 29.1 (25.0-35.0) pg MCHC 32.5 (31.0-37.0) g/dL RDW 13.4 (11.5-15.5) % Plt Count 186 (150-450) k/uL MPV 8.0 Neutrophils % 77 % Lymphocytes % 12 % Monocytes % 6 % Eosinophils % 3 % Basophils % 0 % Neutrophils # 7.0 (1.3-7.7) k/uL Lymphocytes # 1.1 (1.0-4.8) k/uL Monocytes # 0.5 (0-1.0) k/uL Eosinophils # 0.3 (0-0.7) k/uL Basophils # 0.0 (0-0.2) k/uL PT 11.1 (9.0-12.0) sec INR 1.1 (<1.2) APTT 22.7 (22.0-30.0) sec Sodium 139 (137-145) mmol/L Potassium 5.0 (3.5-5.1) mmol/L Chloride 104 (98-107) mmol/L Carbon Dioxide 20 L (22-30) mmol/L Anion Gap 15 mmol/L BUN 25 H (9-20) mg/dL Creatinine 1.31 H (0.66-1.25) mg/dL Est GFR (CKD-EPI)AfAm 56 (>60 ml/min/1.73 sqM) Est GFR (CKD-EPI)NonAf 48 (>60 ml/min/1.73 sqM) Glucose 87 (74-99) mg/dL Calcium 9.3 (8.4-10.2) mg/dL Magnesium 2.2 (1.6-2.3) mg/dL Total Bilirubin 1.0 (0.2-1.3) mg/dL AST 40 (17-59) U/L ALT 39 (4-49) U/L Alkaline Phosphatase 169 H (38-126) U/L Total Protein 6.8 (6.3-8.2) g/dL Albumin 4.1 (3.5-5.0) g/dL Serum Alcohol <10 mg/dL Disposition Clinical Impression: TIA (transient ischemic attack) Disposition: ADMITTED IP TO THIS HOSP Condition: Fair Referrals: Nikkie Colon MD [Primary Care Provider] - 1-2 days Decision Time: 13:52
[2023-08-26 12:00] LABS: Basophils % (A) 0 %; Eosinophils # (A) 0.3 k/uL (0-0.7); Eosinophils % (A) 3 %; HCT 47.2 % (39.0-53.0); HGB 15.3 gm/dL (13.0-17.5); Lymphocytes # (A) 1.1 k/uL (1.0-4.8); Lymphocytes % (A) 12 %; MCH 29.1 pg (25.0-35.0); MCHC 32.5 g/dL (31.0-37.0); MCV 89.4 fL (80.0-100.0); Monocytes # (A) 0.5 k/uL (0-1.0); Monocytes % (A) 6 %; Neutrophils % (A) 77 %; Platelet Count 186 k/uL (150-450); RBC 5.27 m/uL (4.30-5.90); RDW 13.4 % (11.5-15.5); WBC 9.1 k/uL (3.8-10.6)
[2023-08-26 12:06] LABS: ALT 39 U/L (4-49); African American GFR (CKD) 56 (>60 ml/min/1.73 sqM); Albumin 4.1 g/dL (3.5-5.0); Alcohol <10 mg/dL; Anion Gap 15 mmol/L; Blood Urea Nitrogen 25 mg/dL (9-20); Calcium 9.3 mg/dL (8.4-10.2); Carbon Dioxide 20 mmol/L (22-30); Chloride 104 mmol/L (98-107); Glucose 87 mg/dL (74-99); Non-African American GFR(CKD) 48 (>60 ml/min/1.73 sqM); Sodium 139 mmol/L (137-145); Total Protein 6.8 g/dL (6.3-8.2)
[2023-08-26 12:07] LABS: AST 40 U/L (17-59); Alkaline Phosphatase 169 U/L (38-126); Magnesium 2.2 mg/dL (1.6-2.3)
[2023-08-26 12:17] LABS: INR 1.1 (<1.2); Partial Thromboplastin Time 22.7 sec (22.0-30.0); Prothrombin Time 11.1 sec (9.0-12.0)
--- NOTE | 2023-08-26 12:42 | CT ---
EXAMINATION TYPE: CT brain qasimine wo con DATE OF EXAM: 08/26/2023 COMPARISON: Brain 10/12/2022 an 12/28/2018 HISTORY: 88-year-old male TIA CT DLP: 1400.5 mGycm Automated exposure control for dose reduction was used. Technique: Examination of the head was done in axial plane without intravenous contrast. Coronal and sagittal reconstructions performed. CT of the cervical spine was obtained in axial plane without intravenous injection of contrast mater ial. Coronal and sagittal reformatted images were obtained from the axial views for evaluation of f ractures, spinal alignment and canal. FINDINGS: Head: There is no evidence of acute intracranial hemorrhage, acute ischemic changes, mass, mass-effect, or extra-axial fluid collection. There is no effacement of cerebral sulci or basal subarachnoid cister ns. There is no midline shift. Hernandez-white matter distinction is preserved. Mild generalized supratentorial volume loss. Secondary mild prominence to the ventricular system. Mil d to moderate patchy white matter hypodensities in both cerebral hemispheres. At this current calcifi cations in the carotid siphons. Partially empty sella. Prominent CSF space lateral to the left cerebe llar hemisphere measuring 2.7 x 1.4 cm remains unchanged. Possibly normal for the patient or less lik viviana a small arachnoid cyst. Opacified, conchal bullosa on the right. There is some fluid within the inferior right mastoid air ce lls. Orbits and globes appear intact. Cervical spine: 9 mm sclerotic focus medial right fifth rib. No craniocervical junction abnormality, predental space widening, or prevertebral soft tissue swellin g. Degenerative change C1 dens articulation. Previous osseous fusion extending across C3 down through the C6 level. There is severe degenerative d isc disease below the fusion at C6-C7 with grade 1 retrolisthesis. Trace grade 1 anterolisthesis C7-T 1. Straightening of the normal cervical lordosis. Posterior osteophytic ridging at C5-C6 mildly narrows the spinal canal. No acute fracture seen of the cervical spine. Moderate right neural foraminal stenosis C6-C7 and mild on the left at C2-C3. Sagittal and coronal reformatted images confirm above findings. COMBINED IMPRESSION: 1. Mild atrophy and mild burden of chronic small vessel ischemic disease. No acute intracranial abnor mality seen. 2. No acute fracture seen of the cervical spine. Degenerative grade 1 spondylolisthesis C6-C7 and C7- T1. 3. Previous surgery with bony ankylosis across C3-C6 levels. Advanced degenerative disc disease below at C6/C7 and C7-T1. Degenerative grade 1 retrolisthesis C6-C7. 4. Small amount of fluid inferior right mastoid air cells. Correlate for any mastoid pain to exclude mastoiditis.
[2023-08-26] MEDS ORDERED: ASPIRIN 81 MG PO STA (13:15)
--- NOTE | 2023-08-26 16:17 | P.CNNES ---
History of Present Illness Consult date: 08/26/23 Requesting physician: Dustin Campoverde Reason for Consult: TIA History of Present Illness: This is an 88-year-old gentleman with history of TIAs, atrial fibrillation on eliquis, cervical injury due to injury at 18 years old with residual right sided weakness, peripheral vascular disease who presents emergency department because of the episode of aphasia. Patient is accompanied with his and daughter. It seems that around 10:15 AM today patient had the sudden onset of difficulty getting his words out and he knew what he wanted to say but was coming out wrong and was coming out gibberish and the episode lasted between 30 minutes to 1 hour. Denied any focal weakness, visual disturbance, difficulty swallowing, any new numbness. His symptoms has resolved. Patient states he had similar episodes in the past and this is the third episode of aphasia. He states he has history of atrial fibrillation and is on eliquis 2.5mg bid. He stated at a higher dose he was having severe bruising. He denies being on any antiplatelet. As stated earlier he feels back to baseline. Some other workup during this hospital visit consisted of: CBC with differential is unremarkable. Glucose is 87. Calcium, sodium, AST ALT are within normal limits. Creatinine level is a 1.31 is seems at the baseline. CT of the head is reported as mild atrophy and mild burden of chronic small vessel ischemic disease. No acute intracranial abnormality seen. CT cervical spine is reported as no acute fracture seen of the cervical spine. Degenerative grade 1 spondylolisthesis C6-C7 and C7-T1. Previous surgery with bony and closing across C3 C6 level. Advanced degenerative disc disease below C6-C7 and C7-T1. Degenerative grade 1 retrolithiasis C6-C7. Small amount of fluid inferior right mastoid air cells. Correlate for any mastoid the pain to exclude mastoiditis. Review of Systems The positive and negative as per HPI. 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 loop monitor-2019 Past Anesthesia/Blood Transfusion Reactions: No Reported Reaction Type of Cardiac Device: Loop Past Psychological History: Depression Smoking Status: Former smoker Past Alcohol Use History: None Reported Past Drug Use History: None Reported - Past Family History Mother Family Medical History: Cancer Additional Family Medical History / Comment(s): lung cancer Father Family Medical History: Dementia Additional Family Medical History / Comment(s): heart disease Sister(s) Family Medical History: Cancer Additional Family Medical History / Comment(s): Breast Cancer Brother(s) Family Medical History: Diabetes Mellitus Additional Family Medical History / Comment(s): heart disease Medications and Allergies Home Medications Medication Instructions Recorded Confirmed Type Atorvastatin [Lipitor] 40 mg PO DAILY 12/10/15 08/26/23 History Sennosides [Senokot] 8.6 mg PO HS 12/10/15 08/26/23 History Albuterol Nebulized [Ventolin 2.5 mg INHALATION RT-QID PRN 12/23/20 08/26/23 History Nebulized] Famotidine [Pepcid] 40 mg PO HS 12/23/20 08/26/23 History Furosemide [Lasix] 40 mg PO DAILY 12/23/20 08/26/23 History Albuterol Inhaler [Ventolin Hfa 2 puff INHALATION RT-QID PRN 01/15/21 08/26/23 History Inhaler] Budesonide/Formoterol Fumarate 2 puff INHALATION RT-DAILY 01/15/21 08/26/23 History [Symbicort 160-4.5 Mcg Inhaler] Flecainide [Tambocor] 50 mg PO BID 01/15/21 08/26/23 History Potassium Chloride ER [K-Dur 10] 10 meq PO DAILY 01/15/21 08/26/23 History Apixaban [Eliquis] 2.5 mg PO BID 10/12/22 08/26/23 History Tamsulosin [Flomax] 0.4 mg PO HS 10/12/22 08/26/23 History Cholecalciferol (Vitamin D3) 100 mcg PO DAILY 08/24/23 08/26/23 History [Vitamin D3 (50 Mcg = 2000 Iu) Chew Tab] Nystatin 100,000Unit/gm Cream 1 applic TOPICAL BID 08/26/23 08/26/23 History [Mycostatin Cream] Allergies Allergy/AdvReac Type Severity Reaction Status Date / Time fluticasone propionate Allergy Unknown Verified 08/26/23 12:45 [From Advair Diskus] Penicillins Allergy Anaphylaxis Verified 08/26/23 12:45 salmeterol xinafoate Allergy Unknown Verified 08/26/23 12:45 [From Advair Diskus] Tetanus Vaccines and Toxoid Allergy Unknown Verified 08/26/23 12:45 [Tetanus Vaccines & Toxoid] Childhood heparin AdvReac "made Verified 08/26/23 12:45 blood too thin" levetiracetam [From [facility]] AdvReac Hallucinati Verified 08/26/23 12:45 ons Physical Examination - Vital Signs Vital Signs: Vital Signs Temp Pulse Resp BP Pulse Ox 08/26/23 14:43 73 18 133/65 95 08/26/23 13:08 97.6 F 80 18 118/70 98 08/26/23 11:19 97.2 F L 93 18 136/74 100 Intake and Output 08/26/23 08/26/23 08/26/23 06:59 14:59 22:59 Other: Weight 84.368 kg GENERAL: The patient is lying in bed and is not in acute distress. HENT: Supple neck. INTEGUMENTARY: Has scar in lower extremities from prior surgery. NEUROLOGICAL: Higher mental function: The patient is awake, alert, oriented to self, place and time. Patient is following commands. No aphasia and no neglect. Cranial nerves: The pupils are round, equal and reactive to light. Visual kaminski are full to confrontation throughout. Extraocular movement is intact no nystagmus is noted. Facial sensation is normal to touch throughout. The facial strength is normal throughout. Is very hard of hearing bilaterally (chronic). Tongue is midline and moved [id number] without any difficulty. No dysarthria is noted. Shoulder shrug is normal bilaterally. Motor: The strength is right upper extremity: hand is 4-4+ and left foearm extension is 4+ with minimal increase tone right hand. Right lower proximal: 4+ to 5-. Ankles are 4-4+. Right sided deficits are old. Left is 5/5. Cerebellum: Normal finger to nose bilaterally. Sensation: Sensation is normal to touch throughout. Reflexes (right/left): 2+ throughout uppers while lowers are 1+ Results - Laboratory Findings CBC and BMP: 08/26/23 11:46 08/26/23 11:46 Abnormal Lab Findings: Abnormal Labs 08/26/23 11:46 Carbon Dioxide 20 L BUN 25 H Creatinine 1.31 H Alkaline Phosphatase 169 H Assessment and Plan Assessment: This is an 88-year-old gentleman with history of atrial fibrillation on eliquis, TIAs (aphasia) and multiple other medical issues who presents to the emergency department because of a transient expressive aphasia lasting between 30 minutes to 1 hour. Transient Ischemic Attack (expressive aphasia) History of TIA X2 (also expressive aphasia) History of atrial fibrillation on eliquis 2.5mg bid History of peripheral vascular disease status post aortofemoral bypass and stents Historyof old neck injury at the age of 18 y/o with residual right sided weakness and foot drop and walks with walker Chronic kidney insufficiency History of DVT Hyperlipidemia History of coronary artery disease Ex-Tobacco user Plan: * I ordered carotid duplex, 2-D echo TSH, hemoglobin A1c * Lipid panels ordered and pending. * In the ED the patient was given aspirin 324 mg once. Patient states that he was on home dose of Eliquis 2.5 mg twice a day and on a higher dose he was bruising very easily. Therefore, I started the patient in addition on aspirin 81 mg daily. I also started the patient on Lipitor 40 mg daily at bedtime (home dose) * Recommend a repeat CT of the head within 24-48 hours to assess if there is any changes compared to the initial CT. Patient refusing MRI of the brain and will only get open MRI. * Cardiology team consulted because of his A. fib with recurrent TIAs. * Continue neuro checks * Cardiac monitoring * PT OT and [employer] are consulted * We'll defer the rest of the medical management to primary team * For DVT prophylaxis on Eliquis. Plan discussed with the patient and his family members ( and daughter) who are at bedside. Dr. Justin will start neurology service tomorrow A.M. then Dr. Gomez will start service this Tuesday. Time with Patient: Greater than 30
--- NOTE | 2023-08-26 18:40 | US ---
EXAMINATION TYPE: US carotid duplex BILAT DATE OF EXAM: 08/26/2023 COMPARISON: NONE CLINICAL INDICATION: Male, 88 years old with history of stroke; TIA TECHNIQUE: Carotid duplex ultrasound examination. Indirect Doppler criteria was utilized. FINDINGS: EXAM MEASUREMENTS: RIGHT: Peak Systolic Velocity (PSV) cm/sec ----- Right CCA: 64.8 ----- Right ICA: 218 ----- Right ECA: 135 ICA/CCA ratio: 3.4 RIGHT: End Diastole cm/sec ----- Right CCA: 4.6 ----- Right ICA: 37.0 ----- Right ECA: 0.0 LEFT: Peak Systolic Velocity (PSV) cm/sec ----- Left CCA: 94.8 ----- Left ICA: 204 ----- Left ECA: 168 ICA/CCA ratio: 1.7 LEFT: End Diastole cm/sec ----- Left CCA: 12.3 ----- Left ICA: 44.8 ----- Left ECA: 0.0 VERTEBRALS (direction of flow): Right Vertebral: Antegrade Left Vertebral: Antegrade Rhythm: Normal BARREL FINISHER NOTES: Moderate/severe plaque right bifurcation. Moderate plaque left bifurcation. Increa sed velocities bilateral ICA's IMPRESSION: 50-69% stenosis of the bilateral carotid bifurcations. Criteria for Assigning % of Stenosis / Diameter reduction (Estimation based on the indirect measurements of the internal carotid artery velocities (ICA PSV). 1. Normal (no stenosis)=ICA PSV < 125 cm/s: ratio < 2.0: ICA EDV<40 cm/s. 2. Less than 50% stenosis=ICA PSV < 125 cm/s: ratio < 2.0: ICA EDV<40 cm/s. 3. 50 to 69% stenosis=ICA PSV of 125 to 230 cm/s: ration 2.0 ? 4.0: ICA EDV 40-100 cm/s. 4. Greater than 70% stenosis to near occlusion= ICA PSV > 230 cm/s: ratio > 4.0: ICA EDV > 100 cm/s. 5. Near occlusion= ICA PSV velocities may be low or undetectable: variable ratio and ICA EDV. 6. Total occlusion=unable to detect flow.
[2023-08-26] MEDS: SODIUM CHLORIDE 0.9% 1,000 ML IV SCH (19:36)
[2023-08-26] MEDS: APIXABAN 2.5 MG TABLET PO SCH (20:26)
[2023-08-26] MEDS: ATORVASTATIN 40 MG TAB PO SCH (20:26)
--- NOTE | 2023-08-26 21:12 | P.HPIM ---
History of Present Illness H&P Date: 08/26/23 Chief Complaint: Slurred speech/aphasia 80-year-old male provides history of present illness states that he was at breakfast table today when he had 20 minute episode of transient ischemic attack. Family members at bedside states that patient had slurred speech and was significantly aphasic. They also thought that he had a left-sided facial droop. Symptoms lasted for several minutes however resolved. Patient otherwise has no complaints at this time. CBC with differential is unremarkable.; Glucose is 87. Calcium, sodium, AST ALT are within normal limits.; Creatinine level is a 1.31 is seems at the baseline. CT of the head is reported as mild atrophy and mild burden of chronic small vessel ischemic disease. No acute intracranial abnormality seen. CT cervical spine is reported as no acute fracture seen of the cervical spine. Degenerative grade 1 spondylolisthesis C6-C7 and C7-T1. Previous surgery with bony and closing across C3 C6 level. Advanced degenerative disc disease below C6-C7 and C7-T1. Degenerative grade 1 retrolithiasis C6-C7. Small amount of fluid inferior right mastoid air cells. Correlate for any mastoid the pain to exclude mastoiditis. Review of Systems REVIEW OF SYSTEMS: CONSTITUTIONAL: No fever, no malaise, no fatigue. HEENT: No recent visual problems or hearing problems. Denied any sore throat. CARDIOVASCULAR: No chest pain, orthopnea, PND, no palpitations, no syncope. PULMONARY: No shortness of breath, no cough, no hemoptysis. GASTROINTESTINAL: No diarrhea, no nausea, no vomiting, no abdominal pain. NEUROLOGICAL: No headaches, no weakness, no numbness. HEMATOLOGICAL: Denies any bleeding or petechiae. GENITOURINARY: Denies any burning micturition, frequency, or urgency. MUSCULOSKELETAL/RHEUMATOLOGICAL: Denies any joint pain, swelling, or any muscle pain. ENDOCRINE: Denies any polyuria or polydipsia. The rest of the 14-point review of systems is negative. 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 loop monitor-2019 Past Anesthesia/Blood Transfusion Reactions: No Reported Reaction Type of Cardiac Device: Loop Past Psychological History: Depression Smoking Status: Former smoker Past Alcohol Use History: None Reported Past Drug Use History: None Reported - Past Family History Mother Family Medical History: Cancer Additional Family Medical History / Comment(s): lung cancer Father Family Medical History: Dementia Additional Family Medical History / Comment(s): heart disease Sister(s) Family Medical History: Cancer Additional Family Medical History / Comment(s): Breast Cancer Brother(s) Family Medical History: Diabetes Mellitus Additional Family Medical History / Comment(s): heart disease Medications and Allergies Home Medications Medication Instructions Recorded Confirmed Type Atorvastatin [Lipitor] 40 mg PO DAILY 12/10/15 08/26/23 History Sennosides [Senokot] 8.6 mg PO HS 12/10/15 08/26/23 History Albuterol Nebulized [Ventolin 2.5 mg INHALATION RT-QID PRN 12/23/20 08/26/23 History Nebulized] Famotidine [Pepcid] 40 mg PO HS 12/23/20 08/26/23 History Furosemide [Lasix] 40 mg PO DAILY 12/23/20 08/26/23 History Albuterol Inhaler [Ventolin Hfa 2 puff INHALATION RT-QID PRN 01/15/21 08/26/23 History Inhaler] Budesonide/Formoterol Fumarate 2 puff INHALATION RT-DAILY 01/15/21 08/26/23 History [Symbicort 160-4.5 Mcg Inhaler] Flecainide [Tambocor] 50 mg PO BID 01/15/21 08/26/23 History Potassium Chloride ER [K-Dur 10] 10 meq PO DAILY 01/15/21 08/26/23 History Apixaban [Eliquis] 2.5 mg PO BID 10/12/22 08/26/23 History Tamsulosin [Flomax] 0.4 mg PO HS 10/12/22 08/26/23 History Cholecalciferol (Vitamin D3) 100 mcg PO DAILY 08/24/23 08/26/23 History [Vitamin D3 (50 Mcg = 2000 Iu) Chew Tab] Nystatin 100,000Unit/gm Cream 1 applic TOPICAL BID 08/26/23 08/26/23 History [Mycostatin Cream] Allergies Allergy/AdvReac Type Severity Reaction Status Date / Time fluticasone propionate Allergy Unknown Verified 08/26/23 12:45 [From Advair Diskus] Penicillins Allergy Anaphylaxis Verified 08/26/23 12:45 salmeterol xinafoate Allergy Unknown Verified 08/26/23 12:45 [From Advair Diskus] Tetanus Vaccines and Toxoid Allergy Unknown Verified 08/26/23 12:45 [Tetanus Vaccines & Toxoid] Childhood heparin AdvReac "made Verified 08/26/23 12:45 blood too thin" levetiracetam [From [facility]] AdvReac Hallucinati Verified 08/26/23 12:45 ons Physical Exam Vitals: Vital Signs Temp Pulse Resp BP Pulse Ox 08/26/23 14:43 73 18 133/65 95 08/26/23 13:08 97.6 F 80 18 118/70 98 08/26/23 11:19 97.2 F L 93 18 136/74 100 Intake and Output 08/26/23 08/26/23 08/26/23 06:59 14:59 22:59 Other: Weight 84.368 kg PHYSICAL EXAMINATION: GENERAL: The patient is alert and oriented x3, not in any acute distress. Well developed, well nourished. HEENT: Pupils are round and equally reacting to light. EOMI. No scleral icterus. No conjunctival pallor. Normocephalic, atraumatic. No pharyngeal erythema. No thyromegaly. CARDIOVASCULAR: S1 and S2 present. No murmurs, rubs, or gallops. PULMONARY: Chest is clear to auscultation, no wheezing or crackles. ABDOMEN: Soft, nontender, nondistended, normoactive bowel sounds. No palpable organomegaly. MUSCULOSKELETAL: No joint swelling or deformity. EXTREMITIES: No cyanosis, clubbing, or pedal edema. NEUROLOGICAL: Gross neurological examination did not reveal any focal deficits. SKIN: No rashes. Results CBC & Chem 7: 08/26/23 11:46 08/26/23 11:46 Labs: Abnormal Lab Results - Last 24 Hours (Table) 08/26/23 Range/Units 11:46 Carbon Dioxide 20 L (22-30) mmol/L BUN 25 H (9-20) mg/dL Creatinine 1.31 H (0.66-1.25) mg/dL Alkaline Phosphatase 169 H (38-126) U/L Assessment and Plan Assessment: 1. TIA; with expressive aphasia slight slurred speech - Patient does have history of TIA in the past with expressive aphasia -- Neurology is consulted and recommending carotid Doppler, 2-D echo, TSH, HbA1c and lipid panel - Patient received aspirin 324 mg in the ED 1; neurology recommending to continue with home dose of Prilosec was 2.5 mg twice a day with addition of asp irin 81 mg daily; patient will resume home dose of Lipitor 40 mg by mouth daily at bedtime - CT of the head is recommended to be repeated within 24-48 hours, and given patient refuses MRI - Consult PT/OT/INSPECTOR - Neurologic checks per protocol 2. Atrial fibrillation; patient is anticoagulated with Eliquis 2.5 mg twice a day; Tambocor 50 mg twice a day 3. Hyperlipidemia; Lipitor 40 mg daily 4. Asthma/COPD; not in exacerbation; continue with home inhaler therapy 5. BPH; Flomax 0.5 mg by mouth daily at bedtime 6. GERD/gastritis; Pepcid 40 mg by mouth daily at bedtime DVT prophylaxis; SCDs/systemic anticoagulation CODE STATUS; full code
[2023-08-27] MEDS: APIXABAN 2.5 MG TABLET PO SCH ×2 (09:07→20:13)
[2023-08-27 10:07] LABS: Chol/HDL Ratio 2.87 Ratio; LDL Cholesterol,Calculated 72.4 mg/dL (0.0-131.0); VLDL Calculation 16.88 mg/dL (5.00-40.00)
--- NOTE | 2023-08-27 13:26 | CT ---
1 dilated right is slightly EXAMINATION TYPE: CT brain wo con DATE OF EXAM: 08/27/2023 COMPARISON: Lisa Bustamante is of HISTORY: post tia CT DLP: 1054.[address] of the brain was performed. The ventricles, basal cisterns and sulci overlying the cerebral convexities demonstrate mild enlargem ent. There is no evidence for intracranial hemorrhage or sulcal effacement. There is decreased attenuation about the periventricular white matter and deep white matter of both c erebral hemispheres, compatible with chronic small vessel ischemia. Differential diagnosis does inclu de demyelination. No mass effects are seen.No midline shift. Osseous calvarium is intact. If symptoms persist consider MRI. IMPRESSION: 1. Age related atrophic and chronic small vessel ischemic change without acute intracranial process s een at this time.
[2023-08-27 15:42] LABS: Basophils # (A) 0.1 k/uL (0-0.2); Basophils % (A) 1 %; Eosinophils # (A) 0.4 k/uL (0-0.7); Eosinophils % (A) 5 %; HCT 45.5 % (39.0-53.0); HGB 14.6 gm/dL (13.0-17.5); Hypochromasia Slight; Lymphocytes # (A) 0.9 k/uL (1.0-4.8); Lymphocytes % (A) 12 %; MCH 29.7 pg (25.0-35.0); MCHC 32.1 g/dL (31.0-37.0); MCV 92.5 fL (80.0-100.0); Mean Platelet Volume 11.8; Monocytes # (A) 0.5 k/uL (0-1.0); Monocytes % (A) 7 %; Neutrophils # (A) 5.5 k/uL (1.3-7.7); Neutrophils % (A) 73 %; Platelet Count 135 k/uL (150-450); RBC 4.91 m/uL (4.30-5.90); RDW 13.4 % (11.5-15.5); WBC 7.5 k/uL (3.8-10.6)
--- NOTE | 2023-08-27 15:53 | P.CRDCN ---
History of Present Illness Consult date: 08/27/23 History of present illness: HISTORY OF PRESENTING ILLNESS Patient is a 88-year-old male with past medical history of atrial fibrillation known to Dr. Dick. She weeks ago patient's dose of Eliquis was reduced from 5 mg to 2.5 mg as patient could not afford the high copayments of Eliquis and this was used as a strategy increases number of doses without increasing his cost. He presented to the hospital with sudden onset difficulty in speaking and dysarthria. There was a concern of possible TIA for which neurology was consulted and he is getting evaluation for that. Cardiology was consulted for anticoagulation recommendations. Patient's creatinine is 1.31, glucose 87, liver function within normal limits. Troponins were not elevated. REVIEW OF SYSTEMS 14 point review of system is negative except what is mentioned above in HPI. PHYSICAL EXAMINATION Vital signs reviewed. Head: Normocephalic. Eyes: Sclerae nonicteric. Neck: Brisk carotid upstroke, no jugular venous distention. Lungs: Clear to auscultation. Heart: Irregular pulse, S1-S2, no S3, no murmur or rub. Abdomen: Soft nontender, positive bowel sounds no organomegaly. Extremities: No edema, intact distal pulses. ASSESSMENT Atrial fibrillation on rhythm control strategy with flecainide Dysarthria likely due to TIA COPD PLAN Idea patient should be increased to Eliquis 5 mg twice a day. To this patient denied as he reports that he cannot afford echo evidence of Eliquis. Patient only needs one out of 3 criteria of low dose of Eliquis and it seems he failed 2.5 mg of Eliquis had a TIA in setting of atrial fibrillation. Another option is to add aspirin 81 mg and continue Eliquis 2.5 mg daily. Patient is agreeable to this strategy. Continue his home medications which include flecainide and atorvastatin. 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 loop monitor-2019 Past Anesthesia/Blood Transfusion Reactions: No Reported Reaction Type of Cardiac Device: Loop Past Psychological History: Depression Smoking Status: Former smoker Past Alcohol Use History: None Reported Past Drug Use History: None Reported - Past Family History Mother Family Medical History: Cancer Additional Family Medical History / Comment(s): lung cancer Father Family Medical History: Dementia Additional Family Medical History / Comment(s): heart disease Sister(s) Family Medical History: Cancer Additional Family Medical History / Comment(s): Breast Cancer Brother(s) Family Medical History: Diabetes Mellitus Additional Family Medical History / Comment(s): heart disease Medications and Allergies Home Medications Medication Instructions Recorded Confirmed Type Atorvastatin [Lipitor] 40 mg PO DAILY 12/10/15 08/26/23 History Sennosides [Senokot] 8.6 mg PO HS 12/10/15 08/26/23 History Albuterol Nebulized [Ventolin 2.5 mg INHALATION RT-QID PRN 12/23/20 08/26/23 History Nebulized] Famotidine [Pepcid] 40 mg PO HS 12/23/20 08/26/23 History Furosemide [Lasix] 40 mg PO DAILY 12/23/20 08/26/23 History Albuterol Inhaler [Ventolin Hfa 2 puff INHALATION RT-QID PRN 01/15/21 08/26/23 History Inhaler] Budesonide/Formoterol Fumarate 2 puff INHALATION RT-DAILY 01/15/21 08/26/23 History [Symbicort 160-4.5 Mcg Inhaler] Flecainide [Tambocor] 50 mg PO BID 01/15/21 08/26/23 History Potassium Chloride ER [K-Dur 10] 10 meq PO DAILY 01/15/21 08/26/23 History Apixaban [Eliquis] 2.5 mg PO BID 10/12/22 08/26/23 History Tamsulosin [Flomax] 0.4 mg PO HS 10/12/22 08/26/23 History Cholecalciferol (Vitamin D3) 100 mcg PO DAILY 08/24/23 08/26/23 History [Vitamin D3 (50 Mcg = 2000 Iu) Chew Tab] Nystatin 100,000Unit/gm Cream 1 applic TOPICAL BID 08/26/23 08/26/23 History [Mycostatin Cream] Allergies Allergy/AdvReac Type Severity Reaction Status Date / Time fluticasone propionate Allergy Unknown Verified 08/26/23 12:45 [From Advair Diskus] Penicillins Allergy Anaphylaxis Verified 08/26/23 12:45 salmeterol xinafoate Allergy Unknown Verified 08/26/23 12:45 [From Advair Diskus] Tetanus Vaccines and Toxoid Allergy Unknown Verified 08/26/23 12:45 [Tetanus Vaccines & Toxoid] Childhood heparin AdvReac "made Verified 08/26/23 12:45 blood too thin" levetiracetam [From [facility]] AdvReac Hallucinati Verified 08/26/23 12:45 ons Physical Exam Vitals: Vital Signs Temp Pulse Pulse Resp BP BP Pulse Ox 08/27/23 14:41 98.1 F 75 16 132/64 99 08/27/23 14:00 57 L 16 08/27/23 08:00 57 L 16 08/27/23 07:13 98.1 F 57 L 16 177/73 100 08/27/23 02:41 66 22 08/27/23 02:00 97.5 F L 58 L 20 140/54 100 08/26/23 23:15 97.9 F 66 22 145/63 98 08/26/23 20:00 78 16 130/56 98 08/26/23 18:23 69 18 128/63 97 Intake and Output 08/27/23 08/27/23 08/27/23 06:59 14:59 22:59 Intake Total 200 Balance 200 Intake: Oral 200 Other: Voiding Method Toilet Toilet # Voids 3 Results 08/27/23 05:33 08/26/23 11:46 Lipids 08/27/23 Range/Units 05:33 Triglycerides 84.40 (0.00-149.00) mg/dL Cholesterol 137.00 (0.00-200.00) mg/dL HDL Cholesterol 47.70 (40.00-60.00) mg/dL Cholesterol/HDL Ratio 2.87 Ratio CBC 08/27/23 Range/Units 05:33 WBC 7.5 (3.8-10.6) k/uL RBC 4.91 (4.30-5.90) m/uL Hgb 14.6 (13.0-17.5) gm/dL Hct 45.5 (39.0-53.0) % Plt Count 135 L (150-450) k/uL Current Medications Generic Name Dose Route Start Last Admin Trade Name Freq PRN Reason Stop Dose Admin Apixaban 2.5 mg 08/26/23 21:00 08/27/23 09:07 Apixaban 2.5 Mg Tablet PO 2.5 mg BID [facility] Administration Protocol Aspirin 81 mg 08/27/23 15:45 Aspirin 81 Mg PO DAILY [facility] Atorvastatin Calcium 40 mg 08/26/23 21:00 08/26/23 20:26 Atorvastatin 40 Mg Tab PO Not Given HS [facility] Flecainide Acetate 50 mg 08/27/23 21:00 Flecainide 50 Mg Tab PO Q12HR [facility] Sodium Chloride 1,000 mls @ 20 mls/hr 08/26/23 14:00 08/26/23 19:36 Saline 0.9% IV 20 mls/hr .Q24H [facility] Administration Metoprolol Succinate 25 mg 08/27/23 15:45 Metoprolol Succinate (Er) 25 Mg Tab.Er.24h PO DAILY [facility] Intake and Output 08/27/23 08/27/23 08/27/23 06:59 14:59 22:59 Intake Total 200 Balance 200 Intake: Oral 200 Other: Voiding Method Toilet Toilet # Voids 3 08/27/23 05:33 08/26/23 11:46
[2023-08-27] MEDS: ASPIRIN 81 MG PO SCH (16:57)
[2023-08-27] MEDS: METOPROLOL SUCCINATE (ER) 25 MG TAB.ER.24H PO SCH (17:01)
[2023-08-27 17:34] LABS: BUN/Creat Ratio 16.13 Ratio (12.00-20.00); Blood Urea Nitrogen 24.2 mg/dL (9.0-27.0); Calcium 9.4 mg/dL (8.7-10.3); Carbon Dioxide 15.6 mmol/L (21.6-31.8); Chloride 106 mmol/L (96-109); Glucose 90 mg/dL (70-110); Potassium 5.3 mmol/L (3.5-5.5); Sodium 144 mmol/L (135-145)
[2023-08-27] MEDS: SODIUM CHLORIDE 0.9% 1,000 ML IV SCH (19:48)
[2023-08-27] MEDS: FLECAINIDE 50 MG TAB PO SCH (20:13)
[2023-08-27] MEDS: ATORVASTATIN 40 MG TAB PO SCH (20:13)
--- NOTE | 2023-08-27 20:23 | P.PN ---
Subjective Progress Note Date: 08/27/23 80-year-old male provides history of present illness states that he was at breakfast table today when he had 20 minute episode of transient ischemic attack. Family members at bedside states that patient had slurred speech and was significantly aphasic. They also thought that he had a left-sided facial d alisha. Symptoms lasted for several minutes however resolved. Patient otherwise has no complaints at this time. CBC with differential is unremarkable.; Glucose is 87. Calcium, sodium, AST ALT are within normal limits.; Creatinine level is a 1.31 is seems at the baseline. CT of the head is reported as mild atrophy and mild burden of chronic small vessel ischemic disease. No acute intracranial abnormality seen. CT cervical spine is reported as no acute fracture seen of the cervical spine. Degenerative grade 1 spondylolisthesis C6-C7 and C7-T1. Previous surgery with bony and closing across C3 C6 level. Advanced degenerative disc disease below C6-C7 and C7-T1. Degenerative grade 1 retrolithiasis C6-C7. Small amount of fluid inferior right mastoid air cells. Correlate for any mastoid the pain to exclude mastoiditis. Objective - Vital Signs Vital signs: Vital Signs Temp 98.1 F 08/27/23 14:41 Pulse 75 08/27/23 14:41 Resp 16 08/27/23 14:41 BP 132/64 08/27/23 14:41 Pulse Ox 99 08/27/23 14:41 FiO2 Intake & Output 08/26/23 08/27/23 08/27/23 18:59 06:59 18:59 Intake Total 200 Balance 200 Weight 84.368 kg 84.368 kg Intake: Oral 200 Other: Voiding Method Toilet Toilet # Voids 0 3 - Exam GENERAL: The patient is alert and oriented x3, not in any acute distress. Well developed, well nourished. HEENT: Pupils are round and equally reacting to light. EOMI. No scleral icterus. No conjunctival pallor. Normocephalic, atraumatic. No pharyngeal erythema. No thyromegaly. CARDIOVASCULAR: S1 and S2 present. No murmurs, rubs, or gallops. PULMONARY: Chest is clear to auscultation, no wheezing or crackles. ABDOMEN: Soft, nontender, nondistended, normoactive bowel sounds. No palpable organomegaly. MUSCULOSKELETAL: No joint swelling or deformity. EXTREMITIES: No cyanosis, clubbing, or pedal edema. NEUROLOGICAL: Gross neurological examination did not reveal any focal deficits. SKIN: No rashes. - Labs CBC & Chem 7: 08/27/23 05:33 08/27/23 05:33 Assessment and Plan Assessment: 1. TIA; with expressive aphasia slight slurred speech - Patient does have history of TIA in the past with expressive aphasia -- Neurology is consulted and recommending carotid Doppler, 2-D echo, TSH, HbA1c and lipid panel - Patient received aspirin 324 mg in the ED 1; neurology recommending to continue with home dose of Prilosec was 2.5 mg twice a day with addition of aspirin 81 mg daily; patient will resume home dose of Lipitor 40 mg by mouth daily at bedtime - CT of the head is recommended to be repeated within 24-48 hours, and given patient refuses MRI - Consult PT/OT/MEDICARE CONTACT SPECIALIST - Neurologic checks per protocol 2. Atrial fibrillation; patient is anticoagulated with Eliquis 2.5 mg twice a day; Tambocor 50 mg twice a day 3. Hyperlipidemia; Lipitor 40 mg daily 4. Asthma/COPD; not in exacerbation; continue with home inhaler therapy 5. BPH; Flomax 0.5 mg by mouth daily at bedtime 6. GERD/gastritis; Pepcid 40 mg by mouth daily at bedtime DVT prophylaxis; SCDs/systemic anticoagulation CODE STATUS; full code
[2023-08-27] MEDS: ALBUTEROL NEBULIZED 2.5 MG/3 ML INHALATION PRN (23:36)
[2023-08-28] MEDS: APIXABAN 2.5 MG TABLET PO SCH ×2 (07:46→20:28)
[2023-08-28] MEDS: ASPIRIN 81 MG PO SCH (07:46)
[2023-08-28] MEDS: FLECAINIDE 50 MG TAB PO SCH ×2 (07:47→20:28)
[2023-08-28] MEDS: METOPROLOL SUCCINATE (ER) 25 MG TAB.ER.24H PO SCH (07:47)
[2023-08-28 09:04] LABS: Basophils # (A) 0.08 X 10*3/uL (0.00-0.10); Basophils % (A) 0.8 %; Eosinophils # (A) 0.32 X 10*3/uL (0.04-0.35); Eosinophils % (A) 3.1 %; HCT 51.4 % (39.6-50.0); HGB 16.1 d/dL (13.0-17.0); Lymphocytes # (A) 0.98 X 10*3/uL (0.90-5.00); Lymphocytes % (A) 9.5 %; MCH 28.3 pg (27.0-32.0); MCHC 31.3 d/dL (32.0-37.0); MCV 90.3 FL (80.0-97.0); Mean Platelet Volume 10.4 FL (9.5-12.2); Monocytes # (A) 0.76 X 10*3/uL (0.20-1.00); Monocytes % (A) 7.3 %; NRBC Per 100 WBC 0 X 10*3/uL (0.00-0.01); Neutrophils # (A) 8.18 X 10*3/uL (1.80-7.70); Neutrophils % (A) 78.9 %; Platelet Count 208 X 10*3/uL (140-440); RBC 5.69 X 10*6/uL (4.40-5.60); RDW 13.4 % (11.5-14.5); WBC 10.36 X 10*3/uL (4.50-10.00)
[2023-08-28 09:10] LABS: BUN/Creat Ratio 18.69 Ratio (12.00-20.00); Blood Urea Nitrogen 24.3 mg/dL (9.0-27.0); Calcium 9.1 mg/dL (8.7-10.3); Carbon Dioxide 25.1 mmol/L (21.6-31.8); Chloride 105 mmol/L (96-109); Glucose 88 mg/dL (70-110); Potassium 4.8 mmol/L (3.5-5.5); Sodium 141 mmol/L (135-145)
--- NOTE | 2023-08-28 09:58 | P.PN ---
Subjective Progress Note Date: 08/27/23 The pt is an 88 y/o male who is seen in neurologic follow up on 2022, in collaboration with Nara Thurston, via teleneurology. The pt's chart has been reviewed. This am, the pt feels he is at his baseline. He reports a history of 3 previous TIAs. His family is present at the bedside. The pt is concerned about food. He says he has not received breakfast. He denies new or recurrent neurological symptoms. Objective - Vital Signs Vital signs: Vital Signs Temp 97.6 F 08/28/23 07:00 Pulse 67 08/28/23 08:00 Resp 18 08/28/23 08:00 BP 184/83 08/28/23 07:00 Pulse Ox 100 08/28/23 07:00 FiO2 Intake & Output 08/27/23 08/28/23 08/28/23 18:59 06:59 18:59 Other: Voiding Method Toilet Toilet Toilet # Voids 3 2 - Exam General: The pt is reclining in the bed. He is well-nourished and in no acute distress HEENT: Head is atraumatic, normocephalic. There is no scleral icterus. Fundus not visualized. Mucous membranes moist. Neurological exam Mental status: The pt is awake, alert and oriented x3. His speech is clear. There is no dysarthria or anomia. The pt is able to repeat phrases without difficulty. Cranial Nerves: 2-12 grossly intact - Labs CBC & Chem 7: 08/28/23 05:50 08/28/23 05:50 Labs: Abnormal Lab Results - Last 24 Hours (Table) 08/27/23 08/27/23 08/28/23 Range/Units 05:33 05:33 05:50 WBC 10.36 H (4.50-10.00) X 10*3/uL RBC 5.69 H (4.40-5.60) X 10*6/uL Hct 51.4 H (39.6-50.0) % MCHC 31.3 L (32.0-37.0) d/dL Plt Count 135 L (150-450) k/uL Neutrophils # 8.18 H (1.80-7.70) X 10*3/uL Lymphocytes # 0.9 L (1.0-4.8) k/uL Carbon Dioxide 15.6 L (21.6-31.8) mmol/L Anion Gap 22.40 H (4.00-12.00) mmol/L Est GFR (CKD-EPI) 44 L (>=60) 08/28/23 Range/Units 05:50 WBC (4.50-10.00) X 10*3/uL RBC (4.40-5.60) X 10*6/uL Hct (39.6-50.0) % MCHC (32.0-37.0) d/dL Plt Count (150-450) k/uL Neutrophils # (1.80-7.70) X 10*3/uL Lymphocytes # (1.0-4.8) k/uL Carbon Dioxide (21.6-31.8) mmol/L Anion Gap (4.00-12.00) mmol/L Est GFR (CKD-EPI) 53 L (>=60) Assessment and Plan Assessment: Transient Ischemic Attack (expressive aphasia) History of TIA X2 (also expressive aphasia) History of atrial fibrillation on eliquis 2.5mg bid History of peripheral vascular disease status post aortofemoral bypass and stents History 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 Repeat head CT ordered 2. Continue Eliquis 2.5 mg bid with ASA 81mg once daily 3. 2Decho pending 4. Appreciate cardiology input Time with Patient: Less than 30 (25 minutes spent caring for this pt)
--- NOTE | 2023-08-28 10:40 | P.PN ---
Subjective Progress Note Date: 08/28/23 Progress note: Patient is doing well from cardiac standpoint. He denies any chest pain chest pressure shortness of breath. He has not been in atrial fibrillation. No further neurological deficits HISTORY OF PRESENTING ILLNESS Patient is a 88-year-old male with past medical history of atrial fibrillation known to Dr. Dick. She weeks ago patient's dose of Eliquis was reduced from 5 mg to 2.5 mg as patient could not afford the high copayments of Eliquis and this was used as a strategy increases number of doses without increasing his cost. He presented to the hospital with sudden onset difficulty in speaking and dysarthria. There was a concern of possible TIA for which neurology was consulted and he is getting evaluation for that. Cardiology was consulted for anticoagulation recommendations. Patient's creatinine is 1.31, glucose 87, liver function within normal limits. Troponins were not elevated. REVIEW OF SYSTEMS 14 point review of system is negative except what is mentioned above in HPI. PHYSICAL EXAMINATION Vital signs reviewed. Head: Normocephalic. Eyes: Sclerae nonicteric. Neck: Brisk carotid upstroke, no jugular venous distention. Lungs: Clear to auscultation. Heart: Irregular pulse, S1-S2, no S3, no murmur or rub. Abdomen: Soft nontender, positive bowel sounds no organomegaly. Extremities: No edema, intact distal pulses. ASSESSMENT Atrial fibrillation on rhythm control strategy with flecainide Dysarthria likely due to TIA COPD PLAN Ideally patient should be increased to Eliquis 5 mg twice a day. To this patient denied as he reports that he cannot afford echo evidence of Eliquis. Patient only needs one out of 3 criteria of low dose of Eliquis and it seems he failed 2.5 mg of Eliquis had a TIA in setting of atrial fibrillation. Another option is to add aspirin 81 mg and continue Eliquis 2.5 mg daily. Allyn ent is agreeable to this strategy. Continue his home medications which include flecainide and atorvastatin. Add metoprolol succinate 25 mg daily to have AV pratibha blocking agent along with flecainide Obtain an echocardiogram to make sure there is no evidence of obvious thrombus, or any other major abnormality Objective - Vital Signs Vital signs: Vital Signs Temp 97.6 F 08/28/23 07:00 Pulse 67 08/28/23 08:00 Resp 18 08/28/23 08:00 BP 184/83 08/28/23 07:00 Pulse Ox 100 08/28/23 07:00 FiO2 Intake & Output 08/27/23 08/28/23 08/28/23 18:59 06:59 18:59 Other: Voiding Method Toilet Toilet Toilet # Voids 3 2 - Labs CBC & Chem 7: 08/28/23 05:50 08/28/23 05:50 Labs: Abnormal Lab Results - Last 24 Hours (Table) 08/27/23 08/27/23 08/28/23 Range/Units 05:33 05:33 05:50 WBC 10.36 H (4.50-10.00) X 10*3/uL RBC 5.69 H (4.40-5.60) X 10*6/uL Hct 51.4 H (39.6-50.0) % MCHC 31.3 L (32.0-37.0) d/dL Plt Count 135 L (150-450) k/uL Neutrophils # 8.18 H (1.80-7.70) X 10*3/uL Lymphocytes # 0.9 L (1.0-4.8) k/uL Carbon Dioxide 15.6 L (21.6-31.8) mmol/L Anion Gap 22.40 H (4.00-12.00) mmol/L Est GFR (CKD-EPI) 44 L (>=60) 08/28/23 Range/Units 05:50 WBC (4.50-10.00) X 10*3/uL RBC (4.40-5.60) X 10*6/uL Hct (39.6-50.0) % MCHC (32.0-37.0) d/dL Plt Count (150-450) k/uL Neutrophils # (1.80-7.70) X 10*3/uL Lymphocytes # (1.0-4.8) k/uL Carbon Dioxide (21.6-31.8) mmol/L Anion Gap (4.00-12.00) mmol/L Est GFR (CKD-EPI) 53 L (>=60)
[2023-08-28] MEDS: ALBUTEROL NEBULIZED 2.5 MG/3 ML INHALATION PRN ×2 (15:51→20:23)
--- NOTE | 2023-08-28 18:16 | P.PN ---
Subjective Progress Note Date: 08/28/23 80-year-old male provides history of present illness states that he was at breakfast table today when he had 20 minute episode of transient ischemic attack. Family members at bedside states that patient had slurred speech and was significantly aphasic. They also thought that he had a left-sided facial d alisha. Symptoms lasted for several minutes however resolved. Patient otherwise has no complaints at this time. CBC with differential is unremarkable.; Glucose is 87. Calcium, sodium, AST ALT are within normal limits.; Creatinine level is a 1.31 is seems at the baseline. CT of the head is reported as mild atrophy and mild burden of chronic small vessel ischemic disease. No acute intracranial abnormality seen. CT cervical spine is reported as no acute fracture seen of the cervical spine. Degenerative grade 1 spondylolisthesis C6-C7 and C7-T1. Previous surgery with bony and closing across C3 C6 level. Advanced degenerative disc disease below C6-C7 and C7-T1. Degenerative grade 1 retrolithiasis C6-C7. Small amount of fluid inferior right mastoid air cells. Correlate for any mastoid the pain to exclude mastoiditis. 08/28/2023 Patient is seen and evaluated in the room at bedside; no further recurrence of symptoms Vital signs are stable Labs review show WBC of 10.3, hemoglobin of 16.1 and platelet count of 208, sodium 141, potassium 4.8, BUN/creatinine of 24.3/1.3 -- Cardiology recommendations are noted and appreciated; add aspirin 81 mg and continue Eliquis 2.5 mg daily. Patient is agreeable to this strategy. Continue his home medications which include flecainide and atorvastatin. Add metoprolol succinate 25 mg daily to have AV pratibha blocking agent along with flecainide Obtain an echocardiogram to make sure there is no evidence of obvious thrombus, or any other major abnormality Objective - Vital Signs Vital signs: Vital Signs Temp 97.6 F 08/28/23 07:00 Pulse 67 08/28/23 08:00 Resp 18 08/28/23 08:00 BP 184/83 08/28/23 07:00 Pulse Ox 100 08/28/23 07:00 FiO2 Intake & Output 08/27/23 08/28/23 08/28/23 18:59 06:59 18:59 Other: Voiding Method Toilet Toilet Toilet # Voids 3 2 - Exam GENERAL: The patient is alert and oriented x3, not in any acute distress. Well developed, well nourished. HEENT: Pupils are round and equally reacting to light. EOMI. No scleral icterus. No conjunctival pallor. Normocephalic, atraumatic. No pharyngeal erythema. No thyromegaly. CARDIOVASCULAR: S1 and S2 present. No murmurs, rubs, or gallops. PULMONARY: Chest is clear to auscultation, no wheezing or crackles. ABDOMEN: Soft, nontender, nondistended, normoactive bowel sounds. No palpable organomegaly. MUSCULOSKELETAL: No joint swelling or deformity. EXTREMITIES: No cyanosis, clubbing, or pedal edema. NEUROLOGICAL: Gross neurological examination did not reveal any focal deficits. SKIN: No rashes. - Labs CBC & Chem 7: 08/28/23 05:50 08/28/23 05:50 Labs: Abnormal Lab Results - Last 24 Hours (Table) 08/27/23 08/27/23 08/28/23 Range/Units 05:33 05:33 05:50 WBC 10.36 H (4.50-10.00) X 10*3/uL RBC 5.69 H (4.40-5.60) X 10*6/uL Hct 51.4 H (39.6-50.0) % MCHC 31.3 L (32.0-37.0) d/dL Plt Count 135 L (150-450) k/uL Neutrophils # 8.18 H (1.80-7.70) X 10*3/uL Lymphocytes # 0.9 L (1.0-4.8) k/uL Carbon Dioxide 15.6 L (21.6-31.8) mmol/L Anion Gap 22.40 H (4.00-12.00) mmol/L Est GFR (CKD-EPI) 44 L (>=60) 08/28/23 Range/Units 05:50 WBC (4.50-10.00) X 10*3/uL RBC (4.40-5.60) X 10*6/uL Hct (39.6-50.0) % MCHC (32.0-37.0) d/dL Plt Count (150-450) k/uL Neutrophils # (1.80-7.70) X 10*3/uL Lymphocytes # (1.0-4.8) k/uL Carbon Dioxide (21.6-31.8) mmol/L Anion Gap (4.00-12.00) mmol/L Est GFR (CKD-EPI) 53 L (>=60) Assessment and Plan Assessment: 1. TIA; with expressive aphasia slight slurred speech - Patient does have history of TIA in the past with expressive aphasia -- Neurology is consulted and recommending carotid Doppler, 2-D echo, TSH, HbA1c and lipid panel - Patient received aspirin 324 mg in the ED 1; neurology recommending to continue with home dose of Prilosec was 2.5 mg twice a day with addition of aspirin 81 mg daily; patient will resume home dose of Lipitor 40 mg by mouth daily at bedtime - CT of the head is recommended to be repeated within 24-48 hours, and given patient refuses MRI - Consult PT/OT/DATA COMMUNICATIONS SOFTWARE CONSULTANT - Neurologic checks per protocol 2. Atrial fibrillation; patient is anticoagulated with Eliquis 2.5 mg twice a day; Tambocor 50 mg twice a day 3. Hyperlipidemia; Lipitor 40 mg daily 4. Asthma/COPD; not in exacerbation; continue with home inhaler therapy 5. BPH; Flomax 0.5 mg by mouth daily at bedtime 6. GERD/gastritis; Pepcid 40 mg by mouth daily at bedtime DVT prophylaxis; SCDs/systemic anticoagulation CODE STATUS; full code
[2023-08-28] MEDS: SODIUM CHLORIDE 0.9% 1,000 ML IV SCH (20:26)
[2023-08-28] MEDS: ATORVASTATIN 40 MG TAB PO SCH (20:28)
[2023-08-29] MEDS: ALBUTEROL NEBULIZED 2.5 MG/3 ML INHALATION PRN (08:50)
[2023-08-29] MEDS ORDERED: APIXABAN 5 MG TAB PO SCH (09:00)
--- NOTE | 2023-08-29 09:18 | P.PN ---
Subjective Patient presented with a TIA-like symptoms His dose of ELIQUIS was decreased at 15 mg by mouth daily He is alert oriented right now communicative He states that if he has to take 5 mg twice a day of ELIQUIS at a higher mccann he will do so He has enough medications at home that'll last him at least 1 month On examination his pulse rate is normal afebrile blood pressure 140/59 mmHg heart sounds are normal breath sounds are clear CT of the brain shows age-related changes Impression Known atrial fibrillation, paroxysmal, on flecainide Twelve-lead EKG shows a minimal first-degree AV block narrow QRS normal ST segments and occasional cough for tract type PVCs TIA on low dose of ELIQUIS 2.5 g twice daily Suggest The patient shouldn't cause hives for 5 mg twice daily of ELIQUIS and I would recommend 5 mg twice a day of ELIQUIS, all Pradaxa 150 mg twice a day, or service 60 mg daily, Xarelto 20 mg by mouth daily He has fallen 3 times this month that he has tripped and fallen no syncope I spoke to the nurse and asked her to contact the admitting physician and director of casework services To determine which anticoagulant would be the least expensive for him and treat him at that If all antigram once a very high and he is On Coumadin In the future he will see Dr. Marx to make a determination regarding possibility of nonpharmacologic approaches especially if he continues to have falls Objective - Vital Signs Vital signs: Vital Signs Temp 98.3 F 08/29/23 07:00 Pulse 72 08/29/23 09:01 Resp 17 08/29/23 07:00 BP 140/59 08/29/23 07:00 Pulse Ox 98 08/29/23 07:00 FiO2 Intake & Output 08/28/23 08/29/23 08/29/23 18:59 06:59 18:59 Output Total 425 Balance -425 Output: Urine 425 Other: Voiding Method Toilet Toilet # Voids 2 2 - Labs CBC & Chem 7: 08/28/23 05:50 08/28/23 05:50
[2023-08-29] MEDS ORDERED: ALBUTEROL HFA INHALER INHALATION PRN (09:34)
[2023-08-29] MEDS ORDERED: ALBUTEROL NEBULIZED 2.5 MG/3 ML INHALATION PRN (09:34)
[2023-08-29] MEDS ORDERED: FUROSEMIDE 40 MG TAB PO SCH (09:45)
[2023-08-29] MEDS ORDERED: FAMOTIDINE 20 MG TAB PO SCH (09:45)
[2023-08-29] MEDS ORDERED: CHOLECALCIFEROL 25 MCG (1000 IU) TABLET PO SCH (09:45)
--- NOTE | 2023-08-29 10:26 | P.GSCN ---
History of Present Illness Consult date: 08/29/23 Reason for Consult: Carotid stenosis Requesting physician: Rashaad Griffin History of present illness: 2 patient is a 80-year-old male with a past medical history including atrial fibrillation on eliquis, TIA, COPD, DVT, GERD, hyperlipidemia, chronic renal disease, spinal cord injury with right-sided paralysis, and former smoker who presented to the emergency department with concerns for TIA. Patient states Tuesday he was trying to the words were garbled and did not make sense. He has a history of 2 other previous times with expressive aphasia. He denied any weakness or any other focal deficits at that time. Symptoms lasted 30 minutes to an hour. He was brought in to the emergency department on 08/26/2023 for further evaluation. Symptoms had resolved by the time he came to the emergency department he was given aspirin 324 mg once neurology had seen him and ordered 81 mg aspirin and started the patient on Lipitor 40 mg daily at bedtime. He had initial CT of the head and neck which reported mild atrophy and mild burden of chronic small vessel ischemic disease. No acute findings. He also had a kam tid duplex which reported bilateral carotid bifurcation stenosis of 50-69%. Vascular surgery was consulted for carotid stenosis. Patient is known to Dr. Cool and has followed with him since 2019 with a previous TIA. At that time on high his carotid duplex and CT angiogram estimated around 50-69% stenosis and he was offered trans-carotid artery revascularization which patient declined at that time. Patient currently has no focal deficits, he is awaiting an echocardiogram and plan is for discharge home today. Review of Systems A 14 point review systems was completed all pertinent positives and negatives as stated in the HPI. Past Medical History Past Medical History: Coronary Artery Disease (CAD), COPD, Deep Vein Thrombosis (DVT), GERD/Reflux, Hyperlipidemia, Renal Disease, Vascular Disorder Additional Past Medical History / Comment(s): Spinal cord injury at age 18 yrs with R sided paralysis/R dropfoot, hx L leg DVT, kidney disease stage III, PVD, uses home oxygen at night at 3L.hx migraines, dry skin patches on face, History of Any Multi-Drug Resistant Organisms: MRSA Year Discovered:: 2013 MDRO Source:: blood Past Surgical History: Tonsillectomy Additional Past Surgical History / Comment(s): Aortic surgery with wrapping of aorta then aortobifem bypass/lysis of adhesions x 2(1st failed), R leg stent, angiograms, cervical stabilization, colonoscopy, bilateral cataract removal/lens implants. loop monitor-2019 Past Anesthesia/Blood Transfusion Reactions: No Reported Reaction Type of Cardiac Device: Loop Past Psychological History: Depression Smoking Status: Former smoker Past Alcohol Use History: None Reported Past Drug Use History: None Reported - Past Family History Mother Family Medical History: Cancer Additional Family Medical History / Comment(s): lung cancer Father Family Medical History: Dementia Additional Family Medical History / Comment(s): heart disease Sister(s) Family Medical History: Cancer Additional Family Medical History / Comment(s): Breast Cancer Brother(s) Family Medical History: Diabetes Mellitus Additional Family Medical History / Comment(s): heart disease Medications and Allergies Home Medications Medication Instructions Recorded Confirmed Type Atorvastatin [Lipitor] 40 mg PO DAILY 12/10/15 08/26/23 History Sennosides [Senokot] 8.6 mg PO HS 12/10/15 08/26/23 History Albuterol Nebulized [Ventolin 2.5 mg INHALATION RT-QID PRN 12/23/20 08/26/23 History Nebulized] Famotidine [Pepcid] 40 mg PO HS 12/23/20 08/26/23 History Furosemide [Lasix] 40 mg PO DAILY 12/23/20 08/26/23 History Albuterol Inhaler [Ventolin Hfa 2 puff INHALATION RT-QID PRN 01/15/21 08/26/23 History Inhaler] Budesonide/Formoterol Fumarate 2 puff INHALATION RT-DAILY 01/15/21 08/26/23 History [Symbicort 160-4.5 Mcg Inhaler] Flecainide [Tambocor] 50 mg PO BID 01/15/21 08/26/23 History Tamsulosin [Flomax] 0.4 mg PO HS 10/12/22 08/26/23 History Cholecalciferol (Vitamin D3) 100 mcg PO DAILY 08/24/23 08/26/23 History [Vitamin D3 (50 Mcg = 2000 Iu) Chew Tab] Nystatin 100,000Unit/gm Cream 1 applic TOPICAL BID 08/26/23 08/26/23 History [Mycostatin Cream] Apixaban [Eliquis] 2.5 mg PO BID #30 tab 08/29/23 Rx Aspirin 81 mg PO DAILY #30 tab 08/29/23 Rx Metoprolol Succinate (ER) [Toprol 25 mg PO DAILY #30 tab 08/29/23 Rx XL] Allergies Allergy/AdvReac Type Severity Reaction Status Date / Time fluticasone propionate Allergy Unknown Verified 08/26/23 12:45 [From Advair Diskus] Penicillins Allergy Anaphylaxis Verified 08/26/23 12:45 salmeterol xinafoate Allergy Unknown Verified 08/26/23 12:45 [From Advair Diskus] Tetanus Vaccines and Toxoid Allergy Unknown Verified 08/26/23 12:45 [Tetanus Vaccines & Toxoid] Childhood heparin AdvReac "made Verified 08/26/23 12:45 blood too thin" levetiracetam [From [facility]] AdvReac Hallucinati Verified 08/26/23 12:45 ons Surgical - Exam Vital Signs Temp Pulse Resp BP Pulse Ox 97.2 F L 93 18 136/74 100 08/26/23 11:19 08/26/23 11:19 08/26/23 11:19 08/26/23 11:19 08/26/23 11:19 General appearance: The patient is alert, oriented, appears in no acute distress. HET: Head is normocephalic and atraumatic. Pupils are equal and reactive. Neck: Supple. No audible bruit. Heart: Regular. Lungs: Equal expansion, normal respiratory effort. Abdomen: Soft, nontender, nondistended. Extremities: Normal skin color and turgor. Right upper extremity weakness, chronic. Neurological: No focal deficits. Strength and sensation are grossly intact. Results - Labs 08/28/23 05:50 08/29/23 07:22 Abnormal Lab Results - Last 24 Hours (Table) 08/28/23 08/28/23 Range/Units 05:50 05:50 WBC 10.36 H (4.50-10.00) X 10*3/uL RBC 5.69 H (4.40-5.60) X 10*6/uL Hct 51.4 H (39.6-50.0) % MCHC 31.3 L (32.0-37.0) d/dL Neutrophils # 8.18 H (1.80-7.70) X 10*3/uL Est GFR (CKD-EPI) 53 L (>=60) Diabetes panel 08/28/23 Range/Units 05:50 Sodium 141 (135-145) mmol/L Potassium 4.8 (3.5-5.5) mmol/L Chloride 105 (96-109) mmol/L Carbon Dioxide 25.1 (21.6-31.8) mmol/L BUN 24.3 (9.0-27.0) mg/dL Creatinine 1.3 (0.6-1.5) mg/dL Glucose 88 (70-110) mg/dL Calcium 9.1 (8.7-10.3) mg/dL Calcium panel 08/28/23 Range/Units 05:50 Calcium 9.1 (8.7-10.3) mg/dL Pituitary panel 08/28/23 Range/Units 05:50 Sodium 141 (135-145) mmol/L Potassium 4.8 (3.5-5.5) mmol/L Chloride 105 (96-109) mmol/L Carbon Dioxide 25.1 (21.6-31.8) mmol/L BUN 24.3 (9.0-27.0) mg/dL Creatinine 1.3 (0.6-1.5) mg/dL Glucose 88 (70-110) mg/dL Calcium 9.1 (8.7-10.3) mg/dL Adrenal panel 08/28/23 Range/Units 05:50 Sodium 141 (135-145) mmol/L Potassium 4.8 (3.5-5.5) mmol/L Chloride 105 (96-109) mmol/L Carbon Dioxide 25.1 (21.6-31.8) mmol/L BUN 24.3 (9.0-27.0) mg/dL Creatinine 1.3 (0.6-1.5) mg/dL Glucose 88 (70-110) mg/dL Calcium 9.1 (8.7-10.3) mg/dL - Imaging Comments: Carotid duplex 50-69% stenosis of bilateral carotid bifurcations Brain CT report age-related atrophic and chronic small vessel ischemic changes without acute intracranial process seen at this time. Assessment and Plan Assessment: 1. TIA with expressive aphasia, now resolved 2. Bilateral internal carotid artery stenosis 50-69% per carotid duplex 3. Atrial fibrillation on Eliquis 2.5 mg BID 4. COPD 5. Hypertension and hyperlipidemia 6. Former smoker Plan: 1. Recommend CT angiogram head and neck, however patient is concerned with the insurance coverage. This can be done as an outpatient if patient is not going to be a full admit. 2. Continue the aspirin and statin as ordered 3. Anticoagulation per recommendations from cardiology 4. Recommend outpatient follow-up within the next 2 weeks, further discussion of surgical options at that time. Thank you for this consultation. The impression and plan of care has been dictated as directed. I performed a history and examination of this patient, discussed the same with the dictator. I agree with the dictator's note ,documented as a scribe. Any additional findings or plans will be noted. CTA neck demonstrates significant stenosis once again. Recommend carotid intervention with TCAR which can be done within the next couple of weeks.
[2023-08-29] MEDS: METOPROLOL SUCCINATE (ER) 25 MG TAB.ER.24H PO SCH (10:43)
[2023-08-29] MEDS: FLECAINIDE 50 MG TAB PO SCH (10:43)
[2023-08-29 11:37] LABS: Blood Urea Nitrogen 27.3 mg/dL (9.0-27.0); Calcium 9.3 mg/dL (8.7-10.3); Carbon Dioxide 23.4 mmol/L (21.6-31.8); Chloride 106 mmol/L (96-109); Glucose 86 mg/dL (70-110); Potassium 5.5 mmol/L (3.5-5.5); Sodium 141 mmol/L (135-145)
--- NOTE | 2023-08-29 11:39 | CT ---
EXAMINATION TYPE: CT angio head neck DATE OF EXAM: 08/29/2023 HISTORY: AMS, TIA dysarthia COMPARISON: Ultrasound 08/26/2023 CT DLP: 380.00 mGycm. Automated Exposure Control for Dose Reduction was Utilized. TECHNIQUE: CTA scan of the neck is performed with IV Contrast, patient injected with 65 mL mL of Iso bennett 370, axial images are obtained, coronal and sagittal reformatted images are reviewed. Three-D rec onstructed images are created on an independent workstation and reviewed. Source images are reviewed . FINDINGS: Carotid/Vascular Structures: There is a 2 vessel arch with common origin of the right subclavian and left common carotid artery from the innominate. There is mild narrowing of the origin of the left int ernal carotid artery estimated at 38%. In the coronal reconstructed images this appears greater. Jacqueline re stenosis of 70%, visually appears greater especially in the coronal reconstructed images, as at th e origin of the right internal carotid artery. Vertebral arteries are codominant. Internal carotid arteries and vertebral arteries are patent to the skull base. Cervical of Block: Vertebral basilar system appears normal. Posterior cerebral vasculature is unrema rkable. Internal carotid arteries bifurcate normally into A1 and M1 segments. A2 segments are normal. The anterior communicating artery is patent. The right posterior communicating artery is patent. The left posterior communicating artery is patent. Other: Comparison is made with the ultrasound. The diminished ultrasound velocity on the left could b e related to critical stenosis. IMPRESSION: 1. Severe stenosis is present on the right internal carotid artery by NASCET criteria. Severe to crit ical stenosis appears to be present bilateral internal carotid artery origins on visual inspection of the carotid bifurcations with calcified plaques. 2. Normal [place] of Block NASCET criteria was used in interpretation of this exam?
[2023-08-29] MEDS: SODIUM CHLORIDE 0.9% 1,000 ML IV SCH (14:18)
[2023-08-29 16:01] VITALS: BP 130/60; PULSE 71; RESP 16; TEMP 97.8
--- NOTE | 2023-08-29 16:21 | CA ---
Transthoracic Echo Report Name: Chapincito Stafford Age: 88 Gender: M : 1935 Exam Date: 08/29/2023 10:18 Exam Location: [facility] Ht (in): 65 Wt (lb): 186 Ordering Physician: Genaro Estrada MD Attending/Referring Phys: Procedure Writer Jamila Oh [facility] Procedure CPT: Indications: stroke. Perform with bubble study Cardiac Hx: Technical Quality: Technically difficult study Contrast 1: Total Dose (mL): Contrast 2: Total Dose (mL): MEASUREMENTS (Male / Female) Normal Values 2D ECHO LV Diastolic Diameter PLAX 3.7 cm 4.2 - 5.9 / 3.9 - 5.3 cm LV Systolic Diameter PLAX 2.5 cm IVS Diastolic Thickness 1.3 cm 0.6 - 1.0 / 0.6 - 0.9 cm LVPW Diastolic Thickness 1.2 cm 0.6 - 1.0 / 0.6 - 0.9 cm LV Relative Wall Thickness 0.7 LVOT Diameter 2.0 cm M-MODE Aortic Root Diameter MM 2.8 cm LA Systolic Diameter MM 4.4 cm LA Ao Ratio MM 1.6 AV Cusp Separation MM 0.9 cm DOPPLER AV Peak Velocity 167.8 cm/s AV Peak Gradient 11.3 mmHg AV Mean Velocity 133.5 cm/s AV Mean Gradient 7.7 mmHg AV Velocity Time Integral 38.2 cm LVOT Peak Velocity 86.8 cm/s LVOT Peak Gradient 3.0 mmHg LVOT Velocity Time Integral 19.6 cm LVOT Stroke Volume 64.5 cm??? LVOT Stroke Volume Index 33.6 ml/m??? LVOT Cardiac Index 2198.3 cm???/min???m??? AV Area Cont Eq vti 1.7 cm??? AV Area Cont Eq pk 1.7 cm??? Mitral E Point Velocity 46.2 cm/s Mitral A Point Velocity 86.6 cm/s Mitral E to A Ratio 0.5 MV Deceleration Time 271.7 ms LV E' Lateral Velocity 7.4 cm/s Mitral E to LV E' Lateral Ratio 6.3 LV E' Septal Velocity 6.0 cm/s Mitral E to LV E' Septal Ratio 7.7 Right Atrial Pressure 8.0 mmHg FINDINGS Left Ventricle Mildly increased left ventricular wall thickness. Small left ventricular cavity. Normal left ventricular systolic function with no obvious regional wall motion abnormalities. Left ventricular ejection fraction is estimated at 55- 60%. Right Ventricle Right ventricle not well visualized. Unable to estimate the right ventricular systolic pressure. Right Atrium Right atrium not well visualized. Negative agitated saline bubble study for right to left shunt. Left Atrium Normal left atrial size. Mitral Valve Structurally normal mitral valve. No mitral regurgitation. Aortic Valve Trileaflet aortic valve. Diffuse thickening of the aortic valve cusps with reduced excursion. Aortic valve sclerosis. Tricuspid Valve Tricuspid valve not well visualized. Pulmonic Valve Pulmonic valve not well visualized. Pericardium No pericardial effusion. Aorta Normal size aortic root and proximal ascending aorta. CONCLUSIONS Preserved LV systolic function, left ventricular hypertrophy Calcific aortic valve with reduced excursion No obvious ASD Previewed by: Dr. Len Ayala MD (Electronically Signed) Final Date: 29 August 2023 16:21
--- NOTE | 2023-08-29 17:10 | P.PN ---
Subjective Progress Note Date: 08/29/23 Patient was seen for a follow-up. Patient initially seen by Dr. Genaro Estrada. Patient is a 88-year-old male, presented with TIA with expressive aphasia. Patient is already on Eliquis 2.5 mg twice a day for atrial fibrillation and with higher doses bruises easily. Patient refused MRI of the brain. Patient states all symptoms resolved the day he came to the hospital. At present he has no symptoms. Objective - Vital Signs Vital signs: Vital Signs Temp 97.8 F 08/29/23 15:30 Pulse 71 08/29/23 15:30 Resp 16 08/29/23 15:30 BP 130/60 08/29/23 15:30 Pulse Ox 97 08/29/23 15:30 FiO2 Intake & Output 08/28/23 08/29/23 08/29/23 18:59 06:59 18:59 Output Total 425 800 Balance -425 -800 Output: Urine 425 800 Other: Voiding Method Toilet Toilet Toilet # Voids 2 2 3 - Exam Mental status, speech and language functions are normal. Cranial nerves are normal. Visual kaminski are full. No neglect. Face is symmetric. On muscle strength testing there is no pronator drift and the strength is normal in arms and legs. No ataxia for [id number] testing. Sensory to touch is equal with no neglect. Tone and bulk of muscles normal. - Labs CBC & Chem 7: 08/28/23 05:50 08/29/23 07:22 Labs: Abnormal Lab Results - Last 24 Hours (Table) 08/29/23 Range/Units 07:22 BUN 27.3 H (9.0-27.0) mg/dL Est GFR (CKD-EPI) 48 L (>=60) Assessment and Plan Assessment: Transient Ischemic Attack (expressive aphasia) History of TIA X2 (also expressive aphasia) History of atrial fibrillation on eliquis 2.5mg bid Severe bilateral ICA stenosis noted on CTA. History of peripheral vascular disease status post aortofemoral bypass and stents History 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 CTA head and neck revealed severe stenosis on the right ICA. Severe to critical stenosis appears to be present bilateral ICA origins on visual inspection of the carotid bifurcation with calcified plaques. Normal [place] of Block. Vascular surgery on board, recommending follow-up outpatient. 2. Continue Eliquis 2.5 mg bid with ASA 81mg once daily. Patient is only taking Eliquis at home, and now the carotid stenosis, recommend adding aspirin 81 mg daily. 3. 2Decho revealed preserved left ventricular systolic function with EF 55-60%. LVH. Bubble study negative for right to left shunt. Calcified aortic valve with reduced excursion. 4. Appreciate cardiology input 5. Lipid panel with cholesterol 137, LDL 72, HDL 47, triglycerides 84. Continue Lipitor 40 mg. 6. Hemoglobin A1c 5.4. Neurologically clear, if cleared by vascular surgery. Recommend urgent follow- up in the office for further management of carotid stenosis.
[2023-08-29] MEDS ORDERED: TAMSULOSIN 0.4 MG CAP.ER.24H PO SCH (21:00)
[2023-08-30] MEDS ORDERED: SYMBICORT 160-4.5 MCG INHALER INHALATION SCH (08:00)
--- NOTE | 2023-08-31 22:53 | P.DS ---
Providers Date of admission: 08/26/23 13:48 Attending physician: Bree Hernandez Consults: 08/26/23 13:49 Consult Physician Routine Consulting Provider: Genaro Estrada Consult Reason/Comments: tia Do you want consulting provider notified?: Yes 08/26/23 15:52 Consult Physician Routine Consulting Provider: Bobby Marshall Consult Reason/Comments: repeated TIA with hx of a-fib. Medication modification Do you want consulting provider notified?: Yes 08/28/23 11:49 Consult Physician Routine Consulting Provider: Henrry Cool Consult Reason/Comments: Carotid stenosis/TIA Do you want consulting provider notified?: Yes Primary care physician: Nikkie Colon [facility] Course: Final Diagnosis TIA; with expressive aphasia slight slurred speech symptoms are now resolved Bilateral internal carotid artery stenosis 50-69% per carotid duplex Atrial fibrillation anticoagulated with eliquis 2.5 mg renal dosing Hyperlipidemia Asthma/COPD with no acute exacerbation History of peripheral vascular disease status post aortofemoral bypass and stents History of old neck injury at the age of 18 y/o with residual right sided weakness and foot drop and walks with walker CKD baseline creatinine appears to be around 1.2. BPH GERD Hypertension Former smoker Prior history of TIA with similar symptoms Discharge Disposition Patient is stable for discharge home. Patient has been evaluated and cleared by neurology. Patient is recommended to see his neurologist 1 to 2 weeks patient sees Anabelle Treviño at Dr Carlos office. Pateint to also see his senior [employer] administrator Dr Marx in the office. F/U with Dr. Cool made for 09/06/23 for further recommendations regarding the carotid stenosis. Patient was started on toprol XL. Hospital Course This is an 88-year-old male with history of atrial fibrillation anticoagulated with eliquis, TIA, COPD, DVT GERD, hyperlipidemia, chronic renal disease, spinal cord injury and right sided paralysis, and former smoker who presents with TIA symptoms including garbled speech, aphasia and a left facial droop. Symptoms lasted 30 minutes to an hour. He came in to the ER for further evaluation. Symptoms had resolved by the time he came to the emergency department he was given aspirin 324 mg once neurology had seen him and ordered 81 mg aspirin and started the patient on Lipitor 40 mg daily at bedtime. He had initial CT of the head and neck which reported mild atrophy and mild burden of chronic small vessel ischemic disease. No acute findings. He also had a carotid duplex which reported bilateral carotid bifurcation stenosis of 50-69%. Vascular surgery was consulted for carotid stenosis and will see the patient outpatient he has previously denied surgical intervention for carotid artery stenosis. Patient had follow up CT angiography showing severe stenosis on the right ICA. There is severe to critical stenosis appears to be present bilateral internal carotid artery origins on visual inspection of the of the carotid bifurcations with calcified plaques. Normal crow of myrick. Patient did refuse brain MRI. TSH was normal. A2C was normal 5.4. Lipid panel completed. Echocardiogram done EF 55-60%. Stroke work up completed neurological he has been cleared for discharge. Neurology recommending to add aspirin 81 mg daily to medication regimen. Review of Systems Constitutional: Denied any fatigue denied any fever. Cardio vascular: denied any chest pain, palpitations Gastrointestinal: denied any nausea, vomiting, diarrhea Pulmonary: Denied any shortness of breath cough Neurologic denied any new focal deficits All inpatient medications were reviewed and appropriate changes in these medications as dictated in the interval history and assessment and plan. PHYSICAL EXAMINATION: GENERAL: The patient is alert and oriented x3, not in any acute distress. Well developed, well nourished. HEENT: Pupils are round and equally reacting to light. EOMI. No scleral icterus. No conjunctival pallor. Normocephalic, atraumatic. No pharyngeal erythema. No thyromegaly. CARDIOVASCULAR: S1 and S2 present. No murmurs, rubs, or gallops. PULMONARY: Chest is clear to auscultation, no wheezing or crackles. ABDOMEN: Soft, nontender, nondistended, normoactive bowel sounds. No palpable organomegaly. MUSCULOSKELETAL: No joint swelling or deformity. EXTREMITIES: No cyanosis, clubbing, or pedal edema. NEUROLOGICAL: Gross neurological examination did not reveal any focal deficits. SKIN: No rashes. Please see medication reconciliation for a list of current medication. Thank you for allowing us to participate in the care of this patient. The impression and plan of care has been dictated by Ally Noonan, Nurse Practitioner as directed. Dr. Alli MD I have performed a history and physical examination and medical decision making of this patient, discussed the same with the dictator, and agree with the dictators assessment and plan as written, documented as a scribe. Based on total visit time, I have performed more than 50% of this visit. Patient Condition at Discharge: Fair Plan - Discharge Summary Discharge Rx Participant: No New Discharge Prescriptions: New Metoprolol Succinate (ER) [Toprol XL] 25 mg PO DAILY #30 tab Aspirin 81 mg PO DAILY #30 tab Apixaban [Eliquis] 2.5 mg PO BID #30 tab Continue Sennosides [Senokot] 8.6 mg PO HS Atorvastatin [Lipitor] 40 mg PO DAILY Albuterol Nebulized [Ventolin Nebulized] 2.5 mg INHALATION RT-QID PRN PRN Reason: Shortness Of Breath Famotidine [Pepcid] 40 mg PO HS Furosemide [Lasix] 40 mg PO DAILY Budesonide/Formoterol Fumarate [Symbicort 160-4.5 Mcg Inhaler] 2 puff INHALATION RT-DAILY Albuterol Inhaler [Ventolin Hfa Inhaler] 2 puff INHALATION RT-QID PRN PRN Reason: Shortness Of Breath Flecainide [Tambocor] 50 mg PO BID Tamsulosin [Flomax] 0.4 mg PO HS Cholecalciferol (Vitamin D3) [Vitamin D3 (50 Mcg = 2000 Iu) Chew Tab] 100 mcg PO DAILY Nystatin 100,000Unit/gm Cream [Mycostatin Cream] 1 applic TOPICAL BID Discontinued Potassium Chloride ER [K-Dur 10] 10 meq PO DAILY Apixaban [Eliquis] 2.5 mg PO BID Discharge Medication List Atorvastatin [Lipitor] 40 mg PO DAILY 12/10/15 [History] Sennosides [Senokot] 8.6 mg PO HS 12/10/15 [History] Albuterol Nebulized [Ventolin Nebulized] 2.5 mg INHALATION RT-QID PRN 12/23/20 [History] Famotidine [Pepcid] 40 mg PO HS 12/23/20 [History] Furosemide [Lasix] 40 mg PO DAILY 12/23/20 [History] Albuterol Inhaler [Ventolin Hfa Inhaler] 2 puff INHALATION RT-QID PRN 01/15/21 [History] Budesonide/Formoterol Fumarate [Symbicort 160-4.5 Mcg Inhaler] 2 puff INHALATION RT-DAILY 01/15/21 [History] Flecainide [Tambocor] 50 mg PO BID 01/15/21 [History] Tamsulosin [Flomax] 0.4 mg PO HS 10/12/22 [History] Cholecalciferol (Vitamin D3) [Vitamin D3 (50 Mcg = 2000 Iu) Chew Tab] 100 mcg PO DAILY 08/24/23 [History] Nystatin 100,000Unit/gm Cream [Mycostatin Cream] 1 applic TOPICAL BID 08/26/23 [History] Apixaban [Eliquis] 2.5 mg PO BID #30 tab 08/29/23 [Rx] Aspirin 81 mg PO DAILY #30 tab 08/29/23 [Rx] Metoprolol Succinate (ER) [Toprol XL] 25 mg PO DAILY #30 tab 08/29/23 [Rx] Follow up Appointment(s)/Referral(s): Je Marx MD [STAFF PHYSICIAN] - 09/05/23 3:00 pm ([address] Marx at [facility]) Nikkie Colon MD [Primary Care Provider] - 1-2 days Henrry Cool DO [STAFF PHYSICIAN] - 09/06/23 10:00 am Bell Treviño NPC [REFERRING] - 1 Week Patient Instructions/Handouts: Transient Ischemic Attack (DC), Carotid Artery Disease (DC) Activity/Diet/Wound Care/Special Instructions: Follow up with your neurologist 1 to 2 weeks Follow up with Dr Cool the vascular surgeon outpatient Discharge Disposition: HOME SELF-CARE
== END 2023-08-29 17:56 | disposition home or self-care (01) ==
LOC: EC 11:17 → 6NMEDSUR 13:48
PROVIDERS: ADMIT Hospitalist; ATTEND Hospitalist
DX: R47.1 Dysarthria and anarthria (principal); I65.23 Occlusion and stenosis of bilateral carotid arteries; I25.10 Atherosclerotic heart disease of native coronary artery without angina pectoris; K21.9 Gastro-esophageal reflux disease without esophagitis; E78.5 Hyperlipidemia, unspecified; I12.9 Hypertensive chronic kidney disease with stage 1 through stage 4 chronic kidney disease, or unspecified chronic kidney disease; N18.30 Chronic kidney disease, stage 3 unspecified; I73.9 Peripheral vascular disease, unspecified; F32.A Depression, unspecified; J44.9 Chronic obstructive pulmonary disease, unspecified; N40.0 Benign prostatic hyperplasia without lower urinary tract symptoms; K29.70 Gastritis, unspecified, without bleeding; I48.0 Paroxysmal atrial fibrillation; I44.0 Atrioventricular block, first degree; Z86.73 Personal history of transient ischemic attack (TIA), and cerebral infarction without residual deficits; Z86.718 Personal history of other venous thrombosis and embolism; Z87.891 Personal history of nicotine dependence; Z95.820 Peripheral vascular angioplasty status with implants and grafts; Z99.81 Dependence on supplemental oxygen; Z79.82 Long term (current) use of aspirin; Z79.51 Long term (current) use of inhaled steroids; Z79.01 Long term (current) use of anticoagulants; Z79.899 Other long term (current) drug therapy; Z88.0 Allergy status to penicillin
CPT/HCPCS: 99285; 36415; 94640 ×4; 93005; 93306; 97162; 80061; 80053; 80048 ×3; 84443; 83735; 85025 ×3; 85610; 85730; 83036; 93880; 72125; 70496; 70450 ×2; 70498; G0378 ×4; G0480; Q9967; 80320

== ENCOUNTER 2025-04-22 11:58 | Emergency (ER) | payer MEDICARE ==
[2025-04-22 12:33] LABS: Glucose,Whole Blood 90 mg/dL (70-110)
--- NOTE | 2025-04-22 12:45 | ED ---
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 He was at [facility] visiting his when he experienced a syncopal episode. States he was sitting. Does not believe he injured his head. States next any new he was being hooked up to a monitor. Apparently patient was approximately unconscious for 30 to 60 seconds. Was transferred here for further care. He states he has a history of having recurrent episodes of this in has had near syncope multiple times over the last few years with no clear etiology. Has been worked up extensively. States that what was different today is that he had a full syncopal episode. States he did not eat or drink anything this morning. Has been under more stress lately particularly with his being at [facility]. He currently has no symptoms. Denies any headaches, blurry vision. Endorses chronic right-sided weakness. Denies any chest pain or shortness of breath. Denies abdominal pain or nausea or vomiting. No fevers or chills. Presents for further evaluation at this time. - Related Data Home Medications Medication Instructions Recorded Confirmed Atorvastatin [Lipitor] 40 mg PO DAILY 12/10/15 08/26/23 Sennosides [Senokot] 8.6 mg PO HS 12/10/15 08/26/23 Albuterol Nebulized [Ventolin 2.5 mg INHALATION RT-QID PRN 12/23/20 08/26/23 Nebulized] Famotidine [Pepcid] 40 mg PO HS 12/23/20 08/26/23 Furosemide [Lasix] 40 mg PO DAILY 12/23/20 08/26/23 Albuterol Inhaler [Ventolin Hfa 2 puff INHALATION RT-QID PRN 01/15/21 08/26/23 Inhaler] Budesonide/Formoterol Fumarate 2 puff INHALATION RT-DAILY 01/15/21 08/26/23 [Symbicort 160-4.5 Mcg Inhaler] Flecainide [Tambocor] 50 mg PO BID 01/15/21 08/26/23 Tamsulosin [Flomax] 0.4 mg PO HS 10/12/22 08/26/23 Cholecalciferol (Vitamin D3) 100 mcg PO DAILY 08/24/23 08/26/23 [Vitamin D3 (50 Mcg = 2000 Iu) Chew Tab] Nystatin 100,000Unit/gm Cream 1 applic TOPICAL BID 08/26/23 08/26/23 [Mycostatin Cream] Previous Rx's Medication Instructions Recorded Apixaban [Eliquis] 2.5 mg PO BID #30 tab 08/29/23 Aspirin 81 mg PO DAILY #30 tab 08/29/23 Metoprolol Succinate (ER) [Toprol 25 mg PO DAILY #30 tab 08/29/23 XL] Allergies Allergy/AdvReac Type Severity Reaction Status Date / Time fluticasone propionate Allergy Unknown Verified 04/22/25 12:04 [From Advair Diskus] Penicillins Allergy Anaphylaxis Verified 04/22/25 12:04 salmeterol xinafoate Allergy Unknown Verified 04/22/25 12:04 [From Advair Diskus] Tetanus Vaccines and Toxoid Allergy Unknown Verified 04/22/25 12:04 [Tetanus Vaccines & Toxoid] Childhood heparin AdvReac "made Verified 04/22/25 12:04 blood too thin" levetiracetam [From [facility]] AdvReac Hallucinati Verified 04/22/25 12:04 ons Review of Systems ROS Statement: Those systems with pertinent positive or pertinent negative responses have been documented in the HPI. Review of Systems: CONST: Denies fever EYES: Denies blurry vision ENT: Denies nasal congestion C/V: Denies Chest pain RESP: Denies shortness of breath GI: Denies abdominal pain : Denies dysuria SKIN: Denies rash. MSK: Denies joint pain. NEURO: Denies headache ROS Other: All systems not noted in ROS Statement are negative. 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 loop monitor-2019 Past Anesthesia/Blood Transfusion Reactions: No Reported Reaction Type of Cardiac Device: Loop Past Psychological History: Depression Smoking Status: Former smoker Past Alcohol Use History: None Reported Past Drug Use History: None Reported - Past Family History Mother Family Medical History: Cancer Additional Family Medical History / Comment(s): lung cancer Father Family Medical History: Dementia Additional Family Medical History / Comment(s): heart disease Sister(s) Family Medical History: Cancer Additional Family Medical History / Comment(s): Breast Cancer Brother(s) Family Medical History: Diabetes Mellitus Additional Family Medical History / Comment(s): heart disease General Exam - General Exam Comments Initial Comments: General: Appears in no acute distress. HEAD: Normal with no signs of head trauma. EYES: PERRLA, EOMI, conjunctiva normal, no discharge. Pupils are 3 mm and equal bilaterally. ENT: Hearing grossly intact, normal oropharynx. RESPIRATORY: Clear breath sounds bilaterally. No wheezes, rales, or rhonchi. C/V: Regular rate and rhythm. S1 and S2 auscultated, no edema, peripheral pulses 2+ and intact throughout ABD: Abd is soft, nontender, nondistended EXT: Normal range of motion, no obvious deformity SKIN: No rashes or lesions observed on exposed skin. NEURO: Alert and orient x 4. NIH is 0 for new symptoms. GCS 15. No focal acute neurological deficits. Chronic right-sided weakness in the right upper and right lower extremity from prior spinal cord injury. Limitations: no limitations Course Vital Signs 04/22/25 04/22/25 11:59 14:03 Temperature 98.1 F 97.6 F Pulse Rate 60 Pulse Rate [ 61 Pulse Oximetery ] Respiratory 17 16 Rate Blood Pressure 120/52 Blood Pressure 169/70 [Right Arm Sitting] Blood Pressure 167/75 [Right Arm Standing] Blood Pressure 166/77 [Right Arm Supine] O2 Sat by Pulse 99 100 Oximetry Medical Decision Making - Medical Decision Making Was pt. sent in by a medical professional or institution (, [employer], PATIENT CARE REPRESENTATIVE, urgent care, hospital, or care home...) When possible be specific @ -No Did you speak to anyone other than the patient for history (EMS, parent, family, police, friend...)? What history was obtained from this source @ -Patient's daughter presents at bedside and corroborates the story. Was also in agreement with plan for discharge. Did you review nursing and triage notes (agree or disagree)? Why? @ -I reviewed and agree with nursing and triage notes Were old charts reviewed (outside hosp., previous admission, EMS record, old EKG, old radiological studies, urgent care reports/EKG's, care home records)? Report findings @ -Reviewed prior EKG from December 2018 when patient also was experiencing sinus bradycardia at this time. Most recent EKG shows normal sinus rhythm with PVCs from August 2023. Differential Diagnosis (chest pain, altered mental status, abdominal pain women, abdominal pain men, vaginal bleeding, weakness, fever, dyspnea, syncope, headache, dizziness, GI bleed, back pain, seizure, CVA, palpatations, mental health, musculoskeletal)? @ -Differential Syncope: Valvular disease, hypertrophic cardiomyopathy, pulmonary embolism, tamponade, tachycardia, bradycardia, DE, hypovolemia, hemorrhage, dissection, anemia, intracranial hemorrhage, seizure, hypoglycemia, carbon monoxide poisoning, this is not meant to be an all-inclusive list. EKG interpreted by me (3pts min.). @ -As above X-rays interpreted by me (1pt min.). @ -Chest x-ray shows no obvious acute cardiopulmonary process. CT interpreted by me (1pt min.). @ -CT brain shows no signs of acute intracranial process. U/S interpreted by me (1pt. min.). @ -None done What testing was considered but not performed or refused? (CT, X-rays, U/S, lab s)? Why? @ -None What meds were considered but not given or refused? Why? @ -None Did you discuss the management of the patient with other professionals (professionals i.e. , [employer], PATIENT CARE REPRESENTATIVE, lab, RT, psych nurse, manager social services, packing inspector, teacher, president and chief commercial officer, case sealer)? Give summary @ -No Was smoking cessation discussed for >3mins.? @ -No Was critical care preformed (if so, how long)? @ -No Were there social determinants of health that impacted care today? How? (Homelessness, low income, unemployed, alcoholism, drug addiction, transportation, low edu. Level, literacy, decrease access to med. care, [facility], rehab)? @ -No Was there de-escalation of care discussed even if they declined (Discuss DNR or withdrawal of care, Hospice)? DNR status @ -No What co-morbidities impacted this encounter? (DM, HTN, Smoking, COPD, CAD, Cancer, CVA, ARF, Chemo, Hep., AIDS, mental health diagnosis, sleep apnea, morbid obesity)? @ -Atrial fibrillation on blood thinners, recurrent near syncopal episodes that are chronic Was patient admitted / discharged? Hospital course, mention meds given and route, prescriptions, significant lab abnormalities, going to OR and other pertinent info. @ -Patient presents to the emergency department for a syncopal episode. Has a history of recurrent near syncopal episodes. Also has a history of atrial fibrillation on blood thinners. We will obtain EKG, CT brain, chest x-ray, blood work. Patient was in agreement this plan. Vitals are currently within acceptable limits. Patient will be given food and water as patient has not eaten or drinking anything this morning. Also received 1 L fluid bolus. EKG shows mild bradycardia which does seem chronic for the patient compared with prior EKGs.Patient's laboratory studies returned remarkable for elevated BUN and creatinine within baseline level for the patient with his history of CKD. Remainder the labs and urine unremarkable. Chest x-ray shows no obvious acute cardiopulmonary process. CT brain shows no obvious acute intracranial process. On reevaluation, patient feels improved. Has no symptoms. Orthostatics negative. Has ambulated. I believe he is stable for discharge home and he was in agreement this plan. Recommended follow-up with his press secretary as well as his PCP which he was in agreement with. Strict return precautions were discussed. Did advise that he eat and drink in the morning daily. This could have contributed to his symptoms today. He expressed understanding and states he will attempt to do so. I instructed the patient to follow up with their PCP in the next 1-3 days. I explained that the patient should return to the emergency department if they experience any worsening symptoms. Strict return precautions were discussed with the patient. The patient expressed understanding of these instructions. I answered all questions that the patient had. The patient was discharged home in good condition with their prescriptions and follow up information. Undiagnosed new problem with uncertain prognosis? @ -No Drug Therapy requiring intensive monitoring for toxicity (Heparin, Nitro, Insulin, Cardizem)? @ -No Were any procedures done? @ -No Diagnosis/symptom? @ -Syncope of unknown etiology Acute, or Chronic, or Acute on Chronic? @ -Acute on chronic Uncomplicated (without systemic symptoms) or Complicated (systemic symptoms)? @ -Uncomplicated Side effects of treatment? @ -None Exacerbation, Progression, or Severe Exacerbation] @ -No Poses a threat to life or bodily function? @ -Unlikely at this time - Lab Data Result diagrams: 04/22/25 12:45 04/22/25 12:45 Lab Results 04/22/25 04/22/25 04/22/25 Range/Units 12:32 12:45 12:45 WBC 8.10 (4.50-10.00) 10*3/uL RBC 4.71 (4.40-5.60) 10*6/uL Hgb 13.7 (13.0-17.0) g/dL Hct 41.6 (39.6-50.0) % MCV 88.3 D (80.0-97.0) fL MCH 29.1 (27.0-32.0) pg MCHC 32.9 (32.0-37.0) g/dL Plt Count 173 (140-440) 10*3/uL MPV 10.6 (9.5-12.2) fL Immature Gran % (Auto) 0.5 % Neutrophils % 78.7 % Lymphocytes % 11.6 % Monocytes % 7.3 % Eosinophils % 1.2 % Basophils % 0.7 % Immature Gran # 0.04 (0.00-0.04) 10*3/uL Neutrophils # 6.37 (1.80-7.70) 10*3/uL Lymphocytes # 0.94 (0.90-5.00) 10*3/uL Monocytes # 0.59 (0.20-1.00) 10*3/uL Eosinophils # 0.10 (0.04-0.35) 10*3/uL Basophils # 0.06 (0.00-0.10) 10*3/uL PT 13.0 H (10.0-12.5) sec INR 1.2 H (<1.2) APTT 24.4 (22.0-30.0) sec Sodium (137-145) mmol/L Potassium (3.5-5.1) mmol/L Chloride (98-107) mmol/L Carbon Dioxide (22-30) mmol/L Anion Gap mmol/L BUN (9-20) mg/dL Creatinine (0.66-1.25) mg/dL Est GFR (CKD-EPI)AfAm (>60 ml/min/1.73 sqM) Est GFR (CKD-EPI)NonAf (>60 ml/min/1.73 sqM) Glucose (74-99) mg/dL POC Glucose (mg/dL) 90 (70-110) mg/dL POC Glu Armored Service Technician ID Gary Christel Calcium (8.4-10.2) mg/dL Magnesium (1.6-2.3) mg/dL Total Bilirubin (0.2-1.3) mg/dL AST (17-59) U/L ALT (4-49) U/L Alkaline Phosphatase (38-126) U/L Total Protein (6.3-8.2) g/dL Albumin (3.5-5.0) g/dL TSH (0.465-4.680) mIU/L Urine Color Urine Appearance (Clear) Urine pH (5.0-8.0) Ur Specific [place] (1.001-1.035) Urine Protein (Negative) Urine Glucose (UA) (Negative) Urine Ketones (Negative) Urine Blood (Negative) Urine Nitrite (Negative) Urine Bilirubin (Negative) Urine Urobilinogen (<2.0) mg/dL Ur Leukocyte Esterase (Negative) 04/22/25 04/22/25 Range/Units 12:45 13:29 WBC (4.50-10.00) 10*3/uL RBC (4.40-5.60) 10*6/uL Hgb (13.0-17.0) g/dL Hct (39.6-50.0) % MCV (80.0-97.0) fL MCH (27.0-32.0) pg MCHC (32.0-37.0) g/dL Plt Count (140-440) 10*3/uL MPV (9.5-12.2) fL Immature Gran % (Auto) % Neutrophils % % Lymphocytes % % Monocytes % % Eosinophils % % Basophils % % Immature Gran # (0.00-0.04) 10*3/uL Neutrophils # (1.80-7.70) 10*3/uL Lymphocytes # (0.90-5.00) 10*3/uL Monocytes # (0.20-1.00) 10*3/uL Eosinophils # (0.04-0.35) 10*3/uL Basophils # (0.00-0.10) 10*3/uL PT (10.0-12.5) sec INR (<1.2) APTT (22.0-30.0) sec Sodium 137 (137-145) mmol/L Potassium 4.3 (3.5-5.1) mmol/L Chloride 102 (98-107) mmol/L Carbon Dioxide 27 (22-30) mmol/L Anion Gap 8 mmol/L BUN 23 H (9-20) mg/dL Creatinine 1.35 H (0.66-1.25) mg/dL Est GFR (CKD-EPI)AfAm 53 (>60 ml/min/1.73 sqM) Est GFR (CKD-EPI)NonAf 46 (>60 ml/min/1.73 sqM) Glucose 90 (74-99) mg/dL POC Glucose (mg/dL) (70-110) mg/dL POC Glu Armored Service Technician ID Calcium 9.6 (8.4-10.2) mg/dL Magnesium 2.1 (1.6-2.3) mg/dL Total Bilirubin 0.9 (0.2-1.3) mg/dL AST 22 (17-59) U/L ALT 23 (4-49) U/L Alkaline Phosphatase 86 (38-126) U/L Total Protein 6.0 L (6.3-8.2) g/dL Albumin 3.9 (3.5-5.0) g/dL TSH 1.820 (0.465-4.680) mIU/L Urine Color Colorless Urine Appearance Clear (Clear) Urine pH 6.0 (5.0-8.0) Ur Specific [place] 1.005 (1.001-1.035) Urine Protein Negative (Negative) Urine Glucose (UA) Negative (Negative) Urine Ketones Negative (Negative) Urine Blood Negative (Negative) Urine Nitrite Negative (Negative) Urine Bilirubin Negative (Negative) Urine Urobilinogen <2.0 (<2.0) mg/dL Ur Leukocyte Esterase Negative (Negative) - EKG Data -: EKG Interpreted by Me EKG Comments: 12-lead Electrocardiogram Interpretation Note EKG was reviewed and interpreted by myself. 12-lead ECG performed at 1236 is interpreted by me as revealing sinus bradycardia at a rate of 53 beats per minute. [place] is normal. [place] interval is 190 ms, QRS duration is 106 ms, QTc is 419 ms.. There were no ST or T wave abnormalities to suggest myocardial ischem ia or injury. R wave progression across the precordium was satisfactory. By my interpretation this EKG is non-diagnostic for acute ischemia. Disposition Clinical Impression: Syncope Disposition: HOME SELF-CARE Condition: Good Instructions (If sedation given, give patient instructions): Syncope (ED) Is patient prescribed a controlled substance at d/c from ED?: No Referrals: Nikkie Colon MD [Primary Care Provider] - 1-2 days Time of Disposition: 14:30
[2025-04-22] MEDS: SODIUM CHLORIDE 0.9% 1,000 ML IV STA (12:48)
[2025-04-22 13:03] LABS: Basophils # (A) 0.06 10*3/uL (0.00-0.10); Basophils % (A) 0.7 %; Eosinophils % (A) 1.2 %; HCT 41.6 % (39.6-50.0); HGB 13.7 g/dL (13.0-17.0); Lymphocytes # (A) 0.94 10*3/uL (0.90-5.00); Lymphocytes % (A) 11.6 %; MCH 29.1 pg (27.0-32.0); MCHC 32.9 g/dL (32.0-37.0); Mean Platelet Volume 10.6 fL (9.5-12.2); Monocytes # (A) 0.59 10*3/uL (0.20-1.00); Monocytes % (A) 7.3 %; Neutrophils # (A) 6.37 10*3/uL (1.80-7.70); Neutrophils % (A) 78.7 %; Platelet Count 173 10*3/uL (140-440); RBC 4.71 10*6/uL (4.40-5.60)
[2025-04-22 13:13] LABS: INR 1.2 (<1.2); Partial Thromboplastin Time 24.4 sec (22.0-30.0)
--- NOTE | 2025-04-22 13:13 | XR ---
EXAMINATION TYPE: XR chest 2V DATE OF EXAM: 04/22/2025 1:06 PM COMPARISON: Chest radiographs from 08/24/2023 TECHNIQUE: XR chest 2V Frontal and lateral views of the chest. CLINICAL INDICATION:Male, 89 years old with history of syncope; FINDINGS: Lungs/Pleura: There is no evidence of pleural effusion, focal consolidation, or pneumothorax. Pulmonary vascularity: Unremarkable. Heart/mediastinum: Cardiomediastinal silhouette is prominent in size. Musculoskeletal: No acute osseous pathology. Other: Anterior chest wall loop recorder. IMPRESSION: Chronic changes without acute pulmonary process. No significant change from prior. [facility], , 04/22/2025 1:10 PM
[2025-04-22 13:21] LABS: ALT 23 U/L (4-49); AST 22 U/L (17-59); African American GFR (CKD) 53 (>60 ml/min/1.73 sqM); Albumin 3.9 g/dL (3.5-5.0); Alkaline Phosphatase 86 U/L (38-126); Anion Gap 8 mmol/L; Blood Urea Nitrogen 23 mg/dL (9-20); Calcium 9.6 mg/dL (8.4-10.2); Carbon Dioxide 27 mmol/L (22-30); Chloride 102 mmol/L (98-107); Glucose 90 mg/dL (74-99); Magnesium 2.1 mg/dL (1.6-2.3); Non-African American GFR(CKD) 46 (>60 ml/min/1.73 sqM); Potassium 4.3 mmol/L (3.5-5.1); Sodium 137 mmol/L (137-145); Total Bilirubin 0.9 mg/dL (0.2-1.3)
--- NOTE | 2025-04-22 13:21 | CT ---
EXAMINATION TYPE: CT brain wo con DATE OF EXAM: 04/22/2025 1:14 PM COMPARISON: 08/27/2023. CLINICAL INDICATION: Male, 89 years old with history of syncope, SYNCOPE. TECHNIQUE: Brain: Axial CT images of the brain were obtained with coronal and sagittal reformats created and rev iewed. Contrast used: None. Oral contrast used: None. CT DLP: 1082.4 mGycm, Automated exposure control for dose reduction was used. FINDINGS: Brain: Extra-axial spaces: No abnormal extra-axial fluid collections. Ventricular system: Dilatation in proportion to cerebral atrophy. Cerebral parenchyma: Similar heterogenous appearance of the white matter along the left external caps ule/insular cortex subcortical white matter. No acute intraparenchymal hemorrhage or mass effect. Th e kraft-white junction is well differentiated. Scattered hypoattenuating areas are seen within the whi te matter. Cerebellum: Unremarkable. Mass effect: No evidence of midline shift. Intracranial vasculature: Atherosclerotic calcifications of the intracranial vessels. Soft tissues: Normal. Calvarium/osseous structures: No depressed skull fracture. Paranasal sinuses and mastoid air cells: Mild scattered paranasal sinus disease. Visualized orbits: Bilateral aphakia IMPRESSION: 1. No acute intracranial process. 2. Nonspecific white matter changes, likely secondary to chronic small vessel ischemic disease. [facility], , 04/22/2025 1:18 PM
[2025-04-22 13:38] LABS: Appearance,Urine Clear (Clear); Bilirubin,Urine Negative (Negative); Blood,Urine Negative (Negative); Color,Urine Colorless; Glucose,Urine (UA) Negative (Negative); Ketones,Urine Negative (Negative); Leukocyte Esterase,Urine Negative (Negative); Nitrite,Urine Negative (Negative); Protein,Urine Negative (Negative); Specific Gravity,Urine 1.005 (1.001-1.035); Urobilinogen,Urine <2.0 mg/dL (<2.0)
[2025-04-22 13:56] LABS: MCV 88.3 fL (80.0-97.0)
[2025-04-22 14:05] VITALS: TEMP 97.6
[2025-04-22 15:00] VITALS: BP 150/67; PULSE 66; RESP 20
== END 2025-04-22 15:00 | disposition home or self-care (01) ==
LOC: EC 11:58
DX: R55 Syncope and collapse (principal); R00.1 Bradycardia, unspecified; I48.91 Unspecified atrial fibrillation; Z87.891 Personal history of nicotine dependence; Z88.0 Allergy status to penicillin; Z88.7 Allergy status to serum and vaccine; Z88.8 Allergy status to other drugs, medicaments and biological substances
CPT/HCPCS: 36415; 70450; 71046; 80053; 81003; 83735; 84443; 85025; 85610; 85730; 93005; 96360; 99284